=== PATIENT | male | born 1950 | race Two or more races ===

== ENCOUNTER → 2017-07-17 | Outpatient (CLI) | payer MEDICARE ==
[~2017-07-17] MED LIST: ASPI-482 PO; ATORVASTATIN CA80 MG PO; CLOP75TA PO; LISI2.5T PO; METF500T4 PO; METO50TA6 PO; TAMS0.4C2 PO
--- NOTE | 2017-07-17 15:58 | RAD ---
Bilateral renal ultrasound without comparison for chronic renal disease. Technique and findings: Real-time grayscale and color Doppler evaluation of the kidneys and urinary bladder is performed. The right kidney measures 11.7 x 5.5 x 5.8 cm and the left measures 12.3 x 5.5 x 6.0 cm. No hydronephrosis or focal parenchymal abnormality involving either kidney. The urinary bladder is partially distended but otherwise unremarkable. Postvoid residual is 71 cc. The prostate is markedly enlarged measuring 5.9 x 6.2 x 5.5 cm. Impression: 1. No sonographically discernible renal abnormality. 2. Marked prostatomegaly. 3. Abnormal post void residual.
== END | disposition home or self-care (01) ==
LOC: US 14:06
PROVIDERS: ATTEND Family Medicine
DX: N18.9 Chronic kidney disease, unspecified (principal); N40.0 Benign prostatic hyperplasia without lower urinary tract symptoms
CPT/HCPCS: 76770

== ENCOUNTER → 2018-10-27 | Outpatient (CLI) | payer MEDICARE ==
[2018-02-12 11:00] VITALS: BP 172/82
[~2018-10-27] MED LIST changes: +AMOX1TAB61 PO; +FINA5TAB4 PO; +FURO-68 PO; +GLIM4TAB2 PO; +INSU100I11 SQ; +INSU100I13 SQ; +ISOS30TA4 PO; +LISI10TA2 PO; +METF500T16 PO; -METF500T4 PO; +METO-239 PO; +TAMS0.4C97 PO; +TICA90TA PO
--- NOTE | 2018-10-27 12:20 | RAD ---
CT HEAD WITHOUT CONTRAST 10/27/2018 12:00 PM Indication: Transient ischemic attack Comparison: None available Procedure: Multidetector CT imaging of the head was performed without the administration of contrast. Findings: There is no evidence of acute intracranial hemorrhage. There is no evidence of acute territorial infarction. Please note that CT is limited for evaluation of acute ischemia. There is clinical concern for ischemia persists consider MRI evaluation. Patchy periventricular deep white matter hypoattenuation is seen most likely reflecting chronic small vessel disease. No mass effect or midline shift is identified . Mineralization involving the basal ganglia noted bilaterally. The ventricles and basilar cisterns have an appropriate appearance. No abnormal extra-axial fluid collections are seen. No acute osseous changes are identified. Impression: 1.No evidence of acute intracranial abnormality 2. Patchy periventricular and deep white matter hypoattenuation most likely reflecting chronic small vessel disease CT DOSING PQRS STATEMENT: One or more of the following individualized dose reduction techniques were utilized for this examination: 1. Automated exposure control 2. Adjustment of the mA and/or kV according to patient size 3. Use of iterative reconstruction technique Electronically signed by: Vel Simon MD (10/27/2018 12:17 PM) [id number]
== END | disposition home or self-care (01) ==
LOC: CT 11:38
PROVIDERS: ATTEND Family Medicine
DX: G23.8 Other specified degenerative diseases of basal ganglia (principal); G45.9 Transient cerebral ischemic attack, unspecified
CPT/HCPCS: 70450

== ENCOUNTER 2018-11-21 15:21 | Inpatient (IN) | payer MEDICARE ==
[~2018-11-21] VITALS: Ht 170.2 cm; Wt 80.9 kg
[~2018-11-21 15:21] MED LIST changes: -FINA5TAB4 PO; -FURO-68 PO; -GLIM4TAB2 PO; -ISOS30TA4 PO; -METO-239 PO; -TAMS0.4C97 PO; -TICA90TA PO
[2018-11-21] MEDS ORDERED: FUROSEMIDE 40 MG/4 ML VIAL. IVP ONE (15:45)
[2018-11-21 16:04] LABS: BASO % 1 % (0-3); EOS # 0.1 x10^3/uL (0.0-0.7); EOS % 1 % (0-3); HEMATOCRIT 29.2 % (39.0-53.0); LYMPH # 0.9 x10^3/uL (1.0-4.8); LYMPH % 13 % (24-48); MEAN CORPUSCULAR HEMOGLOBIN 32 pg (25-35); MEAN CORPUSCULAR HGB CONC 34 g/dL (31-37); MEAN CORPUSCULAR VOLUME 93 fL (79-100); MONO # 0.5 x10^3/uL (0.0-1.1); MONO % 8 % (0-9); NEUT # 5.2 x10^3uL (1.8-7.7); NEUT % 78 % (31-73); PLATELET COUNT 246 x10^3/uL (140-400); RED BLOOD COUNT 3.13 x10^6/uL (4.30-5.70); RED CELL DISTRIBUTION WIDTH 13.3 % (11.5-14.5); WHITE BLOOD COUNT 6.6 x10^3/uL (4.0-11.0)
[2018-11-21 16:19] LABS: CALCIUM 8.8 mg/dL (8.5-10.1); CREATININE 1.9 mg/dL (0.7-1.3); GFR 35.3; POTASSIUM 4.7 mmol/L (3.5-5.1)
--- NOTE | 2018-11-21 16:21 | EKG ---
[facility] [address] [place] [address] Test Date: 2018-11-21 Test Time: 15:54:10 Pat Name: CRAIG MENCHACA Department: Room: Gender: M Director Of Payroll: : 1950 Requested By: NIKOLAY BELLE Order Number: [id number] Reading MD: Lalo Carr MD Measurements Intervals [place] Rate: 103 P: 0 NE: 124 QRS: 30 QRSD: 98 T: 169 QT: 360 QTc: 474 Interpretive Statements SINUS TACHYCARDIA LOW LIMB LEAD VOLTAGE ST & T ABNORMALITY, CONSIDER ANTEROLATERAL ISCHEMIA OR LEFT VENTRICULAR STRAIN ABNORMAL ECG Electronically Signed On 11-25-2018 14:04:38 CDT by Lalo Carr MD
[2018-11-21 16:25] LABS: ALBUMIN 3.4 g/dL (3.4-5.0); MAGNESIUM 1.9 mg/dL (1.8-2.4); TOTAL BILIRUBIN 0.5 mg/dL (0.2-1.0); TOTAL PROTEIN 6.8 g/dL (6.4-8.2)
--- NOTE | 2018-11-21 17:01 | RAD ---
Portable chest, 11/21/2018: HISTORY: Dyspnea, chest pain There are moderate infiltrates in the lower chest bilaterally. These partially obscure the hemidiaphragms and the heart borders. The heart is at the upper limits of normal in size. The pulmonary vascularity appears congested. There may be pleural fluid contributing to the basilar opacities. IMPRESSION: Moderate bibasilar infiltrates suggesting pulmonary edema. Pneumonia is less likely. Electronically signed by: Torrey Benitez MD (11/21/2018 4:58 PM) [facility]
--- NOTE | 2018-11-21 17:18 | PHYS DOC ---
Past Medical History Past Medical History: CAD, Diabetes-Type II, Hypertension Past Surgical History: No Surgical History Alcohol Use: Rarely Drug Use: None Adult General Chief Complaint Chief Complaint: SHORTNESS OF BREATH HPI HPI Patient is a 68-year-old male who presents with complaint of cough and shortness of breath with some chest discomfort that has been present for the last few days. Patient states shortness of breath is worsened with minimal exertion and he also complains of orthopnea. Patient was being seen by Dr. Marti who had sent patient to the emergency room for further evaluation. Patient denies any chest pain at this time. He states that typically the chest discomfort occurs more at night when he is going to bed. He denies any nausea, vomiting or diaphoresis. He states that he has to sleep on several pillows at night. Patient also reports to a significant amount of swelling to his lower legs that has been going on for quite some time now. Review of Systems Review of Systems Constitutional: Denies fever or chills [] Respiratory: Positive cough and shortness of breath [] Cardiovascular: No additional information not addressed in HPI [] GI: Denies abdominal pain, nausea, vomiting or diarrhea [] Integument: Denies rash or skin lesions [] Neurologic: Denies headache, focal weakness or sensory changes [] All other systems were reviewed and found to be within normal limits, except as documented in this note. Current Medications Current Medications Current Medications Medications (Trade) Dose Ordered Sig/Sathish Start Time Stop Time Status Last Admin Dose Admin Furosemide (Lasix) 60 mg 1X ONCE 11/21/18 15:45 11/21/18 15:49 DC 11/21/18 16:34 60 MG Heparin Sodium (Porcine) (Heparin Sodium) 1,850 unit PRN Q6HRS PRN 11/21/18 17:30 UNV Heparin Sodium/ Dextrose 500 ml @ 0 mls/hr CONT PRN 11/21/18 17:30 UNV Insulin Human Regular (HumuLIN R VIAL) 5 unit 1X ONCE 11/21/18 17:30 11/21/18 17:31 Allergies Allergies Allergies Coded Allergies Type Severity Reaction Last Updated Verified No Known Drug Allergies 02/10/18 No Physical Exam Physical Exam Constitutional: Well developed, well nourished, no acute distress, non-toxic appearance. [] HENT: Normocephalic, atraumatic, bilateral external ears normal, oropharynx moist, no oral exudates, nose normal. [] Eyes: PERRLA, EOMI, conjunctiva normal, no discharge. [] Neck: Normal range of motion, no tenderness, supple, no stridor. [] Cardiovascular: Regular rate and rhythm[] Lungs & Thorax: Rales are noted in the lung bases to auscultation [] Abdomen: Bowel sounds normal, soft, no tenderness. [] Skin: Warm, dry, no erythema, no rash. [] Extremities: No tenderness, no cyanosis, no clubbing, ROM intact, with bilateral lower extremity 3+ pitting edema. [] Neurologic: Alert and oriented X 3, no focal deficits noted. [] Current Patient Data Vital Signs Vital Signs Date Time Temp Pulse Resp B/P (MAP) Pulse Ox O2 Delivery O2 Flow Rate FiO2 11/21/18 16:42 96 16 140/81 (100) 96 Nasal Cannula 2.0 11/21/18 15:45 98.3 98.3 Lab Values Laboratory Tests Test 11/21/18 16:00 White Blood Count 6.6 x10^3/uL (4.0-11.0) Red Blood Count 3.13 x10^6/uL (4.30-5.70) L Hemoglobin 10.0 g/dL (13.0-17.5) L Hematocrit 29.2 % (39.0-53.0) L Mean Corpuscular Volume 93 fL (79-100) Mean Corpuscular Hemoglobin 32 pg (25-35) Mean Corpuscular Hemoglobin Concent 34 g/dL (31-37) Red Cell Distribution Width 13.3 % (11.5-14.5) Platelet Count 246 x10^3/uL (140-400) Neutrophils (%) (Auto) 78 % (31-73) H Lymphocytes (%) (Auto) 13 % (24-48) L Monocytes (%) (Auto) 8 % (0-9) Eosinophils (%) (Auto) 1 % (0-3) Basophils (%) (Auto) 1 % (0-3) Neutrophils # (Auto) 5.2 x10^3uL (1.8-7.7) Lymphocytes # (Auto) 0.9 x10^3/uL (1.0-4.8) L Monocytes # (Auto) 0.5 x10^3/uL (0.0-1.1) Eosinophils # (Auto) 0.1 x10^3/uL (0.0-0.7) Basophils # (Auto) 0.0 x10^3/uL (0.0-0.2) Sodium Level 139 mmol/L (136-145) Potassium Level 4.7 mmol/L (3.5-5.1) Chloride Level 102 mmol/L (98-107) Carbon Dioxide Level 22 mmol/L (21-32) Anion Gap 15 (6-14) H Blood Urea Nitrogen 40 mg/dL (8-26) H Creatinine 1.9 mg/dL (0.7-1.3) H Estimated GFR (Cockcroft-Gault) 35.3 BUN/Creatinine Ratio 21 (6-20) H Glucose Level 302 mg/dL (70-99) H Calcium Level 8.8 mg/dL (8.5-10.1) Magnesium Level 1.9 mg/dL (1.8-2.4) Total Bilirubin 0.5 mg/dL (0.2-1.0) Aspartate Amino Transferase (AST) 17 U/L (15-37) Alanine Aminotransferase (ALT) 27 U/L (16-63) Alkaline Phosphatase 120 U/L (46-116) H Troponin I Quantitative 0.107 ng/mL (0.000-0.055) UU-Rho-I-Type Natriuretic Peptide 36940 pg/mL (0-124) H Total Protein 6.8 g/dL (6.4-8.2) Albumin 3.4 g/dL (3.4-5.0) Albumin/Globulin Ratio 1.0 (1.0-1.7) Laboratory Tests 11/21/18 16:00 Laboratory Tests 11/21/18 16:00 EKG EKG [] Interpretation Time: EKG demonstrates sinus tachycardia with rate of 103. Radiology/Procedures Radiology/Procedures [] Impressions: PROCEDURE: PORTABLE CHEST 1V Portable chest, 11/21/2018: HISTORY: Dyspnea, chest pain There are moderate infiltrates in the lower chest bilaterally. These partially obscure the hemidiaphragms and the heart borders. The heart is at the upper limits of normal in size. The pulmonary vascularity appears congested. There may be pleural fluid contributing to the basilar opacities. IMPRESSION: Moderate bibasilar infiltrates suggesting pulmonary edema. Pneumonia is less likely. Electronically signed by: Torrey Benitez MD (11/21/2018 4:58 PM) [facility] Course & Med Decision Making Course & Med Decision Making Pertinent Labs and Imaging studies reviewed. (See chart for details) [] Dragon Disclaimer Dragon Disclaimer This electronic medical record was generated, in whole or in part, using a voice recognition dictation system. Departure Departure Impression: Primary Impression: CHF (congestive heart failure) Additional Impressions: Sywxp-qs-mirfims kidney injury Chest pain Disposition: ADMITTED INPATIENT Admitting Physician: Edward Braun Condition: IMPROVED Referrals: EDWARD BRAUN MD (PCP) Problem Qualifiers Primary Impression: CHF (congestive heart failure) Heart failure type: unspecified Heart failure chronicity: unspecified Qualified Codes: I50.9 - Heart failure, unspecified Additional Impressions: [id number]-bt-myxsgon kidney injury Acute renal failure type: unspecified Chronic kidney disease stage: unspecified stage Qualified Codes: N17.9 - Acute kidney failure, unspecified; N18.9 - Chronic kidney disease, unspecified Chest pain Chest pain type: unspecified Qualified Codes: R07.9 - Chest pain, unspecified NIKOLAY BELLE Jr. DO November 21, 2018 17:18
[2018-11-21] MEDS ORDERED: INSULIN REGULAR 100 UNIT/ML 3ML VIAL. IV ONE (17:30)
[2018-11-21] MEDS ORDERED: HEPARIN for IV BOLUS 10,000 UNIT/10 ML VIAL. IV ONE (17:30)
[2018-11-21] MEDS ORDERED: ACETAMINOPHEN 325 MG TABLET. PO PRN (17:30)
[2018-11-21] MEDS ORDERED: MORPHINE SULFATE 2 MG/ML VIAL. IV PRN (17:30)
[2018-11-21] MEDS ORDERED: HEPARIN for IV BOLUS 10,000 UNIT/10 ML VIAL. IV PRN (17:30)
[2018-11-21] MEDS ORDERED: ONDANSETRON PF 4 MG/2 ML VIAL. IV PRN (17:30)
[2018-11-21] MEDS: HEPARIN 25,000UTS/500ML PREMIX 500 ML IV PRN (17:47)
[2018-11-21 22:00] VITALS: BP 153/83
[2018-11-21] MEDS ORDERED: METO-239 PO (23:23)
[2018-11-21] MEDS ORDERED: GLIM4TAB2 PO (23:23)
[2018-11-22 02:22] VITALS: BP 140/80
[2018-11-22] MEDS: ALPRAZolam 0.5 MG TABLET PO PRN ×2 (04:06→19:35)
--- NOTE | 2018-11-22 04:26 | NUR ---
Patient arrived to floor on 11/21/18 at 1915 accompanied ER nurse, son, and daughter in law. Vs stable, Assessment complete. Patient on 2L NC and resting comfortably. No reports of pain at this time. Patient speaks little south korean, family at bedside to translate. Valuables checked and documented. Oriented patient and family to unit. Call light with in reach, Bed in low locked position, Daughter Majo at bedside.
--- NOTE | 2018-11-22 05:43 | NUR ---
0340: bladder scanned patient 650cc, notified Dr. Braun - orders received to start and maintain Stoner cath. explained procedure to patient and daughter. 500 cc clear yellow urine out. pt tolerated procedure well. call light with in reach, bed in low, locked position. 0400: change in pt condition, pt complains of SOB, O2 sat 90%, turned O2 to 3 L. Bright red blood in stoner, irrigated with 20 cc sterile water, will continue to monitor patient output.
[2018-11-22 07:38] LABS: BASO % 1 % (0-3); EOS % 0 % (0-3); HEMATOCRIT 28.6 % (39.0-53.0); HEMOGLOBIN 9.5 g/dL (13.0-17.5); LYMPH # 0.6 x10^3/uL (1.0-4.8); LYMPH % 9 % (24-48); MEAN CORPUSCULAR HEMOGLOBIN 31 pg (25-35); MEAN CORPUSCULAR HGB CONC 33 g/dL (31-37); MEAN CORPUSCULAR VOLUME 93 fL (79-100); MONO # 0.4 x10^3/uL (0.0-1.1); MONO % 5 % (0-9); NEUT # 6.3 x10^3uL (1.8-7.7); NEUT % 85 % (31-73); PLATELET COUNT 228 x10^3/uL (140-400); RED BLOOD COUNT 3.06 x10^6/uL (4.30-5.70); RED CELL DISTRIBUTION WIDTH 13.7 % (11.5-14.5); WHITE BLOOD COUNT 7.4 x10^3/uL (4.0-11.0)
[2018-11-22 07:45] VITALS: BP 156/85
[2018-11-22 08:02] LABS: CALCIUM 8.3 mg/dL (8.5-10.1); CREATININE 1.8 mg/dL (0.7-1.3); GFR 37.6; POTASSIUM 4.6 mmol/L (3.5-5.1)
[2018-11-22] MEDS: ASPIRIN ENTERIC COATED 81 MG TABLET.DR. PO SCH (09:45)
[2018-11-22] MEDS: GLIMEPIRIDE 2 MG TABLET. PO SCH (09:45)
[2018-11-22] MEDS: CLOPIDOGREL BISULFATE 75 MG TABLET PO SCH (09:45)
[2018-11-22] MEDS: LISINOPRIL 10 MG TABLET PO SCH (09:47)
[2018-11-22] MEDS: METOPROLOL SUCC 24HR ER 25 MG TAB.ER.24H. PO SCH (09:50)
[2018-11-22] MEDS: ANTI-COAG MONITOR BY PHARMACY. MC PRN (10:37)
--- NOTE | 2018-11-22 10:44 | PDOC2 ---
UROLOGY CONSULT Date of Consult Date of Consult DATE: 11/22/18 TIME: 10:38 Reason for Consult Reason for Consult: urinary retention, gross hematuria Identification/Chief Complaint Chief Complaint shortness of breath Source Source: Caregiver, Chart review, Patient History of Present Illness Reason for Visit: 68 yo male admitted for shortness of breath. Cardiac workup underway. Not able to pass urine and stoner placed with return of 600 ml yellow urine. Then developed gross hematuria. He denies prior difficulty with urination. Also no prior gross hematuria. Discharge summary from 2018 showed that he was on flomax, but he is not sure if he is still taking that medication. Family also unsure. History obtained through family and with family assisting with translating per patient's preference. Past Medical History Cardiovascular: CAD, HTN Endocrine: Diabetes Current Medications Current Medications Current Medications Acetaminophen (Tylenol) 650 mg PRN Q4HRS PRN PO FEVER; Start 11/21/18 at 17:30; Stop 11/22/18 at 17:29 Alprazolam (Xanax) 0.5 mg PRN Q6HRS PRN PO ANXIETY / AGITATION Last administered on 11/22/18at 04:06; Start 11/22/18 at 03:30 Aspirin (Ecotrin) 81 mg DAILY PO Last administered on 11/22/18at 09:45; Start 11/22/18 at 09:00 Atorvastatin Calcium (Lipitor) 80 mg QHS PO ; Start 11/22/18 at 21:00 Clopidogrel Bisulfate (Plavix) 75 mg DAILY PO Last administered on 11/22/18at 09:45; Start 11/22/18 at 09:00 Furosemide (Lasix) 60 mg 1X ONCE IVP Last administered on 11/21/18at 16:34; Start 11/21/18 at 15:45; Stop 11/21/18 at 15:49; Status DC Glimepiride (Amaryl) 4 mg DAILY PO Last administered on 11/22/18at 09:45; Start 11/22/18 at 09:00 Heparin Sodium (Porcine) (Heparin Sodium) 1,850 unit PRN Q6HRS PRN IV FOR UFH LEVEL LESS THAN 0.2 Last administered on 11/22/18at 01:30; Start 11/21/18 at 17:30 Heparin Sodium (Porcine) (Heparin Sodium) 4,000 unit 1X ONCE IV Last administered on 11/21/18at 17:46; Start 11/21/18 at 17:30; Stop 11/21/18 at 17:31; Status DC Heparin Sodium/ Dextrose 500 ml @ 17.6 mls/hr CONT PRN IV SEE I/O RECORD Last administered on 11/21/18at 17:47; Start 11/21/18 at 17:30 Info (Anti-Coagulation Monitoring By Pharmacy) 1 each PRN DAILY PRN MC SEE COMMENTS; Start 11/22/18 at 10:45 Insulin Glargine (Lantus) 30 units QHS SQ ; Start 11/22/18 at 21:00 Insulin Human Lispro (HumaLOG) 8 units TIDAC SQ ; Start 11/22/18 at 11:30 Insulin Human Regular (HumuLIN R VIAL) 5 unit 1X ONCE IV Last administered on 11/21/18at 17:50; Start 11/21/18 at 17:30; Stop 11/21/18 at 17:31; Status DC Lisinopril (Prinivil) 10 mg DAILY PO Last administered on 11/22/18at 09:47; Start 11/22/18 at 09:00 Metoprolol Succinate (Toprol Xl) 25 mg DAILY PO Last administered on 11/22/18at 09:50; Start 11/22/18 at 09:00 Morphine Sulfate (Morphine Sulfate) 2 mg PRN Q2HR PRN IV PAIN; Start 11/21/18 at 17:30; Stop 11/22/18 at 17:29 Ondansetron HCl (Zofran) 4 mg PRN Q8HRS PRN IV NAUSEA/VOMITING; Start 11/21/18 at 17:30; Stop 11/22/18 at 17:29 Allergies Allergies: Coded Allergies: No Known Drug Allergies (Unverified , 02/10/18) ROS Review Of Systems: ROS as below unless otherwise specified in HPI: CONSTITUTIONAL: No fever or chills EYES: No recent changes SKIN: No rash or itching CARDIOVASCULAR: No chest pain, syncope, palpitations, or edema RESPIRATORY: + SOB GASTROINTESTINAL: No nausea, vomiting or abdominal pain NEUROLOGICAL: No headaches or weakness ENDOCRINE: No cold or heat intolerance GENITOURINARY: No urgency or frequency of urination MUSCULOSKELETAL: No back pain or joint pain LYMPHATICS: No enlarged lymph nodes PSYCHIATRIC: No anxiety or depression Physical Exam Physical Exam: General: Pleasant, no acute distress, well groomed Eyes: conjunctiva anicteric, eyes full range of motion ENT: moist oral mucosa, normal dentition Neck: Trachea midline, no masses Respiratory: unlabored breathing, not using accessory muscles, no crackles or wheezes Cardiovascular: Regular rate and rhythm, no peripheral edema Abdomen: nontender, nondistended, no hepatosplenomegaly, no masses Skin: no rashes or skin lesions on visualized skin Psych: normal mood, affect. Alert and oriented x 3. : red urine in stoner without clots. Stoner in appropriate positiov with balloon in bladder. Catheter irrigated with return of light pink clear urine, no clots. Vitals VITALS Vital Signs Date Time Temp Pulse Resp B/P (MAP) Pulse Ox O2 Delivery O2 Flow Rate FiO2 11/22/18 09:50 101 167/83 11/22/18 07:45 98.0 24 95 Nasal Cannula 3.0 98.0 Labs Labs Laboratory Tests Test 11/21/18 16:00 11/21/18 20:36 11/22/18 00:05 11/22/18 04:52 White Blood Count 6.6 x10^3/uL (4.0-11.0) Red Blood Count 3.13 x10^6/uL (4.30-5.70) Hemoglobin 10.0 g/dL (13.0-17.5) Hematocrit 29.2 % (39.0-53.0) Mean Corpuscular Volume 93 fL (79-100) Mean Corpuscular Hemoglobin 32 pg (25-35) Mean Corpuscular Hemoglobin Concent 34 g/dL (31-37) Red Cell Distribution Width 13.3 % (11.5-14.5) Platelet Count 246 x10^3/uL (140-400) Neutrophils (%) (Auto) 78 % (31-73) Lymphocytes (%) (Auto) 13 % (24-48) Monocytes (%) (Auto) 8 % (0-9) Eosinophils (%) (Auto) 1 % (0-3) Basophils (%) (Auto) 1 % (0-3) Neutrophils # (Auto) 5.2 x10^3uL (1.8-7.7) Lymphocytes # (Auto) 0.9 x10^3/uL (1.0-4.8) Monocytes # (Auto) 0.5 x10^3/uL (0.0-1.1) Eosinophils # (Auto) 0.1 x10^3/uL (0.0-0.7) Basophils # (Auto) 0.0 x10^3/uL (0.0-0.2) Sodium Level 139 mmol/L (136-145) Potassium Level 4.7 mmol/L (3.5-5.1) Chloride Level 102 mmol/L (98-107) Carbon Dioxide Level 22 mmol/L (21-32) Anion Gap 15 (6-14) Blood Urea Nitrogen 40 mg/dL (8-26) Creatinine 1.9 mg/dL (0.7-1.3) Estimated GFR (Cockcroft-Gault) 35.3 BUN/Creatinine Ratio 21 (6-20) Glucose Level 302 mg/dL (70-99) Calcium Level 8.8 mg/dL (8.5-10.1) Magnesium Level 1.9 mg/dL (1.8-2.4) Total Bilirubin 0.5 mg/dL (0.2-1.0) Aspartate Amino Transf (AST/SGOT) 17 U/L (15-37) Alanine Aminotransferase (ALT/SGPT) 27 U/L (16-63) Alkaline Phosphatase 120 U/L (46-116) Troponin I Quantitative 0.107 ng/mL (0.000-0.055) 0.142 ng/mL (0.000-0.055) 0.157 ng/mL (0.000-0.055) PW-Hkt-N-Type Natriuretic Peptide 85268 pg/mL (0-124) Total Protein 6.8 g/dL (6.4-8.2) Albumin 3.4 g/dL (3.4-5.0) Albumin/Globulin Ratio 1.0 (1.0-1.7) Heparin Anti-Xa Act, Unfractionated 0.19 IU/mL (0.30-0.70) Glucose (Fingerstick) 241 mg/dL (70-99) Test 11/22/18 07:30 11/22/18 07:51 White Blood Count 7.4 x10^3/uL (4.0-11.0) Red Blood Count 3.06 x10^6/uL (4.30-5.70) Hemoglobin 9.5 g/dL (13.0-17.5) Hematocrit 28.6 % (39.0-53.0) Mean Corpuscular Volume 93 fL (79-100) Mean Corpuscular Hemoglobin 31 pg (25-35) Mean Corpuscular Hemoglobin Concent 33 g/dL (31-37) Red Cell Distribution Width 13.7 % (11.5-14.5) Platelet Count 228 x10^3/uL (140-400) Neutrophils (%) (Auto) 85 % (31-73) Lymphocytes (%) (Auto) 9 % (24-48) Monocytes (%) (Auto) 5 % (0-9) Eosinophils (%) (Auto) 0 % (0-3) Basophils (%) (Auto) 1 % (0-3) Neutrophils # (Auto) 6.3 x10^3uL (1.8-7.7) Lymphocytes # (Auto) 0.6 x10^3/uL (1.0-4.8) Monocytes # (Auto) 0.4 x10^3/uL (0.0-1.1) Eosinophils # (Auto) 0.0 x10^3/uL (0.0-0.7) Basophils # (Auto) 0.0 x10^3/uL (0.0-0.2) Heparin Anti-Xa Act, Unfractionated 0.34 IU/mL (0.30-0.70) Sodium Level 139 mmol/L (136-145) Potassium Level 4.6 mmol/L (3.5-5.1) Chloride Level 102 mmol/L (98-107) Carbon Dioxide Level 24 mmol/L (21-32) Anion Gap 13 (6-14) Blood Urea Nitrogen 36 mg/dL (8-26) Creatinine 1.8 mg/dL (0.7-1.3) Estimated GFR (Cockcroft-Gault) 37.6 Glucose Level 278 mg/dL (70-99) Calcium Level 8.3 mg/dL (8.5-10.1) Glucose (Fingerstick) 224 mg/dL (70-99) Laboratory Tests Test 11/21/18 16:00 11/21/18 20:36 11/22/18 00:05 11/22/18 04:52 White Blood Count 6.6 x10^3/uL (4.0-11.0) Red Blood Count 3.13 x10^6/uL (4.30-5.70) Hemoglobin 10.0 g/dL (13.0-17.5) Hematocrit 29.2 % (39.0-53.0) Mean Corpuscular Volume 93 fL (79-100) Mean Corpuscular Hemoglobin 32 pg (25-35) Mean Corpuscular Hemoglobin Concent 34 g/dL (31-37) Red Cell Distribution Width 13.3 % (11.5-14.5) Platelet Count 246 x10^3/uL (140-400) Neutrophils (%) (Auto) 78 % (31-73) Lymphocytes (%) (Auto) 13 % (24-48) Monocytes (%) (Auto) 8 % (0-9) Eosinophils (%) (Auto) 1 % (0-3) Basophils (%) (Auto) 1 % (0-3) Neutrophils # (Auto) 5.2 x10^3uL (1.8-7.7) Lymphocytes # (Auto) 0.9 x10^3/uL (1.0-4.8) Monocytes # (Auto) 0.5 x10^3/uL (0.0-1.1) Eosinophils # (Auto) 0.1 x10^3/uL (0.0-0.7) Basophils # (Auto) 0.0 x10^3/uL (0.0-0.2) Sodium Level 139 mmol/L (136-145) Potassium Level 4.7 mmol/L (3.5-5.1) Chloride Level 102 mmol/L (98-107) Carbon Dioxide Level 22 mmol/L (21-32) Anion Gap 15 (6-14) Blood Urea Nitrogen 40 mg/dL (8-26) Creatinine 1.9 mg/dL (0.7-1.3) Estimated GFR (Cockcroft-Gault) 35.3 BUN/Creatinine Ratio 21 (6-20) Glucose Level 302 mg/dL (70-99) Calcium Level 8.8 mg/dL (8.5-10.1) Magnesium Level 1.9 mg/dL (1.8-2.4) Total Bilirubin 0.5 mg/dL (0.2-1.0) Aspartate Amino Transf (AST/SGOT) 17 U/L (15-37) Alanine Aminotransferase (ALT/SGPT) 27 U/L (16-63) Alkaline Phosphatase 120 U/L (46-116) Troponin I Quantitative 0.107 ng/mL (0.000-0.055) 0.142 ng/mL (0.000-0.055) 0.157 ng/mL (0.000-0.055) WR-Zne-K-Type Natriuretic Peptide 12065 pg/mL (0-124) Total Protein 6.8 g/dL (6.4-8.2) Albumin 3.4 g/dL (3.4-5.0) Albumin/Globulin Ratio 1.0 (1.0-1.7) Heparin Anti-Xa Act, Unfractionated 0.19 IU/mL (0.30-0.70) Glucose (Fingerstick) 241 mg/dL (70-99) Test 11/22/18 07:30 11/22/18 07:51 White Blood Count 7.4 x10^3/uL (4.0-11.0) Red Blood Count 3.06 x10^6/uL (4.30-5.70) Hemoglobin 9.5 g/dL (13.0-17.5) Hematocrit 28.6 % (39.0-53.0) Mean Corpuscular Volume 93 fL (79-100) Mean Corpuscular Hemoglobin 31 pg (25-35) Mean Corpuscular Hemoglobin Concent 33 g/dL (31-37) Red Cell Distribution Width 13.7 % (11.5-14.5) Platelet Count 228 x10^3/uL (140-400) Neutrophils (%) (Auto) 85 % (31-73) Lymphocytes (%) (Auto) 9 % (24-48) Monocytes (%) (Auto) 5 % (0-9) Eosinophils (%) (Auto) 0 % (0-3) Basophils (%) (Auto) 1 % (0-3) Neutrophils # (Auto) 6.3 x10^3uL (1.8-7.7) Lymphocytes # (Auto) 0.6 x10^3/uL (1.0-4.8) Monocytes # (Auto) 0.4 x10^3/uL (0.0-1.1) Eosinophils # (Auto) 0.0 x10^3/uL (0.0-0.7) Basophils # (Auto) 0.0 x10^3/uL (0.0-0.2) Heparin Anti-Xa Act, Unfractionated 0.34 IU/mL (0.30-0.70) Sodium Level 139 mmol/L (136-145) Potassium Level 4.6 mmol/L (3.5-5.1) Chloride Level 102 mmol/L (98-107) Carbon Dioxide Level 24 mmol/L (21-32) Anion Gap 13 (6-14) Blood Urea Nitrogen 36 mg/dL (8-26) Creatinine 1.8 mg/dL (0.7-1.3) Estimated GFR (Cockcroft-Gault) 37.6 Glucose Level 278 mg/dL (70-99) Calcium Level 8.3 mg/dL (8.5-10.1) Glucose (Fingerstick) 224 mg/dL (70-99) Assessment/Plan Assessment/Plan Hematuria minimal, should resolve on its own soon. Probably due to traumatic catheter placement. Ok to continue heparin. I do recommend eventual cystoscopy in urology clinic to rule out bladder pathology. Check UA to eval for infection. Start Flomax for retention / BPH. Voiding trial in a few days when acute issues have resolved. LAZ IGNACIO MD November 22, 2018 10:44
--- NOTE | 2018-11-22 11:27 | HP ---
ADMIT DATE: 11/21/2018 CHIEF COMPLAINT: Chest pain. HISTORY OF PRESENT ILLNESS AND HOSPITAL COURSE: This patient is a 68-year-old male with a long history of coronary artery disease, diabetes and hypertension, came to the office on acute care visit for cough, congestion, but was discovered to be having actual chest pain and shortness of breath. EKG showed ST segment changes in V3 and V4 compared to previous EKG approximately one month ago. Due to these findings, the patient was instructed to go directly to the Emergency Room for further evaluation. During evaluation, he was found to have evidence of congestive heart failure and elevated troponin and a BNP of 16/16,000. The patient was also found to have acute on chronic renal failure with baseline creatinine of 1.5 up to 1.9 and hyperglycemia. Chest x-ray did confirm bilateral infiltrates suggestive of pulmonary edema. Due to these findings, the patient was admitted to the hospital for cardiac consultation and diuresis. During early hospitalization, it was discovered the patient was not urinating well and 600 mL of residual urine was noted in bladder, and Hicks was placed. After this, the patient did have some hematuria. PAST MEDICAL HISTORY: Significant for: 1. Type 2 diabetes, moderately out of control with last hemoglobin A1c of over 9. 2. Hypertension. 3. Hyperlipidemia with last screening cholesterol under 100. 4. Apparently the patient was treated in [place] for TIA. Had carotid dopplers only showing 50% blockage. Cardiac echo with EF of 40%. 5. Peripheral vascular disease status post amputation of toes on left foot. FAMILY HISTORY: Noncontributory. PAST SURGICAL HISTORY: The patient has had previous stent placements. The patient has also had medical care in [place], was recently seen with prescription for Xarelto, but no indication was found and this was discontinued in September. SOCIAL HISTORY: The patient has never smoked. He does not use alcohol. He lives with his daughter. REVIEW OF SYSTEMS: The patient was doing well until approximately 1 week ago and began having increasing shortness of breath and difficulty lying flat with chest pain. He denied nausea, vomiting, cough, congestion, or fever. The patient has only gained approximately 7 pounds since 02/2018 and 3 pounds since 09/2018. PHYSICAL EXAMINATION: GENERAL: This is a well-nourished, thin male, in no distress, on my exam. He is alert and oriented x 3. HEENT: Benign. NECK: Supple. CARDIAC: Regular rate and rhythm without murmur. LUNGS: Had coarse crackles in the bases, otherwise it has been clear. ABDOMEN: Soft, nontender. EXTREMITIES: 2+ pulses with 1 to 2+ pitting edema. NEUROLOGIC: Showed no unilateral findings. GENITOURINARY: Right inguinal hernia. ASSESSMENT: 1. Acute coronary syndrome with EKG changes and elevated troponin. 2. Acute on chronic congestive heart failure with elevated BNP and pulmonary edema on chest x-ray. 3. Acute on chronic renal failure with baseline creatinine of 1.5 up to 1.9. 4. Type 2 diabetes, out of control. 5. Hypertension. 6. Urinary retention with suspected BPH. 7. Hematuria. PLAN: 1. To proceed with cardiology evaluation. Start heparin. 2. Consult Urology for continued evaluation. BALWINDER MA MD DR: KEVIN/dari JOB#: [id number] / [id number]
[2018-11-22 11:36] VITALS: BP 156/87
[2018-11-22 12:08] LABS: % BANDS 7 % (0-9); % LYMPHS 6 % (24-48); % MONOS 4 % (0-10); % SEGS 83 % (35-66); ACANTHOCYTES FEW; BURR CELLS FEW; PLT ESTIMATE ADEQUATE (ADEQUATE); POIKILOCYTOSIS SLIGHT
[2018-11-22 12:09] LABS: OVALOCYTES FEW; SCHISTOCYTES OCC
[2018-11-22] MEDS: INSULIN LISPRO 300 UNITS/3 ML INSULN.PEN. SQ SCH ×2 (13:00→17:39)
--- NOTE | 2018-11-22 14:48 | PDOC2 ---
CONSULT Date of Consult Date of Consult DATE: 11/22/18 TIME: 14:39 Reason for Consult Reason for Consult: Chest pain, heart failure Referring Physician Referring Physician: Dr. Braun Identification/Chief Complaint Chief Complaint Shortness of breath Source Source: Chart review, Patient History of Present Illness Reason for Visit: The patient is a 68-year-old male who reports 3-5 days of increasing shortness of breath and occasional episodes of chest discomfort. He speaks [place] and his family is present for interpretation. He was transferred from his primary care physician's office for evaluation. Patient has had a chest x-ray that showed bilateral pulmonary edema. Lab testing has been significant for an elevated creatinine of 1.8 and minimally elevated troponins at a peak of 0.157. EKG shows mild lateral ST segment changes compared to baseline. He is also had episodes of some difficulty in urinating and a Hicks was placed with mild hematuria that is being evaluated by the urology service. At this time the patient reports feeling better. His chest pain by report has resolved. His shortness of breath is still present but improved. Past Medical History Cardiovascular: CAD, HTN, Hyperlipidemia, Other (peripheral arterial disease.) Endocrine: Diabetes Family History Family History: Heart Disease Social History No ALCOHOL: none Current Problem List Problem List Problems Medical Problems: (1) [id number] kidney injury Status: Acute (2) Chest pain Status: Acute (3) CHF (congestive heart failure) Status: Acute Current Medications Current Medications Current Medications Furosemide (Lasix) 60 mg 1X ONCE IVP Last administered on 11/21/18at 16:34; Start 11/21/18 at 15:45; Stop 11/21/18 at 15:49; Status DC Insulin Human Regular (HumuLIN R VIAL) 5 unit 1X ONCE IV Last administered on 11/21/18at 17:50; Start 11/21/18 at 17:30; Stop 11/21/18 at 17:31; Status DC Heparin Sodium (Porcine) (Heparin Sodium) 4,000 unit 1X ONCE IV Last administered on 11/21/18at 17:46; Start 11/21/18 at 17:30; Stop 11/21/18 at 17:31; Status DC Heparin Sodium/ Dextrose 500 ml @ 17.6 mls/hr CONT PRN IV SEE I/O RECORD Last administered on 11/21/18at 17:47; Start 11/21/18 at 17:30 Heparin Sodium (Porcine) (Heparin Sodium) 1,850 unit PRN Q6HRS PRN IV FOR UFH LEVEL LESS THAN 0.2 Last administered on 11/22/18at 01:30; Start 11/21/18 at 17:30 Ondansetron HCl (Zofran) 4 mg PRN Q8HRS PRN IV NAUSEA/VOMITING; Start 11/21/18 at 17:30; Stop 11/22/18 at 17:29 Morphine Sulfate (Morphine Sulfate) 2 mg PRN Q2HR PRN IV PAIN; Start 11/21/18 at 17:30; Stop 11/22/18 at 17:29 Acetaminophen (Tylenol) 650 mg PRN Q4HRS PRN PO FEVER; Start 11/21/18 at 17:30; Stop 11/22/18 at 17:29 Alprazolam (Xanax) 0.5 mg PRN Q6HRS PRN PO ANXIETY / AGITATION Last adminis tered on 11/22/18at 04:06; Start 11/22/18 at 03:30 Aspirin (Ecotrin) 81 mg DAILY PO Last administered on 11/22/18at 09:45; Start 11/22/18 at 09:00 Clopidogrel Bisulfate (Plavix) 75 mg DAILY PO Last administered on 11/22/18at 09:45; Start 11/22/18 at 09:00 Insulin Glargine (Lantus) 30 units QHS SQ ; Start 11/22/18 at 21:00 Insulin Human Lispro (HumaLOG) 8 units TIDAC SQ Last administered on 11/22/18at 13:00; Start 11/22/18 at 11:30 Lisinopril (Prinivil) 10 mg DAILY PO Last administered on 11/22/18at 09:47; Start 11/22/18 at 09:00 Metoprolol Succinate (Toprol Xl) 25 mg DAILY PO Last administered on 11/22/18at 09:50; Start 11/22/18 at 09:00 Atorvastatin Calcium (Lipitor) 80 mg QHS PO ; Start 11/22/18 at 21:00 Glimepiride (Amaryl) 4 mg DAILY PO Last administered on 11/22/18at 09:45; Start 11/22/18 at 09:00 Info (Anti-Coagulation Monitoring By Pharmacy) 1 each PRN DAILY PRN MC SEE COMMENTS Last administered on 11/22/18at 10:37; Start 11/22/18 at 10:45 Tamsulosin HCl (Flomax) 0.4 mg QHS PO ; Start 11/22/18 at 21:00 Active Scripts Active Humalog (Insulin Lispro) 100 Unit/1 Ml Insuln.pen 8 Units SQ TIDAC 90 Days Lantus Solostar (Insulin Glargine,Hum.rec.anlog) 100 Unit/1 Ml Insuln.pen 30 Units SQ QHS 30 Days Lisinopril 10 Mg Tablet 10 Mg PO DAILY 90 Days Reported Metoprolol Succinate ( Xl ) (Metoprolol Succinate) 25 Mg Tab.er.24h 25 Mg PO DAILY Glimepiride 4 Mg Tablet 4 Mg PO DAILY Clopidogrel (Clopidogrel Bisulfate) 75 Mg Tablet 1 Tab PO DAILY Aspir 81 (Aspirin) 81 Mg Tablet.dr 1 Tab PO DAILY Atorvastatin Calcium 80 Mg Tablet 1 Tab PO DAILY Metformin Hcl 500 Mg Tablet 1,000 Mg PO BID Allergies Allergies: Coded Allergies: No Known Drug Allergies (Unverified , 02/10/18) ROS Respiratory: YES: Shortness of breath, SOB with excertion Cardiovascular: yes Chest Pain, yes Orthopnea Physical Exam General: mild distress HEENT: Atraumatic Lungs: Other (decreased breath sounds) Heart: Regular rate Abdomen: Normal bowel sounds Vitals VITALS Vital Signs Date Time Temp Pulse Resp B/P (MAP) Pulse Ox O2 Delivery O2 Flow Rate FiO2 11/22/18 11:36 97.1 97 20 156/87 (110) 98 Nasal Cannula 3.0 97.1 Labs Labs Laboratory Tests Test 11/21/18 16:00 11/21/18 20:36 11/22/18 00:05 11/22/18 04:52 White Blood Count 6.6 x10^3/uL (4.0-11.0) Red Blood Count 3.13 x10^6/uL (4.30-5.70) Hemoglobin 10.0 g/dL (13.0-17.5) Hematocrit 29.2 % (39.0-53.0) Mean Corpuscular Volume 93 fL (79-100) Mean Corpuscular Hemoglobin 32 pg (25-35) Mean Corpuscular Hemoglobin Concent 34 g/dL (31-37) Red Cell Distribution Width 13.3 % (11.5-14.5) Platelet Count 246 x10^3/uL (140-400) Neutrophils (%) (Auto) 78 % (31-73) Lymphocytes (%) (Auto) 13 % (24-48) Monocytes (%) (Auto) 8 % (0-9) Eosinophils (%) (Auto) 1 % (0-3) Basophils (%) (Auto) 1 % (0-3) Neutrophils # (Auto) 5.2 x10^3uL (1.8-7.7) Lymphocytes # (Auto) 0.9 x10^3/uL (1.0-4.8) Monocytes # (Auto) 0.5 x10^3/uL (0.0-1.1) Eosinophils # (Auto) 0.1 x10^3/uL (0.0-0.7) Basophils # (Auto) 0.0 x10^3/uL (0.0-0.2) Sodium Level 139 mmol/L (136-145) Potassium Level 4.7 mmol/L (3.5-5.1) Chloride Level 102 mmol/L (98-107) Carbon Dioxide Level 22 mmol/L (21-32) Anion Gap 15 (6-14) Blood Urea Nitrogen 40 mg/dL (8-26) Creatinine 1.9 mg/dL (0.7-1.3) Estimated GFR (Cockcroft-Gault) 35.3 BUN/Creatinine Ratio 21 (6-20) Glucose Level 302 mg/dL (70-99) Calcium Level 8.8 mg/dL (8.5-10.1) Magnesium Level 1.9 mg/dL (1.8-2.4) Total Bilirubin 0.5 mg/dL (0.2-1.0) Aspartate Amino Transf (AST/SGOT) 17 U/L (15-37) Alanine Aminotransferase (ALT/SGPT) 27 U/L (16-63) Alkaline Phosphatase 120 U/L (46-116) Troponin I Quantitative 0.107 ng/mL (0.000-0.055) 0.142 ng/mL (0.000-0.055) 0.157 ng/mL (0.000-0.055) AM-Ext-M-Type Natriuretic Peptide 12310 pg/mL (0-124) Total Protein 6.8 g/dL (6.4-8.2) Albumin 3.4 g/dL (3.4-5.0) Albumin/Globulin Ratio 1.0 (1.0-1.7) Heparin Anti-Xa Act, Unfractionated 0.19 IU/mL (0.30-0.70) Glucose (Fingerstick) 241 mg/dL (70-99) Test 11/22/18 07:30 11/22/18 07:51 11/22/18 11:30 11/22/18 12:53 White Blood Count 7.4 x10^3/uL (4.0-11.0) Red Blood Count 3.06 x10^6/uL (4.30-5.70) Hemoglobin 9.5 g/dL (13.0-17.5) Hematocrit 28.6 % (39.0-53.0) Mean Corpuscular Volume 93 fL (79-100) Mean Corpuscular Hemoglobin 31 pg (25-35) Mean Corpuscular Hemoglobin Concent 33 g/dL (31-37) Red Cell Distribution Width 13.7 % (11.5-14.5) Platelet Count 228 x10^3/uL (140-400) Neutrophils (%) (Auto) 85 % (31-73) Lymphocytes (%) (Auto) 9 % (24-48) Monocytes (%) (Auto) 5 % (0-9) Eosinophils (%) (Auto) 0 % (0-3) Basophils (%) (Auto) 1 % (0-3) Neutrophils # (Auto) 6.3 x10^3uL (1.8-7.7) Lymphocytes # (Auto) 0.6 x10^3/uL (1.0-4.8) Monocytes # (Auto) 0.4 x10^3/uL (0.0-1.1) Eosinophils # (Auto) 0.0 x10^3/uL (0.0-0.7) Basophils # (Auto) 0.0 x10^3/uL (0.0-0.2) Segmented Neutrophils % 83 % (35-66) Band Neutrophils % 7 % (0-9) Lymphocytes % 6 % (24-48) Monocytes % 4 % (0-10) Platelet Estimate Adequate (ADEQUATE) Poikilocytosis Slight Ovalocytes Few [place] Cells Few Acanthocytes Few Schistocytes Occ Heparin Anti-Xa Act, Unfractionated 0.34 IU/mL (0.30-0.70) Sodium Level 139 mmol/L (136-145) Potassium Level 4.6 mmol/L (3.5-5.1) Chloride Level 102 mmol/L (98-107) Carbon Dioxide Level 24 mmol/L (21-32) Anion Gap 13 (6-14) Blood Urea Nitrogen 36 mg/dL (8-26) Creatinine 1.8 mg/dL (0.7-1.3) Estimated GFR (Cockcroft-Gault) 37.6 Glucose Level 278 mg/dL (70-99) Calcium Level 8.3 mg/dL (8.5-10.1) Glucose (Fingerstick) 224 mg/dL (70-99) 313 mg/dL (70-99) 368 mg/dL (70-99) Test 11/22/18 14:00 Heparin Anti-Xa Act, Unfractionated 0.30 IU/mL (0.30-0.70) Laboratory Tests Test 11/21/18 16:00 11/21/18 20:36 11/22/18 00:05 11/22/18 04:52 White Blood Count 6.6 x10^3/uL (4.0-11.0) Red Blood Count 3.13 x10^6/uL (4.30-5.70) Hemoglobin 10.0 g/dL (13.0-17.5) Hematocrit 29.2 % (39.0-53.0) Mean Corpuscular Volume 93 fL (79-100) Mean Corpuscular Hemoglobin 32 pg (25-35) Mean Corpuscular Hemoglobin Concent 34 g/dL (31-37) Red Cell Distribution Width 13.3 % (11.5-14.5) Platelet Count 246 x10^3/uL (140-400) Neutrophils (%) (Auto) 78 % (31-73) Lymphocytes (%) (Auto) 13 % (24-48) Monocytes (%) (Auto) 8 % (0-9) Eosinophils (%) (Auto) 1 % (0-3) Basophils (%) (Auto) 1 % (0-3) Neutrophils # (Auto) 5.2 x10^3uL (1.8-7.7) Lymphocytes # (Auto) 0.9 x10^3/uL (1.0-4.8) Monocytes # (Auto) 0.5 x10^3/uL (0.0-1.1) Eosinophils # (Auto) 0.1 x10^3/uL (0.0-0.7) Basophils # (Auto) 0.0 x10^3/uL (0.0-0.2) Sodium Level 139 mmol/L (136-145) Potassium Level 4.7 mmol/L (3.5-5.1) Chloride Level 102 mmol/L (98-107) Carbon Dioxide Level 22 mmol/L (21-32) Anion Gap 15 (6-14) Blood Urea Nitrogen 40 mg/dL (8-26) Creatinine 1.9 mg/dL (0.7-1.3) Estimated GFR (Cockcroft-Gault) 35.3 BUN/Creatinine Ratio 21 (6-20) Glucose Level 302 mg/dL (70-99) Calcium Level 8.8 mg/dL (8.5-10.1) Magnesium Level 1.9 mg/dL (1.8-2.4) Total Bilirubin 0.5 mg/dL (0.2-1.0) Aspartate Amino Transf (AST/SGOT) 17 U/L (15-37) Alanine Aminotransferase (ALT/SGPT) 27 U/L (16-63) Alkaline Phosphatase 120 U/L (46-116) Troponin I Quantitative 0.107 ng/mL (0.000-0.055) 0.142 ng/mL (0.000-0.055) 0.157 ng/mL (0.000-0.055) XT-Ghf-M-Type Natriuretic Peptide 46274 pg/mL (0-124) Total Protein 6.8 g/dL (6.4-8.2) Albumin 3.4 g/dL (3.4-5.0) Albumin/Globulin Ratio 1.0 (1.0-1.7) Heparin Anti-Xa Act, Unfractionated 0.19 IU/mL (0.30-0.70) Glucose (Fingerstick) 241 mg/dL (70-99) Test 11/22/18 07:30 11/22/18 07:51 11/22/18 11:30 11/22/18 12:53 White Blood Count 7.4 x10^3/uL (4.0-11.0) Red Blood Count 3.06 x10^6/uL (4.30-5.70) Hemoglobin 9.5 g/dL (13.0-17.5) Hematocrit 28.6 % (39.0-53.0) Mean Corpuscular Volume 93 fL (79-100) Mean Corpuscular Hemoglobin 31 pg (25-35) Mean Corpuscular Hemoglobin Concent 33 g/dL (31-37) Red Cell Distribution Width 13.7 % (11.5-14.5) Platelet Count 228 x10^3/uL (140-400) Neutrophils (%) (Auto) 85 % (31-73) Lymphocytes (%) (Auto) 9 % (24-48) Monocytes (%) (Auto) 5 % (0-9) Eosinophils (%) (Auto) 0 % (0-3) Basophils (%) (Auto) 1 % (0-3) Neutrophils # (Auto) 6.3 x10^3uL (1.8-7.7) Lymphocytes # (Auto) 0.6 x10^3/uL (1.0-4.8) Monocytes # (Auto) 0.4 x10^3/uL (0.0-1.1) Eosinophils # (Auto) 0.0 x10^3/uL (0.0-0.7) Basophils # (Auto) 0.0 x10^3/uL (0.0-0.2) Segmented Neutrophils % 83 % (35-66) Band Neutrophils % 7 % (0-9) Lymphocytes % 6 % (24-48) Monocytes % 4 % (0-10) Platelet Estimate Adequate (ADEQUATE) Poikilocytosis Slight Ovalocytes Few [place] Cells Few Acanthocytes Few Schistocytes Occ Heparin Anti-Xa Act, Unfractionated 0.34 IU/mL (0.30-0.70) Sodium Level 139 mmol/L (136-145) Potassium Level 4.6 mmol/L (3.5-5.1) Chloride Level 102 mmol/L (98-107) Carbon Dioxide Level 24 mmol/L (21-32) Anion Gap 13 (6-14) Blood Urea Nitrogen 36 mg/dL (8-26) Creatinine 1.8 mg/dL (0.7-1.3) Estimated GFR (Cockcroft-Gault) 37.6 Glucose Level 278 mg/dL (70-99) Calcium Level 8.3 mg/dL (8.5-10.1) Glucose (Fingerstick) 224 mg/dL (70-99) 313 mg/dL (70-99) 368 mg/dL (70-99) Test 11/22/18 14:00 Heparin Anti-Xa Act, Unfractionated 0.30 IU/mL (0.30-0.70) Images Images Chest x-ray with bilateral pulmonary edema. Assessment/Plan Assessment/Plan 1. Acute on chronic probable systolic heart failure. Patient is improving with treatment. We'll continue mild diuresis with monitoring the patient's cr eatinine. We'll check an echocardiogram for LV function. 2. Probable acute coronary syndrome. Minimally elevated troponin at 0.157 most consistent with demand ischemia but multiple risk factors and a good story for coronary disease. I discussed various options with the patient's family and the patient. At this time believe cardiac catheterization would be most appropriate but would like to improve his heart failure and monitor his renal function prior to catheterization. At this time we'll continue medical treatment as above. We'll tentatively plan for cardiac catheterization on Saturday. 3. Acute and chronic renal injury. Creatinine of 1.8. Cautious diuresis. Monitoring lab. 4. Hyperlipidemia. Recheck lab and continue medical treatment. 5. Peripheral arterial disease. Continue present treatment. 6. Diabetes mellitus. As per the primary service. Thank you for allowing us to participate in the care of your patient. CARLY ATKINS MD November 22, 2018 14:47
[2018-11-22 15:43] VITALS: BP 128/69
[2018-11-22] MEDS: HEPARIN 25,000UTS/500ML PREMIX 500 ML IV PRN (17:35)
[2018-11-22 18:37] VITALS: BP 107/60
[2018-11-22 19:03] LABS: BILIRUBIN,URINE MODERATE (NEG); CLARITY,URINE CLEAR; COLOR,URINE RED; NITRITE,URINE NEGATIVE (NEG); PH,URINE 5.5; PROTEIN,URINE >=300 mg/dL (NEG-TRACE)
[2018-11-22 19:07] LABS: RBC,URINE TNTC /HPF (0-2)
[2018-11-22 19:13] LABS: BACTERIA,URINE 0 /HPF (0-FEW)
[2018-11-22] MEDS: ATORVASTATIN CALCIUM 40 MG TABLET. PO SCH (21:16)
[2018-11-22] MEDS: TAMSULOSIN 0.4 MG CAP.ER.24H. PO SCH (21:16)
[2018-11-22] MEDS: INSULIN GLARGINE 300 UNITS/3 ML INSULN.PEN. SQ SCH (21:25)
[2018-11-22 22:44] VITALS: BP 109/65
[2018-11-23 03:00] VITALS: BP 92/56
--- NOTE | 2018-11-23 03:06 | NUR ---
Pt requested that rectal tube be removed stated "it doesn't feel natural and im tired of it" removed rectal tube around 0230. 800cc brownish/green liquid stool in collection bag. bed in low locked position, call light with in reach. will continue to monitor patient. Addendum: 11/23/18 at 0644 by JIMMY RIVERA RN RN above note charted on wrong patient.
[2018-11-23 05:17] LABS: BASO % 0 % (0-3); EOS # 0.3 x10^3/uL (0.0-0.7); EOS % 4 % (0-3); HEMATOCRIT 24.3 % (39.0-53.0); HEMOGLOBIN 8.3 g/dL (13.0-17.5); LYMPH # 1.2 x10^3/uL (1.0-4.8); LYMPH % 16 % (24-48); MEAN CORPUSCULAR HEMOGLOBIN 32 pg (25-35); MEAN CORPUSCULAR HGB CONC 34 g/dL (31-37); MEAN CORPUSCULAR VOLUME 92 fL (79-100); MONO # 0.8 x10^3/uL (0.0-1.1); MONO % 10 % (0-9); NEUT # 5.4 x10^3uL (1.8-7.7); NEUT % 70 % (31-73); PLATELET COUNT 209 x10^3/uL (140-400); RED BLOOD COUNT 2.64 x10^6/uL (4.30-5.70); RED CELL DISTRIBUTION WIDTH 13.3 % (11.5-14.5); WHITE BLOOD COUNT 7.8 x10^3/uL (4.0-11.0)
[2018-11-23 05:44] LABS: CALCIUM 8.1 mg/dL (8.5-10.1); CREATININE 1.8 mg/dL (0.7-1.3); GFR 37.6; POTASSIUM 3.7 mmol/L (3.5-5.1)
[2018-11-23 07:50] VITALS: BP 111/70
[2018-11-23] MEDS: ANTI-COAG MONITOR BY PHARMACY. MC PRN (08:16)
[2018-11-23] MEDS: METOPROLOL SUCC 24HR ER 25 MG TAB.ER.24H. PO SCH (08:41)
[2018-11-23] MEDS: ASPIRIN ENTERIC COATED 81 MG TABLET.DR. PO SCH (08:41)
[2018-11-23] MEDS: LISINOPRIL 10 MG TABLET PO SCH (08:42)
[2018-11-23] MEDS: GLIMEPIRIDE 2 MG TABLET. PO SCH (08:42)
[2018-11-23] MEDS: CLOPIDOGREL BISULFATE 75 MG TABLET PO SCH (08:42)
[2018-11-23] MEDS: INSULIN LISPRO 300 UNITS/3 ML INSULN.PEN. SQ SCH ×3 (08:45→17:37)
[2018-11-23 11:00] VITALS: BP 131/80
--- NOTE | 2018-11-23 11:50 | PDOC ---
PROGRESS NOTES Subjective Subjective Patient feeling better. Good diuresis yesterday. Cardiology and Urology consults appreciated. Objective Objective Vital Signs Date Time Temp Pulse Resp B/P (MAP) Pulse Ox O2 Delivery O2 Flow Rate FiO2 11/23/18 08:42 93 111/70 11/23/18 08:01 Nasal Cannula 3.0 11/23/18 07:50 97.8 20 94 97.8 Intake and Output 11/23/18 07:00 Intake Total 847.5 ml Output Total 1325 ml Balance -477.5 ml Intake Oral 600 ml IV Total 247.5 ml Output Urine Total 1325 ml Physical Exam Abdomen: Normal bowel sounds Heart: Regular rate Extremities: No edema General: Alert Lungs: Clear to auscultation Assessment Assessment Problems Medical Problems: (1) Anidf-rk-ysthqlo kidney injury Status: Acute (2) Chest pain Status: Acute (3) CHF (congestive heart failure) Status: Acute 1. Acute coronary syndrome with EKG changes and elevated troponin. 2. Acute on chronic congestive heart failure with elevated BNP and pulmonary edema on chest x-ray. 3. Acute on chronic renal failure with baseline creatinine of 1.5 up to 1.9. 4. Type 2 diabetes, out of control. 5. Hypertension. 6. Urinary retention with suspected BPH. 7. Hematuria. Plan Plan of Care Card Cath when stable Continue Diuresis Monitor renal function Card echo pending Comment Review of Relevant I have reviewed the following items bahman (where applicable) has been applied. Labs Laboratory Tests Test 11/21/18 16:00 11/21/18 20:36 11/22/18 00:05 11/22/18 04:52 White Blood Count 6.6 x10^3/uL (4.0-11.0) Red Blood Count 3.13 x10^6/uL (4.30-5.70) Hemoglobin 10.0 g/dL (13.0-17.5) Hematocrit 29.2 % (39.0-53.0) Mean Corpuscular Volume 93 fL (79-100) Mean Corpuscular Hemoglobin 32 pg (25-35) Mean Corpuscular Hemoglobin Concent 34 g/dL (31-37) Red Cell Distribution Width 13.3 % (11.5-14.5) Platelet Count 246 x10^3/uL (140-400) Neutrophils (%) (Auto) 78 % (31-73) Lymphocytes (%) (Auto) 13 % (24-48) Monocytes (%) (Auto) 8 % (0-9) Eosinophils (%) (Auto) 1 % (0-3) Basophils (%) (Auto) 1 % (0-3) Neutrophils # (Auto) 5.2 x10^3uL (1.8-7.7) Lymphocytes # (Auto) 0.9 x10^3/uL (1.0-4.8) Monocytes # (Auto) 0.5 x10^3/uL (0.0-1.1) Eosinophils # (Auto) 0.1 x10^3/uL (0.0-0.7) Basophils # (Auto) 0.0 x10^3/uL (0.0-0.2) Sodium Level 139 mmol/L (136-145) Potassium Level 4.7 mmol/L (3.5-5.1) Chloride Level 102 mmol/L (98-107) Carbon Dioxide Level 22 mmol/L (21-32) Anion Gap 15 (6-14) Blood Urea Nitrogen 40 mg/dL (8-26) Creatinine 1.9 mg/dL (0.7-1.3) Estimated GFR (Cockcroft-Gault) 35.3 BUN/Creatinine Ratio 21 (6-20) Glucose Level 302 mg/dL (70-99) Calcium Level 8.8 mg/dL (8.5-10.1) Magnesium Level 1.9 mg/dL (1.8-2.4) Total Bilirubin 0.5 mg/dL (0.2-1.0) Aspartate Amino Transf (AST/SGOT) 17 U/L (15-37) Alanine Aminotransferase (ALT/SGPT) 27 U/L (16-63) Alkaline Phosphatase 120 U/L (46-116) Troponin I Quantitative 0.107 ng/mL (0.000-0.055) 0.142 ng/mL (0.000-0.055) 0.157 ng/mL (0.000-0.055) FZ-Mqj-M-Type Natriuretic Peptide 58496 pg/mL (0-124) Total Protein 6.8 g/dL (6.4-8.2) Albumin 3.4 g/dL (3.4-5.0) Albumin/Globulin Ratio 1.0 (1.0-1.7) Heparin Anti-Xa Act, Unfractionated 0.19 IU/mL (0.30-0.70) Glucose (Fingerstick) 241 mg/dL (70-99) Test 11/22/18 07:30 11/22/18 07:51 11/22/18 11:30 11/22/18 12:53 White Blood Count 7.4 x10^3/uL (4.0-11.0) Red Blood Count 3.06 x10^6/uL (4.30-5.70) Hemoglobin 9.5 g/dL (13.0-17.5) Hematocrit 28.6 % (39.0-53.0) Mean Corpuscular Volume 93 fL (79-100) Mean Corpuscular Hemoglobin 31 pg (25-35) Mean Corpuscular Hemoglobin Concent 33 g/dL (31-37) Red Cell Distribution Width 13.7 % (11.5-14.5) Platelet Count 228 x10^3/uL (140-400) Neutrophils (%) (Auto) 85 % (31-73) Lymphocytes (%) (Auto) 9 % (24-48) Monocytes (%) (Auto) 5 % (0-9) Eosinophils (%) (Auto) 0 % (0-3) Basophils (%) (Auto) 1 % (0-3) Neutrophils # (Auto) 6.3 x10^3uL (1.8-7.7) Lymphocytes # (Auto) 0.6 x10^3/uL (1.0-4.8) Monocytes # (Auto) 0.4 x10^3/uL (0.0-1.1) Eosinophils # (Auto) 0.0 x10^3/uL (0.0-0.7) Basophils # (Auto) 0.0 x10^3/uL (0.0-0.2) Segmented Neutrophils % 83 % (35-66) Band Neutrophils % 7 % (0-9) Lymphocytes % 6 % (24-48) Monocytes % 4 % (0-10) Platelet Estimate Adequate (ADEQUATE) Poikilocytosis Slight Ovalocytes Few Olivia Cells Few Acanthocytes Few Schistocytes Occ Heparin Anti-Xa Act, Unfractionated 0.34 IU/mL (0.30-0.70) Sodium Level 139 mmol/L (136-145) Potassium Level 4.6 mmol/L (3.5-5.1) Chloride Level 102 mmol/L (98-107) Carbon Dioxide Level 24 mmol/L (21-32) Anion Gap 13 (6-14) Blood Urea Nitrogen 36 mg/dL (8-26) Creatinine 1.8 mg/dL (0.7-1.3) Estimated GFR (Cockcroft-Gault) 37.6 Glucose Level 278 mg/dL (70-99) Calcium Level 8.3 mg/dL (8.5-10.1) Glucose (Fingerstick) 224 mg/dL (70-99) 313 mg/dL (70-99) 368 mg/dL (70-99) Test 11/22/18 14:00 11/22/18 17:00 11/22/18 21:15 11/23/18 05:00 Heparin Anti-Xa Act, Unfractionated 0.30 IU/mL (0.30-0.70) 0.20 IU/mL (0.30-0.70) Urine Collection Type U cath Urine Color Red Urine Clarity Clear Urine pH 5.5 Urine Specific [place] >=1.030 Urine Protein >=300 mg/dL (NEG-TRACE) Urine Glucose (UA) >=1000 mg/dL (NEG) Urine Ketones (Stick) Trace mg/dL (NEG) Urine Blood Large (NEG) Urine Nitrite Negative (NEG) Urine Bilirubin Moderate (NEG) Urine Urobilinogen Dipstick 1.0 mg/dL (0.2 mg/dL) Urine Leukocyte Esterase Small (NEG) Urine RBC Tntc /HPF (0-2) Urine WBC 11-20 /HPF (0-4) Urine Bacteria 0 /HPF (0-FEW) Glucose (Fingerstick) 310 mg/dL (70-99) 250 mg/dL (70-99) White Blood Count 7.8 x10^3/uL (4.0-11.0) Red Blood Count 2.64 x10^6/uL (4.30-5.70) Hemoglobin 8.3 g/dL (13.0-17.5) Hematocrit 24.3 % (39.0-53.0) Mean Corpuscular Volume 92 fL (79-100) Mean Corpuscular Hemoglobin 32 pg (25-35) Mean Corpuscular Hemoglobin Concent 34 g/dL (31-37) Red Cell Distribution Width 13.3 % (11.5-14.5) Platelet Count 209 x10^3/uL (140-400) Neutrophils (%) (Auto) 70 % (31-73) Lymphocytes (%) (Auto) 16 % (24-48) Monocytes (%) (Auto) 10 % (0-9) Eosinophils (%) (Auto) 4 % (0-3) Basophils (%) (Auto) 0 % (0-3) Neutrophils # (Auto) 5.4 x10^3uL (1.8-7.7) Lymphocytes # (Auto) 1.2 x10^3/uL (1.0-4.8) Monocytes # (Auto) 0.8 x10^3/uL (0.0-1.1) Eosinophils # (Auto) 0.3 x10^3/uL (0.0-0.7) Basophils # (Auto) 0.0 x10^3/uL (0.0-0.2) Sodium Level 143 mmol/L (136-145) Potassium Level 3.7 mmol/L (3.5-5.1) Chloride Level 108 mmol/L (98-107) Carbon Dioxide Level 27 mmol/L (21-32) Anion Gap 8 (6-14) Blood Urea Nitrogen 32 mg/dL (8-26) Creatinine 1.8 mg/dL (0.7-1.3) Estimated GFR (Cockcroft-Gault) 37.6 Glucose Level 179 mg/dL (70-99) Calcium Level 8.1 mg/dL (8.5-10.1) Test 11/23/18 08:25 Glucose (Fingerstick) 134 mg/dL (70-99) Laboratory Tests Test 11/22/18 12:53 11/22/18 14:00 11/22/18 17:00 11/22/18 21:15 Glucose (Fingerstick) 368 mg/dL (70-99) 310 mg/dL (70-99) 250 mg/dL (70-99) Heparin Anti-Xa Act, Unfractionated 0.30 IU/mL (0.30-0.70) Urine Collection Type U cath Urine Color Red Urine Clarity Clear Urine pH 5.5 Urine Specific [place] >=1.030 Urine Protein >=300 mg/dL (NEG-TRACE) Urine Glucose (UA) >=1000 mg/dL (NEG) Urine Ketones (Stick) Trace mg/dL (NEG) Urine Blood Large (NEG) Urine Nitrite Negative (NEG) Urine Bilirubin Moderate (NEG) Urine Urobilinogen Dipstick 1.0 mg/dL (0.2 mg/dL) Urine Leukocyte Esterase Small (NEG) Urine RBC Tntc /HPF (0-2) Urine WBC 11-20 /HPF (0-4) Urine Bacteria 0 /HPF (0-FEW) Test 11/23/18 05:00 11/23/18 08:25 White Blood Count 7.8 x10^3/uL (4.0-11.0) Red Blood Count 2.64 x10^6/uL (4.30-5.70) Hemoglobin 8.3 g/dL (13.0-17.5) Hematocrit 24.3 % (39.0-53.0) Mean Corpuscular Volume 92 fL (79-100) Mean Corpuscular Hemoglobin 32 pg (25-35) Mean Corpuscular Hemoglobin Concent 34 g/dL (31-37) Red Cell Distribution Width 13.3 % (11.5-14.5) Platelet Count 209 x10^3/uL (140-400) Neutrophils (%) (Auto) 70 % (31-73) Lymphocytes (%) (Auto) 16 % (24-48) Monocytes (%) (Auto) 10 % (0-9) Eosinophils (%) (Auto) 4 % (0-3) Basophils (%) (Auto) 0 % (0-3) Neutrophils # (Auto) 5.4 x10^3uL (1.8-7.7) Lymphocytes # (Auto) 1.2 x10^3/uL (1.0-4.8) Monocytes # (Auto) 0.8 x10^3/uL (0.0-1.1) Eosinophils # (Auto) 0.3 x10^3/uL (0.0-0.7) Basophils # (Auto) 0.0 x10^3/uL (0.0-0.2) Heparin Anti-Xa Act, Unfractionated 0.20 IU/mL (0.30-0.70) Sodium Level 143 mmol/L (136-145) Potassium Level 3.7 mmol/L (3.5-5.1) Chloride Level 108 mmol/L (98-107) Carbon Dioxide Level 27 mmol/L (21-32) Anion Gap 8 (6-14) Blood Urea Nitrogen 32 mg/dL (8-26) Creatinine 1.8 mg/dL (0.7-1.3) Estimated GFR (Cockcroft-Gault) 37.6 Glucose Level 179 mg/dL (70-99) Calcium Level 8.1 mg/dL (8.5-10.1) Glucose (Fingerstick) 134 mg/dL (70-99) Medications Current Medications Furosemide (Lasix) 60 mg 1X ONCE IVP Last administered on 11/21/18at 16:34; Start 11/21/18 at 15:45; Stop 11/21/18 at 15:49; Status DC Insulin Human Regular (HumuLIN R VIAL) 5 unit 1X ONCE IV Last administered on 11/21/18at 17:50; Start 11/21/18 at 17:30; Stop 11/21/18 at 17:31; Status DC Heparin Sodium (Porcine) (Heparin Sodium) 4,000 unit 1X ONCE IV Last administered on 11/21/18at 17:46; Start 11/21/18 at 17:30; Stop 11/21/18 at 17:31; Status DC Heparin Sodium/ Dextrose 500 ml @ 17.6 mls/hr CONT PRN IV SEE I/O RECORD Last administered on 11/22/18at 17:35; Start 11/21/18 at 17:30 Heparin Sodium (Porcine) (Heparin Sodium) 1,850 unit PRN Q6HRS PRN IV FOR UFH LEVEL LESS THAN 0.2 Last administered on 11/22/18at 01:30; Start 11/21/18 at 17:30 Ondansetron HCl (Zofran) 4 mg PRN Q8HRS PRN IV NAUSEA/VOMITING; Start 11/21/18 at 17:30; Stop 11/22/18 at 17:29; Status DC Morphine Sulfate (Morphine Sulfate) 2 mg PRN Q2HR PRN IV PAIN; Start 11/21/18 at 17:30; Stop 11/22/18 at 17:29; Status DC Acetaminophen (Tylenol) 650 mg PRN Q4HRS PRN PO FEVER; Start 11/21/18 at 17:30; Stop 11/22/18 at 17:29; Status DC Alprazolam (Xanax) 0.5 mg PRN Q6HRS PRN PO ANXIETY / AGITATION Last administered on 11/22/18 19:35; Start 11/22/18 at 03:30 Aspirin (Ecotrin) 81 mg DAILY PO Last administered on 11/23/18 08:41; Start 11/22/18 at 09:00 Clopidogrel Bisulfate (Plavix) 75 mg DAILY PO Last administered on 11/23/18 08:42; Start 11/22/18 at 09:00 Insulin Glargine (Lantus) 30 units QHS SQ Last administered on 11/22/18 21:25; Start 11/22/18 at 21:00 Insulin Human Lispro (HumaLOG) 8 units TIDAC SQ Last administered on 11/23/18 08:45; Start 11/22/18 at 11:30 Lisinopril (Prinivil) 10 mg DAILY PO Last administered on 11/23/18 08:42; Start 11/22/18 at 09:00 Metoprolol Succinate (Toprol Xl) 25 mg DAILY PO Last administered on 11/23/18 08:41; Start 11/22/18 at 09:00 Atorvastatin Calcium (Lipitor) 80 mg QHS PO Last administered on 11/22/18 21:16; Start 11/22/18 at 21:00 Glimepiride (Amaryl) 4 mg DAILY PO Last administered on 11/23/18 08:42; Start 11/22/18 at 09:00 Info (Anti-Coagulation Monitoring By Pharmacy) 1 each PRN DAILY PRN MC SEE COMMENTS Last administered on 11/23/18 08:16; Start 11/22/18 at 10:45 Tamsulosin HCl (Flomax) 0.4 mg QHS PO Last administered on 11/22/18 21:16; Start 11/22/18 at 21:00 Active Scripts Active Humalog (Insulin Lispro) 100 Unit/1 Ml Insuln.pen 8 Units SQ TIDAC 90 Days Lantus Solostar (Insulin Glargine,Hum.rec.anlog) 100 Unit/1 Ml Insuln.pen 30 Units SQ QHS 30 Days Lisinopril 10 Mg Tablet 10 Mg PO DAILY 90 Days Reported Metoprolol Succinate ( Xl ) (Metoprolol Succinate) 25 Mg Tab.er.24h 25 Mg PO DAILY Glimepiride 4 Mg Tablet 4 Mg PO DAILY Clopidogrel (Clopidogrel Bisulfate) 75 Mg Tablet 1 Tab PO DAILY Aspir 81 (Aspirin) 81 Mg Tablet.dr 1 Tab PO DAILY Atorvastatin Calcium 80 Mg Tablet 1 Tab PO DAILY Metformin Hcl 500 Mg Tablet 1,000 Mg PO BID Vitals/I & O Vital Sign - Last 24 Hours 11/22/18 11/22/18 11/22/18 11/22/18 15:43 18:37 20:00 22:44 Temp 97.8 98.5 97.7 97.8 98.5 97.7 Pulse 96 90 90 Resp 16 20 B/P (MAP) 128/69 (88) 107/60 (76) 109/65 (80) Pulse Ox 97 94 98 O2 Delivery Nasal Cannula Nasal Cannula Nasal Cannula Nasal Cannula O2 Flow Rate 3.0 3.0 3.0 3.0 11/23/18 11/23/18 11/23/18 11/23/18 03:00 07:50 08:01 08:41 Temp 97.8 97.8 Pulse 76 90 93 Resp 20 20 B/P (MAP) 92/56 (68) 111/70 (84) 111/70 Pulse Ox 98 94 O2 Delivery Nasal Cannula Nasal Cannula Nasal Cannula O2 Flow Rate 3.0 3.0 3.0 11/23/18 08:42 Pulse 93 B/P (MAP) 111/70 Intake and Output 11/22/18 11/22/18 11/23/18 15:00 23:00 07:00 Intake Total 500 ml 100 ml 247.5 ml Output Total 575 ml 300 ml 450 ml Balance -75 ml -200 ml -202.5 ml BALWINDER MA MD November 23, 2018 11:50
[2018-11-23] MEDS: HEPARIN 25,000UTS/500ML PREMIX 500 ML IV PRN (12:24)
[2018-11-23 14:58] VITALS: BP 142/81
--- NOTE | 2018-11-23 16:40 | PDOC ---
PROGRESS NOTES Subjective Subjective Patient seen and examined The patient looks and feels better today. Objective Objective Vital Signs Date Time Temp Pulse Resp B/P (MAP) Pulse Ox O2 Delivery O2 Flow Rate FiO2 11/23/18 14:58 97.9 103 18 142/81 (101) 97 Nasal Cannula 3.0 97.9 Intake and Output 11/23/18 07:00 Intake Total 847.5 ml Output Total 1325 ml Balance -477.5 ml Intake Oral 600 ml IV Total 247.5 ml Output Urine Total 1325 ml Physical Exam Abdomen: Normal bowel sounds Heart: Regular rate General: mild distress Lungs: Other (mildly decreased breath sounds) Assessment Assessment Problems Medical Problems: (1) Kooil-jk-sxlqlqr kidney injury Status: Acute (2) Chest pain Status: Acute (3) CHF (congestive heart failure) Status: Acute 1. Acute on chronic probable systolic heart failure. The patient is significantl y improved today. Will continue present treatments. Echocardiogram pending. 2. Probable acute coronary syndrome. Minimally elevated troponin at 0.157 most consistent with demand ischemia but multiple risk factors and a good story for coronary disease. I discussed various options with the patient's family and the patient. At this time believe cardiac catheterization would be most appropriate but would like to improve his heart failure and monitor his renal function prior to catheterization. At this time his heart failure has improved but his creatinine is at 1.8. Will keep nothing by mouth after midnight and check a creatinine level in the morning. However anticipate probably deferring cardiac catheterization until Saturday. 3. Acute and chronic renal injury. Creatinine of 1.8. Monitoring lab. 4. Hyperlipidemia. Recheck lab and continue medical treatment. 5. Peripheral arterial disease. Continue present treatment. 6. Diabetes mellitus. As per the primary service. Comment Review of Relevant I have reviewed the following items bahman (where applicable) has been applied. Labs Laboratory Tests Test 11/21/18 20:36 11/22/18 00:05 11/22/18 04:52 11/22/18 07:30 Troponin I Quantitative 0.142 ng/mL (0.000-0.055) 0.157 ng/mL (0.000-0.055) Heparin Anti-Xa Act, Unfractionated 0.19 IU/mL (0.30-0.70) 0.34 IU/mL (0.30-0.70) Glucose (Fingerstick) 241 mg/dL (70-99) White Blood Count 7.4 x10^3/uL (4.0-11.0) Red Blood Count 3.06 x10^6/uL (4.30-5.70) Hemoglobin 9.5 g/dL (13.0-17.5) Hematocrit 28.6 % (39.0-53.0) Mean Corpuscular Volume 93 fL (79-100) Mean Corpuscular Hemoglobin 31 pg (25-35) Mean Corpuscular Hemoglobin Concent 33 g/dL (31-37) Red Cell Distribution Width 13.7 % (11.5-14.5) Platelet Count 228 x10^3/uL (140-400) Neutrophils (%) (Auto) 85 % (31-73) Lymphocytes (%) (Auto) 9 % (24-48) Monocytes (%) (Auto) 5 % (0-9) Eosinophils (%) (Auto) 0 % (0-3) Basophils (%) (Auto) 1 % (0-3) Neutrophils # (Auto) 6.3 x10^3uL (1.8-7.7) Lymphocytes # (Auto) 0.6 x10^3/uL (1.0-4.8) Monocytes # (Auto) 0.4 x10^3/uL (0.0-1.1) Eosinophils # (Auto) 0.0 x10^3/uL (0.0-0.7) Basophils # (Auto) 0.0 x10^3/uL (0.0-0.2) Segmented Neutrophils % 83 % (35-66) Band Neutrophils % 7 % (0-9) Lymphocytes % 6 % (24-48) Monocytes % 4 % (0-10) Platelet Estimate Adequate (ADEQUATE) Poikilocytosis Slight Ovalocytes Few Alexis Cells Few Acanthocytes Few Schistocytes Occ Sodium Level 139 mmol/L (136-145) Potassium Level 4.6 mmol/L (3.5-5.1) Chloride Level 102 mmol/L (98-107) Carbon Dioxide Level 24 mmol/L (21-32) Anion Gap 13 (6-14) Blood Urea Nitrogen 36 mg/dL (8-26) Creatinine 1.8 mg/dL (0.7-1.3) Estimated GFR (Cockcroft-Gault) 37.6 Glucose Level 278 mg/dL (70-99) Calcium Level 8.3 mg/dL (8.5-10.1) Test 11/22/18 07:51 11/22/18 11:30 11/22/18 12:53 11/22/18 14:00 Glucose (Fingerstick) 224 mg/dL (70-99) 313 mg/dL (70-99) 368 mg/dL (70-99) Heparin Anti-Xa Act, Unfractionated 0.30 IU/mL (0.30-0.70) Test 11/22/18 17:00 11/22/18 21:15 11/23/18 05:00 11/23/18 08:25 Urine Collection Type U cath Urine Color Red Urine Clarity Clear Urine pH 5.5 Urine Specific [place] >=1.030 Urine Protein >=300 mg/dL (NEG-TRACE) Urine Glucose (UA) >=1000 mg/dL (NEG) Urine Ketones (Stick) Trace mg/dL (NEG) Urine Blood Large (NEG) Urine Nitrite Negative (NEG) Urine Bilirubin Moderate (NEG) Urine Urobilinogen Dipstick 1.0 mg/dL (0.2 mg/dL) Urine Leukocyte Esterase Small (NEG) Urine RBC Tntc /HPF (0-2) Urine WBC 11-20 /HPF (0-4) Urine Bacteria 0 /HPF (0-FEW) Glucose (Fingerstick) 310 mg/dL (70-99) 250 mg/dL (70-99) 134 mg/dL (70-99) White Blood Count 7.8 x10^3/uL (4.0-11.0) Red Blood Count 2.64 x10^6/uL (4.30-5.70) Hemoglobin 8.3 g/dL (13.0-17.5) Hematocrit 24.3 % (39.0-53.0) Mean Corpuscular Volume 92 fL (79-100) Mean Corpuscular Hemoglobin 32 pg (25-35) Mean Corpuscular Hemoglobin Concent 34 g/dL (31-37) Red Cell Distribution Width 13.3 % (11.5-14.5) Platelet Count 209 x10^3/uL (140-400) Neutrophils (%) (Auto) 70 % (31-73) Lymphocytes (%) (Auto) 16 % (24-48) Monocytes (%) (Auto) 10 % (0-9) Eosinophils (%) (Auto) 4 % (0-3) Basophils (%) (Auto) 0 % (0-3) Neutrophils # (Auto) 5.4 x10^3uL (1.8-7.7) Lymphocytes # (Auto) 1.2 x10^3/uL (1.0-4.8) Monocytes # (Auto) 0.8 x10^3/uL (0.0-1.1) Eosinophils # (Auto) 0.3 x10^3/uL (0.0-0.7) Basophils # (Auto) 0.0 x10^3/uL (0.0-0.2) Heparin Anti-Xa Act, Unfractionated 0.20 IU/mL (0.30-0.70) Sodium Level 143 mmol/L (136-145) Potassium Level 3.7 mmol/L (3.5-5.1) Chloride Level 108 mmol/L (98-107) Carbon Dioxide Level 27 mmol/L (21-32) Anion Gap 8 (6-14) Blood Urea Nitrogen 32 mg/dL (8-26) Creatinine 1.8 mg/dL (0.7-1.3) Estimated GFR (Cockcroft-Gault) 37.6 Glucose Level 179 mg/dL (70-99) Calcium Level 8.1 mg/dL (8.5-10.1) Test 11/23/18 12:20 Heparin Anti-Xa Act, Unfractionated 0.32 IU/mL (0.30-0.70) Glucose (Fingerstick) 169 mg/dL (70-99) Laboratory Tests Test 11/22/18 17:00 11/22/18 21:15 11/23/18 05:00 11/23/18 08:25 Urine Collection Type U cath Urine Color Red Urine Clarity Clear Urine pH 5.5 Urine Specific [place] >=1.030 Urine Protein >=300 mg/dL (NEG-TRACE) Urine Glucose (UA) >=1000 mg/dL (NEG) Urine Ketones (Stick) Trace mg/dL (NEG) Urine Blood Large (NEG) Urine Nitrite Negative (NEG) Urine Bilirubin Moderate (NEG) Urine Urobilinogen Dipstick 1.0 mg/dL (0.2 mg/dL) Urine Leukocyte Esterase Small (NEG) Urine RBC Tntc /HPF (0-2) Urine WBC 11-20 /HPF (0-4) Urine Bacteria 0 /HPF (0-FEW) Glucose (Fingerstick) 310 mg/dL (70-99) 250 mg/dL (70-99) 134 mg/dL (70-99) White Blood Count 7.8 x10^3/uL (4.0-11.0) Red Blood Count 2.64 x10^6/uL (4.30-5.70) Hemoglobin 8.3 g/dL (13.0-17.5) Hematocrit 24.3 % (39.0-53.0) Mean Corpuscular Volume 92 fL (79-100) Mean Corpuscular Hemoglobin 32 pg (25-35) Mean Corpuscular Hemoglobin Concent 34 g/dL (31-37) Red Cell Distribution Width 13.3 % (11.5-14.5) Platelet Count 209 x10^3/uL (140-400) Neutrophils (%) (Auto) 70 % (31-73) Lymphocytes (%) (Auto) 16 % (24-48) Monocytes (%) (Auto) 10 % (0-9) Eosinophils (%) (Auto) 4 % (0-3) Basophils (%) (Auto) 0 % (0-3) Neutrophils # (Auto) 5.4 x10^3uL (1.8-7.7) Lymphocytes # (Auto) 1.2 x10^3/uL (1.0-4.8) Monocytes # (Auto) 0.8 x10^3/uL (0.0-1.1) Eosinophils # (Auto) 0.3 x10^3/uL (0.0-0.7) Basophils # (Auto) 0.0 x10^3/uL (0.0-0.2) Heparin Anti-Xa Act, Unfractionated 0.20 IU/mL (0.30-0.70) Sodium Level 143 mmol/L (136-145) Potassium Level 3.7 mmol/L (3.5-5.1) Chloride Level 108 mmol/L (98-107) Carbon Dioxide Level 27 mmol/L (21-32) Anion Gap 8 (6-14) Blood Urea Nitrogen 32 mg/dL (8-26) Creatinine 1.8 mg/dL (0.7-1.3) Estimated GFR (Cockcroft-Gault) 37.6 Glucose Level 179 mg/dL (70-99) Calcium Level 8.1 mg/dL (8.5-10.1) Test 11/23/18 12:20 Heparin Anti-Xa Act, Unfractionated 0.32 IU/mL (0.30-0.70) Glucose (Fingerstick) 169 mg/dL (70-99) Medications Current Medications Furosemide (Lasix) 60 mg 1X ONCE IVP Last administered on 11/21/18 16:34; Start 11/21/18 at 15:45; Stop 11/21/18 at 15:49; Status DC Insulin Human Regular (HumuLIN R VIAL) 5 unit 1X ONCE IV Last administered on 11/21/18at 17:50; Start 11/21/18 at 17:30; Stop 11/21/18 at 17:31; Status DC Heparin Sodium (Porcine) (Heparin Sodium) 4,000 unit 1X ONCE IV Last administered on 11/21/18at 17:46; Start 11/21/18 at 17:30; Stop 11/21/18 at 17:31; Status DC Heparin Sodium/ Dextrose 500 ml @ 17.6 mls/hr CONT PRN IV SEE I/O RECORD Last administered on 11/23/18at 12:24; Start 11/21/18 at 17:30 Heparin Sodium (Porcine) (Heparin Sodium) 1,850 unit PRN Q6HRS PRN IV FOR UFH LEVEL LESS THAN 0.2 Last administered on 11/22/18at 01:30; Start 11/21/18 at 17:30 Ondansetron HCl (Zofran) 4 mg PRN Q8HRS PRN IV NAUSEA/VOMITING; Start 11/21/18 at 17:30; Stop 11/22/18 at 17:29; Status DC Morphine Sulfate (Morphine Sulfate) 2 mg PRN Q2HR PRN IV PAIN; Start 11/21/18 at 17:30; Stop 11/22/18 at 17:29; Status DC Acetaminophen (Tylenol) 650 mg PRN Q4HRS PRN PO FEVER; Start 11/21/18 at 17:30; Stop 11/22/18 at 17:29; Status DC Alprazolam (Xanax) 0.5 mg PRN Q6HRS PRN PO ANXIETY / AGITATION Last administered on 11/22/18 19:35; Start 11/22/18 at 03:30 Aspirin (Ecotrin) 81 mg DAILY PO Last administered on 11/23/18 08:41; Start 11/22/18 at 09:00 Clopidogrel Bisulfate (Plavix) 75 mg DAILY PO Last administered on 11/23/18 08:42; Start 11/22/18 at 09:00 Insulin Glargine (Lantus) 30 units QHS SQ Last administered on 11/22/18 21:25; Start 11/22/18 at 21:00 Insulin Human Lispro (HumaLOG) 8 units TIDAC SQ Last administered on 11/23/18 12:25; Start 11/22/18 at 11:30 Lisinopril (Prinivil) 10 mg DAILY PO Last administered on 11/23/18 08:42; Start 11/22/18 at 09:00 Metoprolol Succinate (Toprol Xl) 25 mg DAILY PO Last administered on 11/23/18 08:41; Start 11/22/18 at 09:00 Atorvastatin Calcium (Lipitor) 80 mg QHS PO Last administered on 11/22/18 21:16; Start 11/22/18 at 21:00 Glimepiride (Amaryl) 4 mg DAILY PO Last administered on 11/23/18 08:42; Start 11/22/18 at 09:00 Info (Anti-Coagulation Monitoring By Pharmacy) 1 each PRN DAILY PRN MC SEE COMMENTS Last administered on 11/23/18 08:16; Start 11/22/18 at 10:45 Tamsulosin HCl (Flomax) 0.4 mg QHS PO Last administered on 11/22/18 21:16; Start 11/22/18 at 21:00 Active Scripts Active Humalog (Insulin Lispro) 100 Unit/1 Ml Insuln.pen 8 Units SQ TIDAC 90 Days Lantus Solostar (Insulin Glargine,Hum.rec.anlog) 100 Unit/1 Ml Insuln.pen 30 Units SQ QHS 30 Days Lisinopril 10 Mg Tablet 10 Mg PO DAILY 90 Days Reported Metoprolol Succinate ( Xl ) (Metoprolol Succinate) 25 Mg Tab.er.24h 25 Mg PO DAILY Glimepiride 4 Mg Tablet 4 Mg PO DAILY Clopidogrel (Clopidogrel Bisulfate) 75 Mg Tablet 1 Tab PO DAILY Aspir 81 (Aspirin) 81 Mg Tablet.dr 1 Tab PO DAILY Atorvastatin Calcium 80 Mg Tablet 1 Tab PO DAILY Metformin Hcl 500 Mg Tablet 1,000 Mg PO BID Vitals/I & O Vital Sign - Last 24 Hours 11/22/18 11/22/18 11/22/18 11/23/18 18:37 20:00 22:44 03:00 Temp 98.5 97.7 98.5 97.7 Pulse 90 90 76 Resp 16 20 20 B/P (MAP) 107/60 (76) 109/65 (80) 92/56 (68) Pulse Ox 94 98 98 O2 Delivery Nasal Cannula Nasal Cannula Nasal Cannula Nasal Cannula O2 Flow Rate 3.0 3.0 3.0 3.0 11/23/18 11/23/18 11/23/18 11/23/18 07:50 08:01 08:41 08:42 Temp 97.8 97.8 Pulse 90 93 93 Resp 20 B/P (MAP) 111/70 (84) 111/70 111/70 Pulse Ox 94 O2 Delivery Nasal Cannula Nasal Cannula O2 Flow Rate 3.0 3.0 11/23/18 11/23/18 11:00 14:58 Temp 97.8 97.9 97.8 97.9 Pulse 90 103 Resp 20 18 B/P (MAP) 131/80 (97) 142/81 (101) Pulse Ox 98 97 O2 Delivery Nasal Cannula Nasal Cannula O2 Flow Rate 3.0 3.0 Intake and Output 11/22/18 11/22/18 11/23/18 15:00 23:00 07:00 Intake Total 500 ml 100 ml 247.5 ml Output Total 575 ml 300 ml 450 ml Balance -75 ml -200 ml -202.5 ml CARLY ATKINS MD November 23, 2018 16:40
--- NOTE | 2018-11-23 18:58 | CARD ---
MR#: [id number] Date of Study: 11/23/2018 Ordering Physician: CARLY CANTU, Referring Physician: BALWINDER MA Tech: Darcie Ca EDELMIRA APPROVED REPORT EXAM: Two-dimensional and M-mode echocardiogram with Doppler and color Doppler. Other Information Quality : FairHR: 52bpm INDICATION Dyspnea 2D DIMENSIONS Left Atrium(2D)4.2 (1.6-4.0cm)IVSd1.5 (0.7-1.1cm) Aortic Root(2D)2.1 (2.0-3.7cm)LVDd6.3 (3.9-5.9cm) LVOT Diameter2.2 (1.8-2.4cm)PWd0.9 (0.7-1.1cm) LVDs5.1 (2.5-4.0cm)FS (%) 19.2 % SV76.7 ml Aortic Valve AoV Peak Saul.88.7cm/sAoV VTI13.8cm AO Peak GR.3.1mmHgLVOT Peak Saul.71.5cm/s AO Mean GR.2mmHgAVA (VMAX)3.13cm2 MERNA (VTI)3.14dc8DU P 1/2 Nwbh161xf Mitral Valve MV E Ylgaissd96.2cm/sMV DECEL HOHM286sk MV A Upjotdgf85.5cm/sE/A Ratio1.2 MV A Clubhwkg242zg TDI Lateral E' P. V0.04cm/sMedial E' P. V0.04cm/s E/Lateral E'2230.0E/Medial E'2230.0 Tricuspid Valve TR P. Nkyglxge667sx/sTR Peak Gr.77mmHg Pulmonary Vein S1 Fhwxwhmp79.5cm/sD2 Ghacxcsf33.2cm/s LEFT VENTRICLE Technically difficult study. The Left Ventricle is mildly dilated. There is mild asymmetric left vent ricular hypertrophy. The systolic function is moderately impaired. LV ejection fraction is 35-40%. Th ere is global hypokinesis of the left ventricle. Transmitral Doppler flow pattern is Grade II-pseudon ormal filling dynamics. No left ventricle thrombus noted on this study. There is no ventricular septa l defect visualized. There is no left ventricular aneurysm. There is no mass noted in the left ventri lolly. RIGHT VENTRICLE The right ventricle is normal size. There is normal right ventricular wall thickness. The right ventr icular systolic function is normal. ATRIA The left atrium is mildly dilated. The right atrium is mildly dilated. The interatrial septum is inta ct with no evidence for an atrial septal defect or patent foramen ovale as noted on 2-D or Doppler im aging. AORTIC VALVE The aortic valve is normal in structure and function. Doppler and Color Flow revealed mild aortic reg urgitation. There is no significant aortic valvular stenosis. There is no aortic valvular vegetation. MITRAL VALVE The mitral valve is normal in structure and function. There is no evidence of mitral valve prolapse. There is no mitral valve stenosis. Doppler and Color Flow revealed mild to moderate mitral regurgitat ion. TRICUSPID VALVE The tricuspid valve is normal in structure and function. Doppler and Color Flow revealed mild tricusp id regurgitation. Doppler and Color Flow revealed significant pulmonary hypertension with a PAP of gr eater than 55 mmHg. There is no tricuspid valve prolapse or vegetation. There is no tricuspid valve s tenosis. PULMONIC VALVE The pulmonary valve is normal in structure and function. Doppler and Color Flow revealed trace pulmon ic valvular regurgitation. There is no pulmonic valvular stenosis. GREAT VESSELS The aortic root is normal in size. Not seen well. The IVC is dilated and collapses >50% with inspirat ion. PERICARDIAL EFFUSION There is a trace to small pericardial effusion with no hemodynamic significance. Critical Notification Date: 11/23/2018 Time: 13:00 Physician Name:Pepe Critical Value: Yes Response Time:13:00 Report Read Back <Conclusion> Technically difficult study. The Left Ventricle is mildly dilated. The systolic function is moderately impaired. LV ejection fraction is 35-40%. There is global hypokinesis of the left ventricle. There is no significant aortic valvular stenosis. Doppler and Color Flow revealed mild aortic regurgitation. Doppler and Color Flow revealed mild to moderate mitral regurgitation. Doppler and Color Flow revealed mild tricuspid regurgitation. Doppler and Color Flow revealed significant pulmonary hypertension with a PAP of greater than 55 mmHg . Signed by : Carly Cantu MD Electronically Approved : 11/23/2018 18:58:05
[2018-11-23 19:55] VITALS: BP 120/61
[2018-11-23] MEDS: INSULIN GLARGINE 300 UNITS/3 ML INSULN.PEN. SQ SCH (21:00)
[2018-11-23] MEDS: ATORVASTATIN CALCIUM 40 MG TABLET. PO SCH (21:23)
[2018-11-23] MEDS: TAMSULOSIN 0.4 MG CAP.ER.24H. PO SCH (21:23)
[2018-11-23] MEDS: ALPRAZolam 0.5 MG TABLET PO PRN (21:23)
[2018-11-23 22:55] VITALS: BP 106/57
[2018-11-24 03:30] VITALS: BP 118/68
[2018-11-24 04:17] LABS: HEMATOCRIT 24.4 % (39.0-53.0); HEMOGLOBIN 8.3 g/dL (13.0-17.5); RED BLOOD COUNT 2.61 x10^6/uL (4.30-5.70); RED CELL DISTRIBUTION WIDTH 13.5 % (11.5-14.5); WHITE BLOOD COUNT 7.5 x10^3/uL (4.0-11.0)
[2018-11-24 05:25] LABS: CALCIUM 8.2 mg/dL (8.5-10.1); CREATININE 1.8 mg/dL (0.7-1.3); GFR 37.6; POTASSIUM 3.9 mmol/L (3.5-5.1)
[2018-11-24 07:00] VITALS: BP 144/76
[2018-11-24] MEDS: INSULIN LISPRO 300 UNITS/3 ML INSULN.PEN. SQ SCH ×3 (07:30→17:38)
[2018-11-24] MEDS: CLOPIDOGREL BISULFATE 75 MG TABLET PO SCH (08:14)
[2018-11-24] MEDS: ASPIRIN ENTERIC COATED 81 MG TABLET.DR. PO SCH (08:15)
[2018-11-24] MEDS: HEPARIN 25,000UTS/500ML PREMIX 500 ML IV PRN (08:18)
[2018-11-24] MEDS: LISINOPRIL 10 MG TABLET PO SCH (09:00)
--- NOTE | 2018-11-24 09:32 | PDOC ---
KARO CHRISTIANSON [employer]RAFTS INSTRUCTOR 11/24/18 0932: SUBJECTIVE Subjective Pt donig ok this am, no complaints. Nursing staff concerned that Hicks return is still a dark carrasco red with occ clots, wondering if it needs to be flushed. OBJECTIVE Objective Physical Exam: General appearance: Alert and Oriented. Cuban speaking Head: Normocephalic, without obvious abnormality Eyes: conjunctivae/corneas clear. PERRL, EOM's intact. Fundi benign Lungs: Regular respirations, non labored breathing Abdomen: soft, non-tender. Bowel sounds normal. No masses, no organomegaly Pelvic: + uncirc phallus, WNL with Hicks draining red urine with occ small pea sized clots in catheter. IT TECHNICAL SUPPORT SPECIALIST Bob flushed with 200 cc NS and urine promptly lightened to a watermelon color. No clot return noted in syringe during procedure and he tolerated well. Vital Signs Vital Signs Date Time Temp Pulse Resp B/P (MAP) Pulse Ox O2 Delivery O2 Flow Rate FiO2 11/24/18 07:00 98.1 92 18 144/76 (98) 94 Nasal Cannula 3.0 98.1 11/24/18 03:30 98.0 87 20 118/68 (85) 93 Nasal Cannula 3.0 98.0 11/23/18 22:55 98.1 87 20 106/57 (73) 96 Nasal Cannula 3.0 98.1 11/23/18 20:00 Nasal Cannula 3.0 11/23/18 19:55 98.2 92 20 120/61 (80) 92 Nasal Cannula 3.0 98.2 11/23/18 14:58 97.9 103 18 142/81 (101) 97 Nasal Cannula 3.0 97.9 11/23/18 11:00 97.8 90 20 131/80 (97) 98 Nasal Cannula 3.0 97.8 I & O Intake and Output 11/24/18 06:59 Intake Total 1090 ml Output Total 1050 ml Balance 40 ml Intake Oral 800 ml IV Total 290 ml Output Urine Total 1050 ml PHYSICAL EXAM Physical Exam Physical Exam: General appearance: Alert and Oriented. Cuban speaking Head: Normocephalic, without obvious abnormality Eyes: conjunctivae/corneas clear. PERRL, EOM's intact. Fundi benign Lungs: Regular respirations, non labored breathing Abdomen: soft, non-tender. Bowel sounds normal. No masses, no organomegaly Pelvic: + uncirc phallus, WNL with Hicks draining red urine with occ small pea sized clots in catheter. IT TECHNICAL SUPPORT SPECIALIST Bob flushed with 200 cc NS and urine promptly lightened to a watermelon color. No clot return noted in syringe during procedure and he tolerated well. ASSESSMENT/PLAN Assessment/Plan Nursing to continue to maintain Hicks catheter for now. Hematuria minimal, should resolve on its own soon. Probably due to traumatic catheter placement. Ok to continue heparin. Will arrange for cystoscopy for gross hematuria as an outpatient. Urine culture is in progress currently. Continue Flomax for retention / BPH. Voiding trial in a few days when acute issues have resolved and he is more mobile. Problems: (1) Hicks catheter in place COMMENT Lab Laboratory Tests Test 11/23/18 12:20 11/23/18 16:35 11/23/18 18:25 11/23/18 20:55 Heparin Anti-Xa Act, Unfractionated 0.32 IU/mL (0.30-0.70) 0.29 IU/mL (0.30-0.70) Glucose (Fingerstick) 169 mg/dL (70-99) 160 mg/dL (70-99) 170 mg/dL (70-99) Test 11/24/18 01:00 11/24/18 08:15 11/24/18 08:17 White Blood Count 7.5 x10^3/uL (4.0-11.0) Red Blood Count 2.61 x10^6/uL (4.30-5.70) Hemoglobin 8.3 g/dL (13.0-17.5) Hematocrit 24.4 % (39.0-53.0) Mean Corpuscular Volume 94 fL (79-100) Mean Corpuscular Hemoglobin 32 pg (25-35) Mean Corpuscular Hemoglobin Concent 34 g/dL (31-37) Red Cell Distribution Width 13.5 % (11.5-14.5) Platelet Count 206 x10^3/uL (140-400) Heparin Anti-Xa Act, Unfractionated 0.28 IU/mL (0.30-0.70) 0.59 IU/mL (0.30-0.70) Sodium Level 143 mmol/L (136-145) Potassium Level 3.9 mmol/L (3.5-5.1) Chloride Level 108 mmol/L (98-107) Carbon Dioxide Level 26 mmol/L (21-32) Anion Gap 9 (6-14) Blood Urea Nitrogen 27 mg/dL (8-26) Creatinine 1.8 mg/dL (0.7-1.3) Estimated GFR (Cockcroft-Gault) 37.6 Glucose Level 153 mg/dL (70-99) Calcium Level 8.2 mg/dL (8.5-10.1) Glucose (Fingerstick) 191 mg/dL (70-99) LAZ IGNACIO MD 11/24/18 1208: ASSESSMENT/PLAN Assessment/Plan Agree with assessment and plan. KARO CHRISTIANSON APRN November 24, 2018 09:32 LAZ IGNACIO MD November 24, 2018 12:08
[2018-11-24 11:00] VITALS: BP 160/86
--- NOTE | 2018-11-24 11:24 | PDOC ---
CARDIO Progress Notes Date and Time Date of Service 11/24/18 Time of Evaluation 1110 Subjective Subjective: No Chest Pain, No shortness of breath, No Palpitations Vitals Vitals Vital Signs Date Time Temp Pulse Resp B/P (MAP) Pulse Ox O2 Delivery O2 Flow Rate FiO2 11/24/18 08:00 Nasal Cannula 3.0 11/24/18 07:00 98.1 92 18 144/76 (98) 94 98.1 Weight Weight [ ] Input and Output Intake and Output Intake and Output 11/24/18 07:00 Intake Total 1090 ml Output Total 1050 ml Balance 40 ml Intake Oral 800 ml IV Total 290 ml Output Urine Total 1050 ml Laboratory Labs Laboratory Tests Test 11/23/18 12:20 11/23/18 16:35 11/23/18 18:25 11/23/18 20:55 Heparin Anti-Xa Act, Unfractionated 0.32 IU/mL (0.30-0.70) 0.29 IU/mL (0.30-0.70) Glucose (Fingerstick) 169 mg/dL (70-99) 160 mg/dL (70-99) 170 mg/dL (70-99) Test 11/24/18 01:00 11/24/18 08:15 11/24/18 08:17 White Blood Count 7.5 x10^3/uL (4.0-11.0) Red Blood Count 2.61 x10^6/uL (4.30-5.70) Hemoglobin 8.3 g/dL (13.0-17.5) Hematocrit 24.4 % (39.0-53.0) Mean Corpuscular Volume 94 fL (79-100) Mean Corpuscular Hemoglobin 32 pg (25-35) Mean Corpuscular Hemoglobin Concent 34 g/dL (31-37) Red Cell Distribution Width 13.5 % (11.5-14.5) Platelet Count 206 x10^3/uL (140-400) Heparin Anti-Xa Act, Unfractionated 0.28 IU/mL (0.30-0.70) 0.59 IU/mL (0.30-0.70) Sodium Level 143 mmol/L (136-145) Potassium Level 3.9 mmol/L (3.5-5.1) Chloride Level 108 mmol/L (98-107) Carbon Dioxide Level 26 mmol/L (21-32) Anion Gap 9 (6-14) Blood Urea Nitrogen 27 mg/dL (8-26) Creatinine 1.8 mg/dL (0.7-1.3) Estimated GFR (Cockcroft-Gault) 37.6 Glucose Level 153 mg/dL (70-99) Calcium Level 8.2 mg/dL (8.5-10.1) Glucose (Fingerstick) 191 mg/dL (70-99) Physical Exam HEENT: Neck Supple W Full Motion Chest: Symmetric LUNGS: Other (diminished bases) Heart: S1S2, RRR Abdomen: Soft N/T Extremities: No Edema Neurology: alert, oriented, follow commands Assessment Assessment 1. Acute on chronic systolic heart failure with ICM; LVEF 35-40%. Better compensated 2. Elevated troponin; highest 0.157. on heparin gtt. 3. CAD; s/p PCI/stent 13 years ago at [facility] 4. Hypertension; controlled 5. Hyperlipidemia; statin 6. ASHLEY on CKD; Cr stable at 1.8 7. PAD; stable 8. DM, II; uncontrolled; as per PCP Recommendations Repeat troponin Heparin gtt to continue overnight. D/c in am Continue ASA/plavix, statin, BB Hold ACEi with elevated Cr Given history of CAD and presentation in setting of mild troponin elevation, will plan for cardiac cath in am. R/b/a discussed with patient and daughter and they are agreeable. OLMAN GARCIA APRN November 24, 2018 11:24
[2018-11-24] MEDS: GLIMEPIRIDE 2 MG TABLET. PO SCH (11:26)
[2018-11-24] MEDS: METOPROLOL SUCC 24HR ER 25 MG TAB.ER.24H. PO SCH (11:27)
[2018-11-24 12:05] LABS: CHOLESTEROL/HDL RATIO 2.3
--- NOTE | 2018-11-24 12:21 | NUR ---
SS following for discharge planning. SS reviewed pt chart. Pt is from home with spouse and is currently requiring oxygen. PT/OT recommended home independent. Pt currently awaiting cardiac cath. No discharge needs noted at this time. SS will continue to follow for discharge planning.
--- NOTE | 2018-11-24 14:42 | PDOC ---
PROGRESS NOTES Subjective Subjective Patient Feeling better card cath planned for am toponin slightly increased Heparin drip on going. Objective Objective Vital Signs Date Time Temp Pulse Resp B/P (MAP) Pulse Ox O2 Delivery O2 Flow Rate FiO2 11/24/18 11:27 92 165/89 11/24/18 11:00 98.2 18 94 Nasal Cannula 3.0 98.2 Intake and Output 11/24/18 07:00 Intake Total 1090 ml Output Total 1050 ml Balance 40 ml Intake Oral 800 ml IV Total 290 ml Output Urine Total 1050 ml Physical Exam Abdomen: Normal bowel sounds Heart: Regular rate Extremities: No edema General: Alert Lungs: Clear to auscultation Assessment Assessment Problems Medical Problems: (1) [place]ab-am-seeoauz kidney injury Status: Acute (2) Chest pain Status: Acute (3) CHF (congestive heart failure) Status: Acute Acute coronary syndrome with EKG changes and elevated troponin. Acute on chronic congestive heart failure with elevated BNP and pulmonary edema on chest x-ray. Acute on chronic renal failure with baseline creatinine of 1.5 up to 1.9. Pulm HTN Type 2 diabetes, out of control. Hypertension. Urinary retention with suspected BPH. Hematuria. Plan Plan of Care Add Mucomyst Hicks in place void trial tomorrow or sat. Card Cath in AM Comment Review of Relevant I have reviewed the following items bahman (where applicable) has been applied. Labs Laboratory Tests Test 11/22/18 17:00 11/22/18 21:15 11/23/18 05:00 11/23/18 08:25 Urine Collection Type U cath Urine Color Red Urine Clarity Clear Urine pH 5.5 Urine Specific [place] >=1.030 Urine Protein >=300 mg/dL (NEG-TRACE) Urine Glucose (UA) >=1000 mg/dL (NEG) Urine Ketones (Stick) Trace mg/dL (NEG) Urine Blood Large (NEG) Urine Nitrite Negative (NEG) Urine Bilirubin Moderate (NEG) Urine Urobilinogen Dipstick 1.0 mg/dL (0.2 mg/dL) Urine Leukocyte Esterase Small (NEG) Urine RBC Tntc /HPF (0-2) Urine WBC 11-20 /HPF (0-4) Urine Bacteria 0 /HPF (0-FEW) Glucose (Fingerstick) 310 mg/dL (70-99) 250 mg/dL (70-99) 134 mg/dL (70-99) White Blood Count 7.8 x10^3/uL (4.0-11.0) Red Blood Count 2.64 x10^6/uL (4.30-5.70) Hemoglobin 8.3 g/dL (13.0-17.5) Hematocrit 24.3 % (39.0-53.0) Mean Corpuscular Volume 92 fL (79-100) Mean Corpuscular Hemoglobin 32 pg (25-35) Mean Corpuscular Hemoglobin Concent 34 g/dL (31-37) Red Cell Distribution Width 13.3 % (11.5-14.5) Platelet Count 209 x10^3/uL (140-400) Neutrophils (%) (Auto) 70 % (31-73) Lymphocytes (%) (Auto) 16 % (24-48) Monocytes (%) (Auto) 10 % (0-9) Eosinophils (%) (Auto) 4 % (0-3) Basophils (%) (Auto) 0 % (0-3) Neutrophils # (Auto) 5.4 x10^3uL (1.8-7.7) Lymphocytes # (Auto) 1.2 x10^3/uL (1.0-4.8) Monocytes # (Auto) 0.8 x10^3/uL (0.0-1.1) Eosinophils # (Auto) 0.3 x10^3/uL (0.0-0.7) Basophils # (Auto) 0.0 x10^3/uL (0.0-0.2) Heparin Anti-Xa Act, Unfractionated 0.20 IU/mL (0.30-0.70) Sodium Level 143 mmol/L (136-145) Potassium Level 3.7 mmol/L (3.5-5.1) Chloride Level 108 mmol/L (98-107) Carbon Dioxide Level 27 mmol/L (21-32) Anion Gap 8 (6-14) Blood Urea Nitrogen 32 mg/dL (8-26) Creatinine 1.8 mg/dL (0.7-1.3) Estimated GFR (Cockcroft-Gault) 37.6 Glucose Level 179 mg/dL (70-99) Calcium Level 8.1 mg/dL (8.5-10.1) Test 11/23/18 12:20 11/23/18 16:35 11/23/18 18:25 11/23/18 20:55 Heparin Anti-Xa Act, Unfractionated 0.32 IU/mL (0.30-0.70) 0.29 IU/mL (0.30-0.70) Glucose (Fingerstick) 169 mg/dL (70-99) 160 mg/dL (70-99) 170 mg/dL (70-99) Test 11/24/18 01:00 11/24/18 08:15 11/24/18 08:17 11/24/18 11:19 White Blood Count 7.5 x10^3/uL (4.0-11.0) Red Blood Count 2.61 x10^6/uL (4.30-5.70) Hemoglobin 8.3 g/dL (13.0-17.5) Hematocrit 24.4 % (39.0-53.0) Mean Corpuscular Volume 94 fL (79-100) Mean Corpuscular Hemoglobin 32 pg (25-35) Mean Corpuscular Hemoglobin Concent 34 g/dL (31-37) Red Cell Distribution Width 13.5 % (11.5-14.5) Platelet Count 206 x10^3/uL (140-400) Heparin Anti-Xa Act, Unfractionated 0.28 IU/mL (0.30-0.70) 0.59 IU/mL (0.30-0.70) Sodium Level 143 mmol/L (136-145) Potassium Level 3.9 mmol/L (3.5-5.1) Chloride Level 108 mmol/L (98-107) Carbon Dioxide Level 26 mmol/L (21-32) Anion Gap 9 (6-14) Blood Urea Nitrogen 27 mg/dL (8-26) Creatinine 1.8 mg/dL (0.7-1.3) Estimated GFR (Cockcroft-Gault) 37.6 Glucose Level 153 mg/dL (70-99) Calcium Level 8.2 mg/dL (8.5-10.1) Troponin I Quantitative 0.295 ng/mL (0.000-0.055) Triglycerides Level 77 mg/dL (0-150) Cholesterol Level 93 mg/dL (0-200) LDL Cholesterol, Calculated 38 mg/dL (0-100) VLDL Cholesterol, Calculated 15 mg/dL (0-40) Non-HDL Cholesterol Calculated 53 mg/dL (0-129) HDL Cholesterol 40 mg/dL (40-60) Cholesterol/HDL Ratio 2.3 Glucose (Fingerstick) 191 mg/dL (70-99) 221 mg/dL (70-99) Laboratory Tests Test 11/23/18 16:35 11/23/18 18:25 11/23/18 20:55 11/24/18 01:00 Glucose (Fingerstick) 160 mg/dL (70-99) 170 mg/dL (70-99) Heparin Anti-Xa Act, Unfractionated 0.29 IU/mL (0.30-0.70) 0.28 IU/mL (0.30-0.70) White Blood Count 7.5 x10^3/uL (4.0-11.0) Red Blood Count 2.61 x10^6/uL (4.30-5.70) Hemoglobin 8.3 g/dL (13.0-17.5) Hematocrit 24.4 % (39.0-53.0) Mean Corpuscular Volume 94 fL (79-100) Mean Corpuscular Hemoglobin 32 pg (25-35) Mean Corpuscular Hemoglobin Concent 34 g/dL (31-37) Red Cell Distribution Width 13.5 % (11.5-14.5) Platelet Count 206 x10^3/uL (140-400) Sodium Level 143 mmol/L (136-145) Potassium Level 3.9 mmol/L (3.5-5.1) Chloride Level 108 mmol/L (98-107) Carbon Dioxide Level 26 mmol/L (21-32) Anion Gap 9 (6-14) Blood Urea Nitrogen 27 mg/dL (8-26) Creatinine 1.8 mg/dL (0.7-1.3) Estimated GFR (Cockcroft-Gault) 37.6 Glucose Level 153 mg/dL (70-99) Calcium Level 8.2 mg/dL (8.5-10.1) Test 11/24/18 08:15 11/24/18 08:17 11/24/18 11:19 Heparin Anti-Xa Act, Unfractionated 0.59 IU/mL (0.30-0.70) Troponin I Quantitative 0.295 ng/mL (0.000-0.055) Triglycerides Level 77 mg/dL (0-150) Cholesterol Level 93 mg/dL (0-200) LDL Cholesterol, Calculated 38 mg/dL (0-100) VLDL Cholesterol, Calculated 15 mg/dL (0-40) Non-HDL Cholesterol Calculated 53 mg/dL (0-129) HDL Cholesterol 40 mg/dL (40-60) Cholesterol/HDL Ratio 2.3 Glucose (Fingerstick) 191 mg/dL (70-99) 221 mg/dL (70-99) Medications Current Medications Furosemide (Lasix) 60 mg 1X ONCE IVP Last administered on 11/21/18at 16:34; Start 11/21/18 at 15:45; Stop 11/21/18 at 15:49; Status DC Insulin Human Regular (HumuLIN R VIAL) 5 unit 1X ONCE IV Last administered on 11/21/18at 17:50; Start 11/21/18 at 17:30; Stop 11/21/18 at 17:31; Status DC Heparin Sodium (Porcine) (Heparin Sodium) 4,000 unit 1X ONCE IV Last administered on 11/21/18at 17:46; Start 11/21/18 at 17:30; Stop 11/21/18 at 17:31; Status DC Heparin Sodium/ Dextrose 500 ml @ 17.6 mls/hr CONT PRN IV SEE I/O RECORD Last administered on 11/24/18at 08:18; Start 11/21/18 at 17:30 Heparin Sodium (Porcine) (Heparin Sodium) 1,850 unit PRN Q6HRS PRN IV FOR UFH LEVEL LESS THAN 0.2 Last administered on 11/22/18at 01:30; Start 11/21/18 at 17:30 Ondansetron HCl (Zofran) 4 mg PRN Q8HRS PRN IV NAUSEA/VOMITING; Start 11/21/18 at 17:30; Stop 11/22/18 at 17:29; Status DC Morphine Sulfate (Morphine Sulfate) 2 mg PRN Q2HR PRN IV PAIN; Start 11/21/18 at 17:30; Stop 11/22/18 at 17:29; Status DC Acetaminophen (Tylenol) 650 mg PRN Q4HRS PRN PO FEVER; Start 11/21/18 at 17:30; Stop 11/22/18 at 17:29; Status DC Alprazolam (Xanax) 0.5 mg PRN Q6HRS PRN PO ANXIETY / AGITATION Last administered on 11/23/18 21:23; Start 11/22/18 at 03:30 Aspirin (Ecotrin) 81 mg DAILY PO Last administered on 11/24/18 08:15; Start 11/22/18 at 09:00 Clopidogrel Bisulfate (Plavix) 75 mg DAILY PO Last administered on 11/24/18 08:14; Start 11/22/18 at 09:00 Insulin Glargine (Lantus) 30 units QHS SQ Last administered on 11/22/18 21:25; Start 11/22/18 at 21:00 Insulin Human Lispro (HumaLOG) 8 units TIDAC SQ Last administered on 11/24/18 11:33; Start 11/22/18 at 11:30 Lisinopril (Prinivil) 10 mg DAILY PO Last administered on 11/23/18 08:42; Start 11/22/18 at 09:00; Stop 11/24/18 at 10:47; Status DC Metoprolol Succinate (Toprol Xl) 25 mg DAILY PO Last administered on 11/24/18 11:27; Start 11/22/18 at 09:00 Atorvastatin Calcium (Lipitor) 80 mg QHS PO Last administered on 11/23/18 21:23; Start 11/22/18 at 21:00 Glimepiride (Amaryl) 4 mg DAILY PO Last administered on 11/24/18 11:26; Start 11/22/18 at 09:00 Info (Anti-Coagulation Monitoring By Pharmacy) 1 each PRN DAILY PRN MC SEE COMMENTS Last administered on 11/23/18 08:16; Start 11/22/18 at 10:45 Tamsulosin HCl (Flomax) 0.4 mg QHS PO Last administered on 11/23/18 21:23; Start 11/22/18 at 21:00 Magnesium Citrate (Citroma) 296 ml 1X ONCE PO ; Start 11/24/18 at 15:00; Stop 11/24/18 at 15:01 Polyethylene Glycol (miraLAX PACKET) 17 gm DAILY PO ; Start 11/24/18 at 15:00 Active Scripts Active Humalog (Insulin Lispro) 100 Unit/1 Ml Insuln.pen 8 Units SQ TIDAC 90 Days Lantus Solostar (Insulin Glargine,Hum.rec.anlog) 100 Unit/1 Ml Insuln.pen 30 Units SQ QHS 30 Days Lisinopril 10 Mg Tablet 10 Mg PO DAILY 90 Days Reported Metoprolol Succinate ( Xl ) (Metoprolol Succinate) 25 Mg Tab.er.24h 25 Mg PO DAILY Glimepiride 4 Mg Tablet 4 Mg PO DAILY Clopidogrel (Clopidogrel Bisulfate) 75 Mg Tablet 1 Tab PO DAILY Aspir 81 (Aspirin) 81 Mg Tablet.dr 1 Tab PO DAILY Atorvastatin Calcium 80 Mg Tablet 1 Tab PO DAILY Metformin Hcl 500 Mg Tablet 1,000 Mg PO BID Vitals/I & O Vital Sign - Last 24 Hours 11/23/18 11/23/18 11/23/18 11/23/18 14:58 19:55 20:00 22:55 Temp 97.9 98.2 98.1 97.9 98.2 98.1 Pulse 103 92 87 Resp 18 20 20 B/P (MAP) 142/81 (101) 120/61 (80) 106/57 (73) Pulse Ox 97 92 96 O2 Delivery Nasal Cannula Nasal Cannula Nasal Cannula Nasal Cannula O2 Flow Rate 3.0 3.0 3.0 3.0 11/24/18 11/24/18 11/24/18 11/24/18 03:30 07:00 08:00 11:00 Temp 98.0 98.1 98.2 98.0 98.1 98.2 Pulse 87 92 96 Resp 20 18 18 B/P (MAP) 118/68 (85) 144/76 (98) 160/86 (110) Pulse Ox 93 94 94 O2 Delivery Nasal Cannula Nasal Cannula Nasal Cannula Nasal Cannula O2 Flow Rate 3.0 3.0 3.0 3.0 11/24/18 11:27 Pulse 92 B/P (MAP) 165/89 Intake and Output 11/23/18 11/23/18 11/24/18 15:00 23:00 07:00 Intake Total 700 ml 390 ml Output Total 300 ml 750 ml Balance 400 ml -360 ml BALWINDER MA MD November 24, 2018 14:42
[2018-11-24 15:00] VITALS: BP 131/73
[2018-11-24] MEDS ORDERED: MAGNESIUM CITRATE 296 ML SOLUTION. PO ONE (15:00)
[2018-11-24] MEDS: POLYETHYLENE GLYCOL 3350 17 GM PACKET. PO SCH (15:40)
[2018-11-24 19:55] VITALS: BP 137/65
[2018-11-24] MEDS: ATORVASTATIN CALCIUM 40 MG TABLET. PO SCH (22:22)
[2018-11-24] MEDS: TAMSULOSIN 0.4 MG CAP.ER.24H. PO SCH (22:22)
[2018-11-24] MEDS: ACETYLCYSTEINE 20% ORAL SOLN 600 MG/3 ML SYRINGE. PO SCH (22:22)
[2018-11-24] MEDS: INSULIN GLARGINE 300 UNITS/3 ML INSULN.PEN. SQ SCH (22:33)
[2018-11-24 23:00] VITALS: BP 141/62
[2018-11-25] VITALS (14 sets, daily range): BP systolic 111–162; BP diastolic 64–86
[2018-11-25] MEDS: HEPARIN 25,000UTS/500ML PREMIX 500 ML IV PRN (02:02)
[2018-11-25 03:37] LABS: CALCIUM 8.2 mg/dL (8.5-10.1); CREATININE 1.8 mg/dL (0.7-1.3); GFR 37.6; POTASSIUM 4.1 mmol/L (3.5-5.1)
[2018-11-25] MEDS: INSULIN LISPRO 300 UNITS/3 ML INSULN.PEN. SQ SCH ×3 (07:30→17:23)
[2018-11-25] MEDS ORDERED: IV NORMAL SALINE 1000ML BAG 1,000 ML IV SCH (07:30)
[2018-11-25] MEDS: CLOPIDOGREL BISULFATE 75 MG TABLET PO SCH (08:45)
[2018-11-25] MEDS: ACETYLCYSTEINE 20% ORAL SOLN 600 MG/3 ML SYRINGE. PO SCH ×2 (08:45→20:37)
[2018-11-25] MEDS: ASPIRIN ENTERIC COATED 81 MG TABLET.DR. PO SCH (08:45)
--- NOTE | 2018-11-25 08:46 | PDOC ---
KARO CHRISTIANSON WIRE ANNEALER 11/25/18 0846: SUBJECTIVE Subjective Pt doing ok today, no pain. Going for cardiac catheter later OBJECTIVE Objective Physical Exam: General appearance: Alert and Oriented Head: Normocephalic, without obvious abnormality Eyes: conjunctivae/corneas clear. PERRL, EOM's intact. Fundi benign Back: no CVA pain bilaterally Lungs: Regular respirations, non labored breathing Abdomen: soft, non-tender. No masses, no organomegaly Pelvic: phallus with Hicks in place draining carrasco red urine with occ sediment. Vital Signs Vital Signs Date Time Temp Pulse Resp B/P (MAP) Pulse Ox O2 Delivery O2 Flow Rate FiO2 11/25/18 07:00 98.2 96 18 141/76 (97) 94 Nasal Cannula 3.0 98.2 11/25/18 02:48 97.9 85 16 162/86 (111) 97 Nasal Cannula 3.0 97.9 11/24/18 23:00 98.3 92 18 141/62 (88) 96 Nasal Cannula 3.0 98.3 11/24/18 20:00 Nasal Cannula 2.0 11/24/18 19:55 98.1 100 18 137/65 (89) 97 Nasal Cannula 3.0 98.1 11/24/18 15:00 97.9 91 18 131/73 (92) 96 Nasal Cannula 3.0 97.9 11/24/18 11:27 92 165/89 11/24/18 11:00 98.2 96 18 160/86 (110) 94 Nasal Cannula 3.0 98.2 I & O Intake and Output 11/25/18 06:59 Intake Total 920 ml Output Total 802 ml Balance 118 ml Intake Oral 920 ml Output Urine Total 800 ml Stool Total 2 ml PHYSICAL EXAM Physical Exam Physical Exam: General appearance: Alert and Oriented Head: Normocephalic, without obvious abnormality Eyes: conjunctivae/corneas clear. PERRL, EOM's intact. Fundi benign Back: no CVA pain bilaterally Lungs: Regular respirations, non labored breathing Abdomen: soft, non-tender. No masses, no organomegaly Pelvic: phallus with Hicks in place draining carrasco red urine with occ sediment. ASSESSMENT/PLAN Assessment/Plan Gross Hematuria: still on heparin drip, although anticoagulants are still ongoing. Scheduled to be D/C'ed today at 10 prior to cardiac catheterization. Nursing to continue to maintain Hicks catheter for now. It is draining well despite hematuria. Message sent to surgeons regarding continued condition of urine. We will get a Non contrast CT ABD/PELVIS to further evaluate. A cystoscopy has been arranged for him for 12/11/18 at [address] Ignacio of [facility] [place]. Appointment card and new patient paperwork given to . Urine culture is in progress currently. Continue Flomax for retention / BPH. Voiding trial in a few days when acute issues have resolved and he is more mobile. Problems: (1) Hicks catheter in place (2) Hematuria COMMENT Lab Laboratory Tests Test 11/24/18 11:19 11/24/18 13:50 11/24/18 16:58 11/24/18 20:00 Glucose (Fingerstick) 221 mg/dL (70-99) 330 mg/dL (70-99) Heparin Anti-Xa Act, Unfractionated 0.56 IU/mL (0.30-0.70) 0.47 IU/mL (0.30-0.70) Test 11/24/18 20:21 11/25/18 03:00 11/25/18 07:54 Glucose (Fingerstick) 365 mg/dL (70-99) 105 mg/dL (70-99) Heparin Anti-Xa Act, Unfractionated 0.30 IU/mL (0.30-0.70) Sodium Level 141 mmol/L (136-145) Potassium Level 4.1 mmol/L (3.5-5.1) Chloride Level 107 mmol/L (98-107) Carbon Dioxide Level 29 mmol/L (21-32) Anion Gap 5 (6-14) Blood Urea Nitrogen 28 mg/dL (8-26) Creatinine 1.8 mg/dL (0.7-1.3) Estimated GFR (Cockcroft-Gault) 37.6 Glucose Level 205 mg/dL (70-99) Calcium Level 8.2 mg/dL (8.5-10.1) LAZ IGNACIO MD 11/25/18 3779: ASSESSMENT/PLAN Assessment/Plan Agree with assessment and plan. CT scan to eval for urologic abnormalities causing hematuria. No contrast due to poor renal function. Cystoscopy in future - prefer in office in possible due to better image resolution. KARO CHRISTIANSON APRN November 25, 2018 08:46 LAZ IGNACIO MD November 25, 2018 17:08
[2018-11-25] MEDS ORDERED: LIDOCAINE 1% PF 2 ML VIAL. ONE (09:00)
[2018-11-25] MEDS ORDERED: VERAPAMIL 5 MG/2 ML VIAL. ONE ×2 (09:00→09:03)
[2018-11-25] MEDS ORDERED: HEPARIN for ARTERIAL LINE 1,500 ML ONE (09:00)
[2018-11-25] MEDS: POLYETHYLENE GLYCOL 3350 17 GM PACKET. PO SCH (09:00)
[2018-11-25] MEDS ORDERED: IODIXANOL 320 MG/ML 100 ML VIAL. ONE (09:00)
[2018-11-25] MEDS ORDERED: MIDAZOLAM HCL/PF 2 MG/2 ML VIAL. ONE (09:03)
[2018-11-25] MEDS ORDERED: fentaNYL PF VIAL 100 MCG/2 ML VIAL ONE (09:03)
[2018-11-25] MEDS ORDERED: HEPARIN for IV BOLUS 10,000 UNIT/10 ML VIAL. ONE (09:03)
[2018-11-25] MEDS ORDERED: NITROGLYCERIN 200 MCG/2 ML SYRINGE FOR CATH/VASC LAB. ONE (09:04)
--- NOTE | 2018-11-25 09:13 | PDOC ---
MODERATE SEDATION ASSESSMENT RISKS/ALTERNATIVES Risks/Alternatives Risks and alternatives of this type of sedation and procedure discussed with: RISK/ALTERNATIVES: Patient H & P ON CHART H & P H & P on chart and reviewed for co-morbid conditions and appropriate labs. H&P ON CHART: Yes STATUS PREG STATUS ASSESSED: N/A MEDS/ALLERGIES REVIEWED Meds/Allergies Reviewed Medications and Allergies including time and route of recently administered narcotics and sedatives. MEDS/ALLERGIES REVIEWED: Yes ASA RATING ASA RATING: II AIRWAY ASSESSMENT Airway Assessment Airway patency, oral function limitations, presence of caps, crowns, dentures, partials, and ability to extend neck assessed. AIRWAY ASSESSMENT: Yes MALLAMPATI SCORE MALLAMPATI SCORE: II PRE-SEDATION ASSESSMENT PRE-SEDATION ASSESSMENT: Yes CLEMENTE WISE MD November 25, 2018 09:13
[2018-11-25] MEDS ORDERED: LIDOCAINE 1% Multi-Dose 20 ML VIAL. ONE (09:25)
[2018-11-25 09:26] LABS: PROTHROMBIN TIME PATIENT 14.5 SEC (11.7-14.0)
[2018-11-25 09:27] LABS: UNFRACTIONATED HEPARIN TESTING 0.45 IU/mL (0.30-0.70)
[2018-11-25] MEDS: ANTI-COAG MONITOR BY PHARMACY. MC PRN (09:30)
[2018-11-25] MEDS ORDERED: CONTRAST GIVEN. MC PRN (09:45)
[2018-11-25] MEDS ORDERED: MIDAZOLAM HCL/PF 2 MG/2 ML VIAL. IV ONE (09:45)
[2018-11-25] MEDS ORDERED: fentaNYL PF VIAL 100 MCG/2 ML VIAL IV ONE (09:45)
[2018-11-25] MEDS ORDERED: LIDOCAINE 1% PF 2 ML VIAL. INJ ONE (09:45)
[2018-11-25] MEDS ORDERED: LIDOCAINE 1% Multi-Dose 20 ML VIAL. INJ ONE (09:45)
[2018-11-25] MEDS ORDERED: IODIXANOL 320 MG/ML 100 ML VIAL. IART ONE (09:45)
[2018-11-25] MEDS: METOPROLOL SUCC 24HR ER 25 MG TAB.ER.24H. PO SCH (10:59)
[2018-11-25] MEDS: GLIMEPIRIDE 2 MG TABLET. PO SCH (10:59)
--- NOTE | 2018-11-25 12:11 | CARD ---
MR#: [id number] Date of Study: 11/25/2018 Ordering Physician: CLEMENTE CARR, Referring Physician: BALWINDER MA, Tech: ARABELLA PATTON RTR APPROVED REPORT Technologist: ARABELLA PATTON RTR Nurse: Jaclyn Cordova R.N. Procedure(s) performed: MODERATE SEDATION TIME: 41 MINUTES FLUORO TIME: 4.8 MIN DOSE: 73 GYCM2 CONTRAST: 56 mL LHC, Coronary angiography HISTORY The patient is a 68 year-old male with a history of : diabetes mellitus with treatment, coronary tim ry disease, tobacco history() , hypertension, dyslipidemia. INDICATION The indication(s) include : non-STEMI . [facility] Clinical Frailty Scale [facility] Clinical Frailty Scale: Severely Frail Heart Failure Heart Failure: Yes If Yes, Newly Diagnosed: Yes If Yes, HF Type: Diastolic Systolic If Yes, NYHA Class: Class III PROCEDURE NARRATIVE INFORMED CONSENT: After explaining the risks and benefits of the procedure and alternatives, informed consent was obtained. The patient was brought electively to the cardiac catheterization lab. A timeout was performed confi rming the patient's name, date of , procedure, and site of procedure. All necessary personnel w ere wearing the appropriate protective equipment and radiation monitor devices. (See nursing notes for medications administered). ACCESS: The right wrist was sterilely prepped and draped in the usual fashion. The right wrist was infiltrat ed with 1 mL of 2% lidocaine for subcutaneous anesthesia. A 6 Indian Terumo glide sheath was unable to be advanced past the initial sheath entry site due to significant spasm and likely diffuse arteria l disease. Therefore, the right groin was infiltrated with 1% lidocaine. Subsequently, the 18-gauge n eedle was used to access the common femoral artery and a 6 Indian sheath was placed without any diffi culty. CORONARY ANGIOGRAPHY: Right and left coronary angiography was performed using a standard diagnostic JL4 and an AL-1 cathet er and due to the anterior takeoff of the right coronary artery. Left ventricular end diastolic pres sure was obtained with a pigtail catheter and pullback was performed. All catheter exchanges and adv ancements were performed over a guidewire. CLOSURE: At case completion the right radial sheath was removed and a Terumo radial band was applied with 13 m l of air. The right groin access site was then closed with a Angio-Seal device and hemostasis was ac hieved. COMPLICATIONS: The patient tolerated the procedure well and there were no immediate complications. FINDINGS: HEMODYNAMICS: LVEDP 25 mm Hg No gradient on LV to aortic pullback. AO: 128/78 LEFT VENTRICULOGRAM: Deferred due to LV dysfunction and known ejection fraction of 30%. CORONARY ANGIOGRAPHY: LM is a large caliber vessel with approximately a 20% stenosis in the mid body. LAD is a moderate caliber vessel with a heavily calcified long proximal to mid 80% stenosis. The dist al vessel is small in caliber. D1/D2 are small caliber vessels with an ostial 99% stenosis of the first diagonal and a 90% stenosis of the second diagonal LCx is a small to moderate caliber non-dominant vessel with a proximal 70-80% stenosis. OM1 is a small to moderate caliber vessel with normal angiographic appearance. RCA is a large caliber dominant vessel with proximal 80-90% stenosis. RPDA is a moderate caliber vessel with mild to moderate diffuse disease of up to 40%. The vessel exte nds to the apex. RPL is a small to moderate sized vessel with heavy proximal calcification and a 100% ostial occlusion . The distal vessel is seen to fill via collaterals. Conclusion 1. Acute on chronic systolic and diastolic heart failure. LVEDP 25 mm Hg 2. Severe three vessel coronary artery disease. Recommendations CT surgery consultation for consideration of high risk bypass after viability assesment and evaluatio n of hematuria. If felt to be high risk candidate for CABG, consider high risk PCI with rotational atherectomy of the LAD/LCX and RCA with possible Impella device. Signed by : Clemente Carr, Electronically Approved : 11/25/2018 12:10:49
--- NOTE | 2018-11-25 13:02 | PDOC ---
PROGRESS NOTES Subjective Subjective Patient seen while on catheter table. No exam done due to sterile precautions. Patient still having hematuria. Case discussed with cardiology after Revealed severe three-vessel disease. When issues were made to evaluate and treat hematuria prior to thoracic surgery consultation and treatment due to large amounts of anticoagulation needed during bypass surgery. Objective Objective Vital Signs Date Time Temp Pulse Resp B/P (MAP) Pulse Ox O2 Delivery O2 Flow Rate FiO2 11/25/18 12:03 84 20 94 Nasal Cannula 3.0 11/25/18 11:00 98.0 122/72 (89) 98.0 Intake and Output 11/25/18 06:59 Intake Total 920 ml Output Total 802 ml Balance 118 ml Intake Oral 920 ml Output Urine Total 800 ml Stool Total 2 ml Assessment Assessment Problems Medical Problems: (1) Gfnfu-ic-tvejjki kidney injury Status: Acute (2) Chest pain Status: Acute (3) CHF (congestive heart failure) Status: Acute Acute coronary syndrome with EKG changes and elevated troponin now with confirmed triple vessel disease by cardiac catheter. Acute on chronic congestive heart failure with elevated BNP and pulmonary edema on chest x-ray. Acute on chronic renal failure with baseline creatinine of 1.5 up to 1.9. Pulm HTN Type 2 diabetes, out of control. Hypertension. Urinary retention with suspected BPH. Hematuria. Plan Plan of Care Consult thoracic surgery. Proceed with more definitive urologic evaluation and treatment. Into new medical management coronary artery disease. Comment Review of Relevant I have reviewed the following items bahman (where applicable) has been applied. Labs Laboratory Tests Test 11/23/18 16:35 11/23/18 18:25 11/23/18 20:55 11/24/18 01:00 Glucose (Fingerstick) 160 mg/dL (70-99) 170 mg/dL (70-99) Heparin Anti-Xa Act, Unfractionated 0.29 IU/mL (0.30-0.70) 0.28 IU/mL (0.30-0.70) White Blood Count 7.5 x10^3/uL (4.0-11.0) Red Blood Count 2.61 x10^6/uL (4.30-5.70) Hemoglobin 8.3 g/dL (13.0-17.5) Hematocrit 24.4 % (39.0-53.0) Mean Corpuscular Volume 94 fL (79-100) Mean Corpuscular Hemoglobin 32 pg (25-35) Mean Corpuscular Hemoglobin Concent 34 g/dL (31-37) Red Cell Distribution Width 13.5 % (11.5-14.5) Platelet Count 206 x10^3/uL (140-400) Sodium Level 143 mmol/L (136-145) Potassium Level 3.9 mmol/L (3.5-5.1) Chloride Level 108 mmol/L (98-107) Carbon Dioxide Level 26 mmol/L (21-32) Anion Gap 9 (6-14) Blood Urea Nitrogen 27 mg/dL (8-26) Creatinine 1.8 mg/dL (0.7-1.3) Estimated GFR (Cockcroft-Gault) 37.6 Glucose Level 153 mg/dL (70-99) Calcium Level 8.2 mg/dL (8.5-10.1) Test 11/24/18 08:15 11/24/18 08:17 11/24/18 11:19 11/24/18 13:50 Heparin Anti-Xa Act, Unfractionated 0.59 IU/mL (0.30-0.70) 0.56 IU/mL (0.30-0.70) Troponin I Quantitative 0.295 ng/mL (0.000-0.055) Triglycerides Level 77 mg/dL (0-150) Cholesterol Level 93 mg/dL (0-200) LDL Cholesterol, Calculated 38 mg/dL (0-100) VLDL Cholesterol, Calculated 15 mg/dL (0-40) Non-HDL Cholesterol Calculated 53 mg/dL (0-129) HDL Cholesterol 40 mg/dL (40-60) Cholesterol/HDL Ratio 2.3 Glucose (Fingerstick) 191 mg/dL (70-99) 221 mg/dL (70-99) Test 11/24/18 16:58 11/24/18 20:00 11/24/18 20:21 11/25/18 03:00 Glucose (Fingerstick) 330 mg/dL (70-99) 365 mg/dL (70-99) Heparin Anti-Xa Act, Unfractionated 0.47 IU/mL (0.30-0.70) 0.30 IU/mL (0.30-0.70) Sodium Level 141 mmol/L (136-145) Potassium Level 4.1 mmol/L (3.5-5.1) Chloride Level 107 mmol/L (98-107) Carbon Dioxide Level 29 mmol/L (21-32) Anion Gap 5 (6-14) Blood Urea Nitrogen 28 mg/dL (8-26) Creatinine 1.8 mg/dL (0.7-1.3) Estimated GFR (Cockcroft-Gault) 37.6 Glucose Level 205 mg/dL (70-99) Calcium Level 8.2 mg/dL (8.5-10.1) Test 11/25/18 07:54 11/25/18 08:45 11/25/18 11:36 Glucose (Fingerstick) 105 mg/dL (70-99) 140 mg/dL (70-99) Prothrombin Time 14.5 SEC (11.7-14.0) Prothromb Time International Ratio 1.2 (0.8-1.1) Heparin Anti-Xa Act, Unfractionated 0.45 IU/mL (0.30-0.70) Laboratory Tests Test 11/24/18 13:50 11/24/18 16:58 11/24/18 20:00 11/24/18 20:21 Heparin Anti-Xa Act, Unfractionated 0.56 IU/mL (0.30-0.70) 0.47 IU/mL (0.30-0.70) Glucose (Fingerstick) 330 mg/dL (70-99) 365 mg/dL (70-99) Test 11/25/18 03:00 11/25/18 07:54 11/25/18 08:45 11/25/18 11:36 Heparin Anti-Xa Act, Unfractionated 0.30 IU/mL (0.30-0.70) 0.45 IU/mL (0.30-0.70) Sodium Level 141 mmol/L (136-145) Potassium Level 4.1 mmol/L (3.5-5.1) Chloride Level 107 mmol/L (98-107) Carbon Dioxide Level 29 mmol/L (21-32) Anion Gap 5 (6-14) Blood Urea Nitrogen 28 mg/dL (8-26) Creatinine 1.8 mg/dL (0.7-1.3) Estimated GFR (Cockcroft-Gault) 37.6 Glucose Level 205 mg/dL (70-99) Calcium Level 8.2 mg/dL (8.5-10.1) Glucose (Fingerstick) 105 mg/dL (70-99) 140 mg/dL (70-99) Prothrombin Time 14.5 SEC (11.7-14.0) Prothromb Time International Ratio 1.2 (0.8-1.1) Microbiology 11/22/18 Urine Culture - Final, Complete 11/22/18 Urine Culture Result 1 (TIFFANIE) - Final, Complete Medications Current Medications Furosemide (Lasix) 60 mg 1X ONCE IVP Last administered on 11/21/18at 16:34; Start 11/21/18 at 15:45; Stop 11/21/18 at 15:49; Status DC Insulin Human Regular (HumuLIN R VIAL) 5 unit 1X ONCE IV Last administered on 11/21/18at 17:50; Start 11/21/18 at 17:30; Stop 11/21/18 at 17:31; Status DC Heparin Sodium (Porcine) (Heparin Sodium) 4,000 unit 1X ONCE IV Last administered on 11/21/18at 17:46; Start 11/21/18 at 17:30; Stop 11/21/18 at 17:31; Status DC Heparin Sodium/ Dextrose 500 ml @ 17.6 mls/hr CONT PRN IV SEE I/O RECORD Last administered on 11/25/18at 02:02; Start 11/21/18 at 17:30 Heparin Sodium (Porcine) (Heparin Sodium) 1,850 unit PRN Q6HRS PRN IV FOR UFH LEVEL LESS THAN 0.2 Last administered on 11/22/18at 01:30; Start 11/21/18 at 17:30 Ondansetron HCl (Zofran) 4 mg PRN Q8HRS PRN IV NAUSEA/VOMITING; Start 11/21/18 at 17:30; Stop 11/22/18 at 17:29; Status DC Morphine Sulfate (Morphine Sulfate) 2 mg PRN Q2HR PRN IV PAIN; Start 11/21/18 at 17:30; Stop 11/22/18 at 17:29; Status DC Acetaminophen (Tylenol) 650 mg PRN Q4HRS PRN PO FEVER; Start 11/21/18 at 17:30; Stop 11/22/18 at 17:29; Status DC Alprazolam (Xanax) 0.5 mg PRN Q6HRS PRN PO ANXIETY / AGITATION Last administered on 11/23/18 21:23; Start 11/22/18 at 03:30 Aspirin (Ecotrin) 81 mg DAILY PO Last administered on 11/25/18 08:45; Start 11/22/18 at 09:00 Clopidogrel Bisulfate (Plavix) 75 mg DAILY PO Last administered on 11/25/18 08:45; Start 11/22/18 at 09:00 Insulin Glargine (Lantus) 30 units QHS SQ Last administered on 11/24/18 22:33; Start 11/22/18 at 21:00 Insulin Human Lispro (HumaLOG) 8 units TIDAC SQ Last administered on 11/25/18 12:11; Start 11/22/18 at 11:30 Lisinopril (Prinivil) 10 mg DAILY PO Last administered on 11/23/18 08:42; Start 11/22/18 at 09:00; Stop 11/24/18 at 10:47; Status DC Metoprolol Succinate (Toprol Xl) 25 mg DAILY PO Last administered on 11/25/18 10:59; Start 11/22/18 at 09:00 Atorvastatin Calcium (Lipitor) 80 mg QHS PO Last administered on 11/24/18 22:22; Start 11/22/18 at 21:00 Glimepiride (Amaryl) 4 mg DAILY PO Last administered on 11/25/18 10:59; Start 11/22/18 at 09:00 Info (Anti-Coagulation Monitoring By Pharmacy) 1 each PRN DAILY PRN MC SEE COMMENTS Last administered on 11/25/18 09:30; Start 11/22/18 at 10:45 Tamsulosin HCl (Flomax) 0.4 mg QHS PO Last administered on 11/24/18 22:22; Start 11/22/18 at 21:00 Magnesium Citrate (Citroma) 296 ml 1X ONCE PO Last administered on 11/24/18 15:39; Start 11/24/18 at 15:00; Stop 11/24/18 at 15:01; Status DC Polyethylene Glycol (miraLAX PACKET) 17 gm DAILY PO Last administered on 11/24/18 15:40; Start 11/24/18 at 15:00 Acetylcysteine (Mucomyst 20% Oral Solution) 600 mg BID PO Last administered on 11/25/18at 08:45; Start 11/24/18 at 21:00; Stop 11/27/18 at 12:00 Sodium Chloride 1,000 ml @ 60 mls/hr [id number] IV Last administered on 11/24/18at 22:22; Start 11/25/18 at 07:30 Iodixanol (Visipaque 320) 100 ml STK-MED ONCE .ROUTE ; Start 11/25/18 at 09:00; Stop 11/25/18 at 09:01; Status DC Lidocaine HCl (Xylocaine-Mpf 1% 2ml Vial) 2 ml STK-MED ONCE .ROUTE ; Start 11/25/18 at 09:00; Stop 11/25/18 at 09:01; Status DC Heparin Sodium/ Sodium Chloride 1,500 ml @ As Directed STK-MED ONCE .ROUTE ; Start 11/25/18 at 09:00; Stop 11/25/18 at 09:01; Status DC Fentanyl Citrate (Fentanyl 2ml Vial) 100 mcg STK-MED ONCE .ROUTE ; Start 11/25/18 at 09:03; Stop 11/25/18 at 09:04; Status DC Midazolam HCl (Versed) 2 mg STK-MED ONCE .ROUTE ; Start 11/25/18 at 09:03; Stop 11/25/18 at 09:04; Status DC Heparin Sodium (Porcine) (Heparin Sodium) 10,000 unit STK-MED ONCE .ROUTE ; Start 11/25/18 at 09:03; Stop 11/25/18 at 09:04; Status DC Verapamil HCl (Verapamil) 5 mg STK-MED ONCE .ROUTE ; Start 11/25/18 at 09:03; Stop 11/25/18 at 09:04; Status DC Nitroglycerin (Nitroglycerin) 200 mcg STK-MED ONCE .ROUTE ; Start 11/25/18 at 09:04; Stop 11/25/18 at 09:05; Status DC Lidocaine HCl (Lidocaine 1% 20ml Vial) 20 ml STK-MED ONCE .ROUTE ; Start 11/25/18 at 09:25; Stop 11/25/18 at 09:26; Status DC Heparin Sodium/ Sodium Chloride (HEPARIN for ARTERIAL LINE FLUSH) 1,000 unit 1X ONCE IART Last administered on 11/25/18 09:53; Start 11/25/18 at 09:45; Stop 11/25/18 at 09:46; Status DC Midazolam HCl (Versed) 2 mg 1X ONCE IV Last administered on 11/25/18 09:52; Start 11/25/18 at 09:45; Stop 11/25/18 at 09:46; Status DC Fentanyl Citrate (Fentanyl 2ml Vial) 50 mcg 1X ONCE IV Last administered on 11/25/18 09:53; Start 11/25/18 at 09:45; Stop 11/25/18 at 09:46; Status DC Iodixanol (Visipaque 320) 100 ml 1X ONCE IART Last administered on 11/25/18 09:52; Start 11/25/18 at 09:45; Stop 11/25/18 at 09:46; Status DC Lidocaine HCl (Lidocaine 1% 20ml Vial) 10 ml 1X ONCE INJ Last administered on 11/25/18at 09:45; Start 11/25/18 at 09:45; Stop 11/25/18 at 09:46; Status DC Lidocaine HCl (Xylocaine-Mpf 1% 2ml Vial) 1 ml 1X ONCE INJ Last administered on 11/25/18 09:52; Start 11/25/18 at 09:45; Stop 11/25/18 at 09:46; Status DC Info (CONTRAST GIVEN -- Rx MONITORING) 1 each PRN DAILY PRN MC SEE COMMENTS; Start 11/25/18 at 09:45; Stop 11/27/18 at 09:44 Active Scripts Active Humalog (Insulin Lispro) 100 Unit/1 Ml Insuln.pen 8 Units SQ TIDAC 90 Days Lantus Solostar (Insulin Glargine,Hum.rec.anlog) 100 Unit/1 Ml Insuln.pen 30 Units SQ QHS 30 Days Lisinopril 10 Mg Tablet 10 Mg PO DAILY 90 Days Reported Metoprolol Succinate ( Xl ) (Metoprolol Succinate) 25 Mg Tab.er.24h 25 Mg PO DAILY Glimepiride 4 Mg Tablet 4 Mg PO DAILY Clopidogrel (Clopidogrel Bisulfate) 75 Mg Tablet 1 Tab PO DAILY Aspir 81 (Aspirin) 81 Mg Tablet.dr 1 Tab PO DAILY Atorvastatin Calcium 80 Mg Tablet 1 Tab PO DAILY Metformin Hcl 500 Mg Tablet 1,000 Mg PO BID Vitals/I & O Vital Sign - Last 24 Hours 11/24/18 11/24/18 11/24/18 11/24/18 15:00 19:55 20:00 23:00 Temp 97.9 98.1 98.3 97.9 98.1 98.3 Pulse 91 100 92 Resp 18 18 18 B/P (MAP) 131/73 (92) 137/65 (89) 141/62 (88) Pulse Ox 96 97 96 O2 Delivery Nasal Cannula Nasal Cannula Nasal Cannula Nasal Cannula O2 Flow Rate 3.0 3.0 2.0 3.0 11/25/18 11/25/18 11/25/18 11/25/18 02:48 07:00 08:00 09:53 Temp 97.9 98.2 97.9 98.2 Pulse 85 96 Resp 16 18 12 B/P (MAP) 162/86 (111) 141/76 (97) Pulse Ox 97 94 90 O2 Delivery Nasal Cannula Nasal Cannula Nasal Cannula Nasal Cannula O2 Flow Rate 3.0 3.0 2.0 5.0 11/25/18 11/25/18 11/25/18 11/25/18 09:56 10:18 10:33 10:48 Pulse 94 94 94 88 Resp 14 20 20 20 Pulse Ox 90 90 92 O2 Delivery Nasal Cannula Nasal Cannula Nasal Cannula Nasal Cannula O2 Flow Rate 5.0 5.0 6.0 6.0 11/25/18 11/25/18 11/25/18 11/25/18 10:59 11:00 11:03 11:33 Temp 98.0 98.0 Pulse 87 90 84 88 Resp 16 20 20 B/P (MAP) 128/68 122/72 (89) Pulse Ox 93 94 94 O2 Delivery Nasal Cannula Nasal Cannula Nasal Cannula O2 Flow Rate 3.0 5.0 4.0 11/25/18 12:03 Pulse 84 Resp 20 Pulse Ox 94 O2 Delivery Nasal Cannula O2 Flow Rate 3.0 Intake and Output 11/24/18 11/24/18 11/25/18 14:59 22:59 06:59 Intake Total 200 ml 200 ml 520 ml Output Total 800 ml 2 ml Balance 200 ml -600 ml 518 ml BALWINDER MA MD November 25, 2018 13:02
--- NOTE | 2018-11-25 15:47 | PDOC2 ---
CONSULT Date of Consult Date of Consult DATE: 11/25/18 TIME: 15:44 Reason for Consult Reason for Consult: CAD, ischemic cardiomyopathy Referring Physician Referring Physician: Dr Molina Identification/Chief Complaint Chief Complaint Chest pain, SOB Source Source: Chart review, Patient History of Present Illness Reason for Visit: The patient is a 68-year-old male who was admitted to [facility] on November 21, 2018 with increasing shortness of breath for the last 3 weeks and associated chest pain. He is known to have coronary artery disease and underwent coronary angiography approximately 3 months ago in [place] and was told that he needed CABG. The family decided to bring into the [facility] for a second opinion. Upon admission he was found to be in pulmonary edema with mild troponin elevation and chronic lateral ST changes. His EF on echo is 30-35%. He was also complaining of obstructive urinary symptoms and the Hicks was inserted. Ever since his been having alfredo hematuria. He has been on a heparin drip and on Plavix ever since. Coronary angiography today demonstrated a 80% proximal LAD stenosis, 80% left circumflex lesion with a relatively small obtuse marginal, small to moderate-siz ed diagonal branches with tight ostial stenoses and 80-90% proximal RCA disease with a moderate size RPDA and an occluded RPL which fills with left to right collaterals. His LVEDP is elevated at 30 mmHg. I was consulted to consider the patient for coronary surgical revascularization. Past Medical History Cardiovascular: CAD, HTN, Hyperlipidemia, Other (peripheral arterial disease.) Endocrine: Diabetes Family History Family History: Heart Disease Social History No ALCOHOL: none Current Problem List Problem List Problems Medical Problems: (1) [id number] kidney injury Status: Acute (2) Chest pain Status: Acute (3) CHF (congestive heart failure) Status: Acute Current Medications Current Medications Current Medications Furosemide (Lasix) 60 mg 1X ONCE IVP Last administered on 11/21/18at 16:34; Start 11/21/18 at 15:45; Stop 11/21/18 at 15:49; Status DC Insulin Human Regular (HumuLIN R VIAL) 5 unit 1X ONCE IV Last administered on 11/21/18at 17:50; Start 11/21/18 at 17:30; Stop 11/21/18 at 17:31; Status DC Heparin Sodium (Porcine) (Heparin Sodium) 4,000 unit 1X ONCE IV Last administered on 11/21/18at 17:46; Start 11/21/18 at 17:30; Stop 11/21/18 at 17:31; Status DC Heparin Sodium/ Dextrose 500 ml @ 17.6 mls/hr CONT PRN IV SEE I/O RECORD Last administered on 11/25/18 02:02; Start 11/21/18 at 17:30 Heparin Sodium (Porcine) (Heparin Sodium) 1,850 unit PRN Q6HRS PRN IV FOR UFH LEVEL LESS THAN 0.2 Last administered on 11/22/18 01:30; Start 11/21/18 at 17:30 Ondansetron HCl (Zofran) 4 mg PRN Q8HRS PRN IV NAUSEA/VOMITING; Start 11/21/18 at 17:30; Stop 11/22/18 at 17:29; Status DC Morphine Sulfate (Morphine Sulfate) 2 mg PRN Q2HR PRN IV PAIN; Start 11/21/18 at 17:30; Stop 11/22/18 at 17:29; Status DC Acetaminophen (Tylenol) 650 mg PRN Q4HRS PRN PO FEVER; Start 11/21/18 at 17:30; Stop 11/22/18 at 17:29; Status DC Alprazolam (Xanax) 0.5 mg PRN Q6HRS PRN PO ANXIETY / AGITATION Last administered on 11/23/18 21:23; Start 11/22/18 at 03:30 Aspirin (Ecotrin) 81 mg DAILY PO Last administered on 11/25/18 08:45; Start 11/22/18 at 09:00 Clopidogrel Bisulfate (Plavix) 75 mg DAILY PO Last administered on 11/25/18 08:45; Start 11/22/18 at 09:00 Insulin Glargine (Lantus) 30 units QHS SQ Last administered on 11/24/18 22:33; Start 11/22/18 at 21:00 Insulin Human Lispro (HumaLOG) 8 units TIDAC SQ Last administered on 11/25/18 12:11; Start 11/22/18 at 11:30 Lisinopril (Prinivil) 10 mg DAILY PO Last administered on 11/23/18 08:42; Start 11/22/18 at 09:00; Stop 11/24/18 at 10:47; Status DC Metoprolol Succinate (Toprol Xl) 25 mg DAILY PO Last administered on 11/25/18 10:59; Start 11/22/18 at 09:00 Atorvastatin Calcium (Lipitor) 80 mg QHS PO Last administered on 11/24/18 22:22 ; Start 11/22/18 at 21:00 Glimepiride (Amaryl) 4 mg DAILY PO Last administered on 11/25/18 10:59; Start 11/22/18 at 09:00 Info (Anti-Coagulation Monitoring By Pharmacy) 1 each PRN DAILY PRN MC SEE COMMENTS Last administered on 11/25/18 09:30; Start 11/22/18 at 10:45 Tamsulosin HCl (Flomax) 0.4 mg QHS PO Last administered on 11/24/18 22:22; Start 11/22/18 at 21:00 Magnesium Citrate (Citroma) 296 ml 1X ONCE PO Last administered on 11/24/18 15:39; Start 11/24/18 at 15:00; Stop 11/24/18 at 15:01; Status DC Polyethylene Glycol (miraLAX PACKET) 17 gm DAILY PO Last administered on 11/24/18 15:40; Start 11/24/18 at 15:00 Acetylcysteine (Mucomyst 20% Oral Solution) 600 mg BID PO Last administered on 11/25/18 08:45; Start 11/24/18 at 21:00; Stop 11/27/18 at 12:00 Sodium Chloride 1,000 ml @ 60 mls/hr [id number] IV Last administered on 11/24/18 22:22; Start 11/25/18 at 07:30; Stop 11/25/18 at 14:10; Status DC Iodixanol (Visipaque 320) 100 ml STK-MED ONCE .ROUTE ; Start 11/25/18 at 09:00; Stop 11/25/18 at 09:01; Status DC Lidocaine HCl (Xylocaine-Mpf 1% 2ml Vial) 2 ml STK-MED ONCE .ROUTE ; Start 11/25/18 at 09:00; Stop 11/25/18 at 09:01; Status DC Heparin Sodium/ Sodium Chloride 1,500 ml @ As Directed STK-MED ONCE .ROUTE ; Start 11/25/18 at 09:00; Stop 11/25/18 at 09:01; Status DC Fentanyl Citrate (Fentanyl 2ml Vial) 100 mcg STK-MED ONCE .ROUTE ; Start 11/25/18 at 09:03; Stop 11/25/18 at 09:04; Status DC Midazolam HCl (Versed) 2 mg STK-MED ONCE .ROUTE ; Start 11/25/18 at 09:03; Stop 11/25/18 at 09:04; Status DC Heparin Sodium (Porcine) (Heparin Sodium) 10,000 unit STK-MED ONCE .ROUTE ; Start 11/25/18 at 09:03; Stop 11/25/18 at 09:04; Status DC Verapamil HCl (Verapamil) 5 mg STK-MED ONCE .ROUTE ; Start 11/25/18 at 09:03; Stop 11/25/18 at 09:04; Status DC Nitroglycerin (Nitroglycerin) 200 mcg STK-MED ONCE .ROUTE ; Start 11/25/18 at 09:04; Stop 11/25/18 at 09:05; Status DC Lidocaine HCl (Lidocaine 1% 20ml Vial) 20 ml STK-MED ONCE .ROUTE ; Start 11/25/18 at 09:25; Stop 11/25/18 at 09:26; Status DC Heparin Sodium/ Sodium Chloride (HEPARIN for ARTERIAL LINE FLUSH) 1,000 unit 1X ONCE IART Last administered on 11/25/18at 09:53; Start 11/25/18 at 09:45; Stop 11/25/18 at 09:46; Status DC Midazolam HCl (Versed) 2 mg 1X ONCE IV Last administered on 11/25/18at 09:52; Start 11/25/18 at 09:45; Stop 11/25/18 at 09:46; Status DC Fentanyl Citrate (Fentanyl 2ml Vial) 50 mcg 1X ONCE IV Last administered on 11/25/18at 09:53; Start 11/25/18 at 09:45; Stop 11/25/18 at 09:46; Status DC Iodixanol (Visipaque 320) 100 ml 1X ONCE IART Last administered on 11/25/18at 09 :52; Start 11/25/18 at 09:45; Stop 11/25/18 at 09:46; Status DC Lidocaine HCl (Lidocaine 1% 20ml Vial) 10 ml 1X ONCE INJ Last administered on 11/25/18at 09:45; Start 11/25/18 at 09:45; Stop 11/25/18 at 09:46; Status DC Lidocaine HCl (Xylocaine-Mpf 1% 2ml Vial) 1 ml 1X ONCE INJ Last administered on 11/25/18at 09:52; Start 11/25/18 at 09:45; Stop 11/25/18 at 09:46; Status DC Info (CONTRAST GIVEN -- Rx MONITORING) 1 each PRN DAILY PRN MC SEE COMMENTS; Start 11/25/18 at 09:45; Stop 11/27/18 at 09:44 Furosemide (Lasix) 40 mg 1X ONCE IVP ; Start 11/25/18 at 16:00; Stop 11/25/18 at 16:01 Active Scripts Active Humalog (Insulin Lispro) 100 Unit/1 Ml Insuln.pen 8 Units SQ TIDAC 90 Days Lantus Solostar (Insulin Glargine,Hum.rec.anlog) 100 Unit/1 Ml Insuln.pen 30 Units SQ QHS 30 Days Lisinopril 10 Mg Tablet 10 Mg PO DAILY 90 Days Reported Metoprolol Succinate ( Xl ) (Metoprolol Succinate) 25 Mg Tab.er.24h 25 Mg PO DAILY Glimepiride 4 Mg Tablet 4 Mg PO DAILY Clopidogrel (Clopidogrel Bisulfate) 75 Mg Tablet 1 Tab PO DAILY Aspir 81 (Aspirin) 81 Mg Tablet.dr 1 Tab PO DAILY Atorvastatin Calcium 80 Mg Tablet 1 Tab PO DAILY Metformin Hcl 500 Mg Tablet 1,000 Mg PO BID Allergies Allergies: Coded Allergies: No Known Drug Allergies (Unverified , 02/10/18) ROS General: No: Chills, Night Sweats, Fatigue, Malaise, Appetite PSYCHOLOGICAL ROS: No: Anxiety, Behavioral Disorder, Concentration difficultie, Decreased libido, Depression, Disorientation, Hallucinations, Hostility, Irritablity, Memory difficulties, Mood Swings, Obsessive thoughts, Physical abuse, Sexual abuse, Sleep disturbances, Suicidal ideation Eyes: No Blurry vision, No Decreased vision, No Double vision, No Dry eyes, No Excessive tearing, No Eye Pain, No Itchy Eyes, No Loss of vision, No Photophobia, No Scotomata, No Uses contacts, No Uses glasses HEENT: No: Heacaches, Visual Changes, Hearing change, Nasal congestion, Nasal discharge, Oral lesions, Sinus pain, Sore Throat, Epistaxis, Sneezing, Snoring, Tinnitus, Vertigo, Vocal changes ALLERGY AND IMMUNOLOGY: No: Hives, Insect Bite Sensitivity, Itchy/Watery Eyes, Nasal Congestion, Post Nasal Drip, Seasonal Allergies ENDOCRINE: No: Breast Changes, Galactorrhea, Hair Pattern Changes, Hot Flashes, Malaise/lethargy, Mood Swings, Palpitations, Polydipsia/polyuria, Skin Changes, Temperature Intolerance, Unexpected Weight Changes, Other Respiratory: YES: Shortness of breath; No: Cough, Hemoptysis, Orthopnea, Pleuritic Pain, SOB with excertion, Sputum Changes, Stridor, Tachypnea, Wheezing Cardiovascular: yes Chest Pain; No Palpitations, No Orthopnea, No Paroxysmal Noc. Dyspnea, No Edema, No Lt Headedness Gastrointestinal: No Nausea, No Vomiting, No Abdominal Pain, No Diarrhea, No Constipation, No Melena, No Hematochezia Genitourinary: No Dysuria, No Frequency, No Incontinence, No Hematuria, No Retention, No Discharge, No Urgency, No Pain, No Flank Pain Musculoskeletal: No Gait Disturbance, No Joint Pain, No Joint Stiffness, No Joint Swelling, No Muscle Pain, No Muscular Weakness, No Pain In:, No Swelling In: Neurological: No Behavorial Changes, No Bowel/Bladder ControlChng, No Confusion, No Dizziness, No Gait Disturbance, No Headaches, No Impaired Coord/balance, No Memory Loss, No Numbness/Tingling, No Seizures, No Speech Problems, No Tremors, No Visual Changes, No Weakness Skin: No Dry Skin, No Eczema, No Hair Changes, No Lumps, No Mole Changes, No Mottling, No Nail Changes, No Pruritus, No Rash, No Skin Lesion Changes, No Acne Physical Exam General: Alert, Oriented X3, mild distress HEENT: Atraumatic, PERRLA Lungs: Other (rales) Heart: Regular rate, Normal S1, Normal S2 Abdomen: Normal bowel sounds, Soft, No tenderness, No hepatosplenomegaly Extremities: No edema Skin: No significant lesion Neuro: Normal gait, Normal speech, Strength at 5/5 X4 ext, Normal tone, Sensation intact, Cranial nerves 3-12 NL, Reflexes 2+ Psych/Mental Status: Mental status NL MUSCULOSKELETAL: No deformity Vitals VITALS Vital Signs Date Time Temp Pulse Resp B/P (MAP) Pulse Ox O2 Delivery O2 Flow Rate FiO2 11/25/18 13:03 89 20 94 Nasal Cannula 2.0 11/25/18 11:00 98.0 122/72 (89) 98.0 Labs Labs Laboratory Tests Test 11/23/18 16:35 11/23/18 18:25 11/23/18 20:55 11/24/18 01:00 Glucose (Fingerstick) 160 mg/dL (70-99) 170 mg/dL (70-99) Heparin Anti-Xa Act, Unfractionated 0.29 IU/mL (0.30-0.70) 0.28 IU/mL (0.30-0.70) White Blood Count 7.5 x10^3/uL (4.0-11.0) Red Blood Count 2.61 x10^6/uL (4.30-5.70) Hemoglobin 8.3 g/dL (13.0-17.5) Hematocrit 24.4 % (39.0-53.0) Mean Corpuscular Volume 94 fL (79-100) Mean Corpuscular Hemoglobin 32 pg (25-35) Mean Corpuscular Hemoglobin Concent 34 g/dL (31-37) Red Cell Distribution Width 13.5 % (11.5-14.5) Platelet Count 206 x10^3/uL (140-400) Sodium Level 143 mmol/L (136-145) Potassium Level 3.9 mmol/L (3.5-5.1) Chloride Level 108 mmol/L (98-107) Carbon Dioxide Level 26 mmol/L (21-32) Anion Gap 9 (6-14) Blood Urea Nitrogen 27 mg/dL (8-26) Creatinine 1.8 mg/dL (0.7-1.3) Estimated GFR (Cockcroft-Gault) 37.6 Glucose Level 153 mg/dL (70-99) Calcium Level 8.2 mg/dL (8.5-10.1) Test 11/24/18 08:15 11/24/18 08:17 11/24/18 11:19 11/24/18 13:50 Heparin Anti-Xa Act, Unfractionated 0.59 IU/mL (0.30-0.70) 0.56 IU/mL (0.30-0.70) Troponin I Quantitative 0.295 ng/mL (0.000-0.055) Triglycerides Level 77 mg/dL (0-150) Cholesterol Level 93 mg/dL (0-200) LDL Cholesterol, Calculated 38 mg/dL (0-100) VLDL Cholesterol, Calculated 15 mg/dL (0-40) Non-HDL Cholesterol Calculated 53 mg/dL (0-129) HDL Cholesterol 40 mg/dL (40-60) Cholesterol/HDL Ratio 2.3 Glucose (Fingerstick) 191 mg/dL (70-99) 221 mg/dL (70-99) Test 11/24/18 16:58 11/24/18 20:00 11/24/18 20:21 11/25/18 03:00 Glucose (Fingerstick) 330 mg/dL (70-99) 365 mg/dL (70-99) Heparin Anti-Xa Act, Unfractionated 0.47 IU/mL (0.30-0.70) 0.30 IU/mL (0.30-0.70) Sodium Level 141 mmol/L (136-145) Potassium Level 4.1 mmol/L (3.5-5.1) Chloride Level 107 mmol/L (98-107) Carbon Dioxide Level 29 mmol/L (21-32) Anion Gap 5 (6-14) Blood Urea Nitrogen 28 mg/dL (8-26) Creatinine 1.8 mg/dL (0.7-1.3) Estimated GFR (Cockcroft-Gault) 37.6 Glucose Level 205 mg/dL (70-99) Calcium Level 8.2 mg/dL (8.5-10.1) Test 11/25/18 07:54 11/25/18 08:45 11/25/18 11:36 Glucose (Fingerstick) 105 mg/dL (70-99) 140 mg/dL (70-99) Prothrombin Time 14.5 SEC (11.7-14.0) Prothromb Time International Ratio 1.2 (0.8-1.1) Heparin Anti-Xa Act, Unfractionated 0.45 IU/mL (0.30-0.70) Laboratory Tests Test 11/24/18 16:58 11/24/18 20:00 11/24/18 20:21 11/25/18 03:00 Glucose (Fingerstick) 330 mg/dL (70-99) 365 mg/dL (70-99) Heparin Anti-Xa Act, Unfractionated 0.47 IU/mL (0.30-0.70) 0.30 IU/mL (0.30-0.70) Sodium Level 141 mmol/L (136-145) Potassium Level 4.1 mmol/L (3.5-5.1) Chloride Level 107 mmol/L (98-107) Carbon Dioxide Level 29 mmol/L (21-32) Anion Gap 5 (6-14) Blood Urea Nitrogen 28 mg/dL (8-26) Creatinine 1.8 mg/dL (0.7-1.3) Estimated GFR (Cockcroft-Gault) 37.6 Glucose Level 205 mg/dL (70-99) Calcium Level 8.2 mg/dL (8.5-10.1) Test 11/25/18 07:54 11/25/18 08:45 11/25/18 11:36 Glucose (Fingerstick) 105 mg/dL (70-99) 140 mg/dL (70-99) Prothrombin Time 14.5 SEC (11.7-14.0) Prothromb Time International Ratio 1.2 (0.8-1.1) Heparin Anti-Xa Act, Unfractionated 0.45 IU/mL (0.30-0.70) Images Images CORONARY ANGIOGRAPHY: LM is a large caliber vessel with approximately a 20% stenosis in the mid body. LAD is a moderate caliber vessel with a heavily calcified long proximal to mid 80% stenosis. The distal vessel is small in caliber. D1/D2 are small caliber vessels with an ostial 99% stenosis of the first diagonal and a 90% stenosis of the second diagonal LCx is a small to moderate caliber non-dominant vessel with a proximal 70-80% stenosis. OM1 is a small to moderate caliber vessel with normal angiographic appearance. RCA is a large caliber dominant vessel with proximal 80-90% stenosis. RPDA is a moderate caliber vessel with mild to moderate diffuse disease of up to 40%. The vessel extends to the apex. RPL is a small to moderate sized vessel with heavy proximal calcification and a 100% ostial occlusion. The distal vessel is seen to fill via collaterals. Assessment/Plan Assessment/Plan 68-year-old male who was admitted to [facility] on November 21, 2018 with increasing shortness of breath for the last 3 weeks and associated chest pain. He is known to have coronary artery disease and underwent coronary angiography approximately 3 months ago in [place] and was told that he needed CABG. The family decided to bring into the [place] for a second opinion. Upon admission he was found to be in pulmonary edema with mild troponin elevation and chronic lateral ST changes. His EF on echo is 30-35%. He was also complaining of obstructive urinary symptoms and the Hicks was inserted. Ever since his been having alfredo hematuria. He has been on a heparin drip and on Plavix ever since. Coronary angiography today demonstrated a 80% proximal LAD stenosis, 80% left circumflex lesion with a relatively small obtuse marginal, small to moderate-sized diagonal branches with tight ostial stenoses and 80-90% proximal RCA disease with a moderate size RPDA and an occluded RPL which fills with left to right collaterals. His LVEDP is elevated at 30 mmHg. I was consulted to consider the patient for coronary surgical revascularization. He would certainly be a moderate to high risk surgical candidate given his ischemic cardiomyopathy borderline targets and chronic renal failure. Nevertheless the risk would not be prohibitive. I did explain to the patient and his family that CABG would offer better revascularization with superior long- term results compared to PCI, but it is certainly much higher risk in the short- term given his comorbidities and the significance of the procedure. I quoted a mortality risk of 3-4%, a 10-20% risk of renal failure needing dialysis, 2-3% risk of stroke, 5% risk of ventilator dependence, 5% risk of infection, 5% risk of reexploration for hemorrhage, 20-30% of postoperative arrhythmias. The patient and family would like to consider their options. They also appear to be considering PCI. We cannot proceed with CABG unless hematuria completely resolves, taking into consideration that 50-60,000 units of heparin are required for open heart surgery. It is most likely that his hematuria is related to traumatic Hicks insertion in conjunction with continued heparin and Plavix treatment. In addition he needs to be off Plavix for 5-7 days. He also requires diuresis given his elevated LVEDP. Hopefully his hemoglobin can improve some as well. If the patient and family decide to proceed with CABG, will plan for early next week (Sunday, December 02, 2018 is a potential date). Needs to stop Heparin and Plavix owing to continued hematuria. Plavix also needs to stop in anticipation for open heart surgery. If hematuria continues, consider giving platelet transfusion, as it will take at least 4-5 days for Plavix effect to clear. He cannot afford any further drop in Hb. KATHY SALCIDO MD November 25, 2018 15:47
[2018-11-25] MEDS ORDERED: FUROSEMIDE 40 MG/4 ML VIAL. IVP ONE (16:00)
--- NOTE | 2018-11-25 17:03 | RAD ---
PORTABLE CHEST 1V Clinical indications: Shortness of breath. COMPARISON: November 21, 2018. Findings: Again seen is bilateral pulmonary edema and vascular congestion and bilateral pleural effusions. There is mild improvement in the perihilar interstitial pulmonary edema. No pneumothorax is evident. Heart size is enlarged but stable. Mediastinum is stable. IMPRESSION: Mild improvement in CHF. Electronically signed by: Krishna Ford MD (11/25/2018 5:00 PM) [facility]
[2018-11-25] MEDS: TAMSULOSIN 0.4 MG CAP.ER.24H. PO SCH (20:38)
[2018-11-25] MEDS: ATORVASTATIN CALCIUM 40 MG TABLET. PO SCH (20:38)
[2018-11-25] MEDS: ALPRAZolam 0.5 MG TABLET PO PRN (20:38)
[2018-11-25] MEDS: INSULIN GLARGINE 300 UNITS/3 ML INSULN.PEN. SQ SCH (20:43)
[2018-11-26 03:25] VITALS: BP 114/65
--- NOTE | 2018-11-26 05:20 | NUR ---
ON 1 LITER NASAL CANNULA , SATS WERE 85%, INCREASED OXYGEN TO 2 LITERS WHILE HE SLEPT,SATS INCREASED TO 96% FIRST CHESK WAS AT 2300. LCRN
[2018-11-26 06:24] LABS: BASO % 0 % (0-3); EOS # 0.3 x10^3/uL (0.0-0.7); EOS % 4 % (0-3); HEMATOCRIT 24.5 % (39.0-53.0); HEMOGLOBIN 8.5 g/dL (13.0-17.5); LYMPH % 14 % (24-48); MEAN CORPUSCULAR HEMOGLOBIN 32 pg (25-35); MEAN CORPUSCULAR HGB CONC 35 g/dL (31-37); MEAN CORPUSCULAR VOLUME 92 fL (79-100); MONO # 0.8 x10^3/uL (0.0-1.1); MONO % 10 % (0-9); NEUT # 5.2 x10^3uL (1.8-7.7); NEUT % 72 % (31-73); PLATELET COUNT 226 x10^3/uL (140-400); RED BLOOD COUNT 2.66 x10^6/uL (4.30-5.70); RED CELL DISTRIBUTION WIDTH 13.4 % (11.5-14.5); WHITE BLOOD COUNT 7.3 x10^3/uL (4.0-11.0)
[2018-11-26 07:00] VITALS: BP 146/69
[2018-11-26] MEDS: INSULIN LISPRO 300 UNITS/3 ML INSULN.PEN. SQ SCH ×3 (07:30→17:48)
[2018-11-26] MEDS: GLIMEPIRIDE 2 MG TABLET. PO SCH (08:15)
[2018-11-26] MEDS: METOPROLOL SUCC 24HR ER 25 MG TAB.ER.24H. PO SCH (08:15)
[2018-11-26] MEDS: ASPIRIN ENTERIC COATED 81 MG TABLET.DR. PO SCH (08:16)
[2018-11-26] MEDS: POLYETHYLENE GLYCOL 3350 17 GM PACKET. PO SCH (08:16)
--- NOTE | 2018-11-26 08:49 | PDOC ---
KARO CHRISTIANSON SCREENING TECH 11/26/18 0849: SUBJECTIVE Subjective Patient is resting well, no complaints, no pain. Patient is going to go for either a CABG or stent with Cardiology tomorrow. Family member states that urine is a light color and has been that way since they stopped the Heparin yesterday. OBJECTIVE Objective Physical Exam: General appearance: Alert and Oriented Head: Normocephalic, without obvious abnormality Eyes: conjunctivae/corneas clear. PERRL, EOM's intact. 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 No clots noted in tubing. Vital Signs Vital Signs Date Time Temp Pulse Resp B/P (MAP) Pulse Ox O2 Delivery O2 Flow Rate FiO2 11/26/18 08:15 95 11/26/18 07:00 97.5 104 20 146/69 (94) 97 Nasal Cannula 2.0 97.5 11/26/18 03:25 97.8 86 20 114/65 (81) 94 Nasal Cannula 2.0 97.8 11/25/18 22:45 92 Nasal Cannula 2.0 11/25/18 22:40 97.7 92 20 115/66 (82) 86 Nasal Cannula 1.0 97.7 11/25/18 20:23 97.8 98 20 138/80 (99) 94 Nasal Cannula 1.0 97.8 11/25/18 20:00 Room Air 11/25/18 19:00 89 11/25/18 15:00 97.6 97 18 111/64 (80) 91 Room Air 97.6 11/25/18 13:03 89 20 94 Nasal Cannula 2.0 11/25/18 12:03 84 20 94 Nasal Cannula 3.0 11/25/18 11:33 88 20 94 Nasal Cannula 4.0 11/25/18 11:03 84 20 94 Nasal Cannula 5.0 11/25/18 11:00 98.0 90 16 122/72 (89) 93 Nasal Cannula 3.0 98.0 11/25/18 10:59 87 128/68 11/25/18 10:48 88 20 92 Nasal Cannula 6.0 11/25/18 10:33 94 20 90 Nasal Cannula 6.0 11/25/18 10:18 94 20 90 Nasal Cannula 5.0 11/25/18 09:56 94 14 Nasal Cannula 5.0 11/25/18 09:53 12 90 Nasal Cannula 5.0 I & O Intake and Output 11/26/18 07:00 Intake Total 1250 ml Output Total 2800 ml Balance -1550 ml Intake Oral 1250 ml Output Urine Total 2800 ml # Bowel Movements 1 PHYSICAL EXAM Physical Exam Physical Exam: General appearance: Alert and Oriented Head: Normocephalic, without obvious abnormality Eyes: conjunctivae/corneas clear. PERRL, EOM's intact. 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 No clots noted in tubing. ASSESSMENT/PLAN Assessment/Plan A cystoscopy has been arranged for him for 12/11/18 at [address] Ignacio of [facility]. Appointment card and new patient paperwork given to yesterday. Nursing staff to continue to maintain Hicks catheter. Can attempt a voiding trial after patient's surgeries are complete/medical issues under control, and he is more mobile. Hematuria appears to be clearing up. FM, who is at bedside states that it turned to "that light color" after they stopped the heparin yesterday. CT ABD/Pelvis has been ordered; radiology team aware and will get patient later. Continue Flomax. Problems: (1) Hicks catheter in place (2) Hematuria COMMENT Lab Laboratory Tests Test 11/25/18 11:36 11/25/18 16:47 11/25/18 20:38 11/26/18 04:30 Glucose (Fingerstick) 140 mg/dL (70-99) 248 mg/dL (70-99) 142 mg/dL (70-99) White Blood Count 7.3 x10^3/uL (4.0-11.0) Red Blood Count 2.66 x10^6/uL (4.30-5.70) Hemoglobin 8.5 g/dL (13.0-17.5) Hematocrit 24.5 % (39.0-53.0) Mean Corpuscular Volume 92 fL (79-100) Mean Corpuscular Hemoglobin 32 pg (25-35) Mean Corpuscular Hemoglobin Concent 35 g/dL (31-37) Red Cell Distribution Width 13.4 % (11.5-14.5) Platelet Count 226 x10^3/uL (140-400) Neutrophils (%) (Auto) 72 % (31-73) Lymphocytes (%) (Auto) 14 % (24-48) Monocytes (%) (Auto) 10 % (0-9) Eosinophils (%) (Auto) 4 % (0-3) Basophils (%) (Auto) 0 % (0-3) Neutrophils # (Auto) 5.2 x10^3uL (1.8-7.7) Lymphocytes # (Auto) 1.0 x10^3/uL (1.0-4.8) Monocytes # (Auto) 0.8 x10^3/uL (0.0-1.1) Eosinophils # (Auto) 0.3 x10^3/uL (0.0-0.7) Basophils # (Auto) 0.0 x10^3/uL (0.0-0.2) Test 11/26/18 07:54 Glucose (Fingerstick) 67 mg/dL (70-99) LAZ IGNACIO MD 11/27/18 0841: ASSESSMENT/PLAN Assessment/Plan Agree with assessment and plan. KARO CHRISTIANSON APRN November 26, 2018 08:49 LAZ IGNACIO MD November 27, 2018 08:41
[2018-11-26] MEDS: ACETYLCYSTEINE 20% ORAL SOLN 600 MG/3 ML SYRINGE. PO SCH ×2 (09:53→21:00)
--- NOTE | 2018-11-26 10:04 | PDOC ---
OLMAN GARCIA [employer]ET[employer] REP 11/26/18 1004: CARDIO Progress Notes Date and Time Date of Service 11/26/18 Time of Evaluation 0972 Subjective Subjective: No Chest Pain, No shortness of breath, No Palpitations Vitals Vitals Vital Signs Date Time Temp Pulse Resp B/P (MAP) Pulse Ox O2 Delivery O2 Flow Rate FiO2 11/26/18 08:15 95 11/26/18 08:05 Nasal Cannula 2.0 11/26/18 07:00 97.5 20 146/69 (94) 97 97.5 Weight Weight [ ] Input and Output Intake and Output Intake and Output 11/26/18 07:00 Intake Total 1250 ml Output Total 2800 ml Balance -1550 ml Intake Oral 1250 ml Output Urine Total 2800 ml # Bowel Movements 1 Laboratory Labs Laboratory Tests Test 11/25/18 11:36 11/25/18 16:47 11/25/18 20:38 11/26/18 04:30 Glucose (Fingerstick) 140 mg/dL (70-99) 248 mg/dL (70-99) 142 mg/dL (70-99) White Blood Count 7.3 x10^3/uL (4.0-11.0) Red Blood Count 2.66 x10^6/uL (4.30-5.70) Hemoglobin 8.5 g/dL (13.0-17.5) Hematocrit 24.5 % (39.0-53.0) Mean Corpuscular Volume 92 fL (79-100) Mean Corpuscular Hemoglobin 32 pg (25-35) Mean Corpuscular Hemoglobin Concent 35 g/dL (31-37) Red Cell Distribution Width 13.4 % (11.5-14.5) Platelet Count 226 x10^3/uL (140-400) Neutrophils (%) (Auto) 72 % (31-73) Lymphocytes (%) (Auto) 14 % (24-48) Monocytes (%) (Auto) 10 % (0-9) Eosinophils (%) (Auto) 4 % (0-3) Basophils (%) (Auto) 0 % (0-3) Neutrophils # (Auto) 5.2 x10^3uL (1.8-7.7) Lymphocytes # (Auto) 1.0 x10^3/uL (1.0-4.8) Monocytes # (Auto) 0.8 x10^3/uL (0.0-1.1) Eosinophils # (Auto) 0.3 x10^3/uL (0.0-0.7) Basophils # (Auto) 0.0 x10^3/uL (0.0-0.2) Test 11/26/18 07:54 Glucose (Fingerstick) 67 mg/dL (70-99) Microbiology Micro Microbiology 11/22/18 Urine Culture - Final, Complete 11/22/18 Urine Culture Result 1 (TIFFANIE) - Final, Complete Physical Exam HEENT: Neck Supple W Full Motion Chest: Symmetric LUNGS: Other (diminished bases) Heart: S1S2, RRR Abdomen: Soft N/T Extremities: Other (trace bilateral LE edema ) Neurology: alert, oriented, follow commands Assessment Assessment 1. Acute on chronic systolic heart failure; cath with elevated LVEDP. -1.5 L following diuresis 2. ICM with ICM; LVEF 35-40%. 3. Severe 3V CAD; CTS consulted. Option of CABG versus high-risk PCI discussed with patient and family. Patient would like to proceed with high-risk PCI. . 4. Hypertension; controlled 5. Hyperlipidemia; statin 6. ASHLEY on CKD; Cr stable at 1.8 7. DM, II 8. Urinary retention s/p Hicks 9. Hematuria; following catheter placement. improved. Follow urology recs ' Recommendations Repeat BMP Mild diuresis with monitoring of renal function Continue ASA, Plavix, statin, BB. Hold ACEi with ASHLEY NPO p MN Will plan for probable Impella-assisted PCI of LAD/LCX and RCA tomorrow CLEMENTE WISE MD 11/26/18 1723: CARDIO Progress Notes Plan Plan Pt. seen and examined. Agree with MACHINE FILLER SHREDDER note. I spoke to the family again today and explained to them the risks of PCI and benefits. We discussed that PCI is not less risky compared to cABG in his situation owing to contrast load, severe calcified vessel and multivessel disease. Patient understands and wishes to proceed with PCI. We will likely only able to stent the LAD, RCA and LCx. Diagonal vessels are probably too small for stents and the nature of his [place] LAD disease would preclude bifurcation stenting. We will plan for this with rotational atherectomy and Impella support. Will have CT surgery stand by. Hgb is stable, his urine has cleared. Discussed with urology regarding possible postoperative issues once he is re-exposed to heparin. If hgb stable, will proceed with high risk multivessel PCI in a.m. OLMAN GARCIA APRN November 26, 2018 10:04 CLEMENTE WISE MD November 26, 2018 17:23
--- NOTE | 2018-11-26 10:18 | RAD ---
CT of the abdomen and pelvis without contrast, 11/26/2018: HISTORY: Hematuria, recent heart catheter Contrast scans were obtained as requested. There are moderate sized bilateral pleural effusions with extensive atelectasis in both lower lobes. Extensive coronary artery calcifications are present. The unopacified liver is unremarkable. There is radiopaque material in the gallbladder, likely representing vicarious excretion of IV contrast. No pancreatic abnormality is seen. The spleen is of normal size. There is contrast material in the urinary tract, apparently from a recent cardiac catheterization procedure. No renal mass is evident. There is no evidence of renal obstruction. A Hicks catheter is present in the urinary bladder. There is moderate diffuse bladder wall thickening, accentuated by its nondistended state. The prostate gland is moderately enlarged. There is moderate calcific plaquing of the abdominal aorta and its branches without evidence of aneurysm. No abdominal or pelvic adenopathy is seen. The bowel loops are not dilated. A portion of the appendix is visualized and it is unremarkable. There is a moderate sized left inguinal hernia containing nonobstructed bowel as well as a small amount of fluid. No free air or significant free fluid is seen in the abdomen. Mild scattered degenerative changes are present in the spine. IMPRESSION: 1. Moderate sized left inguinal hernia containing nonobstructed bowel. 2. Moderate nonspecific prostatic enlargement. 3. Moderate diffuse bladder wall thickening may may reflect chronic bladder outlet obstruction or cystitis. 4. Moderate sized bilateral pleural effusions with associated bilateral lower lobe atelectasis. PQRS Compliance Statement: One or more of the following individualized dose reduction techniques were utilized for this examination: 1. Automated exposure control 2. Adjustment of the mA and/or kV according to patient size 3. Use of iterative reconstruction technique Electronically signed by: Torrey Benitez MD (11/26/2018 10:15 AM) [facility]
[2018-11-26 10:24] LABS: CALCIUM 8.2 mg/dL (8.5-10.1); CREATININE 1.6 mg/dL (0.7-1.3); GFR 43.1; POTASSIUM 3.9 mmol/L (3.5-5.1)
[2018-11-26 11:00] VITALS: BP 124/69
[2018-11-26] MEDS ORDERED: FUROSEMIDE 20 MG/2 ML VIAL. IVP ONE (11:30)
[2018-11-26] MEDS: CLOPIDOGREL BISULFATE 75 MG TABLET PO SCH (12:39)
--- NOTE | 2018-11-26 13:00 | PDOC ---
PROGRESS NOTES Subjective Subjective Patient feeling better. Chart reviewed. patient has decided to proceed with multiple vessel stent and angioplasty. Objective Objective Vital Signs Date Time Temp Pulse Resp B/P (MAP) Pulse Ox O2 Delivery O2 Flow Rate FiO2 11/26/18 11:00 98.5 86 20 124/69 (87) 97 Nasal Cannula 2.0 98.5 Intake and Output 11/26/18 07:00 Intake Total 1250 ml Output Total 2800 ml Balance -1550 ml Intake Oral 1250 ml Output Urine Total 2800 ml # Bowel Movements 1 Physical Exam Abdomen: Normal bowel sounds Heart: Regular rate Extremities: No edema General: Alert Lungs: Clear to auscultation Assessment Assessment Problems Medical Problems: (1) Ojupf-wh-wfwguox kidney injury Status: Acute (2) Chest pain Status: Acute (3) CHF (congestive heart failure) Status: Acute Acute coronary syndrome with EKG changes and elevated troponin now with confirmed triple vessel disease by cardiac catheter. Acute on chronic congestive heart failure with elevated BNP and pulmonary edema on chest x-ray. Acute on chronic renal failure with baseline creatinine of 1.5 up to 1.9. Pulm HTN Type 2 diabetes, out of control. Hypertension. Urinary retention with suspected BPH. Hematuria. Plan Plan of Care Proceed with multiple vessel stent and angioplasty in AM Continue med management Comment Review of Relevant I have reviewed the following items bahman (where applicable) has been applied. Labs Laboratory Tests Test 11/24/18 13:50 11/24/18 16:58 11/24/18 20:00 11/24/18 20:21 Heparin Anti-Xa Act, Unfractionated 0.56 IU/mL (0.30-0.70) 0.47 IU/mL (0.30-0.70) Glucose (Fingerstick) 330 mg/dL (70-99) 365 mg/dL (70-99) Test 11/25/18 03:00 11/25/18 07:54 11/25/18 08:45 11/25/18 11:36 Heparin Anti-Xa Act, Unfractionated 0.30 IU/mL (0.30-0.70) 0.45 IU/mL (0.30-0.70) Sodium Level 141 mmol/L (136-145) Potassium Level 4.1 mmol/L (3.5-5.1) Chloride Level 107 mmol/L (98-107) Carbon Dioxide Level 29 mmol/L (21-32) Anion Gap 5 (6-14) Blood Urea Nitrogen 28 mg/dL (8-26) Creatinine 1.8 mg/dL (0.7-1.3) Estimated GFR (Cockcroft-Gault) 37.6 Glucose Level 205 mg/dL (70-99) Calcium Level 8.2 mg/dL (8.5-10.1) Glucose (Fingerstick) 105 mg/dL (70-99) 140 mg/dL (70-99) Prothrombin Time 14.5 SEC (11.7-14.0) Prothromb Time International Ratio 1.2 (0.8-1.1) Test 11/25/18 16:47 11/25/18 20:38 11/26/18 04:30 11/26/18 07:54 Glucose (Fingerstick) 248 mg/dL (70-99) 142 mg/dL (70-99) 67 mg/dL (70-99) White Blood Count 7.3 x10^3/uL (4.0-11.0) Red Blood Count 2.66 x10^6/uL (4.30-5.70) Hemoglobin 8.5 g/dL (13.0-17.5) Hematocrit 24.5 % (39.0-53.0) Mean Corpuscular Volume 92 fL (79-100) Mean Corpuscular Hemoglobin 32 pg (25-35) Mean Corpuscular Hemoglobin Concent 35 g/dL (31-37) Red Cell Distribution Width 13.4 % (11.5-14.5) Platelet Count 226 x10^3/uL (140-400) Neutrophils (%) (Auto) 72 % (31-73) Lymphocytes (%) (Auto) 14 % (24-48) Monocytes (%) (Auto) 10 % (0-9) Eosinophils (%) (Auto) 4 % (0-3) Basophils (%) (Auto) 0 % (0-3) Neutrophils # (Auto) 5.2 x10^3uL (1.8-7.7) Lymphocytes # (Auto) 1.0 x10^3/uL (1.0-4.8) Monocytes # (Auto) 0.8 x10^3/uL (0.0-1.1) Eosinophils # (Auto) 0.3 x10^3/uL (0.0-0.7) Basophils # (Auto) 0.0 x10^3/uL (0.0-0.2) Sodium Level 145 mmol/L (136-145) Potassium Level 3.9 mmol/L (3.5-5.1) Chloride Level 108 mmol/L (98-107) Carbon Dioxide Level 29 mmol/L (21-32) Anion Gap 8 (6-14) Blood Urea Nitrogen 23 mg/dL (8-26) Creatinine 1.6 mg/dL (0.7-1.3) Estimated GFR (Cockcroft-Gault) 43.1 Glucose Level 79 mg/dL (70-99) Calcium Level 8.2 mg/dL (8.5-10.1) Test 11/26/18 12:00 Glucose (Fingerstick) 312 mg/dL (70-99) Laboratory Tests Test 11/25/18 16:47 11/25/18 20:38 11/26/18 04:30 11/26/18 07:54 Glucose (Fingerstick) 248 mg/dL (70-99) 142 mg/dL (70-99) 67 mg/dL (70-99) White Blood Count 7.3 x10^3/uL (4.0-11.0) Red Blood Count 2.66 x10^6/uL (4.30-5.70) Hemoglobin 8.5 g/dL (13.0-17.5) Hematocrit 24.5 % (39.0-53.0) Mean Corpuscular Volume 92 fL (79-100) Mean Corpuscular Hemoglobin 32 pg (25-35) Mean Corpuscular Hemoglobin Concent 35 g/dL (31-37) Red Cell Distribution Width 13.4 % (11.5-14.5) Platelet Count 226 x10^3/uL (140-400) Neutrophils (%) (Auto) 72 % (31-73) Lymphocytes (%) (Auto) 14 % (24-48) Monocytes (%) (Auto) 10 % (0-9) Eosinophils (%) (Auto) 4 % (0-3) Basophils (%) (Auto) 0 % (0-3) Neutrophils # (Auto) 5.2 x10^3uL (1.8-7.7) Lymphocytes # (Auto) 1.0 x10^3/uL (1.0-4.8) Monocytes # (Auto) 0.8 x10^3/uL (0.0-1.1) Eosinophils # (Auto) 0.3 x10^3/uL (0.0-0.7) Basophils # (Auto) 0.0 x10^3/uL (0.0-0.2) Sodium Level 145 mmol/L (136-145) Potassium Level 3.9 mmol/L (3.5-5.1) Chloride Level 108 mmol/L (98-107) Carbon Dioxide Level 29 mmol/L (21-32) Anion Gap 8 (6-14) Blood Urea Nitrogen 23 mg/dL (8-26) Creatinine 1.6 mg/dL (0.7-1.3) Estimated GFR (Cockcroft-Gault) 43.1 Glucose Level 79 mg/dL (70-99) Calcium Level 8.2 mg/dL (8.5-10.1) Test 11/26/18 12:00 Glucose (Fingerstick) 312 mg/dL (70-99) Microbiology 11/22/18 Urine Culture - Final, Complete 11/22/18 Urine Culture Result 1 (TIFFANIE) - Final, Complete Medications Current Medications Furosemide (Lasix) 60 mg 1X ONCE IVP Last administered on 11/21/18at 16:34; Start 11/21/18 at 15:45; Stop 11/21/18 at 15:49; Status DC Insulin Human Regular (HumuLIN R VIAL) 5 unit 1X ONCE IV Last administered on 11/21/18at 17:50; Start 11/21/18 at 17:30; Stop 11/21/18 at 17:31; Status DC Heparin Sodium (Porcine) (Heparin Sodium) 4,000 unit 1X ONCE IV Last administered on 11/21/18at 17:46; Start 11/21/18 at 17:30; Stop 11/21/18 at 17:31; Status DC Heparin Sodium/ Dextrose 500 ml @ 17.6 mls/hr CONT PRN IV SEE I/O RECORD Last administered on 11/25/18at 02:02; Start 11/21/18 at 17:30; Stop 11/25/18 at 15:51; Status DC Heparin Sodium (Porcine) (Heparin Sodium) 1,850 unit PRN Q6HRS PRN IV FOR UFH LEVEL LESS THAN 0.2 Last administered on 11/22/18 01:30; Start 11/21/18 at 17:30; Stop 11/25/18 at 15:51; Status DC Ondansetron HCl (Zofran) 4 mg PRN Q8HRS PRN IV NAUSEA/VOMITING; Start 11/21/18 at 17:30; Stop 11/22/18 at 17:29; Status DC Morphine Sulfate (Morphine Sulfate) 2 mg PRN Q2HR PRN IV PAIN; Start 11/21/18 at 17:30; Stop 11/22/18 at 17:29; Status DC Acetaminophen (Tylenol) 650 mg PRN Q4HRS PRN PO FEVER; Start 11/21/18 at 17:30; Stop 11/22/18 at 17:29; Status DC Alprazolam (Xanax) 0.5 mg PRN Q6HRS PRN PO ANXIETY / AGITATION Last administered on 11/25/18at 20:38; Start 11/22/18 at 03:30 Aspirin (Ecotrin) 81 mg DAILY PO Last administered on 11/26/18 08:16; Start 11/22/18 at 09:00 Clopidogrel Bisulfate (Plavix) 75 mg DAILY PO Last administered on 11/25/18 08:45; Start 11/22/18 at 09:00; Stop 11/26/18 at 10:07; Status DC Insulin Glargine (Lantus) 30 units QHS SQ Last administered on 11/25/18 20:43; Start 11/22/18 at 21:00 Insulin Human Lispro (HumaLOG) 8 units TIDAC SQ Last administered on 11/26/18 12:46; Start 11/22/18 at 11:30 Lisinopril (Prinivil) 10 mg DAILY PO Last administered on 11/23/18 08:42; Start 11/22/18 at 09:00; Stop 11/24/18 at 10:47; Status DC Metoprolol Succinate (Toprol Xl) 25 mg DAILY PO Last administered on 11/26/18 08:15; Start 11/22/18 at 09:00; Stop 11/26/18 at 11:28; Status DC Atorvastatin Calcium (Lipitor) 80 mg QHS PO Last administered on 11/25/18 20:38; Start 11/22/18 at 21:00 Glimepiride (Amaryl) 4 mg DAILY PO Last administered on 11/26/18 08:15; Start 11/22/18 at 09:00 Info (Anti-Coagulation Monitoring By Pharmacy) 1 each PRN DAILY PRN MC SEE COMMENTS Last administered on 11/25/18 09:30; Start 11/22/18 at 10:45; Stop 11/26/18 at 07:22; Status DC Tamsulosin HCl (Flomax) 0.4 mg QHS PO Last administered on 11/25/18 20:38; Start 11/22/18 at 21:00 Magnesium Citrate (Citroma) 296 ml 1X ONCE PO Last administered on 11/24/18 15:39; Start 11/24/18 at 15:00; Stop 11/24/18 at 15:01; Status DC Polyethylene Glycol (miraLAX PACKET) 17 gm DAILY PO Last administered on 11/26/18 08:16; Start 11/24/18 at 15:00 Acetylcysteine (Mucomyst 20% Oral Solution) 600 mg BID PO Last administered on 11/26/18 09:53; Start 11/24/18 at 21:00; Stop 11/27/18 at 12:00 Sodium Chloride 1,000 ml @ 60 mls/hr [id number] IV Last administered on 11/24/18 22:22; Start 11/25/18 at 07:30; Stop 11/25/18 at 14:10; Status DC Iodixanol (Visipaque 320) 100 ml STK-MED ONCE .ROUTE ; Start 11/25/18 at 09:00; Stop 11/25/18 at 09:01; Status DC Lidocaine HCl (Xylocaine-Mpf 1% 2ml Vial) 2 ml STK-MED ONCE .ROUTE ; Start 11/25/18 at 09:00; Stop 11/25/18 at 09:01; Status DC Heparin Sodium/ Sodium Chloride 1,500 ml @ As Directed STK-MED ONCE .ROUTE ; Start 11/25/18 at 09:00; Stop 11/25/18 at 09:01; Status DC Fentanyl Citrate (Fentanyl 2ml Vial) 100 mcg STK-MED ONCE .ROUTE ; Start 11/25/18 at 09:03; Stop 11/25/18 at 09:04; Status DC Midazolam HCl (Versed) 2 mg STK-MED ONCE .ROUTE ; Start 11/25/18 at 09:03; Stop 11/25/18 at 09:04; Status DC Heparin Sodium (Porcine) (Heparin Sodium) 10,000 unit STK-MED ONCE .ROUTE ; Start 11/25/18 at 09:03; Stop 11/25/18 at 09:04; Status DC Verapamil HCl (Verapamil) 5 mg STK-MED ONCE .ROUTE ; Start 11/25/18 at 09:03; Stop 11/25/18 at 09:04; Status DC Nitroglycerin (Nitroglycerin) 200 mcg STK-MED ONCE .ROUTE ; Start 11/25/18 at 09:04; Stop 11/25/18 at 09:05; Status DC Lidocaine HCl (Lidocaine 1% 20ml Vial) 20 ml STK-MED ONCE .ROUTE ; Start 11/25/18 at 09:25; Stop 11/25/18 at 09:26; Status DC Heparin Sodium/ Sodium Chloride (HEPARIN for ARTERIAL LINE FLUSH) 1,000 unit 1X ONCE IART Last administered on 11/25/18at 09:53; Start 11/25/18 at 09:45; Stop 11/25/18 at 09:46; Status DC Midazolam HCl (Versed) 2 mg 1X ONCE IV Last administered on 11/25/18at 09:52; Start 11/25/18 at 09:45; Stop 11/25/18 at 09:46; Status DC Fentanyl Citrate (Fentanyl 2ml Vial) 50 mcg 1X ONCE IV Last administered on 11/25/18at 09:53; Start 11/25/18 at 09:45; Stop 11/25/18 at 09:46; Status DC Iodixanol (Visipaque 320) 100 ml 1X ONCE IART Last administered on 11/25/18at 09:52; Start 11/25/18 at 09:45; Stop 11/25/18 at 09:46; Status DC Lidocaine HCl (Lidocaine 1% 20ml Vial) 10 ml 1X ONCE INJ Last administered on 11/25/18at 09:45; Start 11/25/18 at 09:45; Stop 11/25/18 at 09:46; Status DC Lidocaine HCl (Xylocaine-Mpf 1% 2ml Vial) 1 ml 1X ONCE INJ Last administered on 11/25/18at 09:52; Start 11/25/18 at 09:45; Stop 11/25/18 at 09:46; Status DC Info (CONTRAST GIVEN -- Rx MONITORING) 1 each PRN DAILY PRN MC SEE COMMENTS; Start 11/25/18 at 09:45; Stop 11/27/18 at 09:44 Furosemide (Lasix) 40 mg 1X ONCE IVP Last administered on 11/25/18at 17:08; Start 11/25/18 at 16:00; Stop 11/25/18 at 16:01; Status DC Verapamil HCl (Verapamil) 5 mg STK-MED ONCE .ROUTE ; Start 11/25/18 at 09:00; Stop 11/26/18 at 08:28; Status DC Metoprolol Succinate (Toprol Xl) 50 mg DAILY PO ; Start 11/27/18 at 09:00 Clopidogrel Bisulfate (Plavix) 75 mg DAILYWBKFT PO Last administered on 11/26/18at 12:39; Start 11/26/18 at 11:30 Furosemide (Lasix) 20 mg 1X ONCE IVP Last administered on 11/26/18at 12:39; Start 11/26/18 at 11:30; Stop 11/26/18 at 11:31; Status DC Active Scripts Active Humalog (Insulin Lispro) 100 Unit/1 Ml Insuln.pen 8 Units SQ TIDAC 90 Days Lantus Solostar (Insulin Glargine,Hum.rec.anlog) 100 Unit/1 Ml Insuln.pen 30 Units SQ QHS 30 Days Lisinopril 10 Mg Tablet 10 Mg PO DAILY 90 Days Reported Metoprolol Succinate ( Xl ) (Metoprolol Succinate) 25 Mg Tab.er.24h 25 Mg PO DAILY Glimepiride 4 Mg Tablet 4 Mg PO DAILY Clopidogrel (Clopidogrel Bisulfate) 75 Mg Tablet 1 Tab PO DAILY Aspir 81 (Aspirin) 81 Mg Tablet.dr 1 Tab PO DAILY Atorvastatin Calcium 80 Mg Tablet 1 Tab PO DAILY Metformin Hcl 500 Mg Tablet 1,000 Mg PO BID Vitals/I & O Vital Sign - Last 24 Hours 11/25/18 11/25/18 11/25/18 11/25/18 13:03 15:00 19:00 20:00 Temp 97.6 97.6 Pulse 89 97 89 Resp 20 18 B/P (MAP) 111/64 (80) Pulse Ox 94 91 O2 Delivery Nasal Cannula Room Air Room Air O2 Flow Rate 2.0 11/25/18 11/25/18 11/25/18 11/26/18 20:23 22:40 22:45 03:25 Temp 97.8 97.7 97.8 97.8 97.7 97.8 Pulse 98 92 86 Resp 20 20 B/P (MAP) 138/80 (99) 115/66 (82) 114/65 (81) Pulse Ox 94 86 92 94 O2 Delivery Nasal Cannula Nasal Cannula Nasal Cannula Nasal Cannula O2 Flow Rate 1.0 1.0 2.0 2.0 11/26/18 11/26/18 11/26/18 11/26/18 07:00 08:05 08:15 11:00 Temp 97.5 98.5 97.5 98.5 Pulse 104 95 86 Resp B/P (MAP) 146/69 (94) 124/69 (87) Pulse Ox 97 97 O2 Delivery Nasal Cannula Nasal Cannula Nasal Cannula O2 Flow Rate 2.0 2.0 2.0 Intake and Output 11/25/18 11/25/18 11/26/18 15:00 23:00 07:00 Intake Total 250 ml 600 ml 400 ml Output Total 600 ml 1000 ml 1200 ml Balance -350 ml -400 ml -800 ml BALWINDER MA MD November 26, 2018 13:00
[2018-11-26 15:00] VITALS: BP 122/76
[2018-11-26 19:26] VITALS: BP 138/69
[2018-11-26] MEDS: TAMSULOSIN 0.4 MG CAP.ER.24H. PO SCH (20:52)
[2018-11-26] MEDS: ATORVASTATIN CALCIUM 40 MG TABLET. PO SCH (20:52)
[2018-11-26] MEDS: INSULIN GLARGINE 300 UNITS/3 ML INSULN.PEN. SQ SCH (20:56)
[2018-11-26 22:17] VITALS: BP 142/76
[2018-11-27 03:13] VITALS: BP 110/62
[2018-11-27 07:00] VITALS: BP 143/80
[2018-11-27] MEDS: INSULIN LISPRO 300 UNITS/3 ML INSULN.PEN. SQ SCH ×3 (07:30→17:24)
[2018-11-27] MEDS: CLOPIDOGREL BISULFATE 75 MG TABLET PO SCH (08:47)
[2018-11-27] MEDS: GLIMEPIRIDE 2 MG TABLET. PO SCH (08:48)
[2018-11-27] MEDS: METOPROLOL SUCC 24HR ER 50 MG TAB.ER.24H. PO SCH (08:48)
[2018-11-27] MEDS: ASPIRIN ENTERIC COATED 81 MG TABLET.DR. PO SCH (08:48)
[2018-11-27] MEDS: POLYETHYLENE GLYCOL 3350 17 GM PACKET. PO SCH (08:48)
--- NOTE | 2018-11-27 08:57 | PDOC ---
KARO CHRISTIANSON INSULATION MANAGER 11/27/18 0857: SUBJECTIVE Subjective Pt is going for stent insertion with cardiac team today at 3 pm. No pain. Catheter has had some blood in it on and off, but is looking better this am. Heparin drip is off. He has been walking around feeling better overall today. OBJECTIVE Objective Physical Exam: General appearance: Alert and Oriented Head: Normocephalic, without obvious abnormality Eyes: conjunctivae/corneas clear. PERRL, EOM's intact. Fundi benign Back: no CVA pain bilaterally. Lungs: Regular respirations, non labored breathing Abdomen: soft, non-tender. No masses, no organomegaly Pelvic: deferred Vital Signs Vital Signs Date Time Temp Pulse Resp B/P (MAP) Pulse Ox O2 Delivery O2 Flow Rate FiO2 11/27/18 07:00 97.9 96 16 143/80 (101) 94 Room Air 97.9 11/27/18 03:13 98.1 16 110/62 (78) 94 Room Air 98.1 11/26/18 22:17 97.5 100 18 142/76 (98) 92 Room Air 97.5 11/26/18 20:01 Room Air 11/26/18 19:26 98.0 95 19 138/69 (92) 96 Nasal Cannula 2.0 98.0 11/26/18 15:00 98.6 87 20 122/76 (91) 99 Nasal Cannula 2.0 98.6 11/26/18 11:00 98.5 86 20 124/69 (87) 97 Nasal Cannula 2.0 98.5 I & O Intake and Output 11/27/18 07:00 Intake Total 400 ml Output Total 1350 ml Balance -950 ml Intake Oral 400 ml Output Urine Total 1350 ml PHYSICAL EXAM Physical Exam Physical Exam: General appearance: Alert and Oriented Head: Normocephalic, without obvious abnormality Eyes: conjunctivae/corneas clear. PERRL, EOM's intact. Fundi benign Back: no CVA pain bilaterally. Lungs: Regular respirations, non labored breathing Abdomen: soft, non-tender. No masses, no organomegaly Pelvic: deferred ASSESSMENT/PLAN Assessment/Plan CT shows just bladder wall thickening and enlarged prostate, no acute urologic findings. Patient going for stent today. Keep Hicks catheter in until after procedure, possible voiding trial tomorrow, depending upon how he does today. A cystoscopy has been arranged for him for 12/11/[address] at [address] Ignacio of [facility]. He still has the paperwork and appointment card. COMMENT Lab Laboratory Tests Test 11/26/18 12:00 11/26/18 16:39 11/26/18 20:50 11/27/18 08:10 Glucose (Fingerstick) 312 mg/dL (70-99) 235 mg/dL (70-99) 227 mg/dL (70-99) 165 mg/dL (70-99) LAZ IGNACIO MD 11/28/18 1242: ASSESSMENT/PLAN Assessment/Plan Agree with assessment and plan. KARO CHRISTIANSON APRN November 27, 2018 08:57 LAZ IGNACIO MD November 28, 2018 12:42
[2018-11-27] MEDS: ACETYLCYSTEINE 20% ORAL SOLN 600 MG/3 ML SYRINGE. PO SCH (09:51)
[2018-11-27 11:00] VITALS: BP 140/75
[2018-11-27 12:24] LABS: BASO % 0 % (0-3); EOS # 0.2 x10^3/uL (0.0-0.7); EOS % 2 % (0-3); HEMATOCRIT 25.9 % (39.0-53.0); HEMOGLOBIN 8.8 g/dL (13.0-17.5); LYMPH # 1.1 x10^3/uL (1.0-4.8); LYMPH % 14 % (24-48); MEAN CORPUSCULAR HEMOGLOBIN 31 pg (25-35); MEAN CORPUSCULAR HGB CONC 34 g/dL (31-37); MEAN CORPUSCULAR VOLUME 93 fL (79-100); MONO # 0.8 x10^3/uL (0.0-1.1); MONO % 9 % (0-9); NEUT # 6.1 x10^3uL (1.8-7.7); NEUT % 74 % (31-73); PLATELET COUNT 242 x10^3/uL (140-400); RED BLOOD COUNT 2.79 x10^6/uL (4.30-5.70); RED CELL DISTRIBUTION WIDTH 13.5 % (11.5-14.5); WHITE BLOOD COUNT 8.2 x10^3/uL (4.0-11.0)
--- NOTE | 2018-11-27 13:49 | PDOC4 ---
PROCEDURE Procedure date of procedure: November 27, 2018 procedure: Flexible cystoscopy Preop diagnosis: Gross hematuria Postop diagnosis: Gross hematuria and BPH Anesthesia: Local Findings: Catheter irritation on posterior wall of bladder. Benign prostatic hypertrophy with minor bleeding. Description of procedure: This is a patient with gross hematuria after Stoner catheter placement. He agreed to undergo the above procedure after discussion. The patient was sterilely prepped. Lidocaine jelly was injected into the urethra. A flexible [place] was advanced through the urethra and into the bladder. The penile urethra appeared normal. The prostate urethra showed minor prostate bleeding due to slight prostate enlargement. The prostate slightly bulge into the bladder. There was no median lobe. Within the bladder, there was no tumors or stones. There was no active bleeding or clots within the bladder. There is diffuse edema and erythema secondary to indwelling Stoner catheter. The scope was then removed. A stoner catheter was then replaced. Recommend continue finasteride for enlarged prostate/prostate bleeding. Remove the Stoner catheter as soon as possible. LAZ IGNACIO MD November 27, 2018 13:49
--- NOTE | 2018-11-27 14:38 | NUR ---
SS following up with discharge planning. Pt is currently on room air. PT evaluated and recommended no needs. SS will continue to follow for discharge planning.
[2018-11-27 15:00] VITALS: BP 126/70
--- NOTE | 2018-11-27 15:59 | PDOC ---
OLMAN GARCIA [employer]HROOM CLEANER 11/27/18 1559: CARDIO Progress Notes Date and Time Date of Service 11/27/2018 Time of Evaluation 1315 Subjective Subjective: No Chest Pain, No shortness of breath, No Palpitations, Other (hematuria improved. slight pink-tinged urine ) Vitals Vitals Vital Signs Date Time Temp Pulse Resp B/P (MAP) Pulse Ox O2 Delivery O2 Flow Rate FiO2 11/27/18 11:00 98.0 85 16 140/75 (96) 94 Room Air 98.0 11/26/18 19:26 2.0 Weight Weight [ ] Input and Output Intake and Output Intake and Output 11/27/18 06:59 Intake Total 400 ml Output Total 1350 ml Balance -950 ml Intake Oral 400 ml Output Urine Total 1350 ml Laboratory Labs Laboratory Tests Test 11/26/18 16:39 11/26/18 20:50 11/27/18 08:10 11/27/18 12:05 Glucose (Fingerstick) 235 mg/dL (70-99) 227 mg/dL (70-99) 165 mg/dL (70-99) White Blood Count 8.2 x10^3/uL (4.0-11.0) Red Blood Count 2.79 x10^6/uL (4.30-5.70) Hemoglobin 8.8 g/dL (13.0-17.5) Hematocrit 25.9 % (39.0-53.0) Mean Corpuscular Volume 93 fL (79-100) Mean Corpuscular Hemoglobin 31 pg (25-35) Mean Corpuscular Hemoglobin Concent 34 g/dL (31-37) Red Cell Distribution Width 13.5 % (11.5-14.5) Platelet Count 242 x10^3/uL (140-400) Neutrophils (%) (Auto) 74 % (31-73) Lymphocytes (%) (Auto) 14 % (24-48) Monocytes (%) (Auto) 9 % (0-9) Eosinophils (%) (Auto) 2 % (0-3) Basophils (%) (Auto) 0 % (0-3) Neutrophils # (Auto) 6.1 x10^3uL (1.8-7.7) Lymphocytes # (Auto) 1.1 x10^3/uL (1.0-4.8) Monocytes # (Auto) 0.8 x10^3/uL (0.0-1.1) Eosinophils # (Auto) 0.2 x10^3/uL (0.0-0.7) Basophils # (Auto) 0.0 x10^3/uL (0.0-0.2) Test 11/27/18 12:21 Glucose (Fingerstick) 218 mg/dL (70-99) Microbiology Micro Microbiology 11/22/18 Urine Culture - Final, Complete 11/22/18 Urine Culture Result 1 (TIFFANIE) - Final, Complete Physical Exam HEENT: Neck Supple W Full Motion Chest: Symmetric LUNGS: Other (diminished bases) Heart: S1S2, RRR Abdomen: Soft N/T Extremities: Other (trace bilateral LE edema ) Neurology: alert, oriented, follow commands Assessment Assessment 1. Acute on chronic systolic heart failure; better compensated 2. ICM with ICM; LVEF 35-40%. 3. Severe 3V CAD; CTS consulted. Option of CABG versus high-risk PCI discussed with patient and family. Patient would like to proceed with high-risk PCI. 4. Hypertension; controlled 5. Hyperlipidemia; statin 6. ASHLEY on CKD; Cr improved 7. DM, II 8. BPH; finasteride 9. Hematuria; following catheter placement. D/w Hodan Rojas. Cystoscopy with irritation of posterior bladder wall due to catheter. ' Recommendations Am labs Continue ASA, Plavix, statin, BB. NPO p MN Will plan for PCI in am CLEMENTE WISE MD 11/27/18 1744: CARDIO Progress Notes Plan Plan Patient seen and examined. Agree with above nurse practitioner note. Patient is appropriate medical therapy including aspirin, Plavix, beta chivo and statin. Due to kidney injury afterload reduction with SAROJ inhibitor has not been started. Discussed with urology today and will plan for PCI tomorrow as his hemoglobin has been stable. OLMAN GARCIA APRN November 27, 2018 15:59 CLEMENTE WISE MD November 27, 2018 17:44
[2018-11-27 19:59] VITALS: BP 128/68
[2018-11-27] MEDS: TAMSULOSIN 0.4 MG CAP.ER.24H. PO SCH (20:49)
[2018-11-27] MEDS: ATORVASTATIN CALCIUM 40 MG TABLET. PO SCH (20:50)
[2018-11-27] MEDS: INSULIN GLARGINE 300 UNITS/3 ML INSULN.PEN. SQ SCH (20:54)
[2018-11-27] MEDS ORDERED: HYDROcodone/APAP 5/325MG 1 TAB TABLET PO ONE (21:00)
[2018-11-27 23:19] VITALS: BP 115/64
[2018-11-28] VITALS (14 sets, daily range): BP systolic 110–129; BP diastolic 56–74
[2018-11-28 05:21] LABS: BASO % 1 % (0-3); EOS # 0.3 x10^3/uL (0.0-0.7); EOS % 4 % (0-3); HEMATOCRIT 23.8 % (39.0-53.0); HEMOGLOBIN 8.1 g/dL (13.0-17.5); LYMPH % 15 % (24-48); MEAN CORPUSCULAR HEMOGLOBIN 32 pg (25-35); MEAN CORPUSCULAR HGB CONC 34 g/dL (31-37); MEAN CORPUSCULAR VOLUME 93 fL (79-100); MONO # 0.8 x10^3/uL (0.0-1.1); MONO % 11 % (0-9); NEUT # 4.9 x10^3uL (1.8-7.7); NEUT % 70 % (31-73); PLATELET COUNT 237 x10^3/uL (140-400); RED BLOOD COUNT 2.55 x10^6/uL (4.30-5.70); RED CELL DISTRIBUTION WIDTH 13.2 % (11.5-14.5)
[2018-11-28 05:36] LABS: CALCIUM 8.3 mg/dL (8.5-10.1); GFR 33.3; POTASSIUM 4.2 mmol/L (3.5-5.1)
[2018-11-28] MEDS: INSULIN LISPRO 300 UNITS/3 ML INSULN.PEN. SQ SCH ×3 (07:30→18:02)
[2018-11-28] MEDS: POLYETHYLENE GLYCOL 3350 17 GM PACKET. PO SCH (09:00)
[2018-11-28] MEDS: METOPROLOL SUCC 24HR ER 50 MG TAB.ER.24H. PO SCH (09:15)
[2018-11-28] MEDS: CLOPIDOGREL BISULFATE 75 MG TABLET PO SCH (09:15)
[2018-11-28] MEDS: ASPIRIN ENTERIC COATED 81 MG TABLET.DR. PO SCH (09:15)
--- NOTE | 2018-11-28 09:51 | PDOC ---
KARO CHRISTIANSON [employer] TESTER 11/28/18 0951: SUBJECTIVE Subjective Patient did not get his procedure done yesterday with cardiology. Nursing requesting to leave catheter in as he needs to lay flat for sometime after procedure (4-5 hours) On schedule to be done today. OBJECTIVE Objective Physical Exam: General appearance: Alert and Oriented Head: Normocephalic, without obvious abnormality Eyes: conjunctivae/corneas clear. PERRL, EOM's intact. Fundi benign Back: negative, no CVA pain Lungs: Regular respirations, non labored breathing Abdomen: soft, non-tender. No masses, no organomegaly Pelvic: + Stoner catheter in place draining clear yellow urine with slight pink tinge. No clots. Device working well. Vital Signs Vital Signs Date Time Temp Pulse Resp B/P (MAP) Pulse Ox O2 Delivery O2 Flow Rate FiO2 11/28/18 09:15 89 124/73 11/28/18 08:00 Room Air 11/28/18 07:00 97.5 89 16 124/73 (90) 91 Room Air 97.5 11/28/18 03:07 97.7 86 16 116/72 (87) 90 Room Air 97.7 11/27/18 23:19 98.6 91 16 115/64 (81) 91 Room Air 98.6 11/27/18 22:42 95 Room Air 11/27/18 21:42 Room Air 11/27/18 20:00 Room Air 11/27/18 19:59 98.0 92 16 128/68 (88) 95 Room Air 98.0 11/27/18 15:00 97.9 91 16 126/70 (88) 95 Room Air 97.9 11/27/18 11:00 98.0 85 16 140/75 (96) 94 Room Air 98.0 I & O Intake and Output 11/28/18 07:00 Intake Total 200 ml Output Total 625 ml Balance -425 ml Intake Oral 200 ml Output Urine Total 625 ml # Bowel Movements 1 PHYSICAL EXAM Physical Exam Physical Exam: General appearance: Alert and Oriented Head: Normocephalic, without obvious abnormality Eyes: conjunctivae/corneas clear. PERRL, EOM's intact. Fundi benign Back: negative, no CVA pain Lungs: Regular respirations, non labored breathing Abdomen: soft, non-tender. No masses, no organomegaly Pelvic: + Stoner catheter in place draining clear yellow urine with slight pink tinge. No clots. Device working well. ASSESSMENT/PLAN Assessment/Plan Nursing to maintain stoner catheter. Remove tomorrow at 6 am for voiding trial as long as he has had his procedure today as planned. Continue Flomax. Start Finasteride. Since cystoscopy was done yesterday, will change appointment on the with Dr. Ignacio into a talking appointment. Problems: (1) Hematuria (2) Stoner catheter in place COMMENT Lab Laboratory Tests Test 11/27/18 12:05 11/27/18 12:21 11/27/18 17:16 11/27/18 20:46 White Blood Count 8.2 x10^3/uL (4.0-11.0) Red Blood Count 2.79 x10^6/uL (4.30-5.70) Hemoglobin 8.8 g/dL (13.0-17.5) Hematocrit 25.9 % (39.0-53.0) Mean Corpuscular Volume 93 fL (79-100) Mean Corpuscular Hemoglobin 31 pg (25-35) Mean Corpuscular Hemoglobin Concent 34 g/dL (31-37) Red Cell Distribution Width 13.5 % (11.5-14.5) Platelet Count 242 x10^3/uL (140-400) Neutrophils (%) (Auto) 74 % (31-73) Lymphocytes (%) (Auto) 14 % (24-48) Monocytes (%) (Auto) 9 % (0-9) Eosinophils (%) (Auto) 2 % (0-3) Basophils (%) (Auto) 0 % (0-3) Neutrophils # (Auto) 6.1 x10^3uL (1.8-7.7) Lymphocytes # (Auto) 1.1 x10^3/uL (1.0-4.8) Monocytes # (Auto) 0.8 x10^3/uL (0.0-1.1) Eosinophils # (Auto) 0.2 x10^3/uL (0.0-0.7) Basophils # (Auto) 0.0 x10^3/uL (0.0-0.2) Glucose (Fingerstick) 218 mg/dL (70-99) 262 mg/dL (70-99) 295 mg/dL (70-99) Test 11/28/18 05:00 11/28/18 07:21 White Blood Count 7.0 x10^3/uL (4.0-11.0) Red Blood Count 2.55 x10^6/uL (4.30-5.70) Hemoglobin 8.1 g/dL (13.0-17.5) Hematocrit 23.8 % (39.0-53.0) Mean Corpuscular Volume 93 fL (79-100) Mean Corpuscular Hemoglobin 32 pg (25-35) Mean Corpuscular Hemoglobin Concent 34 g/dL (31-37) Red Cell Distribution Width 13.2 % (11.5-14.5) Platelet Count 237 x10^3/uL (140-400) Neutrophils (%) (Auto) 70 % (31-73) Lymphocytes (%) (Auto) 15 % (24-48) Monocytes (%) (Auto) 11 % (0-9) Eosinophils (%) (Auto) 4 % (0-3) Basophils (%) (Auto) 1 % (0-3) Neutrophils # (Auto) 4.9 x10^3uL (1.8-7.7) Lymphocytes # (Auto) 1.0 x10^3/uL (1.0-4.8) Monocytes # (Auto) 0.8 x10^3/uL (0.0-1.1) Eosinophils # (Auto) 0.3 x10^3/uL (0.0-0.7) Basophils # (Auto) 0.0 x10^3/uL (0.0-0.2) Sodium Level 141 mmol/L (136-145) Potassium Level 4.2 mmol/L (3.5-5.1) Chloride Level 106 mmol/L (98-107) Carbon Dioxide Level 28 mmol/L (21-32) Anion Gap 7 (6-14) Blood Urea Nitrogen 30 mg/dL (8-26) Creatinine 2.0 mg/dL (0.7-1.3) Estimated GFR (Cockcroft-Gault) 33.3 Glucose Level 168 mg/dL (70-99) Calcium Level 8.3 mg/dL (8.5-10.1) Glucose (Fingerstick) 121 mg/dL (70-99) LAZ IGNACIO MD 11/28/18 1247: ASSESSMENT/PLAN Assessment/Plan Agree with assessment and plan. Cystoscopy 11/27/18 unremarkable. Recommend removing stoner after cardiology procedure. KARO CHRI[employer]IANSON [employer] TESTER November 28, 2018 09:51 LAZ IGNACIO MD November 28, 2018 12:47
[2018-11-28] MEDS ORDERED: LIDOCAINE 1% Multi-Dose 20 ML VIAL. ONE (09:58)
[2018-11-28] MEDS ORDERED: IODIXANOL 320 MG/ML 100 ML VIAL. ONE (09:58)
[2018-11-28] MEDS ORDERED: HEPARIN for ARTERIAL LINE 1,500 ML ONE (09:58)
[2018-11-28] MEDS ORDERED: fentaNYL PF VIAL 250 MCG/5 ML VIAL ONE (12:20)
[2018-11-28] MEDS ORDERED: MIDAZOLAM HCL/PF 5 MG/5 ML VIAL. ONE (12:21)
[2018-11-28] MEDS ORDERED: VERAPAMIL 5 MG/2 ML VIAL. ONE ×2 (12:33→13:00)
[2018-11-28] MEDS ORDERED: HEPARIN for IV BOLUS 10,000 UNIT/10 ML VIAL. ONE ×2 (12:33→12:45)
[2018-11-28] MEDS ORDERED: NITROGLYCERIN 4 MG/20 ML SYRINGE for CATH LAB. ONE (12:33)
--- NOTE | 2018-11-28 13:04 | PDOC ---
PROGRESS NOTES Subjective Subjective Patient feeling better. Cardiac catheter with stents canceled yesterday due to urgent cases bumping this elective case. Patient did have urology evaluation including testosterone p.m. is stable at this time. Hicks in place with clearing urine noted Objective Objective Vital Signs Date Time Temp Pulse Resp B/P (MAP) Pulse Ox O2 Delivery O2 Flow Rate FiO2 11/28/18 10:47 98.2 86 16 127/68 (87) 97 Room Air 98.2 11/26/18 19:26 2.0 Intake and Output 11/28/18 07:00 Intake Total 200 ml Output Total 625 ml Balance -425 ml Intake Oral 200 ml Output Urine Total 625 ml # Bowel Movements 1 Physical Exam Abdomen: Normal bowel sounds Heart: Regular rate Assessment Assessment Problems Medical Problems: (1) Sztsf-am-hefeedl kidney injury Status: Acute (2) Chest pain Status: Acute (3) CHF (congestive heart failure) Status: Acute Acute coronary syndrome with EKG changes and elevated troponin now with confirmed triple vessel disease by cardiac catheter. Acute on chronic congestive heart failure with elevated BNP and pulmonary edema on chest x-ray. Acute on chronic renal failure with baseline creatinine of 1.5 up to 1.9. Pulm HTN Type 2 diabetes, out of control. Hypertension. Urinary retention with suspected BPH. Hematuria. Plan Plan of Care Continue cardiac care with catheterization and percutaneous angioplasty and stenting planned for today. Comment Review of Relevant I have reviewed the following items bahman (where applicable) has been applied. Labs Laboratory Tests Test 11/26/18 16:39 11/26/18 20:50 11/27/18 08:10 11/27/18 12:05 Glucose (Fingerstick) 235 mg/dL (70-99) 227 mg/dL (70-99) 165 mg/dL (70-99) White Blood Count 8.2 x10^3/uL (4.0-11.0) Red Blood Count 2.79 x10^6/uL (4.30-5.70) Hemoglobin 8.8 g/dL (13.0-17.5) Hematocrit 25.9 % (39.0-53.0) Mean Corpuscular Volume 93 fL (79-100) Mean Corpuscular Hemoglobin 31 pg (25-35) Mean Corpuscular Hemoglobin Concent 34 g/dL (31-37) Red Cell Distribution Width 13.5 % (11.5-14.5) Platelet Count 242 x10^3/uL (140-400) Neutrophils (%) (Auto) 74 % (31-73) Lymphocytes (%) (Auto) 14 % (24-48) Monocytes (%) (Auto) 9 % (0-9) Eosinophils (%) (Auto) 2 % (0-3) Basophils (%) (Auto) 0 % (0-3) Neutrophils # (Auto) 6.1 x10^3uL (1.8-7.7) Lymphocytes # (Auto) 1.1 x10^3/uL (1.0-4.8) Monocytes # (Auto) 0.8 x10^3/uL (0.0-1.1) Eosinophils # (Auto) 0.2 x10^3/uL (0.0-0.7) Basophils # (Auto) 0.0 x10^3/uL (0.0-0.2) Test 11/27/18 12:21 11/27/18 17:16 11/27/18 20:46 11/28/18 05:00 Glucose (Fingerstick) 218 mg/dL (70-99) 262 mg/dL (70-99) 295 mg/dL (70-99) White Blood Count 7.0 x10^3/uL (4.0-11.0) Red Blood Count 2.55 x10^6/uL (4.30-5.70) Hemoglobin 8.1 g/dL (13.0-17.5) Hematocrit 23.8 % (39.0-53.0) Mean Corpuscular Volume 93 fL (79-100) Mean Corpuscular Hemoglobin 32 pg (25-35) Mean Corpuscular Hemoglobin Concent 34 g/dL (31-37) Red Cell Distribution Width 13.2 % (11.5-14.5) Platelet Count 237 x10^3/uL (140-400) Neutrophils (%) (Auto) 70 % (31-73) Lymphocytes (%) (Auto) 15 % (24-48) Monocytes (%) (Auto) 11 % (0-9) Eosinophils (%) (Auto) 4 % (0-3) Basophils (%) (Auto) 1 % (0-3) Neutrophils # (Auto) 4.9 x10^3uL (1.8-7.7) Lymphocytes # (Auto) 1.0 x10^3/uL (1.0-4.8) Monocytes # (Auto) 0.8 x10^3/uL (0.0-1.1) Eosinophils # (Auto) 0.3 x10^3/uL (0.0-0.7) Basophils # (Auto) 0.0 x10^3/uL (0.0-0.2) Sodium Level 141 mmol/L (136-145) Potassium Level 4.2 mmol/L (3.5-5.1) Chloride Level 106 mmol/L (98-107) Carbon Dioxide Level 28 mmol/L (21-32) Anion Gap 7 (6-14) Blood Urea Nitrogen 30 mg/dL (8-26) Creatinine 2.0 mg/dL (0.7-1.3) Estimated GFR (Cockcroft-Gault) 33.3 Glucose Level 168 mg/dL (70-99) Calcium Level 8.3 mg/dL (8.5-10.1) Test 11/28/18 07:21 11/28/18 11:33 Glucose (Fingerstick) 121 mg/dL (70-99) 133 mg/dL (70-99) Laboratory Tests Test 11/27/18 17:16 11/27/18 20:46 11/28/18 05:00 11/28/18 07:21 Glucose (Fingerstick) 262 mg/dL (70-99) 295 mg/dL (70-99) 121 mg/dL (70-99) White Blood Count 7.0 x10^3/uL (4.0-11.0) Red Blood Count 2.55 x10^6/uL (4.30-5.70) Hemoglobin 8.1 g/dL (13.0-17.5) Hematocrit 23.8 % (39.0-53.0) Mean Corpuscular Volume 93 fL (79-100) Mean Corpuscular Hemoglobin 32 pg (25-35) Mean Corpuscular Hemoglobin Concent 34 g/dL (31-37) Red Cell Distribution Width 13.2 % (11.5-14.5) Platelet Count 237 x10^3/uL (140-400) Neutrophils (%) (Auto) 70 % (31-73) Lymphocytes (%) (Auto) 15 % (24-48) Monocytes (%) (Auto) 11 % (0-9) Eosinophils (%) (Auto) 4 % (0-3) Basophils (%) (Auto) 1 % (0-3) Neutrophils # (Auto) 4.9 x10^3uL (1.8-7.7) Lymphocytes # (Auto) 1.0 x10^3/uL (1.0-4.8) Monocytes # (Auto) 0.8 x10^3/uL (0.0-1.1) Eosinophils # (Auto) 0.3 x10^3/uL (0.0-0.7) Basophils # (Auto) 0.0 x10^3/uL (0.0-0.2) Sodium Level 141 mmol/L (136-145) Potassium Level 4.2 mmol/L (3.5-5.1) Chloride Level 106 mmol/L (98-107) Carbon Dioxide Level 28 mmol/L (21-32) Anion Gap 7 (6-14) Blood Urea Nitrogen 30 mg/dL (8-26) Creatinine 2.0 mg/dL (0.7-1.3) Estimated GFR (Cockcroft-Gault) 33.3 Glucose Level 168 mg/dL (70-99) Calcium Level 8.3 mg/dL (8.5-10.1) Test 11/28/18 11:33 Glucose (Fingerstick) 133 mg/dL (70-99) Microbiology 11/22/18 Urine Culture - Final, Complete 11/22/18 Urine Culture Result 1 (TIFFANIE) - Final, Complete Medications Current Medications Furosemide (Lasix) 60 mg 1X ONCE IVP Last administered on 11/21/18at 16:34; Start 11/21/18 at 15:45; Stop 11/21/18 at 15:49; Status DC Insulin Human Regular (HumuLIN R VIAL) 5 unit 1X ONCE IV Last administered on 11/21/18at 17:50; Start 11/21/18 at 17:30; Stop 11/21/18 at 17:31; Status DC Heparin Sodium (Porcine) (Heparin Sodium) 4,000 unit 1X ONCE IV Last administered on 11/21/18at 17:46; Start 11/21/18 at 17:30; Stop 11/21/18 at 17:31; Status DC Heparin Sodium/ Dextrose 500 ml @ 17.6 mls/hr CONT PRN IV SEE I/O RECORD Last administered on 11/25/18 02:02; Start 11/21/18 at 17:30; Stop 11/25/18 at 15:51; Status DC Heparin Sodium (Porcine) (Heparin Sodium) 1,850 unit PRN Q6HRS PRN IV FOR UFH LEVEL LESS THAN 0.2 Last administered on 11/22/18at 01:30; Start 11/21/18 at 17:30; Stop 11/25/18 at 15:51; Status DC Ondansetron HCl (Zofran) 4 mg PRN Q8HRS PRN IV NAUSEA/VOMITING; Start 11/21/18 at 17:30; Stop 11/22/18 at 17:29; Status DC Morphine Sulfate (Morphine Sulfate) 2 mg PRN Q2HR PRN IV PAIN; Start 11/21/18 at 17:30; Stop 11/22/18 at 17:29; Status DC Acetaminophen (Tylenol) 650 mg PRN Q4HRS PRN PO FEVER; Start 11/21/18 at 17:30; Stop 11/22/18 at 17:29; Status DC Alprazolam (Xanax) 0.5 mg PRN Q6HRS PRN PO ANXIETY / AGITATION Last administered on 11/25/18at 20:38; Start 11/22/18 at 03:30 Aspirin (Ecotrin) 81 mg DAILY PO Last administered on 11/28/18 09:15; Start 11/22/18 at 09:00 Clopidogrel Bisulfate (Plavix) 75 mg DAILY PO Last administered on 11/25/18at 08:45; Start 11/22/18 at 09:00; Stop 11/26/18 at 10:07; Status DC Insulin Glargine (Lantus) 30 units QHS SQ Last administered on 11/27/18 20:54; Start 11/22/18 at 21:00 Insulin Human Lispro (HumaLOG) 8 units TIDAC SQ Last administered on 11/27/18 17:24; Start 11/22/18 at 11:30 Lisinopril (Prinivil) 10 mg DAILY PO Last administered on 11/23/18 08:42; Start 11/22/18 at 09:00; Stop 11/24/18 at 10:47; Status DC Metoprolol Succinate (Toprol Xl) 25 mg DAILY PO Last administered on 11/26/18 08:15; Start 11/22/18 at 09:00; Stop 11/26/18 at 11:28; Status DC Atorvastatin Calcium (Lipitor) 80 mg QHS PO Last administered on 11/27/18 20:50; Start 11/22/18 at 21:00 Glimepiride (Amaryl) 4 mg DAILY PO Last administered on 11/27/18 08:48; Start 11/22/18 at 09:00 Info (Anti-Coagulation Monitoring By Pharmacy) 1 each PRN DAILY PRN MC SEE COMMENTS Last administered on 11/25/18 09:30; Start 11/22/18 at 10:45; Stop 11/26/18 at 07:22; Status DC Tamsulosin HCl (Flomax) 0.4 mg QHS PO Last administered on 11/27/18 20:49; Start 11/22/18 at 21:00 Magnesium Citrate (Citroma) 296 ml 1X ONCE PO Last administered on 11/24/18 15:39; Start 11/24/18 at 15:00; Stop 11/24/18 at 15:01; Status DC Polyethylene Glycol (miraLAX PACKET) 17 gm DAILY PO Last administered on 11/26/18 08:16; Start 11/24/18 at 15:00 Acetylcysteine (Mucomyst 20% Oral Solution) 600 mg BID PO Last administered on 11/27/18 09:51; Start 11/24/18 at 21:00; Stop 11/27/18 at 12:00; Status DC Sodium Chloride 1,000 ml @ 60 mls/hr [id number] IV Last administered on 11/24/18 22:22; Start 11/25/18 at 07:30; Stop 11/25/18 at 14:10; Status DC Iodixanol (Visipaque 320) 100 ml STK-MED ONCE .ROUTE ; Start 11/25/18 at 09:00; Stop 11/25/18 at 09:01; Status DC Lidocaine HCl (Xylocaine-Mpf 1% 2ml Vial) 2 ml STK-MED ONCE .ROUTE ; Start 11/25/18 at 09:00; Stop 11/25/18 at 09:01; Status DC Heparin Sodium/ Sodium Chloride 1,500 ml @ As Directed STK-MED ONCE .ROUTE ; Start 11/25/18 at 09:00; Stop 11/25/18 at 09:01; Status DC Fentanyl Citrate (Fentanyl 2ml Vial) 100 mcg STK-MED ONCE .ROUTE ; Start 11/25/18 at 09:03; Stop 11/25/18 at 09:04; Status DC Midazolam HCl (Versed) 2 mg STK-MED ONCE .ROUTE ; Start 11/25/18 at 09:03; Stop 11/25/18 at 09:04; Status DC Heparin Sodium (Porcine) (Heparin Sodium) 10,000 unit STK-MED ONCE .ROUTE ; Start 11/25/18 at 09:03; Stop 11/25/18 at 09:04; Status DC Verapamil HCl (Verapamil) 5 mg STK-MED ONCE .ROUTE ; Start 11/25/18 at 09:03; Stop 11/25/18 at 09:04; Status DC Nitroglycerin (Nitroglycerin) 200 mcg STK-MED ONCE .ROUTE ; Start 11/25/18 at 09:04; Stop 11/25/18 at 09:05; Status DC Lidocaine HCl (Lidocaine 1% 20ml Vial) 20 ml STK-MED ONCE .ROUTE ; Start 11/25/18 at 09:25; Stop 11/25/18 at 09:26; Status DC Heparin Sodium/ Sodium Chloride (HEPARIN for ARTERIAL LINE FLUSH) 1,000 unit 1X ONCE IART Last administered on 11/25/18at 09:53; Start 11/25/18 at 09:45; Stop 11/25/18 at 09:46; Status DC Midazolam HCl (Versed) 2 mg 1X ONCE IV Last administered on 11/25/18at 09:52; Start 11/25/18 at 09:45; Stop 11/25/18 at 09:46; Status DC Fentanyl Citrate (Fentanyl 2ml Vial) 50 mcg 1X ONCE IV Last administered on 11/25/18at 09:53; Start 11/25/18 at 09:45; Stop 11/25/18 at 09:46; Status DC Iodixanol (Visipaque 320) 100 ml 1X ONCE IART Last administered on 11/25/18at 09:52; Start 11/25/18 at 09:45; Stop 11/25/18 at 09:46; Status DC Lidocaine HCl (Lidocaine 1% 20ml Vial) 10 ml 1X ONCE INJ Last administered on 11/25/18at 09:45; Start 11/25/18 at 09:45; Stop 11/25/18 at 09:46; Status DC Lidocaine HCl (Xylocaine-Mpf 1% 2ml Vial) 1 ml 1X ONCE INJ Last administered on 11/25/18at 09:52; Start 11/25/18 at 09:45; Stop 11/25/18 at 09:46; Status DC Info (CONTRAST GIVEN -- Rx MONITORING) 1 each PRN DAILY PRN MC SEE COMMENTS; Start 11/25/18 at 09:45; Stop 11/27/18 at 09:44; Status DC Furosemide (Lasix) 40 mg 1X ONCE IVP Last administered on 11/25/18at 17:08; Start 11/25/18 at 16:00; Stop 11/25/18 at 16:01; Status DC Verapamil HCl (Verapamil) 5 mg STK-MED ONCE .ROUTE ; Start 11/25/18 at 09:00; Stop 11/26/18 at 08:28; Status DC Metoprolol Succinate (Toprol Xl) 50 mg DAILY PO Last administered on 11/28/18at 09:15; Start 11/27/18 at 09:00 Clopidogrel Bisulfate (Plavix) 75 mg DAILYWBKFT PO Last administered on 11/28/18at 09:15; Start 11/26/18 at 11:30 Furosemide (Lasix) 20 mg 1X ONCE IVP Last administered on 11/26/18at 12:39; Start 11/26/18 at 11:30; Stop 11/26/18 at 11:31; Status DC Acetaminophen/ Hydrocodone Bitart (Lortab 5/325) 1 tab 1X ONCE PO Last administered on 11/27/18at 21:42; Start 11/27/18 at 21:00; Stop 11/27/18 at 21:01; Status DC Finasteride (Proscar) 5 mg DAILY PO ; Start 11/28/18 at 10:00 Iodixanol (Visipaque 320) 100 ml STK-MED ONCE .ROUTE ; Start 11/28/18 at 09:58; Stop 11/28/18 at 09:59; Status DC Lidocaine HCl (Lidocaine 1% 20ml Vial) 20 ml STK-MED ONCE .ROUTE ; Start 11/28/18 at 09:58; Stop 11/28/18 at 09:59; Status DC Heparin Sodium/ Sodium Chloride 1,500 ml @ As Directed STK-MED ONCE .ROUTE ; Start 11/28/18 at 09:58; Stop 11/28/18 at 09:59; Status DC Fentanyl Citrate (Fentanyl 5ml Vial) 250 mcg STK-MED ONCE .ROUTE ; Start 11/28/18 at 12:20; Stop 11/28/18 at 12:21; Status DC Midazolam HCl (Versed) 5 mg STK-MED ONCE .ROUTE ; Start 11/28/18 at 12:21; Stop 11/28/18 at 12:22; Status DC Heparin Sodium (Porcine) (Heparin Sodium) 10,000 unit STK-MED ONCE .ROUTE ; Start 11/28/18 at 12:33; Stop 11/28/18 at 12:34; Status DC Verapamil HCl (Verapamil) 5 mg STK-MED ONCE .ROUTE ; Start 11/28/18 at 12:33; Stop 11/28/18 at 12:34; Status DC Nitroglycerin/ Dextrose (Nitroglycerin) 4 mg STK-MED ONCE .ROUTE ; Start 11/28/18 at 12:33; Stop 11/28/18 at 12:34; Status DC Heparin Sodium (Porcine) (Heparin Sodium) 10,000 unit STK-MED ONCE .ROUTE ; Start 11/28/18 at 12:45; Stop 11/28/18 at 12:46; Status DC Active Scripts Active Humalog (Insulin Lispro) 100 Unit/1 Ml Insuln.pen 8 Units SQ TIDAC 90 Days Lantus Solostar (Insulin Glargine,Hum.rec.anlog) 100 Unit/1 Ml Insuln.pen 30 Units SQ QHS 30 Days Lisinopril 10 Mg Tablet 10 Mg PO DAILY 90 Days Reported Metoprolol Succinate ( Xl ) (Metoprolol Succinate) 25 Mg Tab.er.24h 25 Mg PO DAILY Glimepiride 4 Mg Tablet 4 Mg PO DAILY Clopidogrel (Clopidogrel Bisulfate) 75 Mg Tablet 1 Tab PO DAILY Aspir 81 (Aspirin) 81 Mg Tablet.dr 1 Tab PO DAILY Atorvastatin Calcium 80 Mg Tablet 1 Tab PO DAILY Metformin Hcl 500 Mg Tablet 1,000 Mg PO BID Vitals/I & O Vital Sign - Last 24 Hours 11/27/18 11/27/18 11/27/18 11/27/18 15:00 19:59 20:00 21:42 Temp 97.9 98.0 97.9 98.0 Pulse 91 92 Resp 16 16 B/P (MAP) 126/70 (88) 128/68 (88) Pulse Ox 95 95 O2 Delivery Room Air Room Air Room Air Room Air 11/27/18 11/27/18 11/28/18 11/28/18 22:42 23:19 03:07 07:00 Temp 98.6 97.7 97.5 98.6 97.7 97.5 Pulse 91 86 89 Resp 16 16 16 B/P (MAP) 115/64 (81) 116/72 (87) 124/73 (90) Pulse Ox 95 91 90 91 O2 Delivery Room Air Room Air Room Air Room Air 11/28/18 11/28/18 11/28/18 08:00 09:15 10:47 Temp 98.2 98.2 Pulse 89 86 Resp 16 B/P (MAP) 124/73 127/68 (87) Pulse Ox 97 O2 Delivery Room Air Room Air Intake and Output 11/27/18 11/27/18 11/28/18 15:00 23:00 07:00 Intake Total 200 ml Output Total 150 ml 475 ml Balance -150 ml 200 ml -475 ml BALWINDER MA MD November 28, 2018 13:04
[2018-11-28] MEDS ORDERED: PHENYLEPHRINE in 0.9% NACL PF 1 MG/10 ML SYRINGE. IV ONE (13:23)
[2018-11-28] MEDS ORDERED: NOREPINEPHRIN 8MG/250ML PREMIX 250 ML IV ONE (13:30)
[2018-11-28] MEDS ORDERED: NITROGLYCERIN 200 MCG/2 ML SYRINGE FOR CATH/VASC LAB. ONE ×4 (14:03→15:19)
[2018-11-28] MEDS ORDERED: LIDOCAINE 1% Multi-Dose 20 ML VIAL. INJ ONE (14:30)
[2018-11-28] MEDS ORDERED: MIDAZOLAM HCL/PF 5 MG/5 ML VIAL. IV ONE (14:30)
[2018-11-28] MEDS ORDERED: fentaNYL PF VIAL 250 MCG/5 ML VIAL IV ONE (14:30)
[2018-11-28] MEDS ORDERED: IODIXANOL 320 MG/ML 100 ML VIAL. IART ONE (14:30)
[2018-11-28] MEDS ORDERED: NITROGLYCERIN 200 MCG/2 ML SYRINGE FOR CATH/VASC LAB. IART ONE (14:30)
[2018-11-28] MEDS ORDERED: CONTRAST GIVEN. MC PRN (14:30)
[2018-11-28] MEDS ORDERED: HEPARIN for IV BOLUS 10,000 UNIT/10 ML VIAL. IV ONE (14:30)
[2018-11-28] MEDS ORDERED: NITROGLYCERIN 4MG SYRINGE 4 MG, VERAPAMIL 10 MG, HEPARIN SODIUM 4,000 UNIT, VIPERSLIDE ... IART ONE ×5 (14:45)
[2018-11-28] MEDS ORDERED: TICAGRELOR 90 MG TABLET. ONE (15:58)
[2018-11-28] MEDS ORDERED: TICAGRELOR 90 MG TABLET. PO ONE (16:03)
[2018-11-28] MEDS ORDERED: IV NORMAL SALINE 500ML BAG 500 ML IV ONE (16:30)
--- NOTE | 2018-11-28 17:18 | CARD ---
MR#: [id number] Date of Study: 11/28/2018 Ordering Physician: CLEMENTE CARR, Referring Physician: BALWINDER MA, Tech: RT Gloria (R) APPROVED REPORT Technologist: Daron Harrison RT (R) Nurse: Jennifer Saxena RN Procedure(s) performed: Sedation: 210 min Dose: 392 Gycm2 Contrast: 303 ml LHC, Coronary angiography, PCI of the LAD, RCA and Lcx. Rotational atherectomy of the LAD. Insertion of a short term external heart assist system into the heart, intraoperative, percutaneous a pproach ([id number]) Assistance with a cardiac output using Impeller pump, continous ([id number]) HISTORY The patient is a 68 year-old male with a history of : coronary artery disease, hypertension, dyslipid emia. INDICATION The indication(s) include : non-STEMI , dyspnea, ischemic cardiomyopathy. PROCEDURE NARRATIVE After appropriate informed consent the patient was brought to the catheterization laboratory and the bilateral groins were prepped and draped in usual sterile fashion. Under 1% lidocaine local anesthesia a 6 Somali introducer sheath was placed in the right common femor al artery via the modified Seldinger technique. Limited common femoral angiography demonstrated adequ ate sheath placement and appropriate vessel anatomy for closure device. Subsequently, a 5 Somali cros sover catheter was used to engage the left common iliac artery and limited angiography was used to vi sualize the left common femoral artery and a micropuncture access kit was used to place a 6 Somali sh eath in the left common femoral artery under 1% lidocaine local anesthesia via the modified Seldinger technique. Subsequently, 2 pre-close suture devices were placed in the artery in a crisscross fashio n and subsequently the vessel was dilated and ultimately a 13 Somali sheath was placed. Next, a J-tip ped guidewire was advanced into the left ventricle and LVEDP was measured. The LVEDP was elevated at 20 mmHg consistent with acute on chronic systolic and diastolic heart failure. Next, a 0.018 inch wir e was used to exchange the pigtail catheter out and over this a left ventricular assist device Impell a 2.5 was placed in the left ventricle and excellent flows were obtained.A percutaneous support devic e was used due to patient's multi-organ failure, severe three vessel disease and severe LV systolic d ysfunction. DIAGNOSTIC ANGIOGRAPHY: Please see prior report for full details. Briefly: The right coronary artery demonstrates a proximal 80% stenosis. The rest of the vessel is heavily boom cified and moderately diffusely diseased without any focal high-grade stenosis. The left main coronary artery is grossly unremarkable. The left anterior descending artery demonstrates significant tortuosity and calcification with a crit ical 80-90% stenosis involving the mid segment and more proximal 70% stenosis diffusely. The first and second diagonals are small caliber vessels with a subtotal occlusion of the first diago nal and no evidence of stenosis involving the second diagonal vessels. The left circumflex is a moderate caliber vessel with diffuse proximal 70% stenosis. LVEDP 20 mmHg PCI of the right coronary artery: Heparin was used for an to regulation for an ACT greater than 200. Through a AL-1 guide catheter a pr o-water wire was advanced to the distal RCA. Balloon angioplasty was performed of the RCA with a 2.5 x 12 mm balloon. Subsequently, the lesion was stented with a Alpine 3.0 x 15 mm drug-eluting stent. T he stent was postdilated with a 3 mm noncompliant balloon. Final post-PCI angiography demonstrated ex cellent stent expansion with HIGINIO-3 flow in the vessel and 0% residual stenosis. PCI of the left circumflex artery: Next, a 6 Somali EBU 3.5 guide catheter was placed to engage the left main. A pro-water wire was adva nced to the distal first obtuse marginal. Due to significant calcification and tortuosity a guidewire was required. This case was extremely complex due to significant calcification, small caliber vessel s and significant LV dysfunction. Ultimately, a 2.5 x 28 mm Alpine drug-eluting stent was placed in t he proximal to mid circumflex extending into the proximal aspect of the first obtuse marginal. The ve ssel was postdilated with a 2.75 mm noncompliant balloon. Final angiography demonstrated excellent st ent expansion with HIGINIO-3 flow in the vessel and 0% residual stenosis. PCI of the left anterior descending artery: A pro-water wire was then used to cross the LAD stenosis. A Corsair catheter was used to exchange for a Rota floppy wire. Next, a 1.25mm rotational atherectomy bur was used to make several atherectomy r uns. Next, the proximal to mid LAD was angioplastied with a 2.5 x 30 mm balloon. Advancement of an [employer] drug-eluting stent was extremely difficult due to tortuosity. Ultimately, a 2.5 x 38 mm drug-elu ting stent was able to be advanced with the aid of a guidewire. The stent was deployed at 14 yolande. Sub sequently advancement of a noncompliant balloon was difficult again due to vessel tortuosity and calc ification. Therefore due to excellent stent expansion angiographically and no evidence of guide or wi re-related complications further intervention was deferred. Final angiography demonstrated excellent stent expansion. There is no evidence of guide or wire-related complications involving the left main of the distal vessels. The patient tolerated the procedure well. There was 0% residual stenosis in th e LAD At case completion the left-sided sheath was removed and the previously deployed preclosed suture dev ices were placed and hemostasis was obtained without difficulty. Limited angiography demonstrated no evidence of extravasation. The right common femoral arterial sheath was removed and hemostasis was ob tained with an Angio-Seal device. The patient received ticagrelor 180 mg at case completion. Conclusion 1. Acute on chronic systolic and diastolic heart failure 2. Severe three vessel coronary artery disease. 3. Successful insertion/removal of a short-term external heart assist system in the heart, intraopera tive, percutaneous approach. (Assistance with cardiac output using Impeller pump, continuous) 4. Successful PCI of the RCA with a 3.0/15 mm GIN (Alpine) 5. Successful PCI of the LCx with a 2.5/28 mm GIN 6. Successful PCI with rotational atherectomy of the LAD with a 2.5/38 mm GIN 7. Successful closure of the left common femoral arteriotomy with a Preclose suture devices, right fe moral artery closure with angioseal device. Recommendations 1. ASA 81mg daily indefinitely 2. Ticagrelor 90mg bid for 1 full year. 3. Close monitoring of Hgb and renal function. 4. Outpatient evaluation at [facility] for usp heart failure therapy (LVAD/Transplant) 5. Outpatient evaluation for possible ICD. 6. Cardiac rehab referral if tolerated. Signed by : Clemente Carr, Electronically Approved : 11/28/2018 17:18:41
[2018-11-28] MEDS: FINASTERIDE 5 MG TABLET. PO SCH (17:51)
[2018-11-28] MEDS: GLIMEPIRIDE 2 MG TABLET. PO SCH (17:51)
[2018-11-28] MEDS: IV NORMAL SALINE 1000ML BAG 1,000 ML IV SCH (18:01)
[2018-11-28] MEDS: TAMSULOSIN 0.4 MG CAP.ER.24H. PO SCH (21:00)
[2018-11-28] MEDS: ATORVASTATIN CALCIUM 40 MG TABLET. PO SCH (21:00)
[2018-11-28] MEDS: TICAGRELOR 90 MG TABLET. PO SCH (21:00)
[2018-11-28] MEDS: INSULIN GLARGINE 300 UNITS/3 ML INSULN.PEN. SQ SCH (21:05)
[2018-11-29 03:13] VITALS: BP 114/66
[2018-11-29 07:00] VITALS: BP 120/70
[2018-11-29] MEDS: INSULIN LISPRO 300 UNITS/3 ML INSULN.PEN. SQ SCH ×3 (07:30→17:38)
[2018-11-29] MEDS: ASPIRIN ENTERIC COATED 81 MG TABLET.DR. PO SCH (09:16)
[2018-11-29] MEDS: GLIMEPIRIDE 2 MG TABLET. PO SCH (09:16)
[2018-11-29] MEDS: TICAGRELOR 90 MG TABLET. PO SCH ×2 (09:16→21:13)
[2018-11-29] MEDS: POLYETHYLENE GLYCOL 3350 17 GM PACKET. PO SCH (09:16)
[2018-11-29] MEDS: FINASTERIDE 5 MG TABLET. PO SCH (09:16)
[2018-11-29] MEDS: METOPROLOL SUCC 24HR ER 50 MG TAB.ER.24H. PO SCH (09:16)
[2018-11-29] MEDS: ACETAMINOPHEN 325 MG TABLET. PO PRN (09:48)
[2018-11-29 11:00] VITALS: BP 126/68
--- NOTE | 2018-11-29 11:56 | PDOC ---
PROGRESS NOTES Subjective He did not sleep well last night but no chest pain or other concerns, up in chair, family present, discussed with them and Dr. Carr Objective Afebrile General: NAD Heart: RRR Lungs: CTA Abd: soft, non tender Ext: no C/C/E Vital Signs Vital Signs Date Time Temp Pulse Resp B/P (MAP) Pulse Ox O2 Delivery O2 Flow Rate FiO2 11/29/18 09:16 89 120/70 11/29/18 08:22 Room Air 2.0 11/29/18 07:00 97.8 18 97 97.8 I & O Intake and Output 11/29/18 07:00 Intake Total 550 ml Output Total 900 ml Balance -350 ml Intake Oral 550 ml Output Urine Total 900 ml Assessment and Plan CAD - s/p 3 vessel stenting - continue post procedure monitoring CAD - continue meds constipation - miralax hemturia - cysto negative Mandy COLEMAN MD November 29, 2018 11:56
[2018-11-29] MEDS ORDERED: POLYETHYLENE GLYCOL 3350 17 GM PACKET. PO SCH (12:00)
[2018-11-29] MEDS ORDERED: ZOLPIDEM 5 MG TABLET. PO PRN (12:00)
--- NOTE | 2018-11-29 12:16 | PDOC ---
CARDIOLOGY PROGRESS NOTE SUBJECTIVE: No acute events. No chest pain. Dyspnea stable. OBJECTIVE: Vital SIgns: Vital Signs Date Time Temp Pulse Resp B/P (MAP) Pulse Ox O2 Delivery O2 Flow Rate FiO2 11/29/18 09:16 89 120/70 11/29/18 08:22 Room Air 2.0 11/29/18 07:00 97.8 18 97 97.8 I & O Intake and Output 11/29/18 07:00 Intake Total 550 ml Output Total 900 ml Balance -350 ml Intake Oral 550 ml Output Urine Total 900 ml Objective: Normal heart tones Bilateral groin sites are c/d/i No lower ext edema. Bilateral basilar rales still present. Normal neuro exam. CURRENT MEDICATIONS: Current Medications Medications (Trade) Dose Ordered Sig/Sathish Start Time Stop Time Status Last Admin Dose Admin Acetaminophen (Tylenol) 650 mg PRN Q6HRS PRN 11/29/18 09:45 11/29/18 09:48 650 MG Acetaminophen/ Hydrocodone Bitart (Lortab 5/325) 1 tab 1X ONCE 11/27/18 21:00 11/27/18 21:01 DC 11/27/18 21:42 1 TAB Acetylcysteine (Mucomyst 20% Oral Solution) 600 mg BID 11/24/18 21:00 11/27/18 12:00 DC 11/27/18 09:51 600 MG Alprazolam (Xanax) 0.5 mg PRN Q6HRS PRN 11/22/18 03:30 11/25/18 20:38 0.5 MG Aspirin (Ecotrin) 81 mg DAILY 11/22/18 09:00 11/29/18 09:16 81 MG Atorvastatin Calcium (Lipitor) 80 mg QHS 11/22/18 21:00 11/28/18 21:00 80 MG Clopidogrel Bisulfate (Plavix) 75 mg [id number] 11/26/18 11:30 11/28/18 17:30 DC 11/28/18 09:15 75 MG Dopamine HCl/ Dextrose 0 ml @ As Directed STK-MED ONCE 11/28/18 13:23 11/28/18 13:24 DC Fentanyl Citrate (Fentanyl 2ml Vial) 50 mcg 1X ONCE 11/25/18 09:45 11/25/18 09:46 DC 11/25/18 09:53 50 MCG Fentanyl Citrate (Fentanyl 5ml Vial) 250 mcg 1X ONCE 11/28/18 14:30 11/28/18 14:31 DC 11/28/18 14:30 150 MCG Finasteride (Proscar) 5 mg DAILY 11/28/18 10:00 11/29/18 09:16 5 MG Furosemide (Lasix) 20 mg 1X ONCE 11/26/18 11:30 11/26/18 11:31 DC 11/26/18 12:39 20 MG Glimepiride (Amaryl) 4 mg DAILY 11/22/18 09:00 11/29/18 09:16 4 MG Heparin Sodium (Porcine) (Heparin Sodium) 4,000 unit 1X ONCE 11/28/18 14:30 11/28/18 14:31 DC 11/28/18 14:30 7,500 UNIT Heparin Sodium/ Dextrose 500 ml @ 17.6 mls/hr CONT PRN 11/21/18 17:30 11/25/18 15:51 DC 11/25/18 02:02 17.6 MLS/HR Heparin Sodium/ Sodium Chloride (HEPARIN for ARTERIAL LINE FLUSH) 1,000 unit 1X ONCE 11/28/18 15:45 11/28/18 15:46 DC 11/28/18 15:45 1,000 UNIT Info (Anti-Coagulation Monitoring By Pharmacy) 1 each PRN DAILY PRN 11/22/18 10:45 11/26/18 07:22 DC 11/25/18 09:30 1 EACH Info (CONTRAST GIVEN -- Rx MONITORING) 1 each PRN DAILY PRN 11/28/18 14:30 11/30/18 14:29 Insulin Glargine (Lantus) 30 units QHS 11/22/18 21:00 11/28/18 21:05 16 UNITS Insulin Human Lispro (HumaLOG) 8 units TIDAC 11/22/18 11:30 11/29/18 12:07 8 UNITS Insulin Human Regular (HumuLIN R VIAL) 5 unit 1X ONCE 11/21/18 17:30 11/21/18 17:31 DC 11/21/18 17:50 5 UNIT Iodixanol (Visipaque 320) 100 ml 1X ONCE 11/28/18 14:30 11/28/18 14:31 DC 11/28/18 14:30 314 ML Lidocaine HCl (Lidocaine 1% 20ml Vial) 20 ml 1X ONCE 11/28/18 14:30 11/28/18 14:31 DC 11/28/18 14:30 20 ML Lidocaine HCl (Xylocaine-Mpf 1% 2ml Vial) 1 ml 1X ONCE 11/25/18 09:45 11/25/18 09:46 DC 11/25/18 09:52 1 ML Lisinopril (Prinivil) 10 mg DAILY 11/22/18 09:00 11/24/18 10:47 DC 11/23/18 08:42 10 MG Magnesium Citrate (Citroma) 296 ml 1X ONCE 11/24/18 15:00 11/24/18 15:01 DC 11/24/18 15:39 296 ML Metoprolol Succinate (Toprol Xl) 50 mg DAILY 11/27/18 09:00 11/29/18 09:16 50 MG Midazolam HCl (Versed) 5 mg 1X ONCE 11/28/18 14:30 11/28/18 14:31 DC 11/28/18 14:30 2.5 MG Morphine Sulfate (Morphine Sulfate) 2 mg PRN Q2HR PRN 11/21/18 17:30 11/22/18 17:29 DC Nitroglycerin (Nitroglycerin) 200 mcg STK-MED ONCE 11/28/18 15:19 11/28/18 15:20 DC Nitroglycerin/ Dextrose (Nitroglycerin) 4 mg STK-MED ONCE 11/28/18 12:33 11/28/18 12:34 DC Nitroglycerin/ Dextrose 4 mg/ Verapamil HCl 10 mg/Heparin Sodium (Porcine) 4000 unit/ Miscellaneous 20 ml/Sodium Chloride 1,048 ml @ 1,000 mls/hr 1X ONCE 11/28/18 14:45 11/28/18 15:47 DC 11/28/18 14:45 1,000 MLS/HR Norepinephrine Bitartrate 250 ml @ 1.875 mls/ hr ONCE ONCE 11/28/18 13:30 12/04/18 02:49 Ondansetron HCl (Zofran) 4 mg PRN Q8HRS PRN 11/21/18 17:30 11/22/18 17:29 DC Phenylephrine HCl (PHENYLEPHRINE in 0.9% NACL PF) 1 mg STK-MED ONCE 11/28/18 13:23 11/28/18 13:24 DC Polyethylene Glycol (miraLAX PACKET) 17 gm DAILY 11/29/18 12:00 UNV Sodium Chloride 1,000 ml @ 50 mls/hr Q20H 11/28/18 16:30 11/28/18 18:01 50 MLS/HR Tamsulosin HCl (Flomax) 0.4 mg QHS 11/22/18 21:00 11/28/18 21:00 0.4 MG Ticagrelor (Brilinta) 90 mg BID 11/28/18 21:00 11/29/18 09:16 90 MG Verapamil HCl (Verapamil) 5 mg STK-MED ONCE 11/28/18 12:33 11/28/18 12:34 DC Zolpidem Tartrate (Ambien) 5 mg PRN QHS PRN 11/29/18 12:00 DIAGNOSTIC TESTING: No new labs ASSESSMENT: 1. Severe ischemic CMP s/p high risk impella guided PCI of the LAD, LCx and RCA 2. Acute on chronic systolic/diastolic HF 3. CKD 4. Dyslipidemia PLAN: 1. Continue asa, ticagrelor, statin and toprol 2. Add low dose hydralazine and imdur 3. Diuresis as renal function allows. Repeat labs and CXR today. Supportive care. If stable, aim for DC in next 24-48 hours. Will plan for outpt referral for advanced heart failure therapies at [facility]. Consider ICD in 3 months based on EF. Thanks. CLEMENTE WISE MD November 29, 2018 12:16
[2018-11-29] MEDS: IV NORMAL SALINE 1000ML BAG 1,000 ML IV SCH (12:30)
[2018-11-29] MEDS: hydrALAZINE 10 MG TABLET PO SCH ×2 (13:37→21:12)
[2018-11-29] MEDS: ISOSORBIDE MONONITRATE ER 30 MG TAB.ER.24H PO SCH (13:37)
--- NOTE | 2018-11-29 14:29 | RAD ---
PA and lateral chest radiographs 11/29/2018 CLINICAL HISTORY: Shortness of breath. PA and lateral digital radiographs of chest were obtained. Comparison study is dated 11/25/2018. The cardiac silhouette is mildly enlarged. The thoracic aorta is mildly tortuous. There are small bilateral pleural effusions. Slightly improved congestive changes are seen involving both lungs. No pneumothorax is noted. The osseous structures are unchanged. IMPRESSION: Slightly improved CHF. Electronically signed by: Jc William MD (11/29/2018 2:26 PM) [facility] [place]
[2018-11-29 15:00] VITALS: BP 100/50
[2018-11-29 15:03] LABS: HEMOGLOBIN 8.4 g/dL (13.0-17.5); RED BLOOD COUNT 2.66 x10^6/uL (4.30-5.70); RED CELL DISTRIBUTION WIDTH 13.5 % (11.5-14.5); WHITE BLOOD COUNT 8.8 x10^3/uL (4.0-11.0)
[2018-11-29 15:11] LABS: CALCIUM 8.3 mg/dL (8.5-10.1); CREATININE 2.2 mg/dL (0.7-1.3); GFR 29.8; POTASSIUM 4.7 mmol/L (3.5-5.1)
[2018-11-29 21:00] VITALS: BP 119/61
[2018-11-29] MEDS: INSULIN GLARGINE 300 UNITS/3 ML INSULN.PEN. SQ SCH (21:00)
[2018-11-29] MEDS: TAMSULOSIN 0.4 MG CAP.ER.24H. PO SCH (21:13)
[2018-11-29] MEDS: ATORVASTATIN CALCIUM 40 MG TABLET. PO SCH (21:13)
[2018-11-29 22:50] VITALS: BP 97/56
[2018-11-30 03:31] VITALS: BP 123/65
[2018-11-30 07:00] VITALS: BP 118/63
[2018-11-30] MEDS: METOPROLOL SUCC 24HR ER 50 MG TAB.ER.24H. PO SCH (08:20)
[2018-11-30] MEDS: FINASTERIDE 5 MG TABLET. PO SCH (08:20)
[2018-11-30] MEDS: ISOSORBIDE MONONITRATE ER 30 MG TAB.ER.24H PO SCH (08:20)
[2018-11-30] MEDS: GLIMEPIRIDE 2 MG TABLET. PO SCH (08:20)
[2018-11-30] MEDS: POLYETHYLENE GLYCOL 3350 17 GM PACKET. PO SCH (08:21)
[2018-11-30] MEDS: hydrALAZINE 10 MG TABLET PO SCH ×3 (08:21→21:16)
[2018-11-30] MEDS: TICAGRELOR 90 MG TABLET. PO SCH ×2 (08:21→21:16)
[2018-11-30] MEDS: ASPIRIN ENTERIC COATED 81 MG TABLET.DR. PO SCH (08:22)
[2018-11-30] MEDS: INSULIN LISPRO 300 UNITS/3 ML INSULN.PEN. SQ SCH ×3 (08:32→16:30)
[2018-11-30 11:00] VITALS: BP 115/63
--- NOTE | 2018-11-30 11:00 | PDOC ---
PROGRESS NOTES Subjective Still no BM, creatinine up to 2.2 so not ready for discharge, on IVF at 50 cc/hr per cardiology, he denies chest pain, soa Objective Afebrile General: NAD Heart: RRR Lungs: CTA Abd: soft, minimally distended Ext: no C/C/E WBC: [] Hgb: [] K+: [] Creat: 2.2 Vital Signs Vital Signs Date Time Temp Pulse Resp B/P (MAP) Pulse Ox O2 Delivery O2 Flow Rate FiO2 11/30/18 08:21 88 118/63 11/30/18 07:00 97.4 20 96 Room Air 2.0 97.4 I & O Intake and Output 11/30/18 07:00 Intake Total 360 ml Output Total 350 ml Balance 10 ml Intake Oral 360 ml Output Urine Total 350 ml # Voids 7 Assessment and Plan CAD - s/p 3 vessel stenting - continue post procedure monitoring CKD with ASHLEY from contrast - continue IV fluids at 50 cc/hr, recheck in am constipation - miralax hematuria - cysto negative Mandy COLEMAN MD November 30, 2018 11:00
[2018-11-30] MEDS: IV NORMAL SALINE 1000ML BAG 1,000 ML IV SCH (11:12)
[2018-11-30] MEDS ORDERED: MAGNESIUM CITRATE 296 ML SOLUTION. PO PRN (11:15)
[2018-11-30 15:00] VITALS: BP 90/47
--- NOTE | 2018-11-30 16:57 | PDOC ---
CARDIOLOGY PROGRESS NOTE SUBJECTIVE: No acute events overnight. He continues to remain fatigue but denies any chest pain or dyspnea. OBJECTIVE: Vital SIgns: Vital Signs Date Time Temp Pulse Resp B/P (MAP) Pulse Ox O2 Delivery O2 Flow Rate FiO2 11/30/18 15:00 97.6 63 20 90/47 (61) 85 Room Air 97.6 11/30/18 11:00 2.0 I & O Intake and Output 11/30/18 06:59 Intake Total 360 ml Output Total 350 ml Balance 10 ml Intake Oral 360 ml Output Urine Total 350 ml # Voids 7 Objective: The patient appeared fatigued and frail but otherwise was stable Head exam is unremarkable. No scleral icterus or corneal arcus noted. Neck is without jugular venous distension, thyromegaly, or carotid bruits. Carotid upstrokes are brisk bilaterally. Lungs notable for bibasilar rales Cardiac exam reveals the PMI to be normally sized and situated. Rhythm is regular. First and second heart sounds normal. Soft systolic murmur consistent with MR. Abdominal exam reveals normal bowel sounds and mild distention Extremities are notable for 1+ edema to the midshin. Distal pulses are diminished. Bilateral groin sites are clean, dry and intact Msk: No traumua Neuro: No focal deficits CURRENT MEDICATIONS: Current cardiac medications include aspirin, ticagrelor, atorvastatin, Imdur, hydralazine and Toprol-XL DIAGNOSTIC TESTING: Creatinine is elevated at 2.2 Hemoglobin is stable at 8.3 Chest x-ray with small bilateral pleural effusions ASSESSMENT: 1. Ischemic cardio myopathy status post multivessel PCI with an ejection fraction of 25% 2. Hypertension currently well controlled 3. Chronic kidney disease with acute kidney injury likely multifactorial and not contrast related as his creatinine was elevated prior to intervention 4. Dyslipidemia PLAN: 1. Continue current medical therapy 2. Check repeat basic metabolic panel and a venous blood gas. 3. I had a long discussion again with the patient's son and him today regarding need for continued cardiovascular evaluation. He will ultimately likely need advanced heart failure therapies. He may also qualify for an ICD depending on ejection fraction is approximately 3 months. 4. He still appears volume overloaded but given his renal failure, we will continue slow IVF and monitor UOP. Depending on his venous blood gas studies he may need a right heart catheterization and could qualify for inotropic infusion. We will follow along closely. CLEMENTE WISE MD November 30, 2018 16:57
[2018-11-30] MEDS ORDERED: ONDANSETRON PF 4 MG/2 ML VIAL. IV PRN (18:00)
[2018-11-30 19:00] VITALS: BP 115/70
[2018-11-30 19:41] LABS: CALCIUM 7.7 mg/dL (8.5-10.1); CREATININE 2.9 mg/dL (0.7-1.3); GFR 21.7
[2018-11-30] MEDS: ATORVASTATIN CALCIUM 40 MG TABLET. PO SCH (21:16)
[2018-11-30] MEDS: TAMSULOSIN 0.4 MG CAP.ER.24H. PO SCH (21:16)
[2018-11-30] MEDS: INSULIN GLARGINE 300 UNITS/3 ML INSULN.PEN. SQ SCH (21:20)
[2018-11-30 23:00] VITALS: BP 114/66
[2018-12-01] VITALS (7 sets, daily range): BP systolic 111–144; BP diastolic 61–69
[2018-12-01] MEDS: IV NORMAL SALINE 1000ML BAG 1,000 ML IV SCH ×2 (03:07→21:29)
[2018-12-01] MEDS: ASPIRIN ENTERIC COATED 81 MG TABLET.DR. PO SCH (08:15)
[2018-12-01] MEDS: GLIMEPIRIDE 2 MG TABLET. PO SCH (08:15)
[2018-12-01] MEDS: ISOSORBIDE MONONITRATE ER 30 MG TAB.ER.24H PO SCH (08:16)
[2018-12-01] MEDS: METOPROLOL SUCC 24HR ER 50 MG TAB.ER.24H. PO SCH (08:16)
[2018-12-01] MEDS: TICAGRELOR 90 MG TABLET. PO SCH ×2 (08:16→21:28)
[2018-12-01] MEDS: hydrALAZINE 10 MG TABLET PO SCH ×3 (08:16→21:28)
[2018-12-01] MEDS: POLYETHYLENE GLYCOL 3350 17 GM PACKET. PO SCH (08:16)
[2018-12-01] MEDS: FINASTERIDE 5 MG TABLET. PO SCH (08:16)
[2018-12-01] MEDS: INSULIN LISPRO 300 UNITS/3 ML INSULN.PEN. SQ SCH ×3 (08:23→17:52)
--- NOTE | 2018-12-01 08:41 | PDOC ---
MEGHANKARO Adriel VARNISH BLENDER 12/01/18 0841: SUBJECTIVE Subjective Pt complaining of some dribbling, and RN reports bladder scan was about 250, but patient is actively voiding in addition to dribbling. Patient is not having any pain, just some LUTS. OBJECTIVE Objective Physical Exam: General appearance: Alert and Oriented Head: Normocephalic, without obvious abnormality Eyes: conjunctivae/corneas clear. PERRL, EOM's intact. Fundi benign Lungs: Regular respirations, non labored breathing. Abdomen: soft, non-tender. No masses, no organomegaly Pelvic: deferred Vital Signs Vital Signs Date Time Temp Pulse Resp B/P (MAP) Pulse Ox O2 Delivery O2 Flow Rate FiO2 12/01/18 08:16 88 112/65 12/01/18 08:16 88 112/65 12/01/18 08:16 88 112/65 12/01/18 07:00 97.6 88 12 112/65 (81) 91 Room Air 97.6 12/01/18 03:00 97.7 90 18 121/64 (83) 94 Room Air 97.7 11/30/18 23:00 97.5 86 18 114/66 (82) 93 Room Air 97.5 11/30/18 21:16 85 115/70 11/30/18 20:10 Room Air 2.0 11/30/18 19:00 97.9 85 18 115/70 (85) 98 Room Air 97.9 11/30/18 15:00 97.6 63 20 90/47 (61) 85 Room Air 97.6 11/30/18 14:19 84 115/63 11/30/18 11:00 97.4 84 20 115/63 (80) 96 Room Air 2.0 97.4 I & O Intake and Output 12/01/18 06:59 Intake Total 850 ml Balance 850 ml Intake Oral 250 ml IV Total 600 ml # Voids 5 PHYSICAL EXAM Physical Exam Physical Exam: General appearance: Alert and Oriented Head: Normocephalic, without obvious abnormality Eyes: conjunctivae/corneas clear. PERRL, EOM's intact. Fundi benign Lungs: Regular respirations, non labored breathing. Abdomen: soft, non-tender. No masses, no organomegaly Pelvic: deferred ASSESSMENT/PLAN Assessment/Plan Patient has a follow up appointment on 12/11/[address] [place] [facility] [place] at [facility] location. Since he had unremarkable cystoscopy in house, this appointment will be for follow up on hospital visit/medication and BPH. Increase Flomax to BID while in house. Continue Finasteride. Scripts written for Flomax 1 tab BID for total of 60 with one refill, and Finasteride 5 m tab daily, total of 30 with one refill in case he does go home today.. Discussed prostate and urinary issues with son at length. All questions answered. COMMENT Lab Laboratory Tests Test 11/30/18 11:56 11/30/18 17:05 11/30/18 19:15 11/30/18 20:54 Glucose (Fingerstick) 177 mg/dL (70-99) 91 mg/dL (70-99) 148 mg/dL (70-99) Sodium Level 138 mmol/L (136-145) Potassium Level 5.0 mmol/L (3.5-5.1) Chloride Level 102 mmol/L (98-107) Carbon Dioxide Level 23 mmol/L (21-32) Anion Gap 13 (6-14) Blood Urea Nitrogen 44 mg/dL (8-26) Creatinine 2.9 mg/dL (0.7-1.3) Estimated GFR (Cockcroft-Gault) 21.7 Glucose Level 135 mg/dL (70-99) Calcium Level 7.7 mg/dL (8.5-10.1) Test 12/01/18 07:42 Glucose (Fingerstick) 131 mg/dL (70-99) LAZ IGNACIO MD 12/04/18 1122: ASSESSMENT/PLAN Assessment/Plan Agree with assessment and plan. KARO CHRISTIANSON APRN December 01, 2018 08:41 LAZ IGNACIO MD December 04, 2018 11:22
[2018-12-01] MEDS: TAMSULOSIN 0.4 MG CAP.ER.24H. PO SCH ×2 (09:32→21:28)
[2018-12-01 09:57] LABS: CALCIUM 8.5 mg/dL (8.5-10.1); CREATININE 2.9 mg/dL (0.7-1.3); GFR 21.7; POTASSIUM 4.8 mmol/L (3.5-5.1)
--- NOTE | 2018-12-01 12:50 | NUR ---
SS following up with discharge planning. Pt continues on room air. PT recommended home independent. Cardiology continuing to monitor. SS will continue to follow for discharge planning.
--- NOTE | 2018-12-01 14:12 | PDOC ---
OLMAN GARCIA AUDITING SPECIALIST 12/01/18 1412: CARDIO Progress Notes Date and Time Date of Service 12/01/18 Time of Evaluation 1315 Subjective Subjective: No Chest Pain, No shortness of breath, No Palpitations Vitals Vitals Vital Signs Date Time Temp Pulse Resp B/P (MAP) Pulse Ox O2 Delivery O2 Flow Rate FiO2 12/01/18 11:00 97.6 91 12 120/64 (82) 98 Room Air 97.6 12/01/18 08:00 2.0 Weight Weight [ ] Input and Output Intake and Output Intake and Output 12/01/18 07:00 Intake Total 850 ml Balance 850 ml Intake Oral 250 ml IV Total 600 ml # Voids 5 Laboratory Labs Laboratory Tests Test 11/30/18 17:05 11/30/18 19:15 11/30/18 20:54 12/01/18 07:42 Glucose (Fingerstick) 91 mg/dL (70-99) 148 mg/dL (70-99) 131 mg/dL (70-99) Sodium Level 138 mmol/L (136-145) Potassium Level 5.0 mmol/L (3.5-5.1) Chloride Level 102 mmol/L (98-107) Carbon Dioxide Level 23 mmol/L (21-32) Anion Gap 13 (6-14) Blood Urea Nitrogen 44 mg/dL (8-26) Creatinine 2.9 mg/dL (0.7-1.3) Estimated GFR (Cockcroft-Gault) 21.7 Glucose Level 135 mg/dL (70-99) Calcium Level 7.7 mg/dL (8.5-10.1) Test 12/01/18 09:10 12/01/18 12:13 Sodium Level 137 mmol/L (136-145) Potassium Level 4.8 mmol/L (3.5-5.1) Chloride Level 101 mmol/L (98-107) Carbon Dioxide Level 25 mmol/L (21-32) Anion Gap 11 (6-14) Blood Urea Nitrogen 44 mg/dL (8-26) Creatinine 2.9 mg/dL (0.7-1.3) Estimated GFR (Cockcroft-Gault) 21.7 Glucose Level 159 mg/dL (70-99) Calcium Level 8.5 mg/dL (8.5-10.1) Glucose (Fingerstick) 112 mg/dL (70-99) Microbiology Micro Microbiology 11/22/18 Urine Culture - Final, Complete 11/22/18 Urine Culture Result 1 (TIFFANIE) - Final, Complete Physical Exam HEENT: Neck Supple W Full Motion Chest: Symmetric LUNGS: Other (diminished bases) Heart: S1S2, RRR Abdomen: Soft N/T Extremities: Other (trace bilateral LE edema ) Neurology: alert, oriented, follow commands Assessment Assessment 1. Acute on chronic systolic heart failure; better compensated 2. ICM with ICM; LVEF 35-40%. 3. Severe 3V CAD; s/p PCI/GIN to the RCA, LCx, and LAD 4. Hypertension; controlled 5. Hyperlipidemia; statin 6. ASHLEY on CKD; Cr 2.9 7. DM, II ' Recommendations DAPT with ASA and Brilinta low flow IVFs overnight, AM labs no ACEi with ASHLEY Supportive care Cardiac rehab referral. Probable home tomorrow. CLEMENTE WISE MD 12/01/18 2269: CARDIO Progress Notes Plan Plan Pt. seen and examined. Agree with above NUT CHOPPER note with following comments: He has had progressive dyspnea likely related to IVF for his renal insufficiency. He had CKD with ASHLEY even prior to cath, his cath likely also contributed to his worsening renal function. I am concerned that aggressive diuresis for his dyspnea may lead to further renal issues. would favor thoracentesis for improvement in dyspnea. May consider RHC tomorrow as well to determine if patient is a candidate for ionotropic support and further diuresis. Thanks. Will follow along. Still critically ill and not ready for home. OLMAN GARCIA APRN December 01, 2018 14:12 CLEMENTE WISE MD December 01, 2018 22:58
--- NOTE | 2018-12-01 14:33 | PDOC ---
PROGRESS NOTES Subjective Subjective Patient feeling better renal function still has not improved despite IV fluids. Patient wants to go home. Objective Objective Vital Signs Date Time Temp Pulse Resp B/P (MAP) Pulse Ox O2 Delivery O2 Flow Rate FiO2 12/01/18 11:00 97.6 91 12 120/64 (82) 98 Room Air 97.6 12/01/18 08:00 2.0 Intake and Output 12/01/18 07:00 Intake Total 850 ml Balance 850 ml Intake Oral 250 ml IV Total 600 ml # Voids 5 Physical Exam Abdomen: Normal bowel sounds Heart: Regular rate Extremities: No edema General: Alert Lungs: Clear to auscultation Assessment Assessment Problems Medical Problems: (1) [id number] kidney injury Status: Acute (2) Chest pain Status: Acute (3) CHF (congestive heart failure) Status: Acute CAD s/p Multiple vessel stent. Acute on chronic renal failure with creatinine of 1.9 up to 2.9 post contrast Pulm HTN Type 2 diabetes, out of control. Hypertension. Urinary retention with suspected BPH stoner d/c'd voiding well Hematuria resolving. Plan Plan of Care Check orthostatic bp Continue ivf Recheck bmp in am Proceed with 6 min walk o2 sat Comment Review of Relevant I have reviewed the following items bahman (where applicable) has been applied. Labs Laboratory Tests Test 11/29/18 14:30 11/29/18 17:06 11/29/18 20:58 11/30/18 07:50 White Blood Count 8.8 x10^3/uL (4.0-11.0) Red Blood Count 2.66 x10^6/uL (4.30-5.70) Hemoglobin 8.4 g/dL (13.0-17.5) Hematocrit 25.0 % (39.0-53.0) Mean Corpuscular Volume 94 fL (79-100) Mean Corpuscular Hemoglobin 32 pg (25-35) Mean Corpuscular Hemoglobin Concent 34 g/dL (31-37) Red Cell Distribution Width 13.5 % (11.5-14.5) Platelet Count 290 x10^3/uL (140-400) Sodium Level 138 mmol/L (136-145) Potassium Level 4.7 mmol/L (3.5-5.1) Chloride Level 102 mmol/L (98-107) Carbon Dioxide Level 27 mmol/L (21-32) Anion Gap 9 (6-14) Blood Urea Nitrogen 35 mg/dL (8-26) Creatinine 2.2 mg/dL (0.7-1.3) Estimated GFR (Cockcroft-Gault) 29.8 Glucose Level 226 mg/dL (70-99) Calcium Level 8.3 mg/dL (8.5-10.1) IC-Hei-E-Type Natriuretic Peptide 38520 pg/mL (0-124) Glucose (Fingerstick) 144 mg/dL (70-99) 71 mg/dL (70-99) 180 mg/dL (70-99) Test 11/30/18 11:56 11/30/18 17:05 11/30/18 19:15 11/30/18 20:54 Glucose (Fingerstick) 177 mg/dL (70-99) 91 mg/dL (70-99) 148 mg/dL (70-99) Sodium Level 138 mmol/L (136-145) Potassium Level 5.0 mmol/L (3.5-5.1) Chloride Level 102 mmol/L (98-107) Carbon Dioxide Level 23 mmol/L (21-32) Anion Gap 13 (6-14) Blood Urea Nitrogen 44 mg/dL (8-26) Creatinine 2.9 mg/dL (0.7-1.3) Estimated GFR (Cockcroft-Gault) 21.7 Glucose Level 135 mg/dL (70-99) Calcium Level 7.7 mg/dL (8.5-10.1) Test 12/01/18 07:42 12/01/18 09:10 12/01/18 12:13 Glucose (Fingerstick) 131 mg/dL (70-99) 112 mg/dL (70-99) Sodium Level 137 mmol/L (136-145) Potassium Level 4.8 mmol/L (3.5-5.1) Chloride Level 101 mmol/L (98-107) Carbon Dioxide Level 25 mmol/L (21-32) Anion Gap 11 (6-14) Blood Urea Nitrogen 44 mg/dL (8-26) Creatinine 2.9 mg/dL (0.7-1.3) Estimated GFR (Cockcroft-Gault) 21.7 Glucose Level 159 mg/dL (70-99) Calcium Level 8.5 mg/dL (8.5-10.1) Laboratory Tests Test 11/30/18 17:05 11/30/18 19:15 11/30/18 20:54 12/01/18 07:42 Glucose (Fingerstick) 91 mg/dL (70-99) 148 mg/dL (70-99) 131 mg/dL (70-99) Sodium Level 138 mmol/L (136-145) Potassium Level 5.0 mmol/L (3.5-5.1) Chloride Level 102 mmol/L (98-107) Carbon Dioxide Level 23 mmol/L (21-32) Anion Gap 13 (6-14) Blood Urea Nitrogen 44 mg/dL (8-26) Creatinine 2.9 mg/dL (0.7-1.3) Estimated GFR (Cockcroft-Gault) 21.7 Glucose Level 135 mg/dL (70-99) Calcium Level 7.7 mg/dL (8.5-10.1) Test 12/01/18 09:10 12/01/18 12:13 Sodium Level 137 mmol/L (136-145) Potassium Level 4.8 mmol/L (3.5-5.1) Chloride Level 101 mmol/L (98-107) Carbon Dioxide Level 25 mmol/L (21-32) Anion Gap 11 (6-14) Blood Urea Nitrogen 44 mg/dL (8-26) Creatinine 2.9 mg/dL (0.7-1.3) Estimated GFR (Cockcroft-Gault) 21.7 Glucose Level 159 mg/dL (70-99) Calcium Level 8.5 mg/dL (8.5-10.1) Glucose (Fingerstick) 112 mg/dL (70-99) Microbiology 11/22/18 Urine Culture - Final, Complete 11/22/18 Urine Culture Result 1 (TIFFANIE) - Final, Complete Medications Current Medications Furosemide (Lasix) 60 mg 1X ONCE IVP Last administered on 11/21/18at 16:34; Start 11/21/18 at 15:45; Stop 11/21/18 at 15:49; Status DC Insulin Human Regular (HumuLIN R VIAL) 5 unit 1X ONCE IV Last administered on 11/21/18at 17:50; Start 11/21/18 at 17:30; Stop 11/21/18 at 17:31; Status DC Heparin Sodium (Porcine) (Heparin Sodium) 4,000 unit 1X ONCE IV Last administe red on 11/21/18at 17:46; Start 11/21/18 at 17:30; Stop 11/21/18 at 17:31; Status DC Heparin Sodium/ Dextrose 500 ml @ 17.6 mls/hr CONT PRN IV SEE I/O RECORD Last administered on 11/25/18 02:02; Start 11/21/18 at 17:30; Stop 11/25/18 at 15:51; Status DC Heparin Sodium (Porcine) (Heparin Sodium) 1,850 unit PRN Q6HRS PRN IV FOR UFH LEVEL LESS THAN 0.2 Last administered on 11/22/18at 01:30; Start 11/21/18 at 17:30; Stop 11/25/18 at 15:51; Status DC Ondansetron HCl (Zofran) 4 mg PRN Q8HRS PRN IV NAUSEA/VOMITING; Start 11/21/18 at 17:30; Stop 11/22/18 at 17:29; Status DC Morphine Sulfate (Morphine Sulfate) 2 mg PRN Q2HR PRN IV PAIN; Start 11/21/18 at 17:30; Stop 11/22/18 at 17:29; Status DC Acetaminophen (Tylenol) 650 mg PRN Q4HRS PRN PO FEVER; Start 11/21/18 at 17:30; Stop 11/22/18 at 17:29; Status DC Alprazolam (Xanax) 0.5 mg PRN Q6HRS PRN PO ANXIETY / AGITATION Last administered on 11/25/18at 20:38; Start 11/22/18 at 03:30 Aspirin (Ecotrin) 81 mg DAILY PO Last administered on 12/01/18at 08:15; Start 11/22/18 at 09:00 Clopidogrel Bisulfate (Plavix) 75 mg DAILY PO Last administered on 11/25/18at 08:45; Start 11/22/18 at 09:00; Stop 11/26/18 at 10:07; Status DC Insulin Glargine (Lantus) 30 units QHS SQ Last administered on 11/30/18at 21:20; Start 11/22/18 at 21:00 Insulin Human Lispro (HumaLOG) 8 units TIDAC SQ Last administered on 12/01/18 08:23; Start 11/22/18 at 11:30 Lisinopril (Prinivil) 10 mg DAILY PO Last administered on 11/23/18 08:42; Start 11/22/18 at 09:00; Stop 11/24/18 at 10:47; Status DC Metoprolol Succinate (Toprol Xl) 25 mg DAILY PO Last administered on 11/26/18 08:15; Start 11/22/18 at 09:00; Stop 11/26/18 at 11:28; Status DC Atorvastatin Calcium (Lipitor) 80 mg QHS PO Last administered on 11/30/18 21:16; Start 11/22/18 at 21:00 Glimepiride (Amaryl) 4 mg DAILY PO Last administered on 12/01/18 08:15; Start 11/22/18 at 09:00 Info (Anti-Coagulation Monitoring By Pharmacy) 1 each PRN DAILY PRN MC SEE COMMENTS Last administered on 11/25/18 09:30; Start 11/22/18 at 10:45; Stop 11/26/18 at 07:22; Status DC Tamsulosin HCl (Flomax) 0.4 mg QHS PO Last administered on 11/30/18 21:16; Start 11/22/18 at 21:00; Stop 12/01/18 at 08:39; Status DC Magnesium Citrate (Citroma) 296 ml 1X ONCE PO Last administered on 11/24/18 15:39; Start 11/24/18 at 15:00; Stop 11/24/18 at 15:01; Status DC Polyethylene Glycol (miraLAX PACKET) 17 gm DAILY PO Last administered on 12/01/18 08:16; Start 11/24/18 at 15:00 Acetylcysteine (Mucomyst 20% Oral Solution) 600 mg BID PO Last administered on 11/27/18 09:51; Start 11/24/18 at 21:00; Stop 11/27/18 at 12:00; Status DC Sodium Chloride 1,000 ml @ 60 mls/hr [id number] IV Last administered on 11/24/18 22:22; Start 11/25/18 at 07:30; Stop 11/25/18 at 14:10; Status DC Iodixanol (Visipaque 320) 100 ml STK-MED ONCE .ROUTE ; Start 11/25/18 at 09:00; Stop 11/25/18 at 09:01; Status DC Lidocaine HCl (Xylocaine-Mpf 1% 2ml Vial) 2 ml STK-MED ONCE .ROUTE ; Start 11/25/18 at 09:00; Stop 11/25/18 at 09:01; Status DC Heparin Sodium/ Sodium Chloride 1,500 ml @ As Directed STK-MED ONCE .ROUTE ; Start 11/25/18 at 09:00; Stop 11/25/18 at 09:01; Status DC Fentanyl Citrate (Fentanyl 2ml Vial) 100 mcg STK-MED ONCE .ROUTE ; Start 11/25/18 at 09:03; Stop 11/25/18 at 09:04; Status DC Midazolam HCl (Versed) 2 mg STK-MED ONCE .ROUTE ; Start 11/25/18 at 09:03; Stop 11/25/18 at 09:04; Status DC Heparin Sodium (Porcine) (Heparin Sodium) 10,000 unit STK-MED ONCE .ROUTE ; Start 11/25/18 at 09:03; Stop 11/25/18 at 09:04; Status DC Verapamil HCl (Verapamil) 5 mg STK-MED ONCE .ROUTE ; Start 11/25/18 at 09:03; Stop 11/25/18 at 09:04; Status DC Nitroglycerin (Nitroglycerin) 200 mcg STK-MED ONCE .ROUTE ; Start 11/25/18 at 09:04; Stop 11/25/18 at 09:05; Status DC Lidocaine HCl (Lidocaine 1% 20ml Vial) 20 ml STK-MED ONCE .ROUTE ; Start 11/25/18 at 09:25; Stop 11/25/18 at 09:26; Status DC Heparin Sodium/ Sodium Chloride (HEPARIN for ARTERIAL LINE FLUSH) 1,000 unit 1X ONCE IART Last administered on 11/25/18at 09:53; Start 11/25/18 at 09:45; Stop 11/25/18 at 09:46; Status DC Midazolam HCl (Versed) 2 mg 1X ONCE IV Last administered on 11/25/18at 09:52; Start 11/25/18 at 09:45; Stop 11/25/18 at 09:46; Status DC Fentanyl Citrate (Fentanyl 2ml Vial) 50 mcg 1X ONCE IV Last administered on 11/25/18at 09:53; Start 11/25/18 at 09:45; Stop 11/25/18 at 09:46; Status DC Iodixanol (Visipaque 320) 100 ml 1X ONCE IART Last administered on 11/25/18 09:52; Start 11/25/18 at 09:45; Stop 11/25/18 at 09:46; Status DC Lidocaine HCl (Lidocaine 1% 20ml Vial) 10 ml 1X ONCE INJ Last administered on 11/25/18 09:45; Start 11/25/18 at 09:45; Stop 11/25/18 at 09:46; Status DC Lidocaine HCl (Xylocaine-Mpf 1% 2ml Vial) 1 ml 1X ONCE INJ Last administered on 11/25/18 09:52; Start 11/25/18 at 09:45; Stop 11/25/18 at 09:46; Status DC Info (CONTRAST GIVEN -- Rx MONITORING) 1 each PRN DAILY PRN MC SEE COMMENTS; Start 11/25/18 at 09:45; Stop 11/27/18 at 09:44; Status DC Furosemide (Lasix) 40 mg 1X ONCE IVP Last administered on 11/25/18 17:08; Start 11/25/18 at 16:00; Stop 11/25/18 at 16:01; Status DC Verapamil HCl (Verapamil) 5 mg STK-MED ONCE .ROUTE ; Start 11/25/18 at 09:00; Stop 11/26/18 at 08:28; Status DC Metoprolol Succinate (Toprol Xl) 50 mg DAILY PO Last administered on 12/01/18at 08:16; Start 11/27/18 at 09:00 Clopidogrel Bisulfate (Plavix) 75 mg DAILYWBKFT PO Last administered on 11/28/18at 09:15; Start 11/26/18 at 11:30; Stop 11/28/18 at 17:30; Status DC Furosemide (Lasix) 20 mg 1X ONCE IVP Last administered on 11/26/18at 12:39; Start 11/26/18 at 11:30; Stop 11/26/18 at 11:31; Status DC Acetaminophen/ Hydrocodone Bitart (Lortab 5/325) 1 tab 1X ONCE PO Last administered on 11/27/18at 21:42; Start 11/27/18 at 21:00; Stop 11/27/18 at 21:01; Status DC Finasteride (Proscar) 5 mg DAILY PO Last administered on 12/01/18at 08:16; Start 11/28/18 at 10:00 Iodixanol (Visipaque 320) 100 ml STK-MED ONCE .ROUTE ; Start 11/28/18 at 09:58; Stop 11/28/18 at 09:59; Status DC Lidocaine HCl (Lidocaine 1% 20ml Vial) 20 ml STK-MED ONCE .ROUTE ; Start 11/28/18 at 09:58; Stop 11/28/18 at 09:59; Status DC Heparin Sodium/ Sodium Chloride 1,500 ml @ As Directed STK-MED ONCE .ROUTE ; Start 11/28/18 at 09:58; Stop 11/28/18 at 09:59; Status DC Fentanyl Citrate (Fentanyl 5ml Vial) 250 mcg STK-MED ONCE .ROUTE ; Start 11/28/18 at 12:20; Stop 11/28/18 at 12:21; Status DC Midazolam HCl (Versed) 5 mg STK-MED ONCE .ROUTE ; Start 11/28/18 at 12:21; Stop 11/28/18 at 12:22; Status DC Heparin Sodium (Porcine) (Heparin Sodium) 10,000 unit STK-MED ONCE .ROUTE ; Start 11/28/18 at 12:33; Stop 11/28/18 at 12:34; Status DC Verapamil HCl (Verapamil) 5 mg STK-MED ONCE .ROUTE ; Start 11/28/18 at 12:33; Stop 11/28/18 at 12:34; Status DC Nitroglycerin/ Dextrose (Nitroglycerin) 4 mg STK-MED ONCE .ROUTE ; Start 11/28/18 at 12:33; Stop 11/28/18 at 12:34; Status DC Heparin Sodium (Porcine) (Heparin Sodium) 10,000 unit STK-MED ONCE .ROUTE ; Start 11/28/18 at 12:45; Stop 11/28/18 at 12:46; Status DC Heparin Sodium/ Sodium Chloride 500 ml @ As Directed STK-MED ONCE .ROUTE ; Start 11/28/18 at 13:09; Stop 11/28/18 at 13:10; Status DC Dopamine HCl/ Dextrose 0 ml @ As Directed STK-MED ONCE IV ; Start 11/28/18 at 13:23; Stop 11/28/18 at 13:24; Status DC Phenylephrine HCl (PHENYLEPHRINE in 0.9% NACL PF) 1 mg STK-MED ONCE IV ; Start 11/28/18 at 13:23; Stop 11/28/18 at 13:24; Status DC Norepinephrine Bitartrate 250 ml @ 1.875 mls/ hr ONCE ONCE IV ; Start 11/28/18 at 13:30; Stop 12/04/18 at 02:49 Heparin Sodium/ Sodium Chloride 500 ml @ As Directed STK-MED ONCE .ROUTE ; Start 11/28/18 at 13:39; Stop 11/28/18 at 13:40; Status DC Nitroglycerin (Nitroglycerin) 200 mcg STK-MED ONCE .ROUTE ; Start 11/28/18 at 14:03; Stop 11/28/18 at 14:04; Status DC Nitroglycerin (Nitroglycerin) 200 mcg STK-MED ONCE .ROUTE ; Start 11/28/18 at 14:10; Stop 11/28/18 at 14:11; Status DC Nitroglycerin (Nitroglycerin) 400 mcg 1X ONCE IART Last administered on 11/28/18at 14:30; Start 11/28/18 at 14:30; Stop 11/28/18 at 14:31; Status DC Heparin Sodium/ Sodium Chloride (HEPARIN for ARTERIAL LINE FLUSH) 1,000 unit 1X ONCE IART Last administered on 11/28/18at 14:30; Start 11/28/18 at 14:30; Stop 11/28/18 at 14:31; Status DC Heparin Sodium/ Sodium Chloride (HEPARIN for ARTERIAL LINE FLUSH) 1,000 unit 1X ONCE IART Last administered on 11/28/18at 14:30; Start 11/28/18 at 14:30; Stop 11/28/18 at 14:31; Status DC Midazolam HCl (Versed) 5 mg 1X ONCE IV Last administered on 11/28/18at 14:30; Start 11/28/18 at 14:30; Stop 11/28/18 at 14:31; Status DC Fentanyl Citrate (Fentanyl 5ml Vial) 250 mcg 1X ONCE IV Last administered on 11/28/18at 14:30; Start 11/28/18 at 14:30; Stop 11/28/18 at 14:31; Status DC Iodixanol (Visipaque 320) 100 ml 1X ONCE IART Last administered on 11/28/18at 14:30; Start 11/28/18 at 14:30; Stop 11/28/18 at 14:31; Status DC Heparin Sodium (Porcine) (Heparin Sodium) 4,000 unit 1X ONCE IV Last administered on 11/28/18at 14:30; Start 11/28/18 at 14:30; Stop 11/28/18 at 14:31; Status DC Lidocaine HCl (Lidocaine 1% 20ml Vial) 20 ml 1X ONCE INJ Last administered on 11/28/18at 14:30; Start 11/28/18 at 14:30; Stop 11/28/18 at 14:31; Status DC Info (CONTRAST GIVEN -- Rx MONITORING) 1 each PRN DAILY PRN MC SEE COMMENTS; Start 11/28/18 at 14:30; Stop 11/30/18 at 14:29; Status DC Nitroglycerin/ Dextrose 4 mg/ Verapamil HCl 10 mg/Heparin Sodium (Porcine) 4000 unit/ Miscellaneous 20 ml/Sodium Chloride 1,048 ml @ 1,000 mls/hr 1X ONCE IART Last administered on 11/28/18at 14:45; Start 11/28/18 at 14:45; Stop 11/28/18 at 15:47; Status DC Heparin Sodium/ Sodium Chloride (HEPARIN for ARTERIAL LINE FLUSH) 1,000 unit 1X ONCE IART Last administered on 11/28/18at 14:45; Start 11/28/18 at 14:45; Stop 11/28/18 at 14:46; Status DC Heparin Sodium/ Sodium Chloride (HEPARIN for ARTERIAL LINE FLUSH) 1,000 unit 1X ONCE IART Last administered on 11/28/18at 14:45; Start 11/28/18 at 14:45; Stop 11/28/18 at 14:46; Status DC Nitroglycerin (Nitroglycerin) 200 mcg STK-MED ONCE .ROUTE ; Start 11/28/18 at 14:42; Stop 11/28/18 at 14:43; Status DC Nitroglycerin (Nitroglycerin) 200 mcg STK-MED ONCE .ROUTE ; Start 11/28/18 at 15:19; Stop 11/28/18 at 15:20; Status DC Heparin Sodium/ Sodium Chloride 500 ml @ As Directed STK-MED ONCE .ROUTE ; Start 11/28/18 at 15:35; Stop 11/28/18 at 15:36; Status DC Heparin Sodium/ Sodium Chloride (HEPARIN for ARTERIAL LINE FLUSH) 1,000 unit 1X ONCE IART Last administered on 11/28/18at 15:45; Start 11/28/18 at 15:45; Stop 11/28/18 at 15:46; Status DC Ticagrelor (Brilinta) 90 mg STK-MED ONCE .ROUTE ; Start 11/28/18 at 15:58; Stop 11/28/18 at 15:59; Status DC Ticagrelor (Brilinta) 180 mg ONCE ONCE PO Last administered on 11/28/18at 16 :03; Start 11/28/18 at 16:03; Stop 11/28/18 at 16:04; Status DC Sodium Chloride 500 ml @ 500 mls/hr 1X ONCE IV ; Start 11/28/18 at 16:30; Stop 11/28/18 at 17:29; Status DC Sodium Chloride 1,000 ml @ 50 mls/hr Q20H IV Last administered on 12/01/18at 03 :07; Start 11/28/18 at 16:30 Ticagrelor (Brilinta) 90 mg BID PO Last administered on 12/01/18at 08:16; Start 11/28/18 at 21:00 Acetaminophen (Tylenol) 650 mg PRN Q6HRS PRN PO PAIN Last administered on 11/29/18at 09:48; Start 11/29/18 at 09:45 Polyethylene Glycol (miraLAX PACKET) 17 gm DAILY PO ; Start 11/29/18 at 12:00; Status UNV Zolpidem Tartrate (Ambien) 5 mg PRN QHS PRN PO INSOMNIA; Start 11/29/18 at 12:00 Hydralazine HCl (Apresoline) 10 mg TID PO Last administered on 12/01/18at 08:16; Start 11/29/18 at 14:00 Isosorbide Mononitrate (Imdur) 30 mg DAILY PO Last administered on 12/01/18at 08:16; Start 11/29/18 at 12:15 Magnesium Citrate (Citroma) 296 ml PRN 1X PRN PO CONSTIPATION; Start 11/30/18 at 11:15 Ondansetron HCl (Zofran) 4 mg PRN Q6HRS PRN IV NAUSEA/VOMITING; Start 11/30/18 at 18:00 Verapamil HCl (Verapamil) 5 mg STK-MED ONCE .ROUTE ; Start 11/28/18 at 13:00; Stop 12/01/18 at 07:40; Status DC Tamsulosin HCl (Flomax) 0.4 mg BID PO Last administered on 12/01/18at 09:32; Start 12/01/18 at 09:00 Active Scripts Active Humalog (Insulin Lispro) 100 Unit/1 Ml Insuln.pen 8 Units SQ TIDAC 90 Days Lantus Solostar (Insulin Glargine,Hum.rec.anlog) 100 Unit/1 Ml Insuln.pen 30 Units SQ QHS 30 Days Lisinopril 10 Mg Tablet 10 Mg PO DAILY 90 Days Reported Metoprolol Succinate ( Xl ) (Metoprolol Succinate) 25 Mg Tab.er.24h 25 Mg PO SAMMI LY Glimepiride 4 Mg Tablet 4 Mg PO DAILY Clopidogrel (Clopidogrel Bisulfate) 75 Mg Tablet 1 Tab PO DAILY Aspir 81 (Aspirin) 81 Mg Tablet.dr 1 Tab PO DAILY Atorvastatin Calcium 80 Mg Tablet 1 Tab PO DAILY Metformin Hcl 500 Mg Tablet 1,000 Mg PO BID Vitals/I & O Vital Sign - Last 24 Hours 11/30/18 11/30/18 11/30/18 11/30/18 15:00 19:00 20:10 21:16 Temp 97.6 97.9 97.6 97.9 Pulse 63 85 85 Resp 20 18 B/P (MAP) 90/47 (61) 115/70 (85) 115/70 Pulse Ox 85 98 O2 Delivery Room Air Room Air Room Air O2 Flow Rate 2.0 11/30/18 12/01/18 12/01/18 12/01/18 23:00 03:00 07:00 08:00 Temp 97.5 97.7 97.6 97.5 97.7 97.6 Pulse 86 90 88 Resp 18 18 12 B/P (MAP) 114/66 (82) 121/64 (83) 112/65 (81) Pulse Ox 93 94 91 O2 Delivery Room Air Room Air Room Air Room Air O2 Flow Rate 2.0 12/01/18 12/01/18 12/01/18 12/01/18 08:16 08:16 08:16 11:00 Temp 97.6 97.6 Pulse 88 88 88 91 Resp 12 B/P (MAP) 112/65 112/65 112/65 120/64 (82) Pulse Ox 98 O2 Delivery Room Air Intake and Output 11/30/18 11/30/18 12/01/18 15:00 23:00 07:00 Intake Total 250 ml 0 ml 600 ml Balance 250 ml 0 ml 600 ml BALWINDER MA MD December 01, 2018 14:33
--- NOTE | 2018-12-01 15:56 | RAD ---
CHEST AP ONLY History: CHF Comparison: November 29, 2018 Findings: Single view of the chest is submitted. Pericardial cardiac silhouette is again enlarged. There are auuuz-[id number] left and at least small right pleural effusions with adjacent bibasilar airspace opacity overall increased. There is no pneumothorax. Impression: 1. There are left greater than right pleural effusions with adjacent airspace opacity which may be due to edema/infiltrate/atelectasis overall increased. Electronically signed by: Cecil Bethea MD (12/01/2018 3:53 PM) [email or web address]
[2018-12-01] MEDS: INSULIN GLARGINE 300 UNITS/3 ML INSULN.PEN. SQ SCH (21:00)
[2018-12-01] MEDS: ATORVASTATIN CALCIUM 40 MG TABLET. PO SCH (21:28)
[2018-12-02] VITALS (14 sets, daily range): BP systolic 103–157; BP diastolic 51–87
[2018-12-02 06:29] LABS: CALCIUM 8.2 mg/dL (8.5-10.1); GFR 20.9; POTASSIUM 4.9 mmol/L (3.5-5.1)
[2018-12-02] MEDS: INSULIN LISPRO 300 UNITS/3 ML INSULN.PEN. SQ SCH ×3 (07:30→17:32)
[2018-12-02] MEDS ORDERED: FUROSEMIDE 40 MG/4 ML VIAL. IVP ONE (09:00)
--- NOTE | 2018-12-02 09:07 | PDOC ---
KARO [employer]STIAN[employer] INSPECT[employer] 12/02/18 0906: SUBJECTIVE Subjective Pt reports that he is feeling better as far as emptying his bladder, but he hasn't been bladder scanned recently. Medical team has planned several interventions to include CT of chest, Lasix and possible thoracentesis. No dysuria, pain or burning. Does admit some constipation, not having had a BM for two days. OBJECTIVE Objective Physical Exam: General appearance: Alert and Oriented Head: Normocephalic, without obvious abnormality Eyes: conjunctivae/corneas clear. PERRL, EOM's intact. Fundi benign Lungs: Regular respirations, non labored breathing Abdomen: soft, non-tender. . No masses, no organomegaly Pelvic: Phallus WNL. Bladder scan between 462 and 570 when scanned times three (PVR) Vital Signs Vital Signs Date Time Temp Pulse Resp B/P (MAP) Pulse Ox O2 Delivery O2 Flow Rate FiO2 12/02/18 07:00 97.4 91 18 142/83 (102) 93 Room Air 97.4 12/02/18 03:50 98.3 95 22 146/81 (102) 95 Room Air 98.3 12/01/18 23:30 97.9 84 20 134/65 (88) 93 Room Air 97.9 12/01/18 21:28 86 112/68 12/01/18 19:19 Room Air 2.0 12/01/18 19:10 98.0 86 20 112/68 (83) 93 Room Air 98.0 12/01/18 16:30 83 111/67 (82) 12/01/18 16:30 88 124/64 (84) 12/01/18 16:30 88 118/61 (80) 12/01/18 15:00 97.7 89 14 144/69 (94) 97 Room Air 97.7 12/01/18 14:47 88 144/69 12/01/18 11:00 97.6 91 12 120/64 (82) 98 Room Air 97.6 I & O Intake and Output 12/02/18 07:00 Intake Total 950 ml Output Total 100 ml Balance 850 ml Intake Oral 350 ml IV Total 600 ml Output Urine Total 100 ml # Voids 4 # Bowel Movements 1 PHYSICAL EXAM Physical Exam Physical Exam: General appearance: Alert and Oriented Head: Normocephalic, without obvious abnormality Eyes: conjunctivae/corneas clear. PERRL, EOM's intact. Fundi benign Lungs: Regular respirations, non labored breathing Abdomen: soft, non-tender. . No masses, no organomegaly Pelvic: Phallus WNL. Bladder scan between 462 and 570 when scanned times three (PVR) ASSESSMENT/PLAN Assessment/Plan Bladder scan PVR is between 462 and 570 when scanned times three (PVR)=Reinsert Hicks catheter and record initial amount out. Will plan to leave Hicks catheter in until he is ready for discharge home. Recommend aggressive bowel program, since no BM for two days. Continue BID Flomax and daily finasteride. Medical team has planned several interventions to include CT of chest, lasix and possible thoracentesis. COMMENT Lab Laboratory Tests Test 12/01/18 09:10 12/01/18 12:13 12/01/18 17:46 12/01/18 21:26 Sodium Level 137 mmol/L (136-145) Potassium Level 4.8 mmol/L (3.5-5.1) Chloride Level 101 mmol/L (98-107) Carbon Dioxide Level 25 mmol/L (21-32) Anion Gap 11 (6-14) Blood Urea Nitrogen 44 mg/dL (8-26) Creatinine 2.9 mg/dL (0.7-1.3) Estimated GFR (Cockcroft-Gault) 21.7 Glucose Level 159 mg/dL (70-99) Calcium Level 8.5 mg/dL (8.5-10.1) Glucose (Fingerstick) 112 mg/dL (70-99) 157 mg/dL (70-99) 64 mg/dL (70-99) Test 12/01/18 23:36 12/02/18 05:45 12/02/18 07:50 Glucose (Fingerstick) 105 mg/dL (70-99) 164 mg/dL (70-99) Sodium Level 135 mmol/L (136-145) Potassium Level 4.9 mmol/L (3.5-5.1) Chloride Level 100 mmol/L (98-107) Carbon Dioxide Level 21 mmol/L (21-32) Anion Gap 14 (6-14) Blood Urea Nitrogen 48 mg/dL (8-26) Creatinine 3.0 mg/dL (0.7-1.3) Estimated GFR (Cockcroft-Gault) 20.9 Glucose Level 160 mg/dL (70-99) Calcium Level 8.2 mg/dL (8.5-10.1) LAZ IGNACIO MD 12/04/18 1122: ASSESSMENT/PLAN Assessment/Plan Agree with assessment and plan. KARO CHRISTIANSON APRN December 02, 2018 09:06 LAZ IGNACIO MD December 04, 2018 11:22
--- NOTE | 2018-12-02 11:26 | PDOC ---
LEYDA VALLES BRAID FOLDER 12/02/18 1126: CARDIO Progress Notes Date and Time Date of Service 12/02/2018 Time of Evaluation 1100 Subjective Subjective: No Chest Pain, No Palpitations, Other (mild SOA) Vitals Vitals Vital Signs Date Time Temp Pulse Resp B/P (MAP) Pulse Ox O2 Delivery O2 Flow Rate FiO2 12/02/18 08:00 Room Air 2.0 12/02/18 07:00 97.4 91 18 142/83 (102) 93 97.4 Weight Weight [ ] Input and Output Intake and Output Intake and Output 12/02/18 06:59 Intake Total 950 ml Output Total 100 ml Balance 850 ml Intake Oral 350 ml IV Total 600 ml Output Urine Total 100 ml # Voids 4 # Bowel Movements 1 Laboratory Labs Laboratory Tests Test 12/01/18 12:13 12/01/18 17:46 12/01/18 21:26 12/01/18 23:36 Glucose (Fingerstick) 112 mg/dL (70-99) 157 mg/dL (70-99) 64 mg/dL (70-99) 105 mg/dL (70-99) Test 12/02/18 05:45 12/02/18 07:50 Sodium Level 135 mmol/L (136-145) Potassium Level 4.9 mmol/L (3.5-5.1) Chloride Level 100 mmol/L (98-107) Carbon Dioxide Level 21 mmol/L (21-32) Anion Gap 14 (6-14) Blood Urea Nitrogen 48 mg/dL (8-26) Creatinine 3.0 mg/dL (0.7-1.3) Estimated GFR (Cockcroft-Gault) 20.9 Glucose Level 160 mg/dL (70-99) Calcium Level 8.2 mg/dL (8.5-10.1) Glucose (Fingerstick) 164 mg/dL (70-99) Microbiology Micro Microbiology 11/22/18 Urine Culture - Final, Complete 11/22/18 Urine Culture Result 1 (TIFFANIE) - Final, Complete Physical Exam HEENT: Neck Supple W Full Motion Chest: Symmetric LUNGS: Other (basilar crackles) Heart: S1S2, RRR (SR without significant ectopies) Abdomen: Soft N/T Extremities: Other (2-3+ bilateral LE pitting edema) Neurology: alert, oriented, follow commands Assessment Assessment 1. Acute on chronic systolic heart failure; worsening pleural effusion. Pulmonary following, CT chest pending 2. ICM with ICM; LVEF 35-40%. 3. Severe 3V CAD; s/p PCI/GIN to the RCA, LCx, and LAD 4. Hypertension; controlled 5. Hyperlipidemia; statin 6. ASHLEY on CKD; Cr 3, baseline Cr at 1.6-1.8. nephrology following 7. DM2 ' Recommendations 1. DAPT with ASA and Brilinta. Continue to diurese with lasix, UOP picking up 2. May need RHC and HD. Awaiting pulmonary input if thoracentesis is warranted. 3. no ACEi/ARB at this time. Continue with secondary prevention. Statin and toprol. 4. Cardiac rehab referral. CLEMENTE WISE MD 12/02/18 6727: CARDIO Progress Notes Plan Plan Pt. seen and examined. 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 S/p thora today. Plan for more tomorrow. Monitor renal function closely. Needs f/u with our office in 1 week with repeat BMP. Hold further diuresis given he has 1.5 L off today. thanks. LEYDA VALLES APRN December 02, 2018 11:26 CLEMENTE WISE MD December 02, 2018 18:07
--- NOTE | 2018-12-02 11:44 | PDOC2 ---
CONSULT Date of Consult Date of Consult DATE: 12/02/18 TIME: 11:15 Reason for Consult Reason for Consult: ARF Identification/Chief Complaint Chief Complaint None currently Source Source: Caregiver, Chart review History of Present Illness Reason for Visit: Pt is a a 68-year-old male with a long history of coronary artery d isease, diabetes and hypertension, was hospitalized on 11/21/2018 from PCP's office - acute care visit for cough, congestion, but was discovered to be having actual chest pain and shortness of breath. EKG showed ST segment changes . He was sent to ER He was found to have evidence of congestive heart failure and elevated troponin and acute on chronic renal failure as well with baseline creatinine of 1.5 up to 1.9 and hyperglycemia. Chest x-ray showed bilateral infiltrates suggestive of pulmonary edema. During early hospitalization, it was discovered the patient was not urinating well and 600 mL of residual urine was noted in bladder, and Stoner was placed Since Hospitalization he had CT scan Abdomen done without Contrast, Cardiac cath on 11/25 and PCI on 11/28 Creatinine has been going up and today is at 3. He also has Bilat Pl effusion on CxR, Pulm consulted for Thoracentesis . Dx with severe 3v CAD and recommend CABG Cardiology planning Rt heart cath after Thoracentesis Ct scan reported possible KENNEDY - urology on Board- Stoner was removed Initial UA Microscopic hematuria- ? Traumatic Stoner, No UA repeated after Stoner removed Stoner replaced today sec to retention He ha develop some SOB, IVF stopped and recd IV Lasix x 1 Currently Pt doesnt have any complaints - Hx Obtained from Pt's son and chart review Renal cinsulted today fro worsening renal function Past Medical History Cardiovascular: CAD, HTN, Hyperlipidemia, Other (peripheral arterial disease.) Endocrine: Diabetes Family History Family History: Heart Disease Social History No ALCOHOL: none Current Problem List Problem List Problems Medical Problems: (1) [id number] kidney injury Status: Acute (2) Chest pain Status: Acute (3) CHF (congestive heart failure) Status: Acute Current Medications Current Medications Current Medications Furosemide (Lasix) 60 mg 1X ONCE IVP Last administered on 11/21/18at 16:34; Start 11/21/18 at 15:45; Stop 11/21/18 at 15:49; Status DC Insulin Human Regular (HumuLIN R VIAL) 5 unit 1X ONCE IV Last administered on 11/21/18 17:50; Start 11/21/18 at 17:30; Stop 11/21/18 at 17:31; Status DC Heparin Sodium (Porcine) (Heparin Sodium) 4,000 unit 1X ONCE IV Last administered on 11/21/18 17:46; Start 11/21/18 at 17:30; Stop 11/21/18 at 17:31; Status DC Heparin Sodium/ Dextrose 500 ml @ 17.6 mls/hr CONT PRN IV SEE I/O RECORD Last administered on 11/25/18 02:02; Start 11/21/18 at 17:30; Stop 11/25/18 at 15:51; Status DC Heparin Sodium (Porcine) (Heparin Sodium) 1,850 unit PRN Q6HRS PRN IV FOR UFH LEVEL LESS THAN 0.2 Last administered on 11/22/18 01:30; Start 11/21/18 at 17:30; Stop 11/25/18 at 15:51; Status DC Ondansetron HCl (Zofran) 4 mg PRN Q8HRS PRN IV NAUSEA/VOMITING; Start 11/21/18 at 17:30; Stop 11/22/18 at 17:29; Status DC Morphine Sulfate (Morphine Sulfate) 2 mg PRN Q2HR PRN IV PAIN; Start 11/21/18 at 17:30; Stop 11/22/18 at 17:29; Status DC Acetaminophen (Tylenol) 650 mg PRN Q4HRS PRN PO FEVER; Start 11/21/18 at 17:30; Stop 11/22/18 at 17:29; Status DC Alprazolam (Xanax) 0.5 mg PRN Q6HRS PRN PO ANXIETY / AGITATION Last administered on 11/25/18 20:38; Start 11/22/18 at 03:30 Aspirin (Ecotrin) 81 mg DAILY PO Last administered on 12/01/18 08:15; Start 11/22/18 at 09:00 Clopidogrel Bisulfate (Plavix) 75 mg DAILY PO Last administered on 11/25/18 08:45; Start 11/22/18 at 09:00; Stop 11/26/18 at 10:07; Status DC Insulin Glargine (Lantus) 30 units QHS SQ Last administered on 11/30/18 21:20; Start 11/22/18 at 21:00 Insulin Human Lispro (HumaLOG) 8 units TIDAC SQ Last administered on 12/01/18 17:52; Start 11/22/18 at 11:30 Lisinopril (Prinivil) 10 mg DAILY PO Last administered on 11/23/18 08:42; Start 11/22/18 at 09:00; Stop 11/24/18 at 10:47; Status DC Metoprolol Succinate (Toprol Xl) 25 mg DAILY PO Last administered on 11/26/18 08:15; Start 11/22/18 at 09:00; Stop 11/26/18 at 11:28; Status DC Atorvastatin Calcium (Lipitor) 80 mg QHS PO Last administered on 12/01/18 21:28; Start 11/22/18 at 21:00 Glimepiride (Amaryl) 4 mg DAILY PO Last administered on 12/01/18 08:15; Start 11/22/18 at 09:00 Info (Anti-Coagulation Monitoring By Pharmacy) 1 each PRN DAILY PRN MC SEE COMMENTS Last administered on 11/25/18 09:30; Start 11/22/18 at 10:45; Stop 11/26/18 at 07:22; Status DC Tamsulosin HCl (Flomax) 0.4 mg QHS PO Last administered on 11/30/18 21:16; Start 11/22/18 at 21:00; Stop 12/01/18 at 08:39; Status DC Magnesium Citrate (Citroma) 296 ml 1X ONCE PO Last administered on 11/24/18 15:39; Start 11/24/18 at 15:00; Stop 11/24/18 at 15:01; Status DC Polyethylene Glycol (miraLAX PACKET) 17 gm DAILY PO Last administered on 12/01/18 08:16; Start 11/24/18 at 15:00 Acetylcysteine (Mucomyst 20% Oral Solution) 600 mg BID PO Last administered on 11/27/18 09:51; Start 11/24/18 at 21:00; Stop 11/27/18 at 12:00; Status DC Sodium Chloride 1,000 ml @ 60 mls/hr [id number] IV Last administered on 11/24/18 22:22; Start 11/25/18 at 07:30; Stop 11/25/18 at 14:10; Status DC Iodixanol (Visipaque 320) 100 ml STK-MED ONCE .ROUTE ; Start 11/25/18 at 09:00; Stop 11/25/18 at 09:01; Status DC Lidocaine HCl (Xylocaine-Mpf 1% 2ml Vial) 2 ml STK-MED ONCE .ROUTE ; Start 11/25/18 at 09:00; Stop 11/25/18 at 09:01; Status DC Heparin Sodium/ Sodium Chloride 1,500 ml @ As Directed STK-MED ONCE .ROUTE ; Start 11/25/18 at 09:00; Stop 11/25/18 at 09:01; Status DC Fentanyl Citrate (Fentanyl 2ml Vial) 100 mcg STK-MED ONCE .ROUTE ; Start 11/25/18 at 09:03; Stop 11/25/18 at 09:04; Status DC Midazolam HCl (Versed) 2 mg STK-MED ONCE .ROUTE ; Start 11/25/18 at 09:03; Stop 11/25/18 at 09:04; Status DC Heparin Sodium (Porcine) (Heparin Sodium) 10,000 unit STK-MED ONCE .ROUTE ; Start 11/25/18 at 09:03; Stop 11/25/18 at 09:04; Status DC Verapamil HCl (Verapamil) 5 mg STK-MED ONCE .ROUTE ; Start 11/25/18 at 09:03; Stop 11/25/18 at 09:04; Status DC Nitroglycerin (Nitroglycerin) 200 mcg STK-MED ONCE .ROUTE ; Start 11/25/18 at 09:04; Stop 11/25/18 at 09:05; Status DC Lidocaine HCl (Lidocaine 1% 20ml Vial) 20 ml STK-MED ONCE .ROUTE ; Start 11/25/18 at 09:25; Stop 11/25/18 at 09:26; Status DC Heparin Sodium/ Sodium Chloride (HEPARIN for ARTERIAL LINE FLUSH) 1,000 unit 1X ONCE IART Last administered on 11/25/18at 09:53; Start 11/25/18 at 09:45; Stop 11/25/18 at 09:46; Status DC Midazolam HCl (Versed) 2 mg 1X ONCE IV Last administered on 11/25/18at 09:52; Start 11/25/18 at 09:45; Stop 11/25/18 at 09:46; Status DC Fentanyl Citrate (Fentanyl 2ml Vial) 50 mcg 1X ONCE IV Last administered on 11/25/18at 09:53; Start 11/25/18 at 09:45; Stop 11/25/18 at 09:46; Status DC Iodixanol (Visipaque 320) 100 ml 1X ONCE IART Last administered on 11/25/18at 09:52; Start 11/25/18 at 09:45; Stop 11/25/18 at 09:46; Status DC Lidocaine HCl (Lidocaine 1% 20ml Vial) 10 ml 1X ONCE INJ Last administered on 11/25/18at 09:45; Start 11/25/18 at 09:45; Stop 11/25/18 at 09:46; Status DC Lidocaine HCl (Xylocaine-Mpf 1% 2ml Vial) 1 ml 1X ONCE INJ Last administered on 11/25/18 09:52; Start 11/25/18 at 09:45; Stop 11/25/18 at 09:46; Status DC Info (CONTRAST GIVEN -- Rx MONITORING) 1 each PRN DAILY PRN MC SEE COMMENTS; Start 11/25/18 at 09:45; Stop 11/27/18 at 09:44; Status DC Furosemide (Lasix) 40 mg 1X ONCE IVP Last administered on 11/25/18at 17:08; Start 11/25/18 at 16:00; Stop 11/25/18 at 16:01; Status DC Verapamil HCl (Verapamil) 5 mg STK-MED ONCE .ROUTE ; Start 11/25/18 at 09:00; Stop 11/26/18 at 08:28; Status DC Metoprolol Succinate (Toprol Xl) 50 mg DAILY PO Last administered on 12/01/18at 08:16; Start 11/27/18 at 09:00 Clopidogrel Bisulfate (Plavix) 75 mg DAILYWBKFT PO Last administered on 11/28/18at 09:15; Start 11/26/18 at 11:30; Stop 11/28/18 at 17:30; Status DC Furosemide (Lasix) 20 mg 1X ONCE IVP Last administered on 11/26/18at 12:39; Start 11/26/18 at 11:30; Stop 11/26/18 at 11:31; Status DC Acetaminophen/ Hydrocodone Bitart (Lortab 5/325) 1 tab 1X ONCE PO Last administered on 11/27/18at 21:42; Start 11/27/18 at 21:00; Stop 11/27/18 at 21:01; Status DC Finasteride (Proscar) 5 mg DAILY PO Last administered on 12/01/18at 08:16; Start 11/28/18 at 10:00 Iodixanol (Visipaque 320) 100 ml STK-MED ONCE .ROUTE ; Start 11/28/18 at 09:58; Stop 11/28/18 at 09:59; Status DC Lidocaine HCl (Lidocaine 1% 20ml Vial) 20 ml STK-MED ONCE .ROUTE ; Start 11/28/18 at 09:58; Stop 11/28/18 at 09:59; Status DC Heparin Sodium/ Sodium Chloride 1,500 ml @ As Directed STK-MED ONCE .ROUTE ; Start 11/28/18 at 09:58; Stop 11/28/18 at 09:59; Status DC Fentanyl Citrate (Fentanyl 5ml Vial) 250 mcg STK-MED ONCE .ROUTE ; Start 11/28/18 at 12:20; Stop 11/28/18 at 12:21; Status DC Midazolam HCl (Versed) 5 mg STK-MED ONCE .ROUTE ; Start 11/28/18 at 12:21; Stop 11/28/18 at 12:22; Status DC Heparin Sodium (Porcine) (Heparin Sodium) 10,000 unit STK-MED ONCE .ROUTE ; Start 11/28/18 at 12:33; Stop 11/28/18 at 12:34; Status DC Verapamil HCl (Verapamil) 5 mg STK-MED ONCE .ROUTE ; Start 11/28/18 at 12:33; Stop 11/28/18 at 12:34; Status DC Nitroglycerin/ Dextrose (Nitroglycerin) 4 mg STK-MED ONCE .ROUTE ; Start 11/28/18 at 12:33; Stop 11/28/18 at 12:34; Status DC Heparin Sodium (Porcine) (Heparin Sodium) 10,000 unit STK-MED ONCE .ROUTE ; Start 11/28/18 at 12:45; Stop 11/28/18 at 12:46; Status DC Heparin Sodium/ Sodium Chloride 500 ml @ As Directed STK-MED ONCE .ROUTE ; Start 11/28/18 at 13:09; Stop 11/28/18 at 13:10; Status DC Dopamine HCl/ Dextrose 0 ml @ As Directed STK-MED ONCE IV ; Start 11/28/18 at 13:23; Stop 11/28/18 at 13:24; Status DC Phenylephrine HCl (PHENYLEPHRINE in 0.9% NACL PF) 1 mg STK-MED ONCE IV ; Start 11/28/18 at 13:23; Stop 11/28/18 at 13:24; Status DC Norepinephrine Bitartrate 250 ml @ 1.875 mls/ hr ONCE ONCE IV ; Start 11/28/18 at 13:30; Stop 12/01/18 at 20:08; Status DC Heparin Sodium/ Sodium Chloride 500 ml @ As Directed STK-MED ONCE .ROUTE ; Start 11/28/18 at 13:39; Stop 11/28/18 at 13:40; Status DC Nitroglycerin (Nitroglycerin) 200 mcg STK-MED ONCE .ROUTE ; Start 11/28/18 at 14:03; Stop 11/28/18 at 14:04; Status DC Nitroglycerin (Nitroglycerin) 200 mcg STK-MED ONCE .ROUTE ; Start 11/28/18 at 14:10; Stop 11/28/18 at 14:11; Status DC Nitroglycerin (Nitroglycerin) 400 mcg 1X ONCE IART Last administered on 9at 14:30; Start 11/28/18 at 14:30; Stop 11/28/18 at 14:31; Status DC Heparin Sodium/ Sodium Chloride (HEPARIN for ARTERIAL LINE FLUSH) 1,000 unit 1X ONCE IART Last administered on 11/28/18at 14:30; Start 11/28/18 at 14:30; Stop 11/28/18 at 14:31; Status DC Heparin Sodium/ Sodium Chloride (HEPARIN for ARTERIAL LINE FLUSH) 1,000 unit 1X ONCE IART Last administered on 11/28/18at 14:30; Start 11/28/18 at 14:30; Stop 11/28/18 at 14:31; Status DC Midazolam HCl (Versed) 5 mg 1X ONCE IV Last administered on 11/28/18at 14:30; Start 11/28/18 at 14:30; Stop 11/28/18 at 14:31; Status DC Fentanyl Citrate (Fentanyl 5ml Vial) 250 mcg 1X ONCE IV Last administered on 11/28/18at 14:30; Start 11/28/18 at 14:30; Stop 11/28/18 at 14:31; Status DC Iodixanol (Visipaque 320) 100 ml 1X ONCE IART Last administered on 11/28/18at 14:30; Start 11/28/18 at 14:30; Stop 11/28/18 at 14:31; Status DC Heparin Sodium (Porcine) (Heparin Sodium) 4,000 unit 1X ONCE IV Last administered on 11/28/18at 14:30; Start 11/28/18 at 14:30; Stop 11/28/18 at 14:31; Status DC Lidocaine HCl (Lidocaine 1% 20ml Vial) 20 ml 1X ONCE INJ Last administered on 11/28/18at 14:30; Start 11/28/18 at 14:30; Stop 11/28/18 at 14:31; Status DC Info (CONTRAST GIVEN -- Rx MONITORING) 1 each PRN DAILY PRN MC SEE COMMENTS; Start 11/28/18 at 14:30; Stop 11/30/18 at 14:29; Status DC Nitroglycerin/ Dextrose 4 mg/ Verapamil HCl 10 mg/Heparin Sodium (Porcine) 4000 unit/ Miscellaneous 20 ml/Sodium Chloride 1,048 ml @ 1,000 mls/hr 1X ONCE IART Last administered on 11/28/18at 14:45; Start 11/28/18 at 14:45; Stop 11/28/18 at 15:47; Status DC Heparin Sodium/ Sodium Chloride (HEPARIN for ARTERIAL LINE FLUSH) 1,000 unit 1X ONCE IART Last administered on 11/28/18at 14:45; Start 11/28/18 at 14:45; Stop 11/28/18 at 14:46; Status DC Heparin Sodium/ Sodium Chloride (HEPARIN for ARTERIAL LINE FLUSH) 1,000 unit 1X ONCE IART Last administered on 11/28/18at 14:45; Start 11/28/18 at 14:45; Stop 11/28/18 at 14:46; Status DC Nitroglycerin (Nitroglycerin) 200 mcg STK-MED ONCE .ROUTE ; Start 11/28/18 at 14:42; Stop 11/28/18 at 14:43; Status DC Nitroglycerin (Nitroglycerin) 200 mcg STK-MED ONCE .ROUTE ; Start 11/28/18 at 15:19; Stop 11/28/18 at 15:20; Status DC Heparin Sodium/ Sodium Chloride 500 ml @ As Directed STK-MED ONCE .ROUTE ; Start 11/28/18 at 15:35; Stop 11/28/18 at 15:36; Status DC Heparin Sodium/ Sodium Chloride (HEPARIN for ARTERIAL LINE FLUSH) 1,000 unit 1X ONCE IART Last administered on 11/28/18at 15:45; Start 11/28/18 at 15:45; Stop 11/28/18 at 15:46; Status DC Ticagrelor (Brilinta) 90 mg STK-MED ONCE .ROUTE ; Start 11/28/18 at 15:58; Stop 11/28/18 at 15:59; Status DC Ticagrelor (Brilinta) 180 mg ONCE ONCE PO Last administered on 11/28/18at 16:03; Start 11/28/18 at 16:03; Stop 11/28/18 at 16:04; Status DC Sodium Chloride 500 ml @ 500 mls/hr 1X ONCE IV ; Start 11/28/18 at 16:30; Stop 11/28/18 at 17:29; Status DC Sodium Chloride 1,000 ml @ 50 mls/hr Q20H IV Last administered on 12/01/18at 21:29; Start 11/28/18 at 16:30; Stop 12/02/18 at 06:50; Status DC Ticagrelor (Brilinta) 90 mg BID PO Last administered on 12/01/18at 21:28; Start 11/28/18 at 21:00 Acetaminophen (Tylenol) 650 mg PRN Q6HRS PRN PO PAIN Last administered on 11/29/18at 09:48; Start 11/29/18 at 09:45 Polyethylene Glycol (miraLAX PACKET) 17 gm DAILY PO ; Start 11/29/18 at 12:00; Status UNV Zolpidem Tartrate (Ambien) 5 mg PRN QHS PRN PO INSOMNIA Last administered on 12/01/18at 21:35; Start 11/29/18 at 12:00 Hydralazine HCl (Apresoline) 10 mg TID PO Last administered on 12/01/18at 21:28; Start 11/29/18 at 14:00 Isosorbide Mononitrate (Imdur) 30 mg DAILY PO Last administered on 12/01/18at 08:16; Start 11/29/18 at 12:15 Magnesium Citrate (Citroma) 296 ml PRN 1X PRN PO CONSTIPATION; Start 11/30/18 at 11:15 Ondansetron HCl (Zofran) 4 mg PRN Q6HRS PRN IV NAUSEA/VOMITING; Start 11/30/18 at 18:00 Verapamil HCl (Verapamil) 5 mg STK-MED ONCE .ROUTE ; Start 11/28/18 at 13:00; Stop 12/01/18 at 07:40; Status DC Tamsulosin HCl (Flomax) 0.4 mg BID PO Last administered on 12/01/18at 21:28; Start 12/01/18 at 09:00 Furosemide (Lasix) 40 mg 1X ONCE IVP Last administered on 12/02/18at 09:24; Start 12/02/18 at 09:00; Stop 12/02/18 at 09:01; Status DC Active Scripts Active Humalog (Insulin Lispro) 100 Unit/1 Ml Insuln.pen 8 Units SQ TIDAC 90 Days Lantus Solostar (Insulin Glargine,Hum.rec.anlog) 100 Unit/1 Ml Insuln.pen 30 Units SQ QHS 30 Days Lisinopril 10 Mg Tablet 10 Mg PO DAILY 90 Days Reported Metoprolol Succinate ( Xl ) (Metoprolol Succinate) 25 Mg Tab.er.24h 25 Mg PO DAILY Glimepiride 4 Mg Tablet 4 Mg PO DAILY Clopidogrel (Clopidogrel Bisulfate) 75 Mg Tablet 1 Tab PO DAILY Aspir 81 (Aspirin) 81 Mg Tablet.dr 1 Tab PO DAILY Atorvastatin Calcium 80 Mg Tablet 1 Tab PO DAILY Metformin Hcl 500 Mg Tablet 1,000 Mg PO BID Allergies Allergies: Coded Allergies: No Known Drug Allergies (Unverified , 02/10/18) ROS Review of System As per HPI Physical Exam Physical Exam GENERAL: NAD, propped up in bed HEENT: OM moist NECK: Supple. CARDIAC: Regular rate and rhythm LUNGS: CTA , No acc Muscle use ABDOMEN: Soft, nontender. EXTREMITIES: Edema + NEUROLOGIC: Grossly normal : Right inguinal hernia, Stoner +, no CVA or SP tenderness Skin No rash Vital Signs Vital Signs Date Time Temp Pulse Resp B/P (MAP) Pulse Ox O2 Delivery O2 Flow Rate FiO2 12/02/18 08:00 Room Air 2.0 12/02/18 07:00 97.4 91 18 142/83 (102) 93 97.4 Assessment & Plan ASHLEY - Suspect Cardiorenal and DARIELA , KENNEDY could be contributing Elevated Cr from baseline at presentation on 11/21, Increased to 2.9-3 Post Cardiac cath Recd Mucomyst and IVF per Cardiology for the procedure Initial UA- stoner sample ? Traumatic Ct scan No Hydronephrosis reported Strict I/O,cautious with IVF for Hydration due to CHF- if RHC planned Discussed at great length with pt an son regarding renal dysfunction CKD stage 3 at baseline CAD - Severe 3V CAD; s/p PCI/GIN to the RCA, LCx, and LAD ICM with ICM; LVEF 35-40%. CHF- cardiology managing diuresis Pulm HTN Type 2 diabetes, out of control. Hypertension Controlled with Occ Low BP's Urinary retention with suspected BPH Stoner placed again this am Urology Following Hematuria - suspect Traumatic Pl effusion - Pulm following CT scan w/o Contrast Labs Labs Laboratory Tests Test 11/30/18 11:56 11/30/18 17:05 11/30/18 19:15 11/30/18 20:54 Glucose (Fingerstick) 177 mg/dL (70-99) 91 mg/dL (70-99) 148 mg/dL (70-99) Sodium Level 138 mmol/L (136-145) Potassium Level 5.0 mmol/L (3.5-5.1) Chloride Level 102 mmol/L (98-107) Carbon Dioxide Level 23 mmol/L (21-32) Anion Gap 13 (6-14) Blood Urea Nitrogen 44 mg/dL (8-26) Creatinine 2.9 mg/dL (0.7-1.3) Estimated GFR (Cockcroft-Gault) 21.7 Glucose Level 135 mg/dL (70-99) Calcium Level 7.7 mg/dL (8.5-10.1) Test 12/01/18 07:42 12/01/18 09:10 12/01/18 12:13 12/01/18 17:46 Glucose (Fingerstick) 131 mg/dL (70-99) 112 mg/dL (70-99) 157 mg/dL (70-99) Sodium Level 137 mmol/L (136-145) Potassium Level 4.8 mmol/L (3.5-5.1) Chloride Level 101 mmol/L (98-107) Carbon Dioxide Level 25 mmol/L (21-32) Anion Gap 11 (6-14) Blood Urea Nitrogen 44 mg/dL (8-26) Creatinine 2.9 mg/dL (0.7-1.3) Estimated GFR (Cockcroft-Gault) 21.7 Glucose Level 159 mg/dL (70-99) Calcium Level 8.5 mg/dL (8.5-10.1) Test 12/01/18 21:26 12/01/18 23:36 12/02/18 05:45 12/02/18 07:50 Glucose (Fingerstick) 64 mg/dL (70-99) 105 mg/dL (70-99) 164 mg/dL (70-99) Sodium Level 135 mmol/L (136-145) Potassium Level 4.9 mmol/L (3.5-5.1) Chloride Level 100 mmol/L (98-107) Carbon Dioxide Level 21 mmol/L (21-32) Anion Gap 14 (6-14) Blood Urea Nitrogen 48 mg/dL (8-26) Creatinine 3.0 mg/dL (0.7-1.3) Estimated GFR (Cockcroft-Gault) 20.9 Glucose Level 160 mg/dL (70-99) Calcium Level 8.2 mg/dL (8.5-10.1) Laboratory Tests Test 12/01/18 12:13 12/01/18 17:46 12/01/18 21:26 12/01/18 23:36 Glucose (Fingerstick) 112 mg/dL (70-99) 157 mg/dL (70-99) 64 mg/dL (70-99) 105 mg/dL (70-99) Test 12/02/18 05:45 12/02/18 07:50 Sodium Level 135 mmol/L (136-145) Potassium Level 4.9 mmol/L (3.5-5.1) Chloride Level 100 mmol/L (98-107) Carbon Dioxide Level 21 mmol/L (21-32) Anion Gap 14 (6-14) Blood Urea Nitrogen 48 mg/dL (8-26) Creatinine 3.0 mg/dL (0.7-1.3) Estimated GFR (Cockcroft-Gault) 20.9 Glucose Level 160 mg/dL (70-99) Calcium Level 8.2 mg/dL (8.5-10.1) Glucose (Fingerstick) 164 mg/dL (70-99) Review All relevant outside records, renal labs, imaging studies, telemetry/EKG's were reviewed. XIMENA CONNELLY MD December 02, 2018 11:44
--- NOTE | 2018-12-02 12:38 | CONS ---
DATE OF CONSULTATION: PULMONARY CONSULTATION ATTENDING PHYSICIAN: Dr. Braun. REASON FOR CONSULTATION: Pleural effusions. HISTORY OF PRESENT ILLNESS: The patient is a 68-year-old male who has a long history of coronary artery disease, diabetes and hypertension. The patient was admitted with chest pain and was found to have EKG abnormalities. He was seen by Cardiology and he underwent cardiac catheterization and was found to have severe 3-vessel coronary artery disease. He was not an optimal candidate for bypass. As a result, he underwent a 3-vessel stenting to RCA, left circumflex and LAD. He had a cardiac catheterization twice. He developed axaqb-gh-foverio kidney disease. The patient has been treated for paxuu-dt-hamivdr systolic heart failure and now he has increasing pleural effusions. His EF is 35% to 40%. I did a CT chest on him today after looking at the chest x-ray and he has iihctksi-ep-ljoje bilateral pleural effusions with associated atelectasis. Talking to the patient with the help of his son, he states he has shortness of breath, especially lying flat and also orthopnea. He has no history of tobacco use. No chest pain. No cough, no fever, no chills. No focal weakness. PAST MEDICAL HISTORY: Significant for history of CKD, history of coronary artery disease, history of type 2 diabetes, hypertension, hyperlipidemia, history of cardiomyopathy and history of peripheral vascular disease. PAST SURGICAL HISTORY: Surgeries as discussed above. SOCIAL HISTORY: Nonsmoker, nonalcoholic. REVIEW OF SYSTEMS: Twelve-point systems obtained. Pertinent positives discussed in my history of present illness, otherwise noncontributory. All systems that were negative reviewed as well. PHYSICAL EXAMINATION: VITAL SIGNS: On examination, his vital signs were reviewed. His pulse ox is 93% on 2 liters. NECK: Supple. LUNGS: With diminished breath sounds posteriorly at the bases. CARDIOVASCULAR EXAMINATION: Regular rate and rhythm. ABDOMEN: Soft, nontender. EXTREMITIES: With no pitting edema. LABORATORY DATA: Labs were reviewed. BUN 48, creatinine 3.0. White cell count 8.8, hemoglobin 8.4 and platelets 290,000. IMPRESSION: 1. Progressively increased bilateral pleural effusions. Best visualized on CT chest from today, with oefatadf-ym-ghuvc bilateral effusions. He would benefit from thoracentesis bilaterally. I have discussed with the patient's sons and they agreed to proceed with it. His Brilinta has been withheld since yesterday. 2. Tdfxr-ue-wspcvdd systolic heart failure with worsening pleural effusions secondary to his cardiomyopathy and in the setting of lqzsq-cx-osiczla renal failure. 3. Severe 3-vessel coronary artery disease, status post percutaneous coronary intervention to right coronary artery, left circumflex and left anterior descending. 4. Acute kidney injury on chronic kidney disease. RECOMMENDATIONS: 1. Discussed with the patient's son and discussed with RN and discussed with Cardiology SENIOR MATERIALS ANALYST. They are okay to hold off on Brilinta. 2. We will ask IR to do bilateral thoracentesis. 3. He would benefit from diuresis to prevent further reaccumulation once thoracentesis is performed. 4. Follow Cardiology recommendations. 5. Follow Renal recommendations. ANSHUL LARA MD DR: VICENTE/nts JOB#: [id number] / [id number]
--- NOTE | 2018-12-02 12:46 | NUR ---
SS following up with discharge planning. SS discussed with pt's RN. Per pt's RN pt has had a decline in medical condition. LTAC may be needed at discharge. SS phoned and faxed referral to [facility], ; fax [phone]. [facility] contacted SS and reported that pt does not currently qualify for LTAC. SS will continue to follow for discharge planning.
[2018-12-02] MEDS: hydrALAZINE 10 MG TABLET PO SCH ×3 (14:00→21:43)
--- NOTE | 2018-12-02 14:21 | PDOC ---
PROGRESS NOTES Subjective Subjective Patient seen with renal function declining per labs despite hydration. Patient now fluid overloaded with good response to Lasix. patient also having signs of urinary retention with > 500cc PVR. Hicks replaced, urine now clear Objective Objective Vital Signs Date Time Temp Pulse Resp B/P (MAP) Pulse Ox O2 Delivery O2 Flow Rate FiO2 12/02/18 13:58 95 12 157/74 (101) 2 Nasal Cannula 12/02/18 11:00 97.9 2.0 97.9 Intake and Output 12/02/18 07:00 Intake Total 950 ml Output Total 100 ml Balance 850 ml Intake Oral 350 ml IV Total 600 ml Output Urine Total 100 ml # Voids 4 # Bowel Movements 1 Physical Exam Abdomen: Normal bowel sounds Heart: Other (irregular) Extremities: Other (2+ edema) General: Alert Lungs: Clear to auscultation Assessment Assessment Problems Medical Problems: (1) Ueuve-zm-hjecpod kidney injury Status: Acute (2) Chest pain Status: Acute (3) CHF (congestive heart failure) Status: Acute CAD s/p Multiple vessel stent. Recurrent CHF Pleural effusion Acute on chronic renal failure with creatinine of 1.9 up to 3.0 post contrast Pulm HTN Type 2 diabetes, out of control. Hypertension. Urinary retention with suspected BPH Hicks replaced Plan Plan of Care D/C ivf Consider thoracentesis Consider Right heart cath Diuresis Consult renal med monitor renal function Pulm Consult Hicks replaced Comment Review of Relevant I have reviewed the following items bahman (where applicable) has been applied. Labs Laboratory Tests Test 11/30/18 17:05 11/30/18 19:15 11/30/18 20:54 12/01/18 07:42 Glucose (Fingerstick) 91 mg/dL (70-99) 148 mg/dL (70-99) 131 mg/dL (70-99) Sodium Level 138 mmol/L (136-145) Potassium Level 5.0 mmol/L (3.5-5.1) Chloride Level 102 mmol/L (98-107) Carbon Dioxide Level 23 mmol/L (21-32) Anion Gap 13 (6-14) Blood Urea Nitrogen 44 mg/dL (8-26) Creatinine 2.9 mg/dL (0.7-1.3) Estimated GFR (Cockcroft-Gault) 21.7 Glucose Level 135 mg/dL (70-99) Calcium Level 7.7 mg/dL (8.5-10.1) Test 12/01/18 09:10 12/01/18 12:13 12/01/18 17:46 12/01/18 21:26 Sodium Level 137 mmol/L (136-145) Potassium Level 4.8 mmol/L (3.5-5.1) Chloride Level 101 mmol/L (98-107) Carbon Dioxide Level 25 mmol/L (21-32) Anion Gap 11 (6-14) Blood Urea Nitrogen 44 mg/dL (8-26) Creatinine 2.9 mg/dL (0.7-1.3) Estimated GFR (Cockcroft-Gault) 21.7 Glucose Level 159 mg/dL (70-99) Calcium Level 8.5 mg/dL (8.5-10.1) Glucose (Fingerstick) 112 mg/dL (70-99) 157 mg/dL (70-99) 64 mg/dL (70-99) Test 12/01/18 23:36 12/02/18 05:45 12/02/18 07:50 12/02/18 11:49 Glucose (Fingerstick) 105 mg/dL (70-99) 164 mg/dL (70-99) 166 mg/dL (70-99) Sodium Level 135 mmol/L (136-145) Potassium Level 4.9 mmol/L (3.5-5.1) Chloride Level 100 mmol/L (98-107) Carbon Dioxide Level 21 mmol/L (21-32) Anion Gap 14 (6-14) Blood Urea Nitrogen 48 mg/dL (8-26) Creatinine 3.0 mg/dL (0.7-1.3) Estimated GFR (Cockcroft-Gault) 20.9 Glucose Level 160 mg/dL (70-99) Calcium Level 8.2 mg/dL (8.5-10.1) Laboratory Tests Test 12/01/18 17:46 12/01/18 21:26 12/01/18 23:36 12/02/18 05:45 Glucose (Fingerstick) 157 mg/dL (70-99) 64 mg/dL (70-99) 105 mg/dL (70-99) Sodium Level 135 mmol/L (136-145) Potassium Level 4.9 mmol/L (3.5-5.1) Chloride Level 100 mmol/L (98-107) Carbon Dioxide Level 21 mmol/L (21-32) Anion Gap 14 (6-14) Blood Urea Nitrogen 48 mg/dL (8-26) Creatinine 3.0 mg/dL (0.7-1.3) Estimated GFR (Cockcroft-Gault) 20.9 Glucose Level 160 mg/dL (70-99) Calcium Level 8.2 mg/dL (8.5-10.1) Test 12/02/18 07:50 12/02/18 11:49 Glucose (Fingerstick) 164 mg/dL (70-99) 166 mg/dL (70-99) Microbiology 11/22/18 Urine Culture - Final, Complete 11/22/18 Urine Culture Result 1 (TIFFANIE) - Final, Complete Medications Current Medications Furosemide (Lasix) 60 mg 1X ONCE IVP Last administered on 11/21/18 16:34; Start 11/21/18 at 15:45; Stop 11/21/18 at 15:49; Status DC Insulin Human Regular (HumuLIN R VIAL) 5 unit 1X ONCE IV Last administered on 11/21/18at 17:50; Start 11/21/18 at 17:30; Stop 11/21/18 at 17:31; Status DC Heparin Sodium (Porcine) (Heparin Sodium) 4,000 unit 1X ONCE IV Last administered on 11/21/18at 17:46; Start 11/21/18 at 17:30; Stop 11/21/18 at 17:31; Status DC Heparin Sodium/ Dextrose 500 ml @ 17.6 mls/hr CONT PRN IV SEE I/O RECORD Last administered on 11/25/18at 02:02; Start 11/21/18 at 17:30; Stop 11/25/18 at 15:51; Status DC Heparin Sodium (Porcine) (Heparin Sodium) 1,850 unit PRN Q6HRS PRN IV FOR UFH LEVEL LESS THAN 0.2 Last administered on 11/22/18at 01:30; Start 11/21/18 at 17:30; Stop 11/25/18 at 15:51; Status DC Ondansetron HCl (Zofran) 4 mg PRN Q8HRS PRN IV NAUSEA/VOMITING; Start 11/21/18 at 17:30; Stop 11/22/18 at 17:29; Status DC Morphine Sulfate (Morphine Sulfate) 2 mg PRN Q2HR PRN IV PAIN; Start 11/21/18 at 17:30; Stop 11/22/18 at 17:29; Status DC Acetaminophen (Tylenol) 650 mg PRN Q4HRS PRN PO FEVER; Start 11/21/18 at 17:30; Stop 11/22/18 at 17:29; Status DC Alprazolam (Xanax) 0.5 mg PRN Q6HRS PRN PO ANXIETY / AGITATION Last ad ministered on 11/25/18 20:38; Start 11/22/18 at 03:30 Aspirin (Ecotrin) 81 mg DAILY PO Last administered on 12/01/18 08:15; Start 11/22/18 at 09:00 Clopidogrel Bisulfate (Plavix) 75 mg DAILY PO Last administered on 11/25/18 08:45; Start 11/22/18 at 09:00; Stop 11/26/18 at 10:07; Status DC Insulin Glargine (Lantus) 30 units QHS SQ Last administered on 11/30/18 21:20; Start 11/22/18 at 21:00 Insulin Human Lispro (HumaLOG) 8 units TIDAC SQ Last administered on 12/01/18 17:52; Start 11/22/18 at 11:30 Lisinopril (Prinivil) 10 mg DAILY PO Last administered on 11/23/18 08:42; Start 11/22/18 at 09:00; Stop 11/24/18 at 10:47; Status DC Metoprolol Succinate (Toprol Xl) 25 mg DAILY PO Last administered on 11/26/18 08:15; Start 11/22/18 at 09:00; Stop 11/26/18 at 11:28; Status DC Atorvastatin Calcium (Lipitor) 80 mg QHS PO Last administered on 12/01/18 21:28; Start 11/22/18 at 21:00 Glimepiride (Amaryl) 4 mg DAILY PO Last administered on 12/01/18 08:15; Start 11/22/18 at 09:00 Info (Anti-Coagulation Monitoring By Pharmacy) 1 each PRN DAILY PRN MC SEE COMMENTS Last administered on 11/25/18 09:30; Start 11/22/18 at 10:45; Stop 11/26/18 at 07:22; Status DC Tamsulosin HCl (Flomax) 0.4 mg QHS PO Last administered on 11/30/18at 21:16; Start 11/22/18 at 21:00; Stop 12/01/18 at 08:39; Status DC Magnesium Citrate (Citroma) 296 ml 1X ONCE PO Last administered on 11/24/18at 15:39; Start 11/24/18 at 15:00; Stop 11/24/18 at 15:01; Status DC Polyethylene Glycol (miraLAX PACKET) 17 gm DAILY PO Last administered on 12/01/18at 08:16; Start 11/24/18 at 15:00 Acetylcysteine (Mucomyst 20% Oral Solution) 600 mg BID PO Last administered on 11/27/18at 09:51; Start 11/24/18 at 21:00; Stop 11/27/18 at 12:00; Status DC Sodium Chloride 1,000 ml @ 60 mls/hr [id number] IV Last administered on 11/24/18at 22:22; Start 11/25/18 at 07:30; Stop 11/25/18 at 14:10; Status DC Iodixanol (Visipaque 320) 100 ml STK-MED ONCE .ROUTE ; Start 11/25/18 at 09:00; Stop 11/25/18 at 09:01; Status DC Lidocaine HCl (Xylocaine-Mpf 1% 2ml Vial) 2 ml STK-MED ONCE .ROUTE ; Start 11/25 at 09:00; Stop 11/25/18 at 09:01; Status DC Heparin Sodium/ Sodium Chloride 1,500 ml @ As Directed STK-MED ONCE .ROUTE ; S tart 11/25/18 at 09:00; Stop 11/25/18 at 09:01; Status DC Fentanyl Citrate (Fentanyl 2ml Vial) 100 mcg STK-MED ONCE .ROUTE ; Start 11/25/18 at 09:03; Stop 11/25/18 at 09:04; Status DC Midazolam HCl (Versed) 2 mg STK-MED ONCE .ROUTE ; Start 11/25/18 at 09:03; Stop 11/25/18 at 09:04; Status DC Heparin Sodium (Porcine) (Heparin Sodium) 10,000 unit STK-MED ONCE .ROUTE ; Start 11/25/18 at 09:03; Stop 11/25/18 at 09:04; Status DC Verapamil HCl (Verapamil) 5 mg STK-MED ONCE .ROUTE ; Start 11/25/18 at 09:03; Stop 11/25/18 at 09:04; Status DC Nitroglycerin (Nitroglycerin) 200 mcg STK-MED ONCE .ROUTE ; Start 11/25/18 at 09:04; Stop 11/25/18 at 09:05; Status DC Lidocaine HCl (Lidocaine 1% 20ml Vial) 20 ml STK-MED ONCE .ROUTE ; Start 11/25/18 at 09:25; Stop 11/25/18 at 09:26; Status DC Heparin Sodium/ Sodium Chloride (HEPARIN for ARTERIAL LINE FLUSH) 1,000 unit 1X ONCE IART Last administered on 11/25/18at 09:53; Start 11/25/18 at 09:45; Stop 11/25/18 at 09:46; Status DC Midazolam HCl (Versed) 2 mg 1X ONCE IV Last administered on 11/25/18at 09:52; Start 11/25/18 at 09:45; Stop 11/25/18 at 09:46; Status DC Fentanyl Citrate (Fentanyl 2ml Vial) 50 mcg 1X ONCE IV Last administered on 11/25/18at 09:53; Start 11/25/18 at 09:45; Stop 11/25/18 at 09:46; Status DC Iodixanol (Visipaque 320) 100 ml 1X ONCE IART Last administered on 11/25/18at 09:52; Start 11/25/18 at 09:45; Stop 11/25/18 at 09:46; Status DC Lidocaine HCl (Lidocaine 1% 20ml Vial) 10 ml 1X ONCE INJ Last administered on 11/25/18at 09:45; Start 11/25/18 at 09:45; Stop 11/25/18 at 09:46; Status DC Lidocaine HCl (Xylocaine-Mpf 1% 2ml Vial) 1 ml 1X ONCE INJ Last administered on 11/25/18at 09:52; Start 11/25/18 at 09:45; Stop 11/25/18 at 09:46; Status DC Info (CONTRAST GIVEN -- Rx MONITORING) 1 each PRN DAILY PRN MC SEE COMMENTS; Start 11/25/18 at 09:45; Stop 11/27/18 at 09:44; Status DC Furosemide (Lasix) 40 mg 1X ONCE IVP Last administered on 11/25/18at 17:08; St art 11/25/18 at 16:00; Stop 11/25/18 at 16:01; Status DC Verapamil HCl (Verapamil) 5 mg STK-MED ONCE .ROUTE ; Start 11/25/18 at 09:00; Stop 11/26/18 at 08:28; Status DC Metoprolol Succinate (Toprol Xl) 50 mg DAILY PO Last administered on 12/01/18at 08:16; Start 11/27/18 at 09:00 Clopidogrel Bisulfate (Plavix) 75 mg DAILYWBKFT PO Last administered on 11/28/18at 09:15; Start 11/26/18 at 11:30; Stop 11/28/18 at 17:30; Status DC Furosemide (Lasix) 20 mg 1X ONCE IVP Last administered on 11/26/18at 12:39; Start 11/26/18 at 11:30; Stop 11/26/18 at 11:31; Status DC Acetaminophen/ Hydrocodone Bitart (Lortab 5/325) 1 tab 1X ONCE PO Last administered on 11/27/18at 21:42; Start 11/27/18 at 21:00; Stop 11/27/18 at 21:01; Status DC Finasteride (Proscar) 5 mg DAILY PO Last administered on 12/01/18at 08:16; Start 11/28/18 at 10:00 Iodixanol (Visipaque 320) 100 ml STK-MED ONCE .ROUTE ; Start 11/28/18 at 09:58; Stop 11/28/18 at 09:59; Status DC Lidocaine HCl (Lidocaine 1% 20ml Vial) 20 ml STK-MED ONCE .ROUTE ; Start 11/28/18 at 09:58; Stop 11/28/18 at 09:59; Status DC Heparin Sodium/ Sodium Chloride 1,500 ml @ As Directed STK-MED ONCE .ROUTE ; Start 11/28/18 at 09:58; Stop 11/28/18 at 09:59; Status DC Fentanyl Citrate (Fentanyl 5ml Vial) 250 mcg STK-MED ONCE .ROUTE ; Start at 12:20; Stop 11/28/18 at 12:21; Status DC Midazolam HCl (Versed) 5 mg STK-MED ONCE .ROUTE ; Start 11/28/18 at 12:21; Stop 11/28/18 at 12:22; Status DC Heparin Sodium (Porcine) (Heparin Sodium) 10,000 unit STK-MED ONCE .ROUTE ; Start 11/28/18 at 12:33; Stop 11/28/18 at 12:34; Status DC Verapamil HCl (Verapamil) 5 mg STK-MED ONCE .ROUTE ; Start 11/28/18 at 12:33; Stop 11/28/18 at 12:34; Status DC Nitroglycerin/ Dextrose (Nitroglycerin) 4 mg STK-MED ONCE .ROUTE ; Start 11/28/18 at 12:33; Stop 11/28/18 at 12:34; Status DC Heparin Sodium (Porcine) (Heparin Sodium) 10,000 unit STK-MED ONCE .ROUTE ; Start 11/28/18 at 12:45; Stop 11/28/18 at 12:46; Status DC Heparin Sodium/ Sodium Chloride 500 ml @ As Directed STK-MED ONCE .ROUTE ; Start 11/28/18 at 13:09; Stop 11/28/18 at 13:10; Status DC Dopamine HCl/ Dextrose 0 ml @ As Directed STK-MED ONCE IV ; Start 11/28/18 at 13:23; Stop 11/28/18 at 13:24; Status DC Phenylephrine HCl (PHENYLEPHRINE in 0.9% NACL PF) 1 mg STK-MED ONCE IV ; Start 11/28/18 at 13:23; Stop 11/28/18 at 13:24; Status DC Norepinephrine Bitartrate 250 ml @ 1.875 mls/ hr ONCE ONCE IV ; Start 11/28/18 at 13:30; Stop 12/01/18 at 20:08; Status DC Heparin Sodium/ Sodium Chloride 500 ml @ As Directed STK-MED ONCE .ROUTE ; Start 11/28/18 at 13:39; Stop 11/28/18 at 13:40; Status DC Nitroglycerin (Nitroglycerin) 200 mcg STK-MED ONCE .ROUTE ; Start 11/28/18 at 14:03; Stop 11/28/18 at 14:04; Status DC Nitroglycerin (Nitroglycerin) 200 mcg STK-MED ONCE .ROUTE ; Start 11/28/18 at 14:10; Stop 11/28/18 at 14:11; Status DC Nitroglycerin (Nitroglycerin) 400 mcg 1X ONCE IART Last administered on 11/28/18at 14:30; Start 11/28/18 at 14:30; Stop 11/28/18 at 14:31; Status DC Heparin Sodium/ Sodium Chloride (HEPARIN for ARTERIAL LINE FLUSH) 1,000 unit 1X ONCE IART Last administered on 11/28/18at 14:30; Start 11/28/18 at 14:30; Stop 11/28/18 at 14:31; Status DC Heparin Sodium/ Sodium Chloride (HEPARIN for ARTERIAL LINE FLUSH) 1,000 unit 1X ONCE IART Last administered on 11/28/18at 14:30; Start 11/28/18 at 14:30; Stop 11/28/18 at 14:31; Status DC Midazolam HCl (Versed) 5 mg 1X ONCE IV Last administered on 11/28/18 14:30; Start 11/28/18 at 14:30; Stop 11/28/18 at 14:31; Status DC Fentanyl Citrate (Fentanyl 5ml Vial) 250 mcg 1X ONCE IV Last administered on 11/28/18 14:30; Start 11/28/18 at 14:30; Stop 11/28/18 at 14:31; Status DC Iodixanol (Visipaque 320) 100 ml 1X ONCE IART Last administered on 11/28/18 14:30; Start 11/28/18 at 14:30; Stop 11/28/18 at 14:31; Status DC Heparin Sodium (Porcine) (Heparin Sodium) 4,000 unit 1X ONCE IV Last administered on 11/28/18at 14:30; Start 11/28/18 at 14:30; Stop 11/28/18 at 14:31; Status DC Lidocaine HCl (Lidocaine 1% 20ml Vial) 20 ml 1X ONCE INJ Last administered on 11/28/18at 14:30; Start 11/28/18 at 14:30; Stop 11/28/18 at 14:31; Status DC Info (CONTRAST GIVEN -- Rx MONITORING) 1 each PRN DAILY PRN MC SEE COMMENTS; Start 11/28/18 at 14:30; Stop 11/30/18 at 14:29; Status DC Nitroglycerin/ Dextrose 4 mg/ Verapamil HCl 10 mg/Heparin Sodium (Porcine) 4000 unit/ Miscellaneous 20 ml/Sodium Chloride 1,048 ml @ 1,000 mls/hr 1X ONCE IART Last administered on 11/28/18at 14:45; Start 11/28/18 at 14:45; Stop 11/28/18 at 15:47; Status DC Heparin Sodium/ Sodium Chloride (HEPARIN for ARTERIAL LINE FLUSH) 1,000 unit 1X ONCE IART Last administered on 11/28/18at 14:45; Start 11/28/18 at 14:45; Stop 11/28/18 at 14:46; Status DC Heparin Sodium/ Sodium Chloride (HEPARIN for ARTERIAL LINE FLUSH) 1,000 unit 1X ONCE IART Last administered on 11/28/18at 14:45; Start 11/28/18 at 14:45; Stop 11/28/18 at 14:46; Status DC Nitroglycerin (Nitroglycerin) 200 mcg STK-MED ONCE .ROUTE ; Start 11/28/18 at 14 :42; Stop 11/28/18 at 14:43; Status DC Nitroglycerin (Nitroglycerin) 200 mcg STK-MED ONCE .ROUTE ; Start 11/28/18 at 15:19; Stop 11/28/18 at 15:20; Status DC Heparin Sodium/ Sodium Chloride 500 ml @ As Directed STK-MED ONCE .ROUTE ; Start 11/28/18 at 15:35; Stop 11/28/18 at 15:36; Status DC Heparin Sodium/ Sodium Chloride (HEPARIN for ARTERIAL LINE FLUSH) 1,000 unit 1X ONCE IART Last administered on 11/28/18at 15:45; Start 11/28/18 at 15:45; Stop 11/28/18 at 15:46; Status DC Ticagrelor (Brilinta) 90 mg STK-MED ONCE .ROUTE ; Start 11/28/18 at 15:58; Stop 11/28/18 at 15:59; Status DC Ticagrelor (Brilinta) 180 mg ONCE ONCE PO Last administered on 11/28/18at 16:03; Start 11/28/18 at 16:03; Stop 11/28/18 at 16:04; Status DC Sodium Chloride 500 ml @ 500 mls/hr 1X ONCE IV ; Start 11/28/18 at 16:30; Stop 11/28/18 at 17:29; Status DC Sodium Chloride 1,000 ml @ 50 mls/hr Q20H IV Last administered on 12/01/18 21:29; Start 11/28/18 at 16:30; Stop 12/02/18 at 06:50; Status DC Ticagrelor (Brilinta) 90 mg BID PO Last administered on 12/01/18 21:28; Start 11/28/18 at 21:00 Acetaminophen (Tylenol) 650 mg PRN Q6HRS PRN PO PAIN Last administered on 11/29/18 09:48; Start 11/29/18 at 09:45 Polyethylene Glycol (miraLAX PACKET) 17 gm DAILY PO ; Start 11/29/18 at 12:00; Status UNV Zolpidem Tartrate (Ambien) 5 mg PRN QHS PRN PO INSOMNIA Last administered on 12/01/18 21:35; Start 11/29/18 at 12:00 Hydralazine HCl (Apresoline) 10 mg TID PO Last administered on 12/01/18 21:28; Start 11/29/18 at 14:00 Isosorbide Mononitrate (Imdur) 30 mg DAILY PO Last administered on 12/01/18 08:16; Start 11/29/18 at 12:15 Magnesium Citrate (Citroma) 296 ml PRN 1X PRN PO CONSTIPATION; Start 11/30/18 at 11:15 Ondansetron HCl (Zofran) 4 mg PRN Q6HRS PRN IV NAUSEA/VOMITING; Start 11/30/18 at 18:00 Verapamil HCl (Verapamil) 5 mg STK-MED ONCE .ROUTE ; Start 11/28/18 at 13:00; Stop 12/01/18 at 07:40; Status DC Tamsulosin HCl (Flomax) 0.4 mg BID PO Last administered on 12/01/18 21:28; Start 12/01/18 at 09:00 Furosemide (Lasix) 40 mg 1X ONCE IVP Last administered on 12/02/18 09:24; Start 12/02/18 at 09:00; Stop 12/02/18 at 09:01; Status DC Active Scripts Active Humalog (Insulin Lispro) 100 Unit/1 Ml Insuln.pen 8 Units SQ TIDAC 90 Days Lantus Solostar (Insulin Glargine,Hum.rec.anlog) 100 Unit/1 Ml Insuln.pen 30 Units SQ QHS 30 Days Lisinopril 10 Mg Tablet 10 Mg PO DAILY 90 Days Reported Metoprolol Succinate ( Xl ) (Metoprolol Succinate) 25 Mg Tab.er.24h 25 Mg PO DAILY Glimepiride 4 Mg Tablet 4 Mg PO DAILY Clopidogrel (Clopidogrel Bisulfate) 75 Mg Tablet 1 Tab PO DAILY Aspir 81 (Aspirin) 81 Mg Tablet.dr 1 Tab PO DAILY Atorvastatin Calcium 80 Mg Tablet 1 Tab PO DAILY Metformin Hcl 500 Mg Tablet 1,000 Mg PO BID Vitals/I & O Vital Sign - Last 24 Hours 12/01/18 12/01/18 12/01/18 12/01/18 14:47 15:00 16:30 16:30 Temp 97.7 97.7 Pulse 88 89 88 88 Resp 14 B/P (MAP) 144/69 144/69 (94) 118/61 (80) 124/64 (84) Pulse Ox 97 O2 Delivery Room Air 12/01/18 12/01/18 12/01/18 12/01/18 16:30 19:10 19:19 21:28 Temp 98.0 98.0 Pulse 83 86 86 Resp 20 B/P (MAP) 111/67 (82) 112/68 (83) 112/68 Pulse Ox 93 O2 Delivery Room Air Room Air O2 Flow Rate 2.0 12/01/18 12/02/18 12/02/18 12/02/18 23:30 03:50 07:00 08:00 Temp 97.9 98.3 97.4 97.9 98.3 97.4 Pulse 84 95 91 Resp 20 22 18 B/P (MAP) 134/65 (88) 146/81 (102) 142/83 (102) Pulse Ox 93 95 93 O2 Delivery Room Air Room Air Room Air Room Air O2 Flow Rate 2.0 12/02/18 12/02/18 11:00 13:58 Temp 97.9 97.9 Pulse 89 95 Resp 14 12 B/P (MAP) 145/87 (106) 157/74 (101) Pulse Ox 97 2 O2 Delivery Nasal Cannula Nasal Cannula O2 Flow Rate 2.0 Intake and Output 12/01/18 12/01/18 12/02/18 15:00 23:00 07:00 Intake Total 150 ml 800 ml Output Total 100 ml Balance 150 ml 700 ml BALWINDER MA MD December 02, 2018 14:21
[2018-12-02] MEDS: ASPIRIN ENTERIC COATED 81 MG TABLET.DR. PO SCH (14:47)
[2018-12-02] MEDS: POLYETHYLENE GLYCOL 3350 17 GM PACKET. PO SCH (14:47)
[2018-12-02] MEDS: TICAGRELOR 90 MG TABLET. PO SCH ×2 (14:47→21:43)
[2018-12-02] MEDS: METOPROLOL SUCC 24HR ER 50 MG TAB.ER.24H. PO SCH (14:48)
[2018-12-02] MEDS: ISOSORBIDE MONONITRATE ER 30 MG TAB.ER.24H PO SCH (14:48)
[2018-12-02] MEDS: TAMSULOSIN 0.4 MG CAP.ER.24H. PO SCH ×2 (14:48→21:43)
[2018-12-02] MEDS: FINASTERIDE 5 MG TABLET. PO SCH (14:48)
[2018-12-02] MEDS: GLIMEPIRIDE 2 MG TABLET. PO SCH (14:49)
--- NOTE | 2018-12-02 15:41 | RAD ---
Examination: CT CHEST WO CONTRAST History: Shortness of breath and pleural effusions Comparison/Correlation: 11/29/2018 two-view chest x-ray exam, 12/01/2018 AP view of the chest Findings: Axial images of chest were obtained without contrast. Sagittal and coronal reformatted images provided. Moderate to large bilateral pleural effusions are present. Bibasilar lower lobe atelectasis noted. Significant diffuse coronary arterial calcification is evident. Pulmonary interstitial edema noted. Linear atelectasis involves the right middle lobe medially. Oral contrast is noted within the colon. High density within the gallbladder which presumably represents contrast is evident. Enhancement of the kidneys noted. Correlate with recent IV contrast menstruation. No acute bony process. Impression: Moderate to large bilateral pleural effusions with adjacent atelectasis. Pulmonary interstitial edema. Marked diffuse coronary arterial calcification. PQRS Compliance Statement: One or more of the following individualized dose reduction techniques were utilized for this examination: 1. Automated exposure control 2. Adjustment of the mA and/or kV according to patient size 3. Use of iterative reconstruction technique Electronically signed by: Devyn Estrada MD (12/02/2018 3:39 PM) [facility]
[2018-12-02] MEDS: ATORVASTATIN CALCIUM 40 MG TABLET. PO SCH (21:43)
[2018-12-02] MEDS: INSULIN GLARGINE 300 UNITS/3 ML INSULN.PEN. SQ SCH (21:49)
[2018-12-03] VITALS (8 sets, daily range): BP systolic 99–157; BP diastolic 54–87
--- NOTE | 2018-12-03 05:52 | CONS ---
DATE OF CONSULTATION: 12/02/2018 ATTENDING PHYSICIAN: Dr. Braun. REASON FOR CONSULTATION: The patient was seen at the request of Dr. Braun for rehab evaluation. 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 He had been independent with his mobility and self-care skills, not using any assistive devices. The patient was admitted with chest pain on 11/21/2018. He had some problems with weakness and shortness of breath about a week prior. The patient also with known coronary artery disease, diabetes mellitus, hypertension, also had some problems with cough, congestion and he was found with chest pain and shortness of breath. EKG revealed ST segment changes in V3 and V4 compared to the previous EKG of approximately about a month ago. The patient was also found with congestive heart failure, elevated troponin, and BNP of 16,000. He was also found with acute on chronic renal failure with baseline creatinine of 1.5 gone up to 1.9 and hyperglycemia. X-rays confirmed bilateral pulmonary infiltrates suggesting pulmonary edema. The patient was also found with urinary retention requiring Hicks catheter placement. He did have some hematuria. PAST MEDICAL HISTORY: Includes type 2 diabetes mellitus, moderately out of control with last hemoglobin A1c of over 9; hypertension; hyperlipidemia, last screening cholesterol under 100 also treated in [place] for transient ischemic attack, had carotid Doppler studies, which revealed about 50% blockage, cardiac echo revealed ejection fraction of 40%; also peripheral vascular disease status post amputation of his toes on his left foot. He had a previous coronary stenting and has been on Xarelto, so it was discontinued in September of this year. He never smoked, did not use any alcohol. The patient since admission was noted with declining renal function despite hydration. The patient had pleural effusion drained about 1.5 liters from his right chest today and plan to do tomorrow thoracentesis on the left side. He is also being treated for pulmonary hypertension. The patient apparently on bed rest recently, but he was evaluated by physical therapy on 11/22/2018. At this time, he is independent with bed mobility and transfers and walks for about 225 feet without any assistive devices. PHYSICAL EXAMINATION: Today revealed a middle-aged male. He is alert, oriented to time, place, person and circumstance and follows commands appropriately. He does not communicate well with Kosovan. His grandson helped with communication. He moves all 4 extremities voluntarily where he had 5/5 grade muscle strength. Deep tendon reflexes are decreased overall with absent knee and ankle jerks. He had crepitus on range of motion of both knee joint without any obvious knee joint effusion. Some limitation of external rotation at left hip joint. He had edema of his feet and legs. He had an indwelling Hicks catheter in place, receiving oxygen by nasal cannula. He is independent with rolling from side to side. At this time, he is too tired to get out of bed. He wants to wait latter to get up. ASSESSMENT: A middle-aged male with diabetes mellitus with peripheral neuropathy, coronary artery disease with pulmonary edema, recurrent congestive heart failure, acute on chronic renal failure with a creatinine going from 1.9-3 post-contrast, pulmonary hypertension, hypertension, urinary retention, probably benign prostatic hypertrophy. RECOMMENDATIONS: To get him up as tolerated, to consider resuming physical therapy and occupational therapy depending upon how he performs with his mobility tomorrow. Dr. Braun, I appreciate asking me to participate in the care of this interesting patient. I will be glad to follow him with you as needed for the rehabilitation. ANTONINO MARQUEZ MD DR: NOAH/dari JOB#: [id number] / [id number]
[2018-12-03 06:54] LABS: CALCIUM 7.9 mg/dL (8.5-10.1); CREATININE 2.8 mg/dL (0.7-1.3); GFR 22.6; POTASSIUM 4.3 mmol/L (3.5-5.1)
[2018-12-03] MEDS: INSULIN LISPRO 300 UNITS/3 ML INSULN.PEN. SQ SCH ×3 (07:30→16:30)
--- NOTE | 2018-12-03 07:54 | RAD ---
Ultrasound-guided right-sided thoracentesis 12/03/2018 7:50 AM Indication: PLEURAL EFFUSIONS Procedure: Informed consent was obtained. A timeout procedure was performed. Sonographic evaluation of the right chest was performed demonstrating moderate pleural effusion. The right posterior chest was prepped and draped in sterile fashion. 1% lidocaine without epinephrine was administered for local anesthesia. Real-time ultrasonographic guidance was used in passing a 5 [place] [employer] catheter into the right pleural space. 1.5 L of serosanguineous pleural fluid was removed. Samples of fluid were sent to the lab for further evaluation per ordering physician request. The catheter was removed and pressure held to achieve hemostasis. A sterile dressing was applied. No immediate complications were identified. The patient tolerated the procedure well. Impression: Right sided ultrasound-guided thoracentesis
--- NOTE | 2018-12-03 08:57 | PDOC ---
KARO CHRISTIANSON FERN GATHERER 12/03/18 0857: SUBJECTIVE Subjective Patient had thoracentesis yesterday and is going to have another one today. He is not having any pain or discomfort from his catheter and family member has not seen any blood in his urine since it was re-inserted. OBJECTIVE Objective Physical Exam: General appearance: Alert and Oriented Head: Normocephalic, without obvious abnormality Eyes: conjunctivae/corneas clear. PERRL, EOM's intact. Fundi benign Back: no CVA pain Lungs: Regular respirations, non labored breathing Abdomen: soft, non-tender. Pelvic: Hicks catheter in place draining clear yellow urine. Device in good working order. Vital Signs Vital Signs Date Time Temp Pulse Resp B/P (MAP) Pulse Ox O2 Delivery O2 Flow Rate FiO2 12/03/18 02:45 98.4 82 20 111/58 (75) 96 Nasal Cannula 2.0 98.4 12/02/18 22:50 98.7 85 22 119/60 (79) 93 Room Air 98.7 12/02/18 21:43 88 115/55 12/02/18 20:00 Room Air 12/02/18 19:50 97.9 88 20 115/55 (75) 95 Room Air 97.9 12/02/18 18:00 91 133/79 (97) 12/02/18 17:00 78 122/66 (84) 12/02/18 16:00 80 104/51 (68) 12/02/18 15:30 76 103/55 (71) 12/02/18 15:00 97.6 90 16 134/80 (98) 98 Nasal Cannula 2.0 97.6 12/02/18 14:48 95 157/74 12/02/18 14:48 95 157/74 12/02/18 14:48 95 157/74 12/02/18 14:45 88 132/73 (92) 12/02/18 14:30 88 116/68 (84) 12/02/18 14:15 92 134/80 (98) 12/02/18 13:58 95 12 157/74 (101) 2 Nasal Cannula 12/02/18 11:00 97.9 89 14 145/87 (106) 97 Nasal Cannula 2.0 97.9 I & O Intake and Output 12/03/18 06:59 Intake Total 550 ml Output Total 2650 ml Balance -2100 ml Intake Oral 450 ml IV Total 100 ml Output Urine Total 1150 ml Other 1500 ml PHYSICAL EXAM Physical Exam Physical Exam: General appearance: Alert and Oriented Head: Normocephalic, without obvious abnormality Eyes: conjunctivae/corneas clear. PERRL, EOM's intact. Fundi benign Back: no CVA pain Lungs: Regular respirations, non labored breathing Abdomen: soft, non-tender. Pelvic: Hicks catheter in place draining clear yellow urine. Device in good working order. ASSESSMENT/PLAN Assessment/Plan Maintain Hicks catheter until medical team is done with their interventions. Continue BID Flomax and [place]. Keep appointment on with Dr. Ignacio at [facility] [place] [facility] [place] May need to move appointment if he is still in house next week. Will follow peripherally until discharge. Problems: (1) Hicks catheter in place (2) Hematuria COMMENT Lab Laboratory Tests Test 12/02/18 11:49 12/02/18 16:58 12/02/18 21:11 12/03/18 05:30 Glucose (Fingerstick) 166 mg/dL (70-99) 186 mg/dL (70-99) 161 mg/dL (70-99) Sodium Level 139 mmol/L (136-145) Potassium Level 4.3 mmol/L (3.5-5.1) Chloride Level 105 mmol/L (98-107) Carbon Dioxide Level 25 mmol/L (21-32) Anion Gap 9 (6-14) Blood Urea Nitrogen 51 mg/dL (8-26) Creatinine 2.8 mg/dL (0.7-1.3) Estimated GFR (Cockcroft-Gault) 22.6 Glucose Level 94 mg/dL (70-99) Calcium Level 7.9 mg/dL (8.5-10.1) Test 12/03/18 08:07 Glucose (Fingerstick) 60 mg/dL (70-99) LAZ IGNACIO MD 12/04/18 1122: ASSESSMENT/PLAN Assessment/Plan Agree with assessment and plan. KARO CHRISTIANSON APRN December 03, 2018 08:57 LAZ IGNACIO MD December 04, 2018 11:22
[2018-12-03] MEDS: hydrALAZINE 10 MG TABLET PO SCH ×3 (09:00→21:38)
[2018-12-03] MEDS: POLYETHYLENE GLYCOL 3350 17 GM PACKET. PO SCH (09:00)
[2018-12-03] MEDS: GLIMEPIRIDE 2 MG TABLET. PO SCH (09:00)
[2018-12-03] MEDS: ASPIRIN ENTERIC COATED 81 MG TABLET.DR. PO SCH (09:18)
[2018-12-03] MEDS: ISOSORBIDE MONONITRATE ER 30 MG TAB.ER.24H PO SCH (09:18)
[2018-12-03] MEDS: METOPROLOL SUCC 24HR ER 50 MG TAB.ER.24H. PO SCH (09:18)
[2018-12-03] MEDS: TAMSULOSIN 0.4 MG CAP.ER.24H. PO SCH ×2 (09:18→21:38)
[2018-12-03] MEDS: FINASTERIDE 5 MG TABLET. PO SCH (09:19)
--- NOTE | 2018-12-03 09:59 | PDOC ---
SUBJECTIVE ROS S/P Thoracentesis rt 12/02 and Lt this am , Breathing better . No concerns voiced by RN and family OBJECTIVE Vital Signs Vital Signs Date Time Temp Pulse Resp B/P (MAP) Pulse Ox O2 Delivery O2 Flow Rate FiO2 12/03/18 09:54 83 20 101/58 (72) 95 Room Air 12/03/18 07:00 97.5 2.0 97.5 I & 0 Intake and Output 12/03/18 07:00 Intake Total 550 ml Output Total 2650 ml Balance -2100 ml Intake Oral 450 ml IV Total 100 ml Output Urine Total 1150 ml Other 1500 ml PHYSICAL EXAM Physical Exam GENERAL: NAD, propped up in bed HEENT: OM moist NECK: Supple. CARDIAC: Regular rate and rhythm LUNGS: CTA , No acc Muscle use ABDOMEN: Soft, nontender. EXTREMITIES: Edema + NEUROLOGIC: Grossly normal : Right inguinal hernia, Hicks +, no CVA or SP tenderness Skin No rash DIAGNOSIS/ASSESSMENT Assessment & Plan ASHLEY - multifactorial - Cardiorenal ,DARIELA , KENNEDY Elevated Cr from baseline at presentation on 11/21, Increased to 2.9-3 Post Cardiac cath Stable renal function Ct scan Kidneys unremarkable Strict I/O,cautious with IVF for Hydration due to CHF- if RHC planned CKD stage 3 - baseline Creat 1.3 CAD - Severe 3V CAD; s/p PCI/GIN to the RCA, LCx, and LAD ICM with ICM; LVEF 35-40%. CHF- cardiology managing diuresis Pulm HTN Type 2 diabetes, out of control. Hypertension Controlled with Occ Low BP's Urinary retention with suspected BPH Hicks re-inserted 12/02- improved UOP Urology Following Hematuria - suspect Traumatic Pl effusion - Pulm following S/P Thoracentesis Rt 1500 ml on 12/02, Lt 1600 ml this am RIGOBERTO RN COMMENT/RELEVANT DATA Meds Current Medications Medications (Trade) Dose Ordered Sig/Sathish Start Time Stop Time Status Last Admin Dose Admin Acetaminophen (Tylenol) 650 mg PRN Q6HRS PRN 11/29/18 09:45 11/29/18 09:48 650 MG Acetaminophen/ Hydrocodone Bitart (Lortab 5/325) 1 tab 1X ONCE 11/27/18 21:00 11/27/18 21:01 DC 11/27/18 21:42 1 TAB Acetylcysteine (Mucomyst 20% Oral Solution) 600 mg BID 11/24/18 21:00 11/27/18 12:00 DC 11/27/18 09:51 600 MG Alprazolam (Xanax) 0.5 mg PRN Q6HRS PRN 11/22/18 03:30 11/25/18 20:38 0.5 MG Aspirin (Ecotrin) 81 mg DAILY 11/22/18 09:00 12/03/18 09:18 81 MG Atorvastatin Calcium (Lipitor) 80 mg QHS 11/22/18 21:00 12/02/18 21:43 80 MG Clopidogrel Bisulfate (Plavix) 75 mg [id number] 11/26/18 11:30 11/28/18 17:30 DC 11/28/18 09:15 75 MG Dopamine HCl/ Dextrose 0 ml @ As Directed STK-MED ONCE 11/28/18 13:23 11/28/18 13:24 DC Fentanyl Citrate (Fentanyl 2ml Vial) 50 mcg 1X ONCE 11/25/18 09:45 11/25/18 09:46 DC 11/25/18 09:53 50 MCG Fentanyl Citrate (Fentanyl 5ml Vial) 250 mcg 1X ONCE 11/28/18 14:30 11/28/18 14:31 DC 11/28/18 14:30 150 MCG Finasteride (Proscar) 5 mg DAILY 11/28/18 10:00 12/03/18 09:19 5 MG Furosemide (Lasix) 40 mg 1X ONCE 12/02/18 09:00 12/02/18 09:01 DC 12/02/18 09:24 40 MG Glimepiride (Amaryl) 4 mg DAILY 11/22/18 09:00 12/02/18 14:49 4 MG Heparin Sodium (Porcine) (Heparin Sodium) 4,000 unit 1X ONCE 11/28/18 14:30 11/28/18 14:31 DC 11/28/18 14:30 7,500 UNIT Heparin Sodium/ Dextrose 500 ml @ 17.6 mls/hr CONT PRN 11/21/18 17:30 11/25/18 15:51 DC 11/25/18 02:02 17.6 MLS/HR Heparin Sodium/ Sodium Chloride (HEPARIN for ARTERIAL LINE FLUSH) 1,000 unit 1X ONCE 11/28/18 15:45 11/28/18 15:46 DC 11/28/18 15:45 1,000 UNIT Hydralazine HCl (Apresoline) 10 mg TID 11/29/18 14:00 12/02/18 21:43 10 MG Info (Anti-Coagulation Monitoring By Pharmacy) 1 each PRN DAILY PRN 11/22/18 10:45 11/26/18 07:22 DC 11/25/18 09:30 1 EACH Info (CONTRAST GIVEN -- Rx MONITORING) 1 each PRN DAILY PRN 11/28/18 14:30 11/30/18 14:29 DC Insulin Glargine (Lantus) 30 units QHS 11/22/18 21:00 12/02/18 21:49 30 UNITS Insulin Human Lispro (HumaLOG) 8 units TIDAC 11/22/18 11:30 12/02/18 17:32 4 UNITS Insulin Human Regular (HumuLIN R VIAL) 5 unit 1X ONCE 11/21/18 17:30 11/21/18 17:31 DC 11/21/18 17:50 5 UNIT Iodixanol (Visipaque 320) 100 ml 1X ONCE 11/28/18 14:30 11/28/18 14:31 DC 11/28/18 14:30 314 ML Isosorbide Mononitrate (Imdur) 30 mg DAILY 11/29/18 12:15 12/03/18 09:18 30 MG Lidocaine HCl (Lidocaine 1% 20ml Vial) 20 ml 1X ONCE 11/28/18 14:30 11/28/18 14:31 DC 11/28/18 14:30 20 ML Lidocaine HCl (Xylocaine-Mpf 1% 2ml Vial) 1 ml 1X ONCE 11/25/18 09:45 11/25/18 09:46 DC 11/25/18 09:52 1 ML Lisinopril (Prinivil) 10 mg DAILY 11/22/18 09:00 11/24/18 10:47 DC 11/23/18 08:42 10 MG Magnesium Citrate (Citroma) 296 ml PRN 1X PRN 11/30/18 11:15 Metoprolol Succinate (Toprol Xl) 50 mg DAILY 11/27/18 09:00 12/03/18 09:18 50 MG Midazolam HCl (Versed) 5 mg 1X ONCE 11/28/18 14:30 11/28/18 14:31 DC 11/28/18 14:30 2.5 MG Morphine Sulfate (Morphine Sulfate) 2 mg PRN Q2HR PRN 11/21/18 17:30 11/22/18 17:29 DC Nitroglycerin (Nitroglycerin) 200 mcg STK-MED ONCE 11/28/18 15:19 11/28/18 15:20 DC Nitroglycerin/ Dextrose (Nitroglycerin) 4 mg STK-MED ONCE 11/28/18 12:33 11/28/18 12:34 DC Nitroglycerin/ Dextrose 4 mg/ Verapamil HCl 10 mg/Heparin Sodium (Porcine) 4000 unit/ Miscellaneous 20 ml/Sodium Chloride 1,048 ml @ 1,000 mls/hr 1X ONCE 11/28/18 14:45 11/28/18 15:47 DC 11/28/18 14:45 1,000 MLS/HR Norepinephrine Bitartrate 250 ml @ 1.875 mls/ hr ONCE ONCE 11/28/18 13:30 12/01/18 20:08 DC Ondansetron HCl (Zofran) 4 mg PRN Q6HRS PRN 11/30/18 18:00 Phenylephrine HCl (PHENYLEPHRINE in 0.9% NACL PF) 1 mg STK-MED ONCE 11/28/18 13:23 11/28/18 13:24 DC Polyethylene Glycol (miraLAX PACKET) 17 gm DAILY 11/29/18 12:00 UNV Sodium Chloride 1,000 ml @ 50 mls/hr Q20H 11/28/18 16:30 12/02/18 06:50 DC 12/01/18 21:29 50 MLS/HR Tamsulosin HCl (Flomax) 0.4 mg BID 12/01/18 09:00 12/03/18 09:18 0.4 MG Ticagrelor (Brilinta) 90 mg BID 11/28/18 21:00 12/02/18 21:43 90 MG Verapamil HCl (Verapamil) 5 mg STK-MED ONCE 11/28/18 13:00 12/01/18 07:40 DC Zolpidem Tartrate (Ambien) 5 mg PRN QHS PRN 11/29/18 12:00 12/01/18 21:35 5 MG Lab Laboratory Tests Test 12/02/18 11:49 12/02/18 16:58 12/02/18 21:11 12/03/18 05:30 Glucose (Fingerstick) 166 mg/dL (70-99) 186 mg/dL (70-99) 161 mg/dL (70-99) Sodium Level 139 mmol/L (136-145) Potassium Level 4.3 mmol/L (3.5-5.1) Chloride Level 105 mmol/L (98-107) Carbon Dioxide Level 25 mmol/L (21-32) Anion Gap 9 (6-14) Blood Urea Nitrogen 51 mg/dL (8-26) Creatinine 2.8 mg/dL (0.7-1.3) Estimated GFR (Cockcroft-Gault) 22.6 Glucose Level 94 mg/dL (70-99) Calcium Level 7.9 mg/dL (8.5-10.1) Test 12/03/18 08:07 Glucose (Fingerstick) 60 mg/dL (70-99) Results All relevant outside records, renal labs, imaging studies, telemetry/EKG's were reviewed. XIMENA CONNELLY MD December 03, 2018 09:59
--- NOTE | 2018-12-03 10:23 | NUR ---
Pt returned to unit from IR with bandaid to the left side s/p left thoracentesis. Pt has no complaints of pain or SIB at this time. Mary,konstantin at bedside to translate. Educated patient to advise if any sudden pain or SOB does occur. Verbalized understanding.
[2018-12-03] MEDS: TICAGRELOR 90 MG TABLET. PO SCH ×2 (10:56→21:00)
[2018-12-03] MEDS: ACETAMINOPHEN 325 MG TABLET. PO PRN (10:56)
--- NOTE | 2018-12-03 11:18 | PDOC ---
PULMONARY PROGRESS NOTES Subjective NO SOA S/P BILATERAL THORACENTESIS Vitals Vital Signs Date Time Temp Pulse Resp B/P (MAP) Pulse Ox O2 Delivery O2 Flow Rate FiO2 12/03/18 09:54 83 20 101/58 (72) 95 Room Air 12/03/18 07:00 97.5 2.0 97.5 General: Alert, No acute distress Lungs: Clear Cardiovascular: S1 Abdomen: Soft Neuro Exam: Alert Extremities: No Edema Skin: Warm Labs Laboratory Tests Test 12/01/18 12:13 12/01/18 17:46 12/01/18 21:26 12/01/18 23:36 Glucose (Fingerstick) 112 mg/dL (70-99) 157 mg/dL (70-99) 64 mg/dL (70-99) 105 mg/dL (70-99) Test 12/02/18 05:45 12/02/18 07:50 12/02/18 11:49 12/02/18 14:02 Sodium Level 135 mmol/L (136-145) Potassium Level 4.9 mmol/L (3.5-5.1) Chloride Level 100 mmol/L (98-107) Carbon Dioxide Level 21 mmol/L (21-32) Anion Gap 14 (6-14) Blood Urea Nitrogen 48 mg/dL (8-26) Creatinine 3.0 mg/dL (0.7-1.3) Estimated GFR (Cockcroft-Gault) 20.9 Glucose Level 160 mg/dL (70-99) Calcium Level 8.2 mg/dL (8.5-10.1) Glucose (Fingerstick) 164 mg/dL (70-99) 166 mg/dL (70-99) Body Fluid Total Protein 1.7 g/dL (.) Body Fluid Lactate Dehydrogenase 74 IU/L (.) Test 12/02/18 16:58 12/02/18 21:11 12/03/18 05:30 12/03/18 08:07 Glucose (Fingerstick) 186 mg/dL (70-99) 161 mg/dL (70-99) 60 mg/dL (70-99) Sodium Level 139 mmol/L (136-145) Potassium Level 4.3 mmol/L (3.5-5.1) Chloride Level 105 mmol/L (98-107) Carbon Dioxide Level 25 mmol/L (21-32) Anion Gap 9 (6-14) Blood Urea Nitrogen 51 mg/dL (8-26) Creatinine 2.8 mg/dL (0.7-1.3) Estimated GFR (Cockcroft-Gault) 22.6 Glucose Level 94 mg/dL (70-99) Calcium Level 7.9 mg/dL (8.5-10.1) Laboratory Tests Test 12/02/18 11:49 12/02/18 14:02 12/02/18 16:58 12/02/18 21:11 Glucose (Fingerstick) 166 mg/dL (70-99) 186 mg/dL (70-99) 161 mg/dL (70-99) Body Fluid Total Protein 1.7 g/dL (.) Body Fluid Lactate Dehydrogenase 74 IU/L (.) Test 12/03/18 05:30 12/03/18 08:07 Sodium Level 139 mmol/L (136-145) Potassium Level 4.3 mmol/L (3.5-5.1) Chloride Level 105 mmol/L (98-107) Carbon Dioxide Level 25 mmol/L (21-32) Anion Gap 9 (6-14) Blood Urea Nitrogen 51 mg/dL (8-26) Creatinine 2.8 mg/dL (0.7-1.3) Estimated GFR (Cockcroft-Gault) 22.6 Glucose Level 94 mg/dL (70-99) Calcium Level 7.9 mg/dL (8.5-10.1) Glucose (Fingerstick) 60 mg/dL (70-99) Medications Active Scripts Medications Dose Route/Sig Max Daily Dose Days Date Category Metoprolol Succinate ( Xl ) (Metoprolol Succinate) 25 Mg Tab.er.24h 25 Mg PO DAILY 11/21/18 Reported Glimepiride 4 Mg Tablet 4 Mg PO DAILY 11/21/18 Reported Humalog (Insulin Lispro) 100 Unit/1 Ml Insuln.pen 8 Units SQ TIDAC 02/12/18 Rx Lantus Solostar (Insulin Glargine,Hum.rec.anlog) 100 Unit/1 Ml Insuln.pen 30 Units SQ QHS 30 02/12/18 Rx Lisinopril 10 Mg Tablet 10 Mg PO DAILY 90 02/12/18 Rx Clopidogrel (Clopidogrel Bisulfate) 75 Mg Tablet 1 Tab PO DAILY 04/09/14 Reported Aspir 81 (Aspirin) 81 Mg Tablet.dr 1 Tab PO DAILY 04/09/14 Reported Atorvastatin Calcium 80 Mg Tablet 1 Tab PO DAILY 04/09/14 Reported Metformin Hcl 500 Mg Tablet 1,000 Mg PO BID 04/09/14 Reported Impression . 1. Progressively increased bilateral pleural effusions. Best visualized on CT chest from today, with [id number] bilateral effusions. RELATED TO CHF/ RENAL FAILURE 2. Sotsz-gs-yahafdy systolic heart failure with worsening pleural effusions secondary to his cardiomyopathy and in the setting of [id number] renal failure. 3. Severe 3-vessel coronary artery disease, status post percutaneous coronary intervention to right coronary artery, left circumflex and left anterior descending. 4. Acute kidney injury on chronic kidney disease. Plan . 1. S/P bilateral thoracentesis 2. will review analysis 3. He would benefit from diuresis to prevent further reaccumulation 4. Follow Cardiology recommendations. 5. Follow Renal recommendations. cxr today ANSHUL LARA MD December 03, 2018 11:18
--- NOTE | 2018-12-03 12:35 | PDOC ---
PROGRESS NOTES Subjective Subjective Patient sleeping. Family very concerned about lac of sleep carlos poor po intake over the last several weeks especially over the last 4 days. Patient has second thoracentesis this am. Objective Objective Vital Signs Date Time Temp Pulse Resp B/P (MAP) Pulse Ox O2 Delivery O2 Flow Rate FiO2 12/03/18 11:00 97.6 64 14 157/87 (110) 98 Room Air 97.6 12/03/18 07:00 2.0 Intake and Output 12/03/18 06:59 Intake Total 550 ml Output Total 2650 ml Balance -2100 ml Intake Oral 450 ml IV Total 100 ml Output Urine Total 1150 ml Other 1500 ml Physical Exam Heart: Regular rate Extremities: Other (1+) Assessment Assessment Problems Medical Problems: (1) [id number] kidney injury Status: Acute (2) Chest pain Status: Acute (3) CHF (congestive heart failure) Status: Acute CAD s/p Multiple vessel stent. Recurrent CHF Pleural effusion s/p bilateral thoracentesis Acute on chronic renal failure with creatinine down from high of 3 to 2.8 today Pulm HTN Type 2 diabetes, out of control. Hypertension. Urinary retention with suspected BPH Hicks replaced possible home with leg bag to f/u with urology 12/11 Comment Review of Relevant I have reviewed the following items bahman (where applicable) has been applied. Labs Laboratory Tests Test 12/01/18 17:46 12/01/18 21:26 12/01/18 23:36 12/02/18 05:45 Glucose (Fingerstick) 157 mg/dL (70-99) 64 mg/dL (70-99) 105 mg/dL (70-99) Sodium Level 135 mmol/L (136-145) Potassium Level 4.9 mmol/L (3.5-5.1) Chloride Level 100 mmol/L (98-107) Carbon Dioxide Level 21 mmol/L (21-32) Anion Gap 14 (6-14) Blood Urea Nitrogen 48 mg/dL (8-26) Creatinine 3.0 mg/dL (0.7-1.3) Estimated GFR (Cockcroft-Gault) 20.9 Glucose Level 160 mg/dL (70-99) Calcium Level 8.2 mg/dL (8.5-10.1) Test 12/02/18 07:50 12/02/18 11:49 12/02/18 14:02 12/02/18 16:58 Glucose (Fingerstick) 164 mg/dL (70-99) 166 mg/dL (70-99) 186 mg/dL (70-99) Body Fluid Total Protein 1.7 g/dL (.) Body Fluid Lactate Dehydrogenase 74 IU/L (.) Test 12/02/18 21:11 12/03/18 05:30 12/03/18 08:07 Glucose (Fingerstick) 161 mg/dL (70-99) 60 mg/dL (70-99) Sodium Level 139 mmol/L (136-145) Potassium Level 4.3 mmol/L (3.5-5.1) Chloride Level 105 mmol/L (98-107) Carbon Dioxide Level 25 mmol/L (21-32) Anion Gap 9 (6-14) Blood Urea Nitrogen 51 mg/dL (8-26) Creatinine 2.8 mg/dL (0.7-1.3) Estimated GFR (Cockcroft-Gault) 22.6 Glucose Level 94 mg/dL (70-99) Calcium Level 7.9 mg/dL (8.5-10.1) Laboratory Tests Test 12/02/18 14:02 12/02/18 16:58 12/02/18 21:11 12/03/18 05:30 Body Fluid Total Protein 1.7 g/dL (.) Body Fluid Lactate Dehydrogenase 74 IU/L (.) Glucose (Fingerstick) 186 mg/dL (70-99) 161 mg/dL (70-99) Sodium Level 139 mmol/L (136-145) Potassium Level 4.3 mmol/L (3.5-5.1) Chloride Level 105 mmol/L (98-107) Carbon Dioxide Level 25 mmol/L (21-32) Anion Gap 9 (6-14) Blood Urea Nitrogen 51 mg/dL (8-26) Creatinine 2.8 mg/dL (0.7-1.3) Estimated GFR (Cockcroft-Gault) 22.6 Glucose Level 94 mg/dL (70-99) Calcium Level 7.9 mg/dL (8.5-10.1) Test 12/03/18 08:07 Glucose (Fingerstick) 60 mg/dL (70-99) Microbiology 11/22/18 Urine Culture - Final, Complete 11/22/18 Urine Culture Result 1 (TIFFANIE) - Final, Complete Medications Current Medications Furosemide (Lasix) 60 mg 1X ONCE IVP Last administered on 11/21/18 16:34; Start 11/21/18 at 15:45; Stop 11/21/18 at 15:49; Status DC Insulin Human Regular (HumuLIN R VIAL) 5 unit 1X ONCE IV Last administered on 11/21/18at 17:50; Start 11/21/18 at 17:30; Stop 11/21/18 at 17:31; Status DC Heparin Sodium (Porcine) (Heparin Sodium) 4,000 unit 1X ONCE IV Last administered on 11/21/18 17:46; Start 11/21/18 at 17:30; Stop 11/21/18 at 17:31; Status DC Heparin Sodium/ Dextrose 500 ml @ 17.6 mls/hr CONT PRN IV SEE I/O RECORD Last administered on 11/25/18 02:02; Start 11/21/18 at 17:30; Stop 11/25/18 at 15:51; Status DC Heparin Sodium (Porcine) (Heparin Sodium) 1,850 unit PRN Q6HRS PRN IV FOR UFH LEVEL LESS THAN 0.2 Last administered on 11/22/18at 01:30; Start 11/21/18 at 17:30; Stop 11/25/18 at 15:51; Status DC Ondansetron HCl (Zofran) 4 mg PRN Q8HRS PRN IV NAUSEA/VOMITING; Start 11/21/18 at 17:30; Stop 11/22/18 at 17:29; Status DC Morphine Sulfate (Morphine Sulfate) 2 mg PRN Q2HR PRN IV PAIN; Start 11/21/18 at 17:30; Stop 11/22/18 at 17:29; Status DC Acetaminophen (Tylenol) 650 mg PRN Q4HRS PRN PO FEVER; Start 11/21/18 at 17:30; Stop 11/22/18 at 17:29; Status DC Alprazolam (Xanax) 0.5 mg PRN Q6HRS PRN PO ANXIETY / AGITATION Last administered on 11/25/18 20:38; Start 11/22/18 at 03:30 Aspirin (Ecotrin) 81 mg DAILY PO Last administered on 12/03/18at 09:18; Start 11/22/18 at 09:00 Clopidogrel Bisulfate (Plavix) 75 mg DAILY PO Last administered on 11/25/18 08:45; Start 11/22/18 at 09:00; Stop 11/26/18 at 10:07; Status DC Insulin Glargine (Lantus) 30 units QHS SQ Last administered on 12/02/18 21:49; Start 11/22/18 at 21:00 Insulin Human Lispro (HumaLOG) 8 units TIDAC SQ Last administered on 12/02/18 17:32; Start 11/22/18 at 11:30 Lisinopril (Prinivil) 10 mg DAILY PO Last administered on 11/23/18 08:42; Start 11/22/18 at 09:00; Stop 11/24/18 at 10:47; Status DC Metoprolol Succinate (Toprol Xl) 25 mg DAILY PO Last administered on 11/26/18 08:15; Start 11/22/18 at 09:00; Stop 11/26/18 at 11:28; Status DC Atorvastatin Calcium (Lipitor) 80 mg QHS PO Last administered on 12/02/18 21:43; Start 11/22/18 at 21:00 Glimepiride (Amaryl) 4 mg DAILY PO Last administered on 12/02/18 14:49; Start 11/22/18 at 09:00 Info (Anti-Coagulation Monitoring By Pharmacy) 1 each PRN DAILY PRN MC SEE COMMENTS Last administered on 11/25/18 09:30; Start 11/22/18 at 10:45; Stop 11/26/18 at 07:22; Status DC Tamsulosin HCl (Flomax) 0.4 mg QHS PO Last administered on 11/30/18 21:16; Start 11/22/18 at 21:00; Stop 12/01/18 at 08:39; Status DC Magnesium Citrate (Citroma) 296 ml 1X ONCE PO Last administered on 11/24/18 15:39; Start 11/24/18 at 15:00; Stop 11/24/18 at 15:01; Status DC Polyethylene Glycol (miraLAX PACKET) 17 gm DAILY PO Last administered on 12/02/18 14:47; Start 11/24/18 at 15:00 Acetylcysteine (Mucomyst 20% Oral Solution) 600 mg BID PO Last administered on 11/27/18at 09:51; Start 11/24/18 at 21:00; Stop 11/27/18 at 12:00; Status DC Sodium Chloride 1,000 ml @ 60 mls/hr [id number] IV Last administered on 11/24/18at 22:22; Start 11/25/18 at 07:30; Stop 11/25/18 at 14:10; Status DC Iodixanol (Visipaque 320) 100 ml STK-MED ONCE .ROUTE ; Start 11/25/18 at 09:00; Stop 11/25/18 at 09:01; Status DC Lidocaine HCl (Xylocaine-Mpf 1% 2ml Vial) 2 ml STK-MED ONCE .ROUTE ; Start 11/25/18 at 09:00; Stop 11/25/18 at 09:01; Status DC Heparin Sodium/ Sodium Chloride 1,500 ml @ As Directed STK-MED ONCE .ROUTE ; Start 11/25/18 at 09:00; Stop 11/25/18 at 09:01; Status DC Fentanyl Citrate (Fentanyl 2ml Vial) 100 mcg STK-MED ONCE .ROUTE ; Start 11/25/18 at 09:03; Stop 11/25/18 at 09:04; Status DC Midazolam HCl (Versed) 2 mg STK-MED ONCE .ROUTE ; Start 11/25/18 at 09:03; Stop 11/25/18 at 09:04; Status DC Heparin Sodium (Porcine) (Heparin Sodium) 10,000 unit STK-MED ONCE .ROUTE ; Start 11/25/18 at 09:03; Stop 11/25/18 at 09:04; Status DC Verapamil HCl (Verapamil) 5 mg STK-MED ONCE .ROUTE ; Start 11/25/18 at 09:03; Stop 11/25/18 at 09:04; Status DC Nitroglycerin (Nitroglycerin) 200 mcg STK-MED ONCE .ROUTE ; Start 11/25/18 at 09:04; Stop 11/25/18 at 09:05; Status DC Lidocaine HCl (Lidocaine 1% 20ml Vial) 20 ml STK-MED ONCE .ROUTE ; Start 11/25/18 at 09:25; Stop 11/25/18 at 09:26; Status DC Heparin Sodium/ Sodium Chloride (HEPARIN for ARTERIAL LINE FLUSH) 1,000 unit 1X ONCE IART Last administered on 11/25/18 09:53; Start 11/25/18 at 09:45; Stop 11/25/18 at 09:46; Status DC Midazolam HCl (Versed) 2 mg 1X ONCE IV Last administered on 11/25/18 09:52; Start 11/25/18 at 09:45; Stop 11/25/18 at 09:46; Status DC Fentanyl Citrate (Fentanyl 2ml Vial) 50 mcg 1X ONCE IV Last administered on 11/25/18 09:53; Start 11/25/18 at 09:45; Stop 11/25/18 at 09:46; Status DC Iodixanol (Visipaque 320) 100 ml 1X ONCE IART Last administered on 11/25/18 09:52; Start 11/25/18 at 09:45; Stop 11/25/18 at 09:46; Status DC Lidocaine HCl (Lidocaine 1% 20ml Vial) 10 ml 1X ONCE INJ Last administered on 11/25/18 09:45; Start 11/25/18 at 09:45; Stop 11/25/18 at 09:46; Status DC Lidocaine HCl (Xylocaine-Mpf 1% 2ml Vial) 1 ml 1X ONCE INJ Last administered on 11/25/18 09:52; Start 11/25/18 at 09:45; Stop 11/25/18 at 09:46; Status DC Info (CONTRAST GIVEN -- Rx MONITORING) 1 each PRN DAILY PRN MC SEE COMMENTS; Start 11/25/18 at 09:45; Stop 11/27/18 at 09:44; Status DC Furosemide (Lasix) 40 mg 1X ONCE IVP Last administered on 11/25/18at 17:08; Start 11/25/18 at 16:00; Stop 11/25/18 at 16:01; Status DC Verapamil HCl (Verapamil) 5 mg STK-MED ONCE .ROUTE ; Start 11/25/18 at 09:00; Stop 11/26/18 at 08:28; Status DC Metoprolol Succinate (Toprol Xl) 50 mg DAILY PO Last administered on 12/03/18at 09:18; Start 11/27/18 at 09:00 Clopidogrel Bisulfate (Plavix) 75 mg DAILYWBKFT PO Last administered on 11/28/18at 09:15; Start 11/26/18 at 11:30; Stop 11/28/18 at 17:30; Status DC Furosemide (Lasix) 20 mg 1X ONCE IVP Last administered on 11/26/18at 12:39; Start 11/26/18 at 11:30; Stop 11/26/18 at 11:31; Status DC Acetaminophen/ Hydrocodone Bitart (Lortab 5/325) 1 tab 1X ONCE PO Last administered on 11/27/18at 21:42; Start 11/27/18 at 21:00; Stop 11/27/18 at 21:01; Status DC Finasteride (Proscar) 5 mg DAILY PO Last administered on 12/03/18at 09:19; Start 11/28/18 at 10:00 Iodixanol (Visipaque 320) 100 ml STK-MED ONCE .ROUTE ; Start 11/28/18 at 09:58; Stop 11/28/18 at 09:59; Status DC Lidocaine HCl (Lidocaine 1% 20ml Vial) 20 ml STK-MED ONCE .ROUTE ; Start 11/28/18 at 09:58; Stop 11/28/18 at 09:59; Status DC Heparin Sodium/ Sodium Chloride 1,500 ml @ As Directed STK-MED ONCE .ROUTE ; Start 11/28/18 at 09:58; Stop 11/28/18 at 09:59; Status DC Fentanyl Citrate (Fentanyl 5ml Vial) 250 mcg STK-MED ONCE .ROUTE ; Start 11/28/18 at 12:20; Stop 11/28/18 at 12:21; Status DC Midazolam HCl (Versed) 5 mg STK-MED ONCE .ROUTE ; Start 11/28/18 at 12:21; Stop 11/28/18 at 12:22; Status DC Heparin Sodium (Porcine) (Heparin Sodium) 10,000 unit STK-MED ONCE .ROUTE ; Start 11/28/18 at 12:33; Stop 11/28/18 at 12:34; Status DC Verapamil HCl (Verapamil) 5 mg STK-MED ONCE .ROUTE ; Start 11/28/18 at 12:33; Stop 11/28/18 at 12:34; Status DC Nitroglycerin/ Dextrose (Nitroglycerin) 4 mg STK-MED ONCE .ROUTE ; Start 11/28/18 at 12:33; Stop 11/28/18 at 12:34; Status DC Heparin Sodium (Porcine) (Heparin Sodium) 10,000 unit STK-MED ONCE .ROUTE ; Start 11/28/18 at 12:45; Stop 11/28/18 at 12:46; Status DC Heparin Sodium/ Sodium Chloride 500 ml @ As Directed STK-MED ONCE .ROUTE ; Start 11/28/18 at 13:09; Stop 11/28/18 at 13:10; Status DC Dopamine HCl/ Dextrose 0 ml @ As Directed STK-MED ONCE IV ; Start 11/28/18 at 13:23; Stop 11/28/18 at 13:24; Status DC Phenylephrine HCl (PHENYLEPHRINE in 0.9% NACL PF) 1 mg STK-MED ONCE IV ; Start 11/28/18 at 13:23; Stop 11/28/18 at 13:24; Status DC Norepinephrine Bitartrate 250 ml @ 1.875 mls/ hr ONCE ONCE IV ; Start 11/28/18 at 13:30; Stop 12/01/18 at 20:08; Status DC Heparin Sodium/ Sodium Chloride 500 ml @ As Directed STK-MED ONCE .ROUTE ; Start 11/28/18 at 13:39; Stop 11/28/18 at 13:40; Status DC Nitroglycerin (Nitroglycerin) 200 mcg STK-MED ONCE .ROUTE ; Start 11/28/18 at 14:03; Stop 11/28/18 at 14:04; Status DC Nitroglycerin (Nitroglycerin) 200 mcg STK-MED ONCE .ROUTE ; Start 11/28/18 at 14:10; Stop 11/28/18 at 14:11; Status DC Nitroglycerin (Nitroglycerin) 400 mcg 1X ONCE IART Last administered on 9at 14:30; Start 11/28/18 at 14:30; Stop 11/28/18 at 14:31; Status DC Heparin Sodium/ Sodium Chloride (HEPARIN for ARTERIAL LINE FLUSH) 1,000 unit 1X ONCE IART Last administered on 11/28/18at 14:30; Start 11/28/18 at 14:30; Stop 11/28/18 at 14:31; Status DC Heparin Sodium/ Sodium Chloride (HEPARIN for ARTERIAL LINE FLUSH) 1,000 unit 1X ONCE IART Last administered on 11/28/18at 14:30; Start 11/28/18 at 14:30; Stop 11/28/18 at 14:31; Status DC Midazolam HCl (Versed) 5 mg 1X ONCE IV Last administered on 11/28/18 14:30; Start 11/28/18 at 14:30; Stop 11/28/18 at 14:31; Status DC Fentanyl Citrate (Fentanyl 5ml Vial) 250 mcg 1X ONCE IV Last administered on 11/28/18 14:30; Start 11/28/18 at 14:30; Stop 11/28/18 at 14:31; Status DC Iodixanol (Visipaque 320) 100 ml 1X ONCE IART Last administered on 11/28/18 14:30; Start 11/28/18 at 14:30; Stop 11/28/18 at 14:31; Status DC Heparin Sodium (Porcine) (Heparin Sodium) 4,000 unit 1X ONCE IV Last administered on 11/28/18 14:30; Start 11/28/18 at 14:30; Stop 11/28/18 at 14:31; Status DC Lidocaine HCl (Lidocaine 1% 20ml Vial) 20 ml 1X ONCE INJ Last administered on 11/28/18 14:30; Start 11/28/18 at 14:30; Stop 11/28/18 at 14:31; Status DC Info (CONTRAST GIVEN -- Rx MONITORING) 1 each PRN DAILY PRN MC SEE COMMENTS; Start 11/28/18 at 14:30; Stop 11/30/18 at 14:29; Status DC Nitroglycerin/ Dextrose 4 mg/ Verapamil HCl 10 mg/Heparin Sodium (Porcine) 4000 unit/ Miscellaneous 20 ml/Sodium Chloride 1,048 ml @ 1,000 mls/hr 1X ONCE IART Last administered on 11/28/18at 14:45; Start 11/28/18 at 14:45; Stop 11/28/18 at 15:47; Status DC Heparin Sodium/ Sodium Chloride (HEPARIN for ARTERIAL LINE FLUSH) 1,000 unit 1X ONCE IART Last administered on 11/28/18at 14:45; Start 11/28/18 at 14:45; Stop 11/28/18 at 14:46; Status DC Heparin Sodium/ Sodium Chloride (HEPARIN for ARTERIAL LINE FLUSH) 1,000 unit 1X ONCE IART Last administered on 11/28/18at 14:45; Start 11/28/18 at 14:45; Stop 11/28/18 at 14:46; Status DC Nitroglycerin (Nitroglycerin) 200 mcg STK-MED ONCE .ROUTE ; Start 11/28/18 at 14:42; Stop 11/28/18 at 14:43; Status DC Nitroglycerin (Nitroglycerin) 200 mcg STK-MED ONCE .ROUTE ; Start 11/28/18 at 15:19; Stop 11/28/18 at 15:20; Status DC Heparin Sodium/ Sodium Chloride 500 ml @ As Directed STK-MED ONCE .ROUTE ; Start 11/28/18 at 15:35; Stop 11/28/18 at 15:36; Status DC Heparin Sodium/ Sodium Chloride (HEPARIN for ARTERIAL LINE FLUSH) 1,000 unit 1X ONCE IART Last administered on 11/28/18at 15:45; Start 11/28/18 at 15:45; Stop 11/28/18 at 15:46; Status DC Ticagrelor (Brilinta) 90 mg STK-MED ONCE .ROUTE ; Start 11/28/18 at 15:58; Stop 11/28/18 at 15:59; Status DC Ticagrelor (Brilinta) 180 mg ONCE ONCE PO Last administered on 11/28/18at 16:03; Start 11/28/18 at 16:03; Stop 11/28/18 at 16:04; Status DC Sodium Chloride 500 ml @ 500 mls/hr 1X ONCE IV ; Start 11/28/18 at 16:30; Stop 11/28/18 at 17:29; Status DC Sodium Chloride 1,000 ml @ 50 mls/hr Q20H IV Last administered on 12/01/18at 21:29; Start 11/28/18 at 16:30; Stop 12/02/18 at 06:50; Status DC Ticagrelor (Brilinta) 90 mg BID PO Last administered on 12/03/18at 10:56; Start 11/28/18 at 21:00 Acetaminophen (Tylenol) 650 mg PRN Q6HRS PRN PO PAIN Last administered on 12/03/18at 10:56; Start 11/29/18 at 09:45 Polyethylene Glycol (miraLAX PACKET) 17 gm DAILY PO ; Start 11/29/18 at 12:00; Status UNV Zolpidem Tartrate (Ambien) 5 mg PRN QHS PRN PO INSOMNIA Last administered on 12/01/18 21:35; Start 11/29/18 at 12:00 Hydralazine HCl (Apresoline) 10 mg TID PO Last administered on 12/02/18 21:43; Start 11/29/18 at 14:00 Isosorbide Mononitrate (Imdur) 30 mg DAILY PO Last administered on 12/03/18 09:18; Start 11/29/18 at 12:15 Magnesium Citrate (Citroma) 296 ml PRN 1X PRN PO CONSTIPATION; Start 11/30/18 at 11:15 Ondansetron HCl (Zofran) 4 mg PRN Q6HRS PRN IV NAUSEA/VOMITING; Start 11/30/18 at 18:00 Verapamil HCl (Verapamil) 5 mg STK-MED ONCE .ROUTE ; Start 11/28/18 at 13:00; Stop 12/01/18 at 07:40; Status DC Tamsulosin HCl (Flomax) 0.4 mg BID PO Last administered on 12/03/18 09:18; Start 12/01/18 at 09:00 Furosemide (Lasix) 40 mg 1X ONCE IVP Last administered on 12/02/18 09:24; Start 12/02/18 at 09:00; Stop 12/02/18 at 09:01; Status DC Active Scripts Active Humalog (Insulin Lispro) 100 Unit/1 Ml Insuln.pen 8 Units SQ TIDAC 90 Days Lantus Solostar (Insulin Glargine,Hum.rec.anlog) 100 Unit/1 Ml Insuln.pen 30 Units SQ QHS 30 Days Lisinopril 10 Mg Tablet 10 Mg PO DAILY 90 Days Reported Metoprolol Succinate ( Xl ) (Metoprolol Succinate) 25 Mg Tab.er.24h 25 Mg PO DAILY Glimepiride 4 Mg Tablet 4 Mg PO DAILY Clopidogrel (Clopidogrel Bisulfate) 75 Mg Tablet 1 Tab PO DAILY Aspir 81 (Aspirin) 81 Mg Tablet.dr 1 Tab PO DAILY Atorvastatin Calcium 80 Mg Tablet 1 Tab PO DAILY Metformin Hcl 500 Mg Tablet 1,000 Mg PO BID Vitals/I & O Vital Sign - Last 24 Hours 12/02/18 12/02/18 12/02/18 12/02/18 13:58 14:15 14:30 14:45 Pulse 95 92 88 88 Resp 12 B/P (MAP) 157/74 (101) 134/80 (98) 116/68 (84) 132/73 (92) Pulse Ox 2 O2 Delivery Nasal Cannula 12/02/18 12/02/18 12/02/18 12/02/18 14:48 14:48 14:48 15:00 Temp 97.6 97.6 Pulse 95 95 95 90 Resp 16 B/P (MAP) 157/74 157/74 157/74 134/80 (98) Pulse Ox 98 O2 Delivery Nasal Cannula O2 Flow Rate 2.0 12/02/18 12/02/18 12/02/18 12/02/18 15:30 16:00 17:00 18:00 Pulse 76 80 78 91 B/P (MAP) 103/55 (71) 104/51 (68) 122/66 (84) 133/79 (97) 12/02/18 12/02/18 12/02/18 12/02/18 19:50 20:00 21:43 22:50 Temp 97.9 98.7 97.9 98.7 Pulse 88 88 85 Resp 20 22 B/P (MAP) 115/55 (75) 115/55 119/60 (79) Pulse Ox 95 93 O2 Delivery Room Air Room Air Room Air 12/03/18 12/03/18 12/03/18 12/03/18 02:45 07:00 08:00 09:18 Temp 98.4 97.5 98.4 97.5 Pulse 82 83 83 Resp 20 12 B/P (MAP) 111/58 (75) 112/62 (79) 112/62 Pulse Ox 96 92 O2 Delivery Nasal Cannula Nasal Cannula Room Air O2 Flow Rate 2.0 2.0 12/03/18 12/03/18 12/03/18 12/03/18 09:18 09:38 09:54 11:00 Temp 97.6 97.6 Pulse 83 83 83 64 Resp 18 20 14 B/P (MAP) 112/62 104/59 (74) 101/58 (72) 157/87 (110) Pulse Ox 97 95 98 O2 Delivery Room Air Room Air Room Air Intake and Output 12/02/18 12/02/18 12/03/18 14:59 22:59 06:59 Intake Total 100 ml 250 ml 200 ml Output Total 1500 ml 1150 ml Balance -1400 ml 250 ml -950 ml BALWINDER MA MD December 03, 2018 12:35
--- NOTE | 2018-12-03 12:58 | PDOC ---
CARDIO Progress Notes Date and Time Date of Service 12/03/2018 Time of Evaluation 1230 Subjective Subjective: No Chest Pain, No shortness of breath, No Palpitations Vitals Vitals Vital Signs Date Time Temp Pulse Resp B/P (MAP) Pulse Ox O2 Delivery O2 Flow Rate FiO2 12/03/18 11:00 97.6 64 14 157/87 (110) 98 Room Air 97.6 12/03/18 07:00 2.0 Weight Weight [ ] Input and Output Intake and Output Intake and Output 12/03/18 07:00 Intake Total 550 ml Output Total 2650 ml Balance -2100 ml Intake Oral 450 ml IV Total 100 ml Output Urine Total 1150 ml Other 1500 ml Laboratory Labs Laboratory Tests Test 12/02/18 14:02 12/02/18 16:58 12/02/18 21:11 12/03/18 05:30 Body Fluid Total Protein 1.7 g/dL (.) Body Fluid Lactate Dehydrogenase 74 IU/L (.) Glucose (Fingerstick) 186 mg/dL (70-99) 161 mg/dL (70-99) Sodium Level 139 mmol/L (136-145) Potassium Level 4.3 mmol/L (3.5-5.1) Chloride Level 105 mmol/L (98-107) Carbon Dioxide Level 25 mmol/L (21-32) Anion Gap 9 (6-14) Blood Urea Nitrogen 51 mg/dL (8-26) Creatinine 2.8 mg/dL (0.7-1.3) Estimated GFR (Cockcroft-Gault) 22.6 Glucose Level 94 mg/dL (70-99) Calcium Level 7.9 mg/dL (8.5-10.1) Test 12/03/18 08:07 Glucose (Fingerstick) 60 mg/dL (70-99) Microbiology Micro Microbiology 11/22/18 Urine Culture - Final, Complete 11/22/18 Urine Culture Result 1 (TIFFANIE) - Final, Complete Physical Exam HEENT: Neck Supple W Full Motion Chest: Symmetric LUNGS: Other (basilar crackles) Heart: S1S2, RRR (SR without significant ectopies) Abdomen: Soft N/T Extremities: Other (2-3+ bilateral LE pitting edema) Neurology: alert, oriented, follow commands Assessment Assessment 1. Acute on chronic systolic heart failure; 1.5 L left thoracentesis yesterday. S/P thoracentesis to right today approx 1.6L 2. ICM with ICM; LVEF 35-40% 3. Severe 3V CAD; s/p PCI/GIN to the RCA, LCx, and LAD 4. Hypertension; controlled 5. Hyperlipidemia; statin 6. ASHLEY on CKD; Cr 3, baseline Cr at 1.6-1.8. Cr at 2.8 slowly improving. nephrology following 7. DM2 ' Recommendations 1. DAPT with ASA and Brilinta. Lasix PRN. 2. Follow up in office in 1 week with BMP at 830 AM on December 10 then on January 21 at 830 AM 3. no ACEi/ARB at this time. Continue with secondary prevention. Statin and toprol. 4. Cardiac rehab referral. LEYDA VALLES [employer] December 03, 2018 12:58
--- NOTE | 2018-12-03 13:20 | NUR ---
SS following up with discharge planning. [facility] contacted SS and notified that pt does not currently meet criteria for [facility].
--- NOTE | 2018-12-03 15:14 | RAD ---
Chest, 2 views, 12/03/2018: HISTORY: Postthoracentesis evaluation Comparison is made to a study from 12/01/2018. The heart is at the upper limits of normal in size. Coronary artery radiopacities are present compatible with calcifications and/or stents. Basilar opacities have markedly improved due to interval bilateral thoracenteses. There is mild residual bibasilar atelectasis/infiltrate. Triny B lines are present compatible with residual interstitial edema. No significant volume of residual pleural fluid is evident. There is no evidence of pneumothorax. IMPRESSION: Markedly improved aeration of the lung bases status post bilateral thoracenteses. There are mild residual patchy basilar infiltrates and interstitial opacities. Electronically signed by: Torrey Benitez MD (12/03/2018 3:11 PM) [facility]
--- NOTE | 2018-12-03 16:05 | PDOC ---
PROGRESS NOTES Subjective Subjective He c/o being fatigued after thoracentesis earlier in the day. Objective Objective Vital Signs Date Time Temp Pulse Resp B/P (MAP) Pulse Ox O2 Delivery O2 Flow Rate FiO2 12/03/18 14:00 99/45 12/03/18 11:00 97.6 64 14 98 Room Air 97.6 12/03/18 07:00 2.0 Intake and Output 12/03/18 07:00 Intake Total 550 ml Output Total 2650 ml Balance -2100 ml Intake Oral 450 ml IV Total 100 ml Output Urine Total 1150 ml Other 1500 ml Physical Exam Physical Exam He is alert,sitting in bedside chair and his daughter at bedside and he seems to be walking in the hallway in the evening with his family. Assessment Assessment Problems Medical Problems: (1) [id number]-lkwticu kidney injury Status: Acute (2) Chest pain Status: Acute (3) CHF (congestive heart failure) Status: Acute Plan Plan of Care To continue present activity with family as tolerated and home when medically stable with home health follow up. Comment Review of Relevant I have reviewed the following items bahman (where applicable) has been applied. Labs Laboratory Tests Test 12/01/18 17:46 12/01/18 21:26 12/01/18 23:36 12/02/18 05:45 Glucose (Fingerstick) 157 mg/dL (70-99) 64 mg/dL (70-99) 105 mg/dL (70-99) Sodium Level 135 mmol/L (136-145) Potassium Level 4.9 mmol/L (3.5-5.1) Chloride Level 100 mmol/L (98-107) Carbon Dioxide Level 21 mmol/L (21-32) Anion Gap 14 (6-14) Blood Urea Nitrogen 48 mg/dL (8-26) Creatinine 3.0 mg/dL (0.7-1.3) Estimated GFR (Cockcroft-Gault) 20.9 Glucose Level 160 mg/dL (70-99) Calcium Level 8.2 mg/dL (8.5-10.1) Test 12/02/18 07:50 12/02/18 11:49 12/02/18 14:02 12/02/18 16:58 Glucose (Fingerstick) 164 mg/dL (70-99) 166 mg/dL (70-99) 186 mg/dL (70-99) Body Fluid Total Protein 1.7 g/dL (.) Body Fluid Lactate Dehydrogenase 74 IU/L (.) Test 12/02/18 21:11 12/03/18 05:30 12/03/18 08:07 12/03/18 12:54 Glucose (Fingerstick) 161 mg/dL (70-99) 60 mg/dL (70-99) 104 mg/dL (70-99) Sodium Level 139 mmol/L (136-145) Potassium Level 4.3 mmol/L (3.5-5.1) Chloride Level 105 mmol/L (98-107) Carbon Dioxide Level 25 mmol/L (21-32) Anion Gap 9 (6-14) Blood Urea Nitrogen 51 mg/dL (8-26) Creatinine 2.8 mg/dL (0.7-1.3) Estimated GFR (Cockcroft-Gault) 22.6 Glucose Level 94 mg/dL (70-99) Calcium Level 7.9 mg/dL (8.5-10.1) Laboratory Tests Test 12/02/18 16:58 12/02/18 21:11 12/03/18 05:30 12/03/18 08:07 Glucose (Fingerstick) 186 mg/dL (70-99) 161 mg/dL (70-99) 60 mg/dL (70-99) Sodium Level 139 mmol/L (136-145) Potassium Level 4.3 mmol/L (3.5-5.1) Chloride Level 105 mmol/L (98-107) Carbon Dioxide Level 25 mmol/L (21-32) Anion Gap 9 (6-14) Blood Urea Nitrogen 51 mg/dL (8-26) Creatinine 2.8 mg/dL (0.7-1.3) Estimated GFR (Cockcroft-Gault) 22.6 Glucose Level 94 mg/dL (70-99) Calcium Level 7.9 mg/dL (8.5-10.1) Test 12/03/18 12:54 Glucose (Fingerstick) 104 mg/dL (70-99) Microbiology 11/22/18 Urine Culture - Final, Complete 11/22/18 Urine Culture Result 1 (TIFFANIE) - Final, Complete Medications Current Medications Furosemide (Lasix) 60 mg 1X ONCE IVP Last administered on 11/21/18at 16:34; Start 11/21/18 at 15:45; Stop 11/21/18 at 15:49; Status DC Insulin Human Regular (HumuLIN R VIAL) 5 unit 1X ONCE IV Last administered on 11/21/18at 17:50; Start 11/21/18 at 17:30; Stop 11/21/18 at 17:31; Status DC Heparin Sodium (Porcine) (Heparin Sodium) 4,000 unit 1X ONCE IV Last administered on 11/21/18at 17:46; Start 11/21/18 at 17:30; Stop 11/21/18 at 17:31; Status DC Heparin Sodium/ Dextrose 500 ml @ 17.6 mls/hr CONT PRN IV SEE I/O RECORD Last administered on 11/25/18at 02:02; Start 11/21/18 at 17:30; Stop 11/25/18 at 15:51; Status DC Heparin Sodium (Porcine) (Heparin Sodium) 1,850 unit PRN Q6HRS PRN IV FOR UFH LEVEL LESS THAN 0.2 Last administered on 11/22/18at 01:30; Start 11/21/18 at 17:30; Stop 11/25/18 at 15:51; Status DC Ondansetron HCl (Zofran) 4 mg PRN Q8HRS PRN IV NAUSEA/VOMITING; Start 11/21/18 at 17:30; Stop 11/22/18 at 17:29; Status DC Morphine Sulfate (Morphine Sulfate) 2 mg PRN Q2HR PRN IV PAIN; Start 11/21/18 at 17:30; Stop 11/22/18 at 17:29; Status DC Acetaminophen (Tylenol) 650 mg PRN Q4HRS PRN PO FEVER; Start 11/21/18 at 17:30; Stop 11/22/18 at 17:29; Status DC Alprazolam (Xanax) 0.5 mg PRN Q6HRS PRN PO ANXIETY / AGITATION Last administered on 11/25/18at 20:38; Start 11/22/18 at 03:30 Aspirin (Ecotrin) 81 mg DAILY PO Last administered on 12/03/18at 09:18; Start 11/22/18 at 09:00 Clopidogrel Bisulfate (Plavix) 75 mg DAILY PO Last administered on 11/25/18at 08:45; Start 11/22/18 at 09:00; Stop 11/26/18 at 10:07; Status DC Insulin Glargine (Lantus) 30 units QHS SQ Last administered on 12/02/18 21:49; Start 11/22/18 at 21:00 Insulin Human Lispro (HumaLOG) 8 units TIDAC SQ Last administered on 12/02/18 17:32; Start 11/22/18 at 11:30 Lisinopril (Prinivil) 10 mg DAILY PO Last administered on 11/23/18 08:42; Start 11/22/18 at 09:00; Stop 11/24/18 at 10:47; Status DC Metoprolol Succinate (Toprol Xl) 25 mg DAILY PO Last administered on 11/26/18 08:15; Start 11/22/18 at 09:00; Stop 11/26/18 at 11:28; Status DC Atorvastatin Calcium (Lipitor) 80 mg QHS PO Last administered on 12/02/18 21:43; Start 11/22/18 at 21:00 Glimepiride (Amaryl) 4 mg DAILY PO Last administered on 12/02/18 14:49; Start 11/22/18 at 09:00 Info (Anti-Coagulation Monitoring By Pharmacy) 1 each PRN DAILY PRN MC SEE COMMENTS Last administered on 11/25/18 09:30; Start 11/22/18 at 10:45; Stop 11/26/18 at 07:22; Status DC Tamsulosin HCl (Flomax) 0.4 mg QHS PO Last administered on 11/30/18 21:16; Start 11/22/18 at 21:00; Stop 12/01/18 at 08:39; Status DC Magnesium Citrate (Citroma) 296 ml 1X ONCE PO Last administered on 11/24/18 15:39; Start 11/24/18 at 15:00; Stop 11/24/18 at 15:01; Status DC Polyethylene Glycol (miraLAX PACKET) 17 gm DAILY PO Last administered on 12/02/18 14:47; Start 11/24/18 at 15:00 Acetylcysteine (Mucomyst 20% Oral Solution) 600 mg BID PO Last administered on 11/27/18 09:51; Start 11/24/18 at 21:00; Stop 11/27/18 at 12:00; Status DC Sodium Chloride 1,000 ml @ 60 mls/hr [id number] IV Last administered on 11/24/18at 22:22; Start 11/25/18 at 07:30; Stop 11/25/18 at 14:10; Status DC Iodixanol (Visipaque 320) 100 ml STK-MED ONCE .ROUTE ; Start 11/25/18 at 09:00; Stop 11/25/18 at 09:01; Status DC Lidocaine HCl (Xylocaine-Mpf 1% 2ml Vial) 2 ml STK-MED ONCE .ROUTE ; Start 11/25/18 at 09:00; Stop 11/25/18 at 09:01; Status DC Heparin Sodium/ Sodium Chloride 1,500 ml @ As Directed STK-MED ONCE .ROUTE ; Start 11/25/18 at 09:00; Stop 11/25/18 at 09:01; Status DC Fentanyl Citrate (Fentanyl 2ml Vial) 100 mcg STK-MED ONCE .ROUTE ; Start 11/25/18 at 09:03; Stop 11/25/18 at 09:04; Status DC Midazolam HCl (Versed) 2 mg STK-MED ONCE .ROUTE ; Start 11/25/18 at 09:03; Stop 11/25/18 at 09:04; Status DC Heparin Sodium (Porcine) (Heparin Sodium) 10,000 unit STK-MED ONCE .ROUTE ; Start 11/25/18 at 09:03; Stop 11/25/18 at 09:04; Status DC Verapamil HCl (Verapamil) 5 mg STK-MED ONCE .ROUTE ; Start 11/25/18 at 09:03; Stop 11/25/18 at 09:04; Status DC Nitroglycerin (Nitroglycerin) 200 mcg STK-MED ONCE .ROUTE ; Start 11/25/18 at 09:04; Stop 11/25/18 at 09:05; Status DC Lidocaine HCl (Lidocaine 1% 20ml Vial) 20 ml STK-MED ONCE .ROUTE ; Start 11/25/18 at 09:25; Stop 11/25/18 at 09:26; Status DC Heparin Sodium/ Sodium Chloride (HEPARIN for ARTERIAL LINE FLUSH) 1,000 unit 1X ONCE IART Last administered on 11/25/18at 09:53; Start 11/25/18 at 09:45; Stop 11/25/18 at 09:46; Status DC Midazolam HCl (Versed) 2 mg 1X ONCE IV Last administered on 11/25/18 09:52; Start 11/25/18 at 09:45; Stop 11/25/18 at 09:46; Status DC Fentanyl Citrate (Fentanyl 2ml Vial) 50 mcg 1X ONCE IV Last administered on 11/25/18 09:53; Start 11/25/18 at 09:45; Stop 11/25/18 at 09:46; Status DC Iodixanol (Visipaque 320) 100 ml 1X ONCE IART Last administered on 11/25/18 09:52; Start 11/25/18 at 09:45; Stop 11/25/18 at 09:46; Status DC Lidocaine HCl (Lidocaine 1% 20ml Vial) 10 ml 1X ONCE INJ Last administered on 11/25/18 09:45; Start 11/25/18 at 09:45; Stop 11/25/18 at 09:46; Status DC Lidocaine HCl (Xylocaine-Mpf 1% 2ml Vial) 1 ml 1X ONCE INJ Last administered on 11/25/18 09:52; Start 11/25/18 at 09:45; Stop 11/25/18 at 09:46; Status DC Info (CONTRAST GIVEN -- Rx MONITORING) 1 each PRN DAILY PRN MC SEE COMMENTS; Start 11/25/18 at 09:45; Stop 11/27/18 at 09:44; Status DC Furosemide (Lasix) 40 mg 1X ONCE IVP Last administered on 11/25/18 17:08; Start 11/25/18 at 16:00; Stop 11/25/18 at 16:01; Status DC Verapamil HCl (Verapamil) 5 mg STK-MED ONCE .ROUTE ; Start 11/25/18 at 09:00; Stop 11/26/18 at 08:28; Status DC Metoprolol Succinate (Toprol Xl) 50 mg DAILY PO Last administered on 12/03/18at 09:18; Start 11/27/18 at 09:00 Clopidogrel Bisulfate (Plavix) 75 mg DAILYWBKFT PO Last administered on 11/28/18 09:15; Start 11/26/18 at 11:30; Stop 11/28/18 at 17:30; Status DC Furosemide (Lasix) 20 mg 1X ONCE IVP Last administered on 11/26/18at 12:39; Start 11/26/18 at 11:30; Stop 11/26/18 at 11:31; Status DC Acetaminophen/ Hydrocodone Bitart (Lortab 5/325) 1 tab 1X ONCE PO Last administered on 11/27/18at 21:42; Start 11/27/18 at 21:00; Stop 11/27/18 at 21:01; Status DC Finasteride (Proscar) 5 mg DAILY PO Last administered on 12/03/18at 09:19; Start 11/28/18 at 10:00 Iodixanol (Visipaque 320) 100 ml STK-MED ONCE .ROUTE ; Start 11/28/18 at 09:58; Stop 11/28/18 at 09:59; Status DC Lidocaine HCl (Lidocaine 1% 20ml Vial) 20 ml STK-MED ONCE .ROUTE ; Start 11/28/18 at 09:58; Stop 11/28/18 at 09:59; Status DC Heparin Sodium/ Sodium Chloride 1,500 ml @ As Directed STK-MED ONCE .ROUTE ; Start 11/28/18 at 09:58; Stop 11/28/18 at 09:59; Status DC Fentanyl Citrate (Fentanyl 5ml Vial) 250 mcg STK-MED ONCE .ROUTE ; Start 11/28/18 at 12:20; Stop 11/28/18 at 12:21; Status DC Midazolam HCl (Versed) 5 mg STK-MED ONCE .ROUTE ; Start 11/28/18 at 12:21; Stop 11/28/18 at 12:22; Status DC Heparin Sodium (Porcine) (Heparin Sodium) 10,000 unit STK-MED ONCE .ROUTE ; Start 11/28/18 at 12:33; Stop 11/28/18 at 12:34; Status DC Verapamil HCl (Verapamil) 5 mg STK-MED ONCE .ROUTE ; Start 11/28/18 at 12:33; Stop 11/28/18 at 12:34; Status DC Nitroglycerin/ Dextrose (Nitroglycerin) 4 mg STK-MED ONCE .ROUTE ; Start 11/28/18 at 12:33; Stop 11/28/18 at 12:34; Status DC Heparin Sodium (Porcine) (Heparin Sodium) 10,000 unit STK-MED ONCE .ROUTE ; Start 11/28/18 at 12:45; Stop 11/28/18 at 12:46; Status DC Heparin Sodium/ Sodium Chloride 500 ml @ As Directed STK-MED ONCE .ROUTE ; Start 11/28/18 at 13:09; Stop 11/28/18 at 13:10; Status DC Dopamine HCl/ Dextrose 0 ml @ As Directed STK-MED ONCE IV ; Start 11/28/18 at 13:23; Stop 11/28/18 at 13:24; Status DC Phenylephrine HCl (PHENYLEPHRINE in 0.9% NACL PF) 1 mg STK-MED ONCE IV ; Start 11/28/18 at 13:23; Stop 11/28/18 at 13:24; Status DC Norepinephrine Bitartrate 250 ml @ 1.875 mls/ hr ONCE ONCE IV ; Start 11/28/18 at 13:30; Stop 12/01/18 at 20:08; Status DC Heparin Sodium/ Sodium Chloride 500 ml @ As Directed STK-MED ONCE .ROUTE ; Start 11/28/18 at 13:39; Stop 11/28/18 at 13:40; Status DC Nitroglycerin (Nitroglycerin) 200 mcg STK-MED ONCE .ROUTE ; Start 11/28/18 at 14:03; Stop 11/28/18 at 14:04; Status DC Nitroglycerin (Nitroglycerin) 200 mcg STK-MED ONCE .ROUTE ; Start 11/28/18 at 14:10; Stop 11/28/18 at 14:11; Status DC Nitroglycerin (Nitroglycerin) 400 mcg 1X ONCE IART Last administered on 11/28/18at 14:30; Start 11/28/18 at 14:30; Stop 11/28/18 at 14:31; Status DC Heparin Sodium/ Sodium Chloride (HEPARIN for ARTERIAL LINE FLUSH) 1,000 unit 1X ONCE IART Last administered on 11/28/18at 14:30; Start 11/28/18 at 14:30; Stop 11/28/18 at 14:31; Status DC Heparin Sodium/ Sodium Chloride (HEPARIN for ARTERIAL LINE FLUSH) 1,000 unit 1X ONCE IART Last administered on 11/28/18at 14:30; Start 11/28/18 at 14:30; Stop 11/28/18 at 14:31; Status DC Midazolam HCl (Versed) 5 mg 1X ONCE IV Last administered on 11/28/18at 14:30; Start 11/28/18 at 14:30; Stop 11/28/18 at 14:31; Status DC Fentanyl Citrate (Fentanyl 5ml Vial) 250 mcg 1X ONCE IV Last administered on 11/28/18at 14:30; Start 11/28/18 at 14:30; Stop 11/28/18 at 14:31; Status DC Iodixanol (Visipaque 320) 100 ml 1X ONCE IART Last administered on 11/28/18at 14:30; Start 11/28/18 at 14:30; Stop 11/28/18 at 14:31; Status DC Heparin Sodium (Porcine) (Heparin Sodium) 4,000 unit 1X ONCE IV Last administered on 11/28/18at 14:30; Start 11/28/18 at 14:30; Stop 11/28/18 at 14:31; Status DC Lidocaine HCl (Lidocaine 1% 20ml Vial) 20 ml 1X ONCE INJ Last administered on 11/28/18 14:30; Start 11/28/18 at 14:30; Stop 11/28/18 at 14:31; Status DC Info (CONTRAST GIVEN -- Rx MONITORING) 1 each PRN DAILY PRN MC SEE COMMENTS; Start 11/28/18 at 14:30; Stop 11/30/18 at 14:29; Status DC Nitroglycerin/ Dextrose 4 mg/ Verapamil HCl 10 mg/Heparin Sodium (Porcine) 4000 unit/ Miscellaneous 20 ml/Sodium Chloride 1,048 ml @ 1,000 mls/hr 1X ONCE IART Last administered on 11/28/18at 14:45; Start 11/28/18 at 14:45; Stop 11/28/18 at 15:47; Status DC Heparin Sodium/ Sodium Chloride (HEPARIN for ARTERIAL LINE FLUSH) 1,000 unit 1X ONCE IART Last administered on 11/28/18at 14:45; Start 11/28/18 at 14:45; Stop 11/28/18 at 14:46; Status DC Heparin Sodium/ Sodium Chloride (HEPARIN for ARTERIAL LINE FLUSH) 1,000 unit 1X ONCE IART Last administered on 11/28/18at 14:45; Start 11/28/18 at 14:45; Stop 11/28/18 at 14:46; Status DC Nitroglycerin (Nitroglycerin) 200 mcg STK-MED ONCE .ROUTE ; Start 11/28/18 at 14:42; Stop 11/28/18 at 14:43; Status DC Nitroglycerin (Nitroglycerin) 200 mcg STK-MED ONCE .ROUTE ; Start 11/28/18 at 15:19; Stop 11/28/18 at 15:20; Status DC Heparin Sodium/ Sodium Chloride 500 ml @ As Directed STK-MED ONCE .ROUTE ; Start 11/28/18 at 15:35; Stop 11/28/18 at 15:36; Status DC Heparin Sodium/ Sodium Chloride (HEPARIN for ARTERIAL LINE FLUSH) 1,000 unit 1X ONCE IART Last administered on 11/28/18at 15:45; Start 11/28/18 at 15:45; Stop 11/28/18 at 15:46; Status DC Ticagrelor (Brilinta) 90 mg STK-MED ONCE .ROUTE ; Start 11/28/18 at 15:58; Stop 11/28/18 at 15:59; Status DC Ticagrelor (Brilinta) 180 mg ONCE ONCE PO Last administered on 11/28/18at 16:03; Start 11/28/18 at 16:03; Stop 11/28/18 at 16:04; Status DC Sodium Chloride 500 ml @ 500 mls/hr 1X ONCE IV ; Start 11/28/18 at 16:30; Stop 11/28/18 at 17:29; Status DC Sodium Chloride 1,000 ml @ 50 mls/hr Q20H IV Last administered on 12/01/18at 21:29; Start 11/28/18 at 16:30; Stop 12/02/18 at 06:50; Status DC Ticagrelor (Brilinta) 90 mg BID PO Last administered on 12/03/18at 10:56; Start 11/28/18 at 21:00 Acetaminophen (Tylenol) 650 mg PRN Q6HRS PRN PO PAIN Last administered on 12/03/18at 10:56; Start 11/29/18 at 09:45 Polyethylene Glycol (miraLAX PACKET) 17 gm DAILY PO ; Start 11/29/18 at 12:00; Status UNV Zolpidem Tartrate (Ambien) 5 mg PRN QHS PRN PO INSOMNIA Last administered on 12/01/18at 21:35; Start 11/29/18 at 12:00 Hydralazine HCl (Apresoline) 10 mg TID PO Last administered on 12/02/18at 21:43; Start 11/29/18 at 14:00 Isosorbide Mononitrate (Imdur) 30 mg DAILY PO Last administered on 12/03/18at 09:18; Start 11/29/18 at 12:15 Magnesium Citrate (Citroma) 296 ml PRN 1X PRN PO CONSTIPATION; Start 11/30/18 at 11:15 Ondansetron HCl (Zofran) 4 mg PRN Q6HRS PRN IV NAUSEA/VOMITING; Start 11/30/18 at 18:00 Verapamil HCl (Verapamil) 5 mg STK-MED ONCE .ROUTE ; Start 11/28/18 at 13:00; Stop 12/01/18 at 07:40; Status DC Tamsulosin HCl (Flomax) 0.4 mg BID PO Last administered on 12/03/18at 09:18; Start 12/01/18 at 09:00 Furosemide (Lasix) 40 mg 1X ONCE IVP Last administered on 12/02/18at 09:24; Start 12/02/18 at 09:00; Stop 12/02/18 at 09:01; Status DC Active Scripts Active Humalog (Insulin Lispro) 100 Unit/1 Ml Insuln.pen 8 Units SQ TIDAC 90 Days Lantus Solostar (Insulin Glargine,Hum.rec.anlog) 100 Unit/1 Ml Insuln.pen 30 Units SQ QHS 30 Days Lisinopril 10 Mg Tablet 10 Mg PO DAILY 90 Days Reported Metoprolol Succinate ( Xl ) (Metoprolol Succinate) 25 Mg Tab.er.24h 25 Mg PO DAILY Glimepiride 4 Mg Tablet 4 Mg PO DAILY Clopidogrel (Clopidogrel Bisulfate) 75 Mg Tablet 1 Tab PO DAILY Aspir 81 (Aspirin) 81 Mg Tablet.dr 1 Tab PO DAILY Atorvastatin Calcium 80 Mg Tablet 1 Tab PO DAILY Metformin Hcl 500 Mg Tablet 1,000 Mg PO BID Vitals/I & O Vital Sign - Last 24 Hours 12/02/18 12/02/18 12/02/18 12/02/18 17:00 18:00 19:50 20:00 Temp 97.9 97.9 Pulse 78 91 88 Resp 20 B/P (MAP) 122/66 (84) 133/79 (97) 115/55 (75) Pulse Ox 95 O2 Delivery Room Air Room Air 12/02/18 12/02/18 12/03/18 5/15/19 21:43 22:50 02:45 07:00 Temp 98.7 98.4 97.5 98.7 98.4 97.5 Pulse 88 85 82 83 Resp 22 20 12 B/P (MAP) 115/55 119/60 (79) 111/58 (75) 112/62 (79) Pulse Ox 93 96 92 O2 Delivery Room Air Nasal Cannula Nasal Cannula O2 Flow Rate 2.0 2.0 12/03/18 12/03/18 12/03/18 12/03/18 08:00 09:18 09:18 09:38 Pulse 83 83 83 Resp 18 B/P (MAP) 112/62 112/62 104/59 (74) Pulse Ox 97 O2 Delivery Room Air Room Air 12/03/18 12/03/18 12/03/18 09:54 11:00 14:00 Temp 97.6 97.6 Pulse 83 64 Resp 20 14 B/P (MAP) 101/58 (72) 157/87 (110) 99/45 Pulse Ox 95 98 O2 Delivery Room Air Room Air Intake and Output 12/02/18 12/02/18 12/03/18 15:00 23:00 07:00 Intake Total 100 ml 250 ml 200 ml Output Total 1500 ml 1150 ml Balance -1400 ml 250 ml -950 ml ANTONINO MARQUEZ MD December 03, 2018 16:04
[2018-12-03] MEDS: ATORVASTATIN CALCIUM 40 MG TABLET. PO SCH (21:35)
[2018-12-03] MEDS: INSULIN GLARGINE 300 UNITS/3 ML INSULN.PEN. SQ SCH (21:48)
[2018-12-04 02:19] VITALS: BP 104/58
[2018-12-04 07:00] VITALS: BP 122/67
[2018-12-04] MEDS: INSULIN LISPRO 300 UNITS/3 ML INSULN.PEN. SQ SCH ×2 (07:30→12:41)
[2018-12-04 08:22] LABS: CALCIUM 8.3 mg/dL (8.5-10.1); CREATININE 2.5 mg/dL (0.7-1.3); GFR 25.7; POTASSIUM 4.1 mmol/L (3.5-5.1)
[2018-12-04] MEDS: GLIMEPIRIDE 2 MG TABLET. PO SCH (08:54)
[2018-12-04] MEDS: POLYETHYLENE GLYCOL 3350 17 GM PACKET. PO SCH (09:00)
[2018-12-04] MEDS: METOPROLOL SUCC 24HR ER 50 MG TAB.ER.24H. PO SCH (09:05)
[2018-12-04] MEDS: ISOSORBIDE MONONITRATE ER 30 MG TAB.ER.24H PO SCH (09:05)
[2018-12-04] MEDS: FINASTERIDE 5 MG TABLET. PO SCH (09:05)
[2018-12-04] MEDS: ASPIRIN ENTERIC COATED 81 MG TABLET.DR. PO SCH (09:06)
[2018-12-04] MEDS: TICAGRELOR 90 MG TABLET. PO SCH (09:06)
[2018-12-04] MEDS: hydrALAZINE 10 MG TABLET PO SCH (09:09)
--- NOTE | 2018-12-04 09:09 | NUR ---
nON ADMINISTERED am DOSE OF hYDRALAZINE PATIENT HAS HAD LOW BLOOD PRESSURES IN THE AFTERNOON. wILL RECHECK AGAIN AT 11AM AND MAY GIVE IF B/P CAN TOLERATE
[2018-12-04 11:00] VITALS: BP 104/53
--- NOTE | 2018-12-04 11:28 | RAD ---
Ultrasound-guided left-sided thoracentesis 12/04/2018 11:24 AM Indication: LEFT PLEURAL EFFUSION Procedure: Informed consent was obtained. A timeout procedure was performed. Sonographic evaluation of the left chest was performed demonstrating moderate pleural effusion. The left left posterior chest was prepped and draped in sterile fashion. 1% lidocaine without epinephrine was administered for local anesthesia. Real-time ultrasonographic guidance was used in passing a 5 [place] Yueh catheter into the pleural space. 1.6 L of serosanguineous pleural fluid was removed. Samples of fluid were sent to the lab for further evaluation per ordering physician request. The catheter was removed and pressure held to achieve hemostasis. A sterile dressing was applied. No immediate complications were identified. The patient tolerated the procedure well. Impression: Left sided ultrasound-guided thoracentesis
--- NOTE | 2018-12-04 11:36 | PDOC ---
PULMONARY PROGRESS NOTES Subjective NO SOA S/P BILATERAL THORACENTESIS Vitals Vital Signs Date Time Temp Pulse Resp B/P (MAP) Pulse Ox O2 Delivery O2 Flow Rate FiO2 12/04/18 09:09 122/67 12/04/18 09:05 82 12/04/18 08:00 Room Air 12/04/18 07:00 97.6 18 95 1.5 97.6 General: Alert, No acute distress Lungs: Clear Cardiovascular: S1 Abdomen: Soft Neuro Exam: Alert Extremities: No Edema Skin: Warm Labs Laboratory Tests Test 12/02/18 11:49 12/02/18 14:02 12/02/18 16:58 12/02/18 21:11 Glucose (Fingerstick) 166 mg/dL (70-99) 186 mg/dL (70-99) 161 mg/dL (70-99) Body Fluid Total Protein 1.7 g/dL (.) Body Fluid Lactate Dehydrogenase 74 IU/L (.) Test 12/03/18 05:30 12/03/18 08:07 12/03/18 09:45 12/03/18 12:54 Sodium Level 139 mmol/L (136-145) Potassium Level 4.3 mmol/L (3.5-5.1) Chloride Level 105 mmol/L (98-107) Carbon Dioxide Level 25 mmol/L (21-32) Anion Gap 9 (6-14) Blood Urea Nitrogen 51 mg/dL (8-26) Creatinine 2.8 mg/dL (0.7-1.3) Estimated GFR (Cockcroft-Gault) 22.6 Glucose Level 94 mg/dL (70-99) Calcium Level 7.9 mg/dL (8.5-10.1) Glucose (Fingerstick) 60 mg/dL (70-99) 104 mg/dL (70-99) Body Fluid Total Protein 1.4 g/dL (.) Body Fluid Lactate Dehydrogenase 76 IU/L (.) Test 12/03/18 17:40 12/03/18 20:37 12/04/18 07:15 12/04/18 08:11 Glucose (Fingerstick) 168 mg/dL (70-99) 205 mg/dL (70-99) 53 mg/dL (70-99) Sodium Level 142 mmol/L (136-145) Potassium Level 4.1 mmol/L (3.5-5.1) Chloride Level 106 mmol/L (98-107) Carbon Dioxide Level 23 mmol/L (21-32) Anion Gap 13 (6-14) Blood Urea Nitrogen 41 mg/dL (8-26) Creatinine 2.5 mg/dL (0.7-1.3) Estimated GFR (Cockcroft-Gault) 25.7 Glucose Level 54 mg/dL (70-99) Calcium Level 8.3 mg/dL (8.5-10.1) Test 12/04/18 09:10 Glucose (Fingerstick) 153 mg/dL (70-99) Laboratory Tests Test 12/03/18 12:54 12/03/18 17:40 12/03/18 20:37 12/04/18 07:15 Glucose (Fingerstick) 104 mg/dL (70-99) 168 mg/dL (70-99) 205 mg/dL (70-99) Sodium Level 142 mmol/L (136-145) Potassium Level 4.1 mmol/L (3.5-5.1) Chloride Level 106 mmol/L (98-107) Carbon Dioxide Level 23 mmol/L (21-32) Anion Gap 13 (6-14) Blood Urea Nitrogen 41 mg/dL (8-26) Creatinine 2.5 mg/dL (0.7-1.3) Estimated GFR (Cockcroft-Gault) 25.7 Glucose Level 54 mg/dL (70-99) Calcium Level 8.3 mg/dL (8.5-10.1) Test 12/04/18 08:11 12/04/18 09:10 Glucose (Fingerstick) 53 mg/dL (70-99) 153 mg/dL (70-99) Medications Active Scripts Medications Dose Route/Sig Max Daily Dose Days Date Category Metoprolol Succinate ( Xl ) (Metoprolol Succinate) 25 Mg Tab.er.24h 25 Mg PO DAILY 11/21/18 Reported Glimepiride 4 Mg Tablet 4 Mg PO DAILY 11/21/18 Reported Humalog (Insulin Lispro) 100 Unit/1 Ml Insuln.pen 8 Units SQ TIDAC 90 02/12/18 Rx Lantus Solostar (Insulin Glargine,Hum.rec.anlog) 100 Unit/1 Ml Insuln.pen 30 Units SQ QHS 30 02/12/18 Rx Lisinopril 10 Mg Tablet 10 Mg PO DAILY 90 02/12/18 Rx Clopidogrel (Clopidogrel Bisulfate) 75 Mg Tablet 1 Tab PO DAILY 04/09/14 Reported Aspir 81 (Aspirin) 81 Mg Tablet.dr 1 Tab PO DAILY 04/09/14 Reported Atorvastatin Calcium 80 Mg Tablet 1 Tab PO DAILY 04/09/14 Reported Metformin Hcl 500 Mg Tablet 1,000 Mg PO BID 04/09/14 Reported Impression . 1. Progressively increased bilateral pleural effusions. Best visualized on CT chest from today, with [id number] bilateral effusions. RELATED TO CHF/ RENAL FAILURE 2. Vhfsq-he-[id number] systolic heart failure with worsening pleural effusions secondary to his cardiomyopathy and in the setting of [id number] renal failure. 3. Severe 3-vessel coronary artery disease, status post percutaneous coronary intervention to right coronary artery, left circumflex and left anterior descending. 4. Acute kidney injury on chronic kidney disease. Plan . 1. S/P bilateral thoracentesis, clear cxr now 2. analysis c/w transudate 3. He would benefit from diuresis to prevent further reaccumulation 4. Follow Cardiology recommendations. 5. Follow Renal recommendations. ok with ANSHUL Eastman MD December 04, 2018 11:36
[2018-12-04] MEDS ORDERED: FINA5TAB4 PO (11:59)
[2018-12-04] MEDS ORDERED: ISOS30TA4 PO (11:59)
[2018-12-04] MEDS ORDERED: TICA90TA PO (11:59)
[2018-12-04] MEDS ORDERED: TAMS0.4C97 PO (11:59)
--- NOTE | 2018-12-04 12:02 | SNU/HH DC ---
DISCHARGE WITH HOME HEALTH DISCHARGE INFORMATION: Discharge Date: December 04, 2018 Final Diagnosis: Problems Medical Problems: (1) [id number] kidney injury Status: Acute (2) Chest pain Status: Acute (3) CHF (congestive heart failure) Status: Acute Condition on Discharge: Stable CODE STATUS: Code Status: Full HOME HEALTH: Face to Face: I certify this patient is under my care and that I, or a nurse practitioner or physician's talent acquisition assistant working with me, had a face to face encounter that meets the physician face to face encounter requirements with this patient on [12/04/18]. RN For Eval/Treatment: Yes Physical Therapy For: Evalulation/Treatment Occupational Therapy For: Evaluation/Treatment Pt Meets Homebound Status: Extreme weakness w/ amb., Limited distance walking POST DISCHARGE ORDERS: Activity Instructions for Disc: Activity as tolerated Weight Bearing Status after Di: Full weight bearing DIET AFTER DISCHARGE: ADA Wound/Incision Care: Keep wound/cast CDI, Change dressing CHECKS AFTER DISCHARGE: Checks after discharge: Check blood press - daily, Check blood sugar, ac/hs TREATMENT/EQUIPMENT ORDERS: Adaptive Equipment Issued: None CERTIFICATION STATEMENT: Certification Statement: Certification Statement: Based on the above finding, I certify that this patient is confined to the home and needs intermittent fdc care, physical therapy and/or speech therapy, or continues to need occupational therapy.~ This patient is under my care, and I have initiated the establishment of the plan of care.~ This patient will be followed by myself or a community physician who will periodically review the plan of care. Home Meds Active Scripts Finasteride (FINASTERIDE) 5 Mg Tablet, 5 MG PO DAILY for bph for 30 Days, #30 TAB Prov:BALWINDER MA MD 12/04/18 Isosorbide Mononitrate (ISOSORBIDE MONONITRATE ER) 30 Mg Tab.er.24h, 30 MG PO DAILY for cad for 30 Days, #30 TAB.SR Prov:BALWINDER MA MD 12/04/18 Ticagrelor (BRILINTA) 90 Mg Tablet, 90 MG PO BID for stent for 30 Days, #60 TAB Prov:BALWINDER MA MD 12/04/18 Tamsulosin Hcl (FLOMAX) 0.4 Mg Cap.er.24h, 0.4 MG PO BID for bph for 30 Days, #60 CAP.SR Prov:BALWINDER MA MD 12/04/18 Insulin Lispro (HUMALOG) 100 Unit/1 Ml Insuln.pen, 8 UNITS SQ TIDAC for 90 Days, #5 EACH 6 Refills Prov:BALWINDER MA MD 02/12/18 Insulin Glargine,Hum.rec.anlog (LANTUS SOLOSTAR) 100 Unit/1 Ml Insuln.pen, 30 UNITS SQ QHS for 30 Days, #3 EACH 6 Refills Prov:BALWINDER MA MD 02/12/18 Lisinopril (LISINOPRIL) 10 Mg Tablet, 10 MG PO DAILY for 90 Days, #90 TAB 3 Refills Prov:BALWINDER MA MD 02/12/18 Reported Medications Metoprolol Succinate (METOPROLOL SUCCINATE ( XL )) 25 Mg Tab.er.24h, 25 MG PO DAILY for FOR HYPERTENSION, #30 TAB 0 Refills 11/21/18 Glimepiride (GLIMEPIRIDE) 4 Mg Tablet, 4 MG PO DAILY for , TAB 11/21/18 Aspirin (ASPIR 81) 81 Mg Tablet.dr, 1 TAB PO DAILY, #30 TAB 5 Refills 04/09/14 Atorvastatin Calcium (ATORVASTATIN CALCIUM) 80 Mg Tablet, 1 TAB PO DAILY, #30 TAB 5 Refills 04/09/14 Metformin Hcl (METFORMIN HCL) 500 Mg Tablet, 1000 MG PO BID for , #60 TAB 3 Refills 04/09/14 Discontinued Reported Medications Clopidogrel Bisulfate (CLOPIDOGREL) 75 Mg Tablet, 1 TAB PO DAILY, #90 TAB 1 Refill 04/09/14 BALWINDER MA MD December 04, 2018 12:02
[2018-12-04 12:24] LABS: ISTAT BE VENOUS -3 mmol/L (0-3); ISTAT HCO3 VEN 23 mmol/L (24-28); ISTAT PCO2 VEN 43 mmHg (41-51); ISTAT PH VEN 7.33 (7.32-7.42); ISTAT PO2 VEN 51 mmHg (20-40); ISTAT SAT O2 VEN 83 %; ISTAT TCO2 VEN 24 mmol/L (21-32)
[2018-12-04] MEDS: TAMSULOSIN 0.4 MG CAP.ER.24H. PO SCH (12:37)
--- NOTE | 2018-12-04 13:03 | PDOC ---
LEYDA VALLES OPTION TRADER 12/04/18 1303: CARDIO Progress Notes Date and Time Date of Service 12/04/2018 Time of Evaluation 1240 Subjective Subjective: No Chest Pain, No shortness of breath, No Palpitations Vitals Vitals Vital Signs Date Time Temp Pulse Resp B/P (MAP) Pulse Ox O2 Delivery O2 Flow Rate FiO2 12/04/18 11:00 97.5 75 18 104/53 (70) 95 Room Air 97.5 12/04/18 07:00 1.5 Weight Weight [ ] Input and Output Intake and Output Intake and Output 12/04/18 07:00 Intake Total 250 ml Output Total 3800 ml Balance -3550 ml Intake Oral 250 ml Output Urine Total 2200 ml Drainage Total 1600 ml Laboratory Labs Laboratory Tests Test 12/03/18 12:54 12/03/18 17:40 12/03/18 20:37 12/04/18 07:15 Glucose (Fingerstick) 104 mg/dL (70-99) 168 mg/dL (70-99) 205 mg/dL (70-99) Sodium Level 142 mmol/L (136-145) Potassium Level 4.1 mmol/L (3.5-5.1) Chloride Level 106 mmol/L (98-107) Carbon Dioxide Level 23 mmol/L (21-32) Anion Gap 13 (6-14) Blood Urea Nitrogen 41 mg/dL (8-26) Creatinine 2.5 mg/dL (0.7-1.3) Estimated GFR (Cockcroft-Gault) 25.7 Glucose Level 54 mg/dL (70-99) Calcium Level 8.3 mg/dL (8.5-10.1) Test 12/04/18 08:11 12/04/18 09:10 12/04/18 11:27 12/04/18 12:21 Glucose (Fingerstick) 53 mg/dL (70-99) 153 mg/dL (70-99) 239 mg/dL (70-99) Bedside Venous pH 7.33 (7.32-7.42) Bedside Venous pCO2 43 mmHg (41-51) Bedside Venous pO2 51 mmHg (20-40) Venous Blood HCO3 23 mmol/L (24-28) POC Venous O2 Saturation (Mack) 83 % Bedside FiO2 21.0 Microbiology Micro Microbiology 12/02/18 Anaerobic/Aerobic Culture, Resulted Pending 12/02/18 Anaerobic Culture Result 1 (TIFFANIE), Resulted Pending 12/02/18 Aerobic Culture, Resulted Pending 12/02/18 Aerobic Culture Result 1 (TIFFANIE), Resulted Pending 12/02/18 Gram Stain - Final, Resulted 12/02/18 Gram Stain Result 1 (TIFFANIE) - Final, Resulted 12/02/18 Gram Stain Result 2 (TIFFANIE) - Final, Resulted 11/22/18 Urine Culture - Final, Complete 11/22/18 Urine Culture Result 1 (TIFFANIE) - Final, Complete Physical Exam HEENT: Neck Supple W Full Motion Chest: Symmetric LUNGS: Other (basilar crackles) Heart: S1S2, RRR (SR without significant ectopies) Abdomen: Soft N/T Extremities: Other (2+ bilateral LE pitting edema) Neurology: alert, oriented, follow commands Assessment Assessment 1. Acute on chronic systolic heart failure; post bilateral thoracentesis, compensated 2. ICM with ICM; LVEF 35-40% 3. Severe 3V CAD; s/p PCI/GIN to the RCA, LCx, and LAD 4. Hypertension; controlled 5. Hyperlipidemia; statin 6. ASHLEY on CKD; Cr improving to 2.5 7. DM2 ' Recommendations 1. DAPT with ASA and Brilinta. (coupon given) Lasix 40 mg PO daily. BMP, Mg on Saturday next week. 2. Follow up in office at 830 AM on December 10 then on January 21 at 830 AM 3. no ACEi/ARB at this time will reeval as an outpt. Agree with low dose Hydralazine/imdur per BP trend. Continue with secondary prevention. Statin and toprol. 4. Cardiac rehab referral. Daily wt. 5. Encourage HBPM and to call if outside parameters CLEMENTE WISE MD 12/05/18 0005: CARDIO Progress Notes Plan Plan Pt. seen and examined. Agree with above MAINTENANCE HELPER note. Late entry for 12/04/2018 He has low SVO2. Likely will need Milrinone. He does not appear well. I suspect he will ultimately need an LVAD or heart transplant. I have tried to convey this to all his children, who do not appear to realize the long term care pharmacist prognosis for his severe HF. Will need close f/u as above. LEYDA VALLES OPTION TRADER December 04, 2018 13:03 CLEMENTE WISE MD December 05, 2018 00:05
--- NOTE | 2018-12-04 13:41 | PDOC ---
SUBJECTIVE ROS Stable, No complaints OBJECTIVE Vital Signs Vital Signs Date Time Temp Pulse Resp B/P (MAP) Pulse Ox O2 Delivery O2 Flow Rate FiO2 12/04/18 11:00 97.5 75 18 104/53 (70) 95 Room Air 97.5 12/04/18 07:00 1.5 I & 0 Intake and Output 12/04/18 07:00 Intake Total 250 ml Output Total 3800 ml Balance -3550 ml Intake Oral 250 ml Output Urine Total 2200 ml Drainage Total 1600 ml PHYSICAL EXAM Physical Exam GENERAL: NAD, HEENT: OM moist NECK: Supple. CARDIAC: Regular rate and rhythm LUNGS: CTA , No acc Muscle use ABDOMEN: Soft, nontender. EXTREMITIES: Edema + NEUROLOGIC: Grossly normal : Right inguinal hernia, Hicks +, no CVA or SP tenderness Skin No rash DIAGNOSIS/ASSESSMENT Assessment & Plan ASHLEY - multifactorial - Cardiorenal ,DARIELA , KENNEDY Elevated Cr from baseline at presentation on 11/21, Increased to 2.9-3 Post Cardiac cath Improving renal function Ct scan Kidneys unremarkable CKD stage 3 - baseline Creat 1.3 CAD - Severe 3V CAD; s/p PCI/GIN to the RCA, LCx, and LAD ICM with ICM; LVEF 35-40%. CHF- cardiology managing diuresis Pulm HTN Type 2 diabetes, out of control. Hypertension Controlled with Occ Low BP's Urinary retention with suspected BPH Hicks re-inserted 12/02 Urology Following Hematuria - suspect Traumatic Pl effusion - Pulm following S/P Thoracentesis Rt 1500 ml on 12/02, Lt 1600 ml this am DW RN Follow up with our office as OP (Routine non urgent) COMMENT/RELEVANT DATA Meds Current Medications Medications (Trade) Dose Ordered Sig/Sathish Start Time Stop Time Status Last Admin Dose Admin Acetaminophen (Tylenol) 650 mg PRN Q6HRS PRN 11/29/18 09:45 12/03/18 10:56 650 MG Acetaminophen/ Hydrocodone Bitart (Lortab 5/325) 1 tab 1X ONCE 11/27/18 21:00 11/27/18 21:01 DC 11/27/18 21:42 1 TAB Acetylcysteine (Mucomyst 20% Oral Solution) 600 mg BID 11/24/18 21:00 11/27/18 12:00 DC 11/27/18 09:51 600 MG Alprazolam (Xanax) 0.5 mg PRN Q6HRS PRN 11/22/18 03:30 11/25/18 20:38 0.5 MG Aspirin (Ecotrin) 81 mg DAILY 11/22/18 09:00 12/04/18 09:06 81 MG Atorvastatin Calcium (Lipitor) 80 mg QHS 11/22/18 21:00 12/03/18 21:35 80 MG Clopidogrel Bisulfate (Plavix) 75 mg DAILYWBKFT 11/26/18 11:30 11/28/18 17:30 DC 11/28/18 09:15 75 MG Dopamine HCl/ Dextrose 0 ml @ As Directed STK-MED ONCE 11/28/18 13:23 11/28/18 13:24 DC Fentanyl Citrate (Fentanyl 2ml Vial) 50 mcg 1X ONCE 11/25/18 09:45 11/25/18 09:46 DC 11/25/18 09:53 50 MCG Fentanyl Citrate (Fentanyl 5ml Vial) 250 mcg 1X ONCE 11/28/18 14:30 11/28/18 14:31 DC 11/28/18 14:30 150 MCG Finasteride (Proscar) 5 mg DAILY 11/28/18 10:00 12/04/18 09:05 5 MG Furosemide (Lasix) 40 mg 1X ONCE 12/02/18 09:00 12/02/18 09:01 DC 12/02/18 09:24 40 MG Glimepiride (Amaryl) 4 mg DAILY 11/22/18 09:00 12/02/18 14:49 4 MG Heparin Sodium (Porcine) (Heparin Sodium) 4,000 unit 1X ONCE 11/28/18 14:30 11/28/18 14:31 DC 11/28/18 14:30 7,500 UNIT Heparin Sodium/ Dextrose 500 ml @ 17.6 mls/hr CONT PRN 11/21/18 17:30 11/25/18 15:51 DC 11/25/18 02:02 17.6 MLS/HR Heparin Sodium/ Sodium Chloride (HEPARIN for ARTERIAL LINE FLUSH) 1,000 unit 1X ONCE 11/28/18 15:45 11/28/18 15:46 DC 11/28/18 15:45 1,000 UNIT Hydralazine HCl (Apresoline) 10 mg TID 11/29/18 14:00 12/03/18 21:38 10 MG Info (Anti-Coagulation Monitoring By Pharmacy) 1 each PRN DAILY PRN 11/22/18 10:45 11/26/18 07:22 DC 11/25/18 09:30 1 EACH Info (CONTRAST GIVEN -- Rx MONITORING) 1 each PRN DAILY PRN 11/28/18 14:30 11/30/18 14:29 DC Insulin Glargine (Lantus) 30 units QHS 11/22/18 21:00 12/03/18 21:48 30 UNITS Insulin Human Lispro (HumaLOG) 8 units TIDAC 11/22/18 11:30 12/04/18 12:41 8 UNITS Insulin Human Regular (HumuLIN R VIAL) 5 unit 1X ONCE 11/21/18 17:30 11/21/18 17:31 DC 11/21/18 17:50 5 UNIT Iodixanol (Visipaque 320) 100 ml 1X ONCE 11/28/18 14:30 11/28/18 14:31 DC 11/28/18 14:30 314 ML Isosorbide Mononitrate (Imdur) 30 mg DAILY 11/29/18 12:15 12/04/18 09:05 30 MG Lidocaine HCl (Lidocaine 1% 20ml Vial) 20 ml 1X ONCE 11/28/18 14:30 11/28/18 14:31 DC 11/28/18 14:30 20 ML Lidocaine HCl (Xylocaine-Mpf 1% 2ml Vial) 1 ml 1X ONCE 11/25/18 09:45 11/25/18 09:46 DC 11/25/18 09:52 1 ML Lisinopril (Prinivil) 10 mg DAILY 11/22/18 09:00 11/24/18 10:47 DC 11/23/18 08:42 10 MG Magnesium Citrate (Citroma) 296 ml PRN 1X PRN 11/30/18 11:15 Metoprolol Succinate (Toprol Xl) 50 mg DAILY 11/27/18 09:00 12/04/18 09:05 50 MG Midazolam HCl (Versed) 5 mg 1X ONCE 11/28/18 14:30 11/28/18 14:31 DC 11/28/18 14:30 2.5 MG Morphine Sulfate (Morphine Sulfate) 2 mg PRN Q2HR PRN 11/21/18 17:30 11/22/18 17:29 DC Nitroglycerin (Nitroglycerin) 200 mcg STK-MED ONCE 11/28/18 15:19 11/28/18 15:20 DC Nitroglycerin/ Dextrose (Nitroglycerin) 4 mg STK-MED ONCE 11/28/18 12:33 11/28/18 12:34 DC Nitroglycerin/ Dextrose 4 mg/ Verapamil HCl 10 mg/Heparin Sodium (Porcine) 4000 unit/ Miscellaneous 20 ml/Sodium Chloride 1,048 ml @ 1,000 mls/hr 1X ONCE 11/28/18 14:45 11/28/18 15:47 DC 11/28/18 14:45 1,000 MLS/HR Norepinephrine Bitartrate 250 ml @ 1.875 mls/ hr ONCE ONCE 11/28/18 13:30 12/01/18 20:08 DC Ondansetron HCl (Zofran) 4 mg PRN Q6HRS PRN 11/30/18 18:00 Phenylephrine HCl (PHENYLEPHRINE in 0.9% NACL PF) 1 mg STK-MED ONCE 11/28/18 13:23 11/28/18 13:24 DC Polyethylene Glycol (miraLAX PACKET) 17 gm DAILY 11/29/18 12:00 UNV Sodium Chloride 1,000 ml @ 50 mls/hr Q20H 11/28/18 16:30 12/02/18 06:50 DC 12/01/18 21:29 50 MLS/HR Tamsulosin HCl (Flomax) 0.4 mg BID 12/01/18 09:00 12/04/18 12:37 0.4 MG Ticagrelor (Brilinta) 90 mg BID 11/28/18 21:00 12/04/18 09:06 90 MG Verapamil HCl (Verapamil) 5 mg STK-MED ONCE 11/28/18 13:00 12/01/18 07:40 DC Zolpidem Tartrate (Ambien) 5 mg PRN QHS PRN 11/29/18 12:00 12/01/18 21:35 5 MG Lab Laboratory Tests Test 12/03/18 17:40 12/03/18 20:37 12/04/18 07:15 12/04/18 08:11 Glucose (Fingerstick) 168 mg/dL (70-99) 205 mg/dL (70-99) 53 mg/dL (70-99) Sodium Level 142 mmol/L (136-145) Potassium Level 4.1 mmol/L (3.5-5.1) Chloride Level 106 mmol/L (98-107) Carbon Dioxide Level 23 mmol/L (21-32) Anion Gap 13 (6-14) Blood Urea Nitrogen 41 mg/dL (8-26) Creatinine 2.5 mg/dL (0.7-1.3) Estimated GFR (Cockcroft-Gault) 25.7 Glucose Level 54 mg/dL (70-99) Calcium Level 8.3 mg/dL (8.5-10.1) Test 12/04/18 09:10 12/04/18 11:27 12/04/18 12:21 Glucose (Fingerstick) 153 mg/dL (70-99) 239 mg/dL (70-99) Bedside Venous pH 7.33 (7.32-7.42) Bedside Venous pCO2 43 mmHg (41-51) Bedside Venous pO2 51 mmHg (20-40) Venous Blood HCO3 23 mmol/L (24-28) POC Venous O2 Saturation (Mack) 83 % Bedside FiO2 21.0 Results All relevant outside records, renal labs, imaging studies, telemetry/EKG's were reviewed. XIMENA CONNELLY MD December 04, 2018 13:41
--- NOTE | 2018-12-04 13:50 | NUR ---
SS following up with discharge planning. Discharge orders received for home healthcare. Pt agreeable to home healthcare. Aviva from [facility] met with pt and discussed home healthcare. Discharge orders and referral phoned and faxed to [facility], ; fax [phone].
--- NOTE | 2018-12-04 13:53 | DS ---
DATE OF DISCHARGE: 12/04/2018 ADMITTING DIAGNOSIS: Acute coronary syndrome. SECONDARY DIAGNOSES: 1. Zuxbo-qw-[id number] combined systolic and diastolic congestive heart failure. 2. Yupxd-kj-bjytzdz renal failure. 3. Type 2 diabetes, uncontrolled. 4. Hypertension. 5. Urinary retention. 6. Hematuria. 7. Pulmonary hypertension. HISTORY OF PRESENT ILLNESS AND HOSPITAL COURSE: This patient is a 68-year-old male who came to the office with cough, congestion and increasing shortness of breath. He was found to have evidence of congestive heart failure. He was transferred to the ER for chest pain. The patient was evaluated and had elevated troponins and evidence of CHF. He underwent diuresis and Cardiology consultation. Eventually, the patient was taken to cardiac catheterization, where he was found to have 3-vessel disease. Discussion about coronary artery bypass graft was undertaken and CT Surgery was consulted. The patient, at this point, due to high risk of surgery, was given the option for percutaneous angioplasty and stent placement to multiple vessels. The patient decided to proceed with this mode of treatment. The patient also had urinary retention and had a Hicks catheter placed early with hematuria due to traumatic Hicks catheter. This resolved and the patient did go to repeat cardiac catheterization with multiple stents placed. This was successful. The patient did have sgyss-vw-xghlbzg renal failure, worsening early after procedure. He was hydrated and monitored. The patient developed pleural effusions due to renal failure, but improved with thoracentesis and diuresis. The patient's renal function began to trend towards his baseline and the patient was tolerating diet and again stabilized and therefore, plans for discharge were made. DISCHARGE MEDICATIONS: The patient was discharged on the following medications: Finasteride 5 mg daily, isosorbide 30 mg daily, tamsulosin 0.4 b.i.d., Brilinta 90 mg b.i.d., aspirin 81 mg daily, atorvastatin 80 mg daily, glimepiride 4 mg daily, Lantus 30 units at bedtime, insulin Humalog 8 units with meals, lisinopril 10 mg daily, metformin 500 mg b.i.d. and metoprolol extended release 25 mg daily. DISCHARGE INSTRUCTIONS: The patient will follow up in one week for evaluation of weight, consideration of Lasix and potassium. The patient wants to follow up with Urology for urinary retention and removal of Hicks catheter. The patient will have repeat blood tests of CBC and BMP to monitor improvement of renal failure. The patient will have PT and OT modalities and home health at discharge for weight checks, medical management, medications and PT and OT. BALWINDER MA MD DR: KEVIN/dari JOB#: [id number] / [id number]
--- NOTE | 2018-12-04 14:14 | PDOC ---
PROGRESS NOTES Subjective Subjective No new complaints. Objective Objective Vital Signs Date Time Temp Pulse Resp B/P (MAP) Pulse Ox O2 Delivery O2 Flow Rate FiO2 12/04/18 11:00 97.5 75 18 104/53 (70) 95 Room Air 97.5 12/04/18 07:00 1.5 Intake and Output 12/04/18 07:00 Intake Total 250 ml Output Total 3800 ml Balance -3550 ml Intake Oral 250 ml Output Urine Total 2200 ml Drainage Total 1600 ml Physical Exam Physical Exam He is sitting in bedside recliner withhis family at bedside and he is comfortable and walking with his family without assistance. Assessment Assessment Problems Medical Problems: (1) [id number] kidney injury Status: Acute (2) Chest pain Status: Acute (3) CHF (congestive heart failure) Status: Acute Plan Plan of Care Agree with plans for home with home health follow up. Comment Review of Relevant I have reviewed the following items bahman (where applicable) has been applied. Labs Laboratory Tests Test 12/02/18 16:58 12/02/18 21:11 12/03/18 05:30 12/03/18 08:07 Glucose (Fingerstick) 186 mg/dL (70-99) 161 mg/dL (70-99) 60 mg/dL (70-99) Sodium Level 139 mmol/L (136-145) Potassium Level 4.3 mmol/L (3.5-5.1) Chloride Level 105 mmol/L (98-107) Carbon Dioxide Level 25 mmol/L (21-32) Anion Gap 9 (6-14) Blood Urea Nitrogen 51 mg/dL (8-26) Creatinine 2.8 mg/dL (0.7-1.3) Estimated GFR (Cockcroft-Gault) 22.6 Glucose Level 94 mg/dL (70-99) Calcium Level 7.9 mg/dL (8.5-10.1) Test 12/03/18 09:45 12/03/18 12:54 12/03/18 17:40 12/03/18 20:37 Body Fluid Total Protein 1.4 g/dL (.) Body Fluid Lactate Dehydrogenase 76 IU/L (.) Glucose (Fingerstick) 104 mg/dL (70-99) 168 mg/dL (70-99) 205 mg/dL (70-99) Test 12/04/18 07:15 12/04/18 08:11 12/04/18 09:10 12/04/18 11:27 Sodium Level 142 mmol/L (136-145) Potassium Level 4.1 mmol/L (3.5-5.1) Chloride Level 106 mmol/L (98-107) Carbon Dioxide Level 23 mmol/L (21-32) Anion Gap 13 (6-14) Blood Urea Nitrogen 41 mg/dL (8-26) Creatinine 2.5 mg/dL (0.7-1.3) Estimated GFR (Cockcroft-Gault) 25.7 Glucose Level 54 mg/dL (70-99) Calcium Level 8.3 mg/dL (8.5-10.1) Glucose (Fingerstick) 53 mg/dL (70-99) 153 mg/dL (70-99) 239 mg/dL (70-99) Test 12/04/18 12:21 Bedside Venous pH 7.33 (7.32-7.42) Bedside Venous pCO2 43 mmHg (41-51) Bedside Venous pO2 51 mmHg (20-40) Venous Blood HCO3 23 mmol/L (24-28) POC Venous O2 Saturation (Mack) 83 % Bedside FiO2 21.0 Laboratory Tests Test 12/03/18 17:40 12/03/18 20:37 12/04/18 07:15 12/04/18 08:11 Glucose (Fingerstick) 168 mg/dL (70-99) 205 mg/dL (70-99) 53 mg/dL (70-99) Sodium Level 142 mmol/L (136-145) Potassium Level 4.1 mmol/L (3.5-5.1) Chloride Level 106 mmol/L (98-107) Carbon Dioxide Level 23 mmol/L (21-32) Anion Gap 13 (6-14) Blood Urea Nitrogen 41 mg/dL (8-26) Creatinine 2.5 mg/dL (0.7-1.3) Estimated GFR (Cockcroft-Gault) 25.7 Glucose Level 54 mg/dL (70-99) Calcium Level 8.3 mg/dL (8.5-10.1) Test 12/04/18 09:10 12/04/18 11:27 12/04/18 12:21 Glucose (Fingerstick) 153 mg/dL (70-99) 239 mg/dL (70-99) Bedside Venous pH 7.33 (7.32-7.42) Bedside Venous pCO2 43 mmHg (41-51) Bedside Venous pO2 51 mmHg (20-40) Venous Blood HCO3 23 mmol/L (24-28) POC Venous O2 Saturation (Mack) 83 % Bedside FiO2 21.0 Microbiology 12/02/18 Anaerobic/Aerobic Culture, Resulted Pending 12/02/18 Anaerobic Culture Result 1 (TIFFANIE), Resulted Pending 12/02/18 Aerobic Culture, Resulted Pending 12/02/18 Aerobic Culture Result 1 (TIFFANIE), Resulted Pending 12/02/18 Gram Stain - Final, Resulted 12/02/18 Gram Stain Result 1 (TIFFANIE) - Final, Resulted 12/02/18 Gram Stain Result 2 (TIFFANIE) - Final, Resulted 11/22/18 Urine Culture - Final, Complete 11/22/18 Urine Culture Result 1 (TIFFANIE) - Final, Complete Medications Current Medications Furosemide (Lasix) 60 mg 1X ONCE IVP Last administered on 11/21/18at 16:34; Start 11/21/18 at 15:45; Stop 11/21/18 at 15:49; Status DC Insulin Human Regular (HumuLIN R VIAL) 5 unit 1X ONCE IV Last administered on 11/21/18at 17:50; Start 11/21/18 at 17:30; Stop 11/21/18 at 17:31; Status DC Heparin Sodium (Porcine) (Heparin Sodium) 4,000 unit 1X ONCE IV Last administered on 11/21/18at 17:46; Start 11/21/18 at 17:30; Stop 11/21/18 at 17:31; Status DC Heparin Sodium/ Dextrose 500 ml @ 17.6 mls/hr CONT PRN IV SEE I/O RECORD Last administered on 11/25/18at 02:02; Start 11/21/18 at 17:30; Stop 11/25/18 at 15:51; Status DC Heparin Sodium (Porcine) (Heparin Sodium) 1,850 unit PRN Q6HRS PRN IV FOR UFH LEVEL LESS THAN 0.2 Last administered on 11/22/18at 01:30; Start 11/21/18 at 17:30; Stop 11/25/18 at 15:51; Status DC Ondansetron HCl (Zofran) 4 mg PRN Q8HRS PRN IV NAUSEA/VOMITING; Start 11/21/18 at 17:30; Stop 11/22/18 at 17:29; Status DC Morphine Sulfate (Morphine Sulfate) 2 mg PRN Q2HR PRN IV PAIN; Start 11/21/18 at 17:30; Stop 11/22/18 at 17:29; Status DC Acetaminophen (Tylenol) 650 mg PRN Q4HRS PRN PO FEVER; Start 11/21/18 at 17:30; Stop 11/22/18 at 17:29; Status DC Alprazolam (Xanax) 0.5 mg PRN Q6HRS PRN PO ANXIETY / AGITATION Last admin istered on 11/25/18at 20:38; Start 11/22/18 at 03:30 Aspirin (Ecotrin) 81 mg DAILY PO Last administered on 12/04/18 09:06; Start 11/22/18 at 09:00 Clopidogrel Bisulfate (Plavix) 75 mg DAILY PO Last administered on 11/25/18 08:45; Start 11/22/18 at 09:00; Stop 11/26/18 at 10:07; Status DC Insulin Glargine (Lantus) 30 units QHS SQ Last administered on 12/03/18 21:48; Start 11/22/18 at 21:00 Insulin Human Lispro (HumaLOG) 8 units TIDAC SQ Last administered on 12/04/18 12:41; Start 11/22/18 at 11:30 Lisinopril (Prinivil) 10 mg DAILY PO Last administered on 11/23/18 08:42; Start 11/22/18 at 09:00; Stop 11/24/18 at 10:47; Status DC Metoprolol Succinate (Toprol Xl) 25 mg DAILY PO Last administered on 11/26/18 08:15; Start 11/22/18 at 09:00; Stop 11/26/18 at 11:28; Status DC Atorvastatin Calcium (Lipitor) 80 mg QHS PO Last administered on 12/03/18 21:35; Start 11/22/18 at 21:00 Glimepiride (Amaryl) 4 mg DAILY PO Last administered on 12/02/18at 14:49; Start 11/22/18 at 09:00 Info (Anti-Coagulation Monitoring By Pharmacy) 1 each PRN DAILY PRN MC SEE COMMENTS Last administered on 11/25/18at 09:30; Start 11/22/18 at 10:45; Stop 11/26/18 at 07:22; Status DC Tamsulosin HCl (Flomax) 0.4 mg QHS PO Last administered on 11/30/18at 21:16; Start 11/22/18 at 21:00; Stop 12/01/18 at 08:39; Status DC Magnesium Citrate (Citroma) 296 ml 1X ONCE PO Last administered on 11/24/18at 15:39; Start 11/24/18 at 15:00; Stop 11/24/18 at 15:01; Status DC Polyethylene Glycol (miraLAX PACKET) 17 gm DAILY PO Last administered on 12/02/18at 14:47; Start 11/24/18 at 15:00 Acetylcysteine (Mucomyst 20% Oral Solution) 600 mg BID PO Last administered on 11/27/18at 09:51; Start 11/24/18 at 21:00; Stop 11/27/18 at 12:00; Status DC Sodium Chloride 1,000 ml @ 60 mls/hr [id number] IV Last administered on 11/24/18at 22:22; Start 11/25/18 at 07:30; Stop 11/25/18 at 14:10; Status DC Iodixanol (Visipaque 320) 100 ml STK-MED ONCE .ROUTE ; Start 11/25/18 at 09:00; Stop 11/25/18 at 09:01; Status DC Lidocaine HCl (Xylocaine-Mpf 1% 2ml Vial) 2 ml STK-MED ONCE .ROUTE ; Start 11/25/18 at 09:00; Stop 11/25/18 at 09:01; Status DC Heparin Sodium/ Sodium Chloride 1,500 ml @ As Directed STK-MED ONCE .ROUTE ; Start 11/25/18 at 09:00; Stop 11/25/18 at 09:01; Status DC Fentanyl Citrate (Fentanyl 2ml Vial) 100 mcg STK-MED ONCE .ROUTE ; Start 11/25/18 at 09:03; Stop 11/25/18 at 09:04; Status DC Midazolam HCl (Versed) 2 mg STK-MED ONCE .ROUTE ; Start 11/25/18 at 09:03; Stop 11/25/18 at 09:04; Status DC Heparin Sodium (Porcine) (Heparin Sodium) 10,000 unit STK-MED ONCE .ROUTE ; Start 11/25/18 at 09:03; Stop 11/25/18 at 09:04; Status DC Verapamil HCl (Verapamil) 5 mg STK-MED ONCE .ROUTE ; Start 11/25/18 at 09:03; Stop 11/25/18 at 09:04; Status DC Nitroglycerin (Nitroglycerin) 200 mcg STK-MED ONCE .ROUTE ; Start 11/25/18 at 09:04; Stop 11/25/18 at 09:05; Status DC Lidocaine HCl (Lidocaine 1% 20ml Vial) 20 ml STK-MED ONCE .ROUTE ; Start 11/25/18 at 09:25; Stop 11/25/18 at 09:26; Status DC Heparin Sodium/ Sodium Chloride (HEPARIN for ARTERIAL LINE FLUSH) 1,000 unit 1X ONCE IART Last administered on 11/25/18at 09:53; Start 11/25/18 at 09:45; Stop 11/25/18 at 09:46; Status DC Midazolam HCl (Versed) 2 mg 1X ONCE IV Last administered on 11/25/18at 09:52; Start 11/25/18 at 09:45; Stop 11/25/18 at 09:46; Status DC Fentanyl Citrate (Fentanyl 2ml Vial) 50 mcg 1X ONCE IV Last administered on 11/25/18at 09:53; Start 11/25/18 at 09:45; Stop 11/25/18 at 09:46; Status DC Iodixanol (Visipaque 320) 100 ml 1X ONCE IART Last administered on 11/25/18at 09:52; Start 11/25/18 at 09:45; Stop 11/25/18 at 09:46; Status DC Lidocaine HCl (Lidocaine 1% 20ml Vial) 10 ml 1X ONCE INJ Last administered on 11/25/18at 09:45; Start 11/25/18 at 09:45; Stop 11/25/18 at 09:46; Status DC Lidocaine HCl (Xylocaine-Mpf 1% 2ml Vial) 1 ml 1X ONCE INJ Last administered on 11/25/18at 09:52; Start 11/25/18 at 09:45; Stop 11/25/18 at 09:46; Status DC Info (CONTRAST GIVEN -- Rx MONITORING) 1 each PRN DAILY PRN MC SEE COMMENTS; Start 11/25/18 at 09:45; Stop 11/27/18 at 09:44; Status DC Furosemide (Lasix) 40 mg 1X ONCE IVP Last administered on 11/25/18at 17:08; Start 11/25/18 at 16:00; Stop 11/25/18 at 16:01; Status DC Verapamil HCl (Verapamil) 5 mg STK-MED ONCE .ROUTE ; Start 11/25/18 at 09:00; Stop 11/26/18 at 08:28; Status DC Metoprolol Succinate (Toprol Xl) 50 mg DAILY PO Last administered on 12/04/18at 09:05; Start 11/27/18 at 09:00 Clopidogrel Bisulfate (Plavix) 75 mg DAILYWBKFT PO Last administered on 11/28/18at 09:15; Start 11/26/18 at 11:30; Stop 11/28/18 at 17:30; Status DC Furosemide (Lasix) 20 mg 1X ONCE IVP Last administered on 11/26/18at 12:39; Start 11/26/18 at 11:30; Stop 11/26/18 at 11:31; Status DC Acetaminophen/ Hydrocodone Bitart (Lortab 5/325) 1 tab 1X ONCE PO Last administered on 11/27/18at 21:42; Start 11/27/18 at 21:00; Stop 11/27/18 at 21:01; Status DC Finasteride (Proscar) 5 mg DAILY PO Last administered on 12/04/18at 09:05; Start 11/28/18 at 10:00 Iodixanol (Visipaque 320) 100 ml STK-MED ONCE .ROUTE ; Start 11/28/18 at 09:58; Stop 11/28/18 at 09:59; Status DC Lidocaine HCl (Lidocaine 1% 20ml Vial) 20 ml STK-MED ONCE .ROUTE ; Start 11/28/18 at 09:58; Stop 11/28/18 at 09:59; Status DC Heparin Sodium/ Sodium Chloride 1,500 ml @ As Directed STK-MED ONCE .ROUTE ; Start 11/28/18 at 09:58; Stop 11/28/18 at 09:59; Status DC Fentanyl Citrate (Fentanyl 5ml Vial) 250 mcg STK-MED ONCE .ROUTE ; Start 11/28/18 at 12:20; Stop 11/28/18 at 12:21; Status DC Midazolam HCl (Versed) 5 mg STK-MED ONCE .ROUTE ; Start 11/28/18 at 12:21; Stop 11/28/18 at 12:22; Status DC Heparin Sodium (Porcine) (Heparin Sodium) 10,000 unit STK-MED ONCE .ROUTE ; Start 11/28/18 at 12:33; Stop 11/28/18 at 12:34; Status DC Verapamil HCl (Verapamil) 5 mg STK-MED ONCE .ROUTE ; Start 11/28/18 at 12:33; Stop 11/28/18 at 12:34; Status DC Nitroglycerin/ Dextrose (Nitroglycerin) 4 mg STK-MED ONCE .ROUTE ; Start 11/28/18 at 12:33; Stop 11/28/18 at 12:34; Status DC Heparin Sodium (Porcine) (Heparin Sodium) 10,000 unit STK-MED ONCE .ROUTE ; Start 11/28/18 at 12:45; Stop 11/28/18 at 12:46; Status DC Heparin Sodium/ Sodium Chloride 500 ml @ As Directed STK-MED ONCE .ROUTE ; Start 11/28/18 at 13:09; Stop 11/28/18 at 13:10; Status DC Dopamine HCl/ Dextrose 0 ml @ As Directed STK-MED ONCE IV ; Start 11/28/18 at 13:23; Stop 11/28/18 at 13:24; Status DC Phenylephrine HCl (PHENYLEPHRINE in 0.9% NACL PF) 1 mg STK-MED ONCE IV ; Start 11/28/18 at 13:23; Stop 11/28/18 at 13:24; Status DC Norepinephrine Bitartrate 250 ml @ 1.875 mls/ hr ONCE ONCE IV ; Start 11/28/18 at 13:30; Stop 12/01/18 at 20:08; Status DC Heparin Sodium/ Sodium Chloride 500 ml @ As Directed STK-MED ONCE .ROUTE ; Start 11/28/18 at 13:39; Stop 11/28/18 at 13:40; Status DC Nitroglycerin (Nitroglycerin) 200 mcg STK-MED ONCE .ROUTE ; Start 11/28/18 at 14:03; Stop 11/28/18 at 14:04; Status DC Nitroglycerin (Nitroglycerin) 200 mcg STK-MED ONCE .ROUTE ; Start 11/28/18 at 14:10; Stop 11/28/18 at 14:11; Status DC Nitroglycerin (Nitroglycerin) 400 mcg 1X ONCE IART Last administered on 11/28/18at 14:30; Start 11/28/18 at 14:30; Stop 11/28/18 at 14:31; Status DC Heparin Sodium/ Sodium Chloride (HEPARIN for ARTERIAL LINE FLUSH) 1,000 unit 1X ONCE IART Last administered on 11/28/18at 14:30; Start 11/28/18 at 14:30; Stop 11/28/18 at 14:31; Status DC Heparin Sodium/ Sodium Chloride (HEPARIN for ARTERIAL LINE FLUSH) 1,000 unit 1X ONCE IART Last administered on 11/28/18at 14:30; Start 11/28/18 at 14:30; Stop 11/28/18 at 14:31; Status DC Midazolam HCl (Versed) 5 mg 1X ONCE IV Last administered on 11/28/18 14:30; Start 11/28/18 at 14:30; Stop 11/28/18 at 14:31; Status DC Fentanyl Citrate (Fentanyl 5ml Vial) 250 mcg 1X ONCE IV Last administered on 11/28/18 14:30; Start 11/28/18 at 14:30; Stop 11/28/18 at 14:31; Status DC Iodixanol (Visipaque 320) 100 ml 1X ONCE IART Last administered on 11/28/18 14:30; Start 11/28/18 at 14:30; Stop 11/28/18 at 14:31; Status DC Heparin Sodium (Porcine) (Heparin Sodium) 4,000 unit 1X ONCE IV Last administered on 11/28/18 14:30; Start 11/28/18 at 14:30; Stop 11/28/18 at 14:31; Status DC Lidocaine HCl (Lidocaine 1% 20ml Vial) 20 ml 1X ONCE INJ Last administered on 11/28/18 14:30; Start 11/28/18 at 14:30; Stop 11/28/18 at 14:31; Status DC Info (CONTRAST GIVEN -- Rx MONITORING) 1 each PRN DAILY PRN MC SEE COMMENTS; Start 11/28/18 at 14:30; Stop 11/30/18 at 14:29; Status DC Nitroglycerin/ Dextrose 4 mg/ Verapamil HCl 10 mg/Heparin Sodium (Porcine) 4000 unit/ Miscellaneous 20 ml/Sodium Chloride 1,048 ml @ 1,000 mls/hr 1X ONCE IART Last administered on 11/28/18at 14:45; Start 11/28/18 at 14:45; Stop 11/28/18 at 15:47; Status DC Heparin Sodium/ Sodium Chloride (HEPARIN for ARTERIAL LINE FLUSH) 1,000 unit 1X ONCE IART Last administered on 11/28/18at 14:45; Start 11/28/18 at 14:45; Stop 11/28/18 at 14:46; Status DC Heparin Sodium/ Sodium Chloride (HEPARIN for ARTERIAL LINE FLUSH) 1,000 unit 1X ONCE IART Last administered on 11/28/18at 14:45; Start 11/28/18 at 14:45; Stop 11/28/18 at 14:46; Status DC Nitroglycerin (Nitroglycerin) 200 mcg STK-MED ONCE .ROUTE ; Start 11/28/18 at 14:42; Stop 11/28/18 at 14:43; Status DC Nitroglycerin (Nitroglycerin) 200 mcg STK-MED ONCE .ROUTE ; Start 11/28/18 at 15:19; Stop 11/28/18 at 15:20; Status DC Heparin Sodium/ Sodium Chloride 500 ml @ As Directed STK-MED ONCE .ROUTE ; Start 11/28/18 at 15:35; Stop 11/28/18 at 15:36; Status DC Heparin Sodium/ Sodium Chloride (HEPARIN for ARTERIAL LINE FLUSH) 1,000 unit 1X ONCE IART Last administered on 11/28/18at 15:45; Start 11/28/18 at 15:45; Stop 11/28/18 at 15:46; Status DC Ticagrelor (Brilinta) 90 mg STK-MED ONCE .ROUTE ; Start 11/28/18 at 15:58; Stop 11/28/18 at 15:59; Status DC Ticagrelor (Brilinta) 180 mg ONCE ONCE PO Last administered on 11/28/18at 16:03; Start 11/28/18 at 16:03; Stop 11/28/18 at 16:04; Status DC Sodium Chloride 500 ml @ 500 mls/hr 1X ONCE IV ; Start 11/28/18 at 16:30; Stop 11/28/18 at 17:29; Status DC Sodium Chloride 1,000 ml @ 50 mls/hr Q20H IV Last administered on 12/01/18 21:29; Start 11/28/18 at 16:30; Stop 12/02/18 at 06:50; Status DC Ticagrelor (Brilinta) 90 mg BID PO Last administered on 12/04/18 09:06; Start 11/28/18 at 21:00 Acetaminophen (Tylenol) 650 mg PRN Q6HRS PRN PO PAIN Last administered on 12/03/18 10:56; Start 11/29/18 at 09:45 Polyethylene Glycol (miraLAX PACKET) 17 gm DAILY PO ; Start 11/29/18 at 12:00; Status UNV Zolpidem Tartrate (Ambien) 5 mg PRN QHS PRN PO INSOMNIA Last administered on 12/01/18 21:35; Start 11/29/18 at 12:00 Hydralazine HCl (Apresoline) 10 mg TID PO Last administered on 12/03/18 21:38; Start 11/29/18 at 14:00 Isosorbide Mononitrate (Imdur) 30 mg DAILY PO Last administered on 12/04/18 09:05; Start 11/29/18 at 12:15 Magnesium Citrate (Citroma) 296 ml PRN 1X PRN PO CONSTIPATION; Start 11/30/18 at 11:15 Ondansetron HCl (Zofran) 4 mg PRN Q6HRS PRN IV NAUSEA/VOMITING; Start 11/30/18 at 18:00 Verapamil HCl (Verapamil) 5 mg STK-MED ONCE .ROUTE ; Start 11/28/18 at 13:00; Stop 12/01/18 at 07:40; Status DC Tamsulosin HCl (Flomax) 0.4 mg BID PO Last administered on 12/04/18 12:37; Start 12/01/18 at 09:00 Furosemide (Lasix) 40 mg 1X ONCE IVP Last administered on 12/02/18at 09:24; Start 12/02/18 at 09:00; Stop 12/02/18 at 09:01; Status DC Active Scripts Active Finasteride 5 Mg Tablet 5 Mg PO DAILY 30 Days Isosorbide Mononitrate Er (Isosorbide Mononitrate) 30 Mg Tab.er.24h 30 Mg PO DAILY 30 Days Brilinta (Ticagrelor) 90 Mg Tablet 90 Mg PO BID 30 Days Flomax (Tamsulosin Hcl) 0.4 Mg Cap.er.24h 0.4 Mg PO BID 30 Days Humalog (Insulin Lispro) 100 Unit/1 Ml Insuln.pen 8 Units SQ TIDAC 90 Days Lantus Solostar (Insulin Glargine,Hum.rec.anlog) 100 Unit/1 Ml Insuln.pen 30 Units SQ QHS 30 Days Lisinopril 10 Mg Tablet 10 Mg PO DAILY 90 Days Reported Metoprolol Succinate ( Xl ) (Metoprolol Succinate) 25 Mg Tab.er.24h 25 Mg PO DAILY Glimepiride 4 Mg Tablet 4 Mg PO DAILY Aspir 81 (Aspirin) 81 Mg Tablet.dr 1 Tab PO DAILY Atorvastatin Calcium 80 Mg Tablet 1 Tab PO DAILY Metformin Hcl 500 Mg Tablet 1,000 Mg PO BID Vitals/I & O Vital Sign - Last 24 Hours 12/03/18 12/03/18 12/03/18 12/03/18 15:00 19:59 20:00 21:38 Temp 98.0 98.2 98.0 98.2 Pulse 77 81 81 Resp 14 16 B/P (MAP) 99/54 (69) 108/60 (76) 108/60 Pulse Ox 93 97 O2 Delivery Nasal Cannula Room Air Room Air O2 Flow Rate 2.0 12/03/18 12/04/18 12/04/18 12/04/18 22:15 02:19 07:00 08:00 Temp 97.7 98.1 97.6 97.7 98.1 97.6 Pulse 80 81 82 Resp 16 16 18 B/P (MAP) 116/66 (83) 104/58 (73) 122/67 (85) Pulse Ox 95 98 95 O2 Delivery Room Air Nasal Cannula Nasal Cannula Room Air O2 Flow Rate 1.5 1.5 12/04/18 12/04/18 12/04/18 12/04/18 09:05 09:05 09:09 11:00 Temp 97.5 97.5 Pulse 80 82 75 Resp 18 B/P (MAP) 122/67 122/67 122/67 104/53 (70) Pulse Ox 95 O2 Delivery Room Air Intake and Output 12/03/18 12/03/18 12/04/18 15:00 23:00 07:00 Intake Total 250 ml Output Total 2200 ml 400 ml 1200 ml Balance -2200 ml -400 ml -950 ml ANTONINO MARQUEZ MD December 04, 2018 14:14
--- NOTE | 2018-12-04 14:45 | NUR ---
Pgd and spoke to Urology SAFE TECHNICIAN regarding stoner catheter. Order to maintain to stoner catheter and change bag to leg bag until patients follow up appointment on December 11 with Urology. Change collection bag to leg bag. Gave education to patient/family regarding catheter care and how to empty the bag. Advised patient to keep record of output amount and take record with him to appointment. Patient and family verbalized understanding.
--- NOTE | 2018-12-04 15:06 | PATHOLOGY ---
Note [facility] Accession Number: [id number] TESTS RESULT FLAG UNITS REF RANGE LAB Clinician Provided Cytology Information No. of containers..01 Other (Miscellaneous) Source: LEFT PLEURAL FLUID DIAGNOSIS: LEFT PLEURAL FLUID NEGATIVE FOR MALIGNANT CELLS. REACTIVE MESOTHELIAL CELLS, LYMPHOCYTES, AND NEUTROPHILS PRESENT. THIS INTERPRETATION INCLUDES EVALUATION OF A CELL BLOCK. Signed out by: 02 Danny Gonzalez MD, Pathologist NPI- [id number] Performed by: Merari Howard, Roving Winder ([facility]) Gross description: 01 35ML, YELLOW, CLEAR /LCS FLAG LEGEND: L-Low Normal,H-High Normal,LL-Alert Low,HH-Alert High <-Panic Low,>-Panic High,A-Abnormal,AA-Critical Abnormal Performed at: 01 [facility] [address] [place] [address] Jarad Hendrickson MD, 02 [facility] [address] [place] [address] Danny Gonzalez MD, Specimen Comment: A courtesy copy of this report has been sent to Specimen Comment: [phone], , . Specimen Comment: Report sent to ,DR LARA / DR MA Specimen Comment: A duplicate report has been generated due to demographic updates. Performed at: 01 [facility] [address], [place], [place] [id number] MD Jarad Hendrickson MD Phone: [phone]
--- NOTE | 2018-12-04 15:06 | PATHOLOGY ---
Note [facility] Accession Number: [id number] TESTS RESULT FLAG UNITS REF RANGE LAB Clinician Provided Cytology Information No. of containers..01 Other (Miscellaneous) Source: RIGHT PLEURAL FLUID DIAGNOSIS: 02 RIGHT PLEURAL FLUID NEGATIVE FOR MALIGNANT CELLS. REACTIVE MESOTHELIAL CELLS, LYMPHOCYTES, AND FEW NEUTROPHILS PRESENT. THIS INTERPRETATION INCLUDES EVALUATION OF A CELL BLOCK. Signed out by: 02 Danny Gonzalez MD, Pathologist NPI- [id number] Performed by: Merari Howard, Nuclear Operator ([facility]) Gross description: 01 30ML, YELLOW, CLEAR /LCS FLAG LEGEND: L-Low Normal,H-High Normal,LL-Alert Low,HH-Alert High <-Panic Low,>-Panic High,A-Abnormal,AA-Critical Abnormal Performed at: [facility] [address] [place] [address] Jarad Hendrickson MD, 02 [facility] [address] [place] [address] Danny Gonzalez MD, Specimen Comment: A courtesy copy of this report has been sent to Specimen Comment: [phone], , . Specimen Comment: Report sent to ,DR LARA / DR MA Specimen Comment: A duplicate report has been generated due to demographic updates. Performed at: 01 [facility] [address], [place], [place] [id number] MD Jarda Hendrickson MD Phone: [phone]
[2018-12-04] MEDS ORDERED: FURO-68 PO (15:11)
--- NOTE | 2018-12-04 16:42 | NUR ---
Discharge Note: BOBBY MENCHACA FAYETTE Discharge instructions and discharge home medications reviewed with Family Member and a copy given. All questions have been answered and understanding verbalized. The following instructions and handouts were given: post catherization instions, medication list, stent card, angioseal card, prescriptions to fill, stoner catheter instructions and follow up appointments Discontinued lines and drains: IV's X's 2 discontinued, dressings intact. Patient discharged to home with[home health via wheelchair
== END 2018-12-04 16:00 | disposition home health service (06) | DRG 215 ==
LOC: ER 15:21 → ED HOLD 17:28 → 2 NORTH 21:20
PROVIDERS: ADMIT Family Medicine; ATTEND Family Medicine
PROC: 4A023N7 Measurement of Cardiac Sampling and Pressure, Left Heart, Percutaneous Approach (ICD-10-PCS; 2018-11-25)
PROC: B2111ZZ Fluoroscopy of Multiple Coronary Arteries using Low Osmolar Contrast (ICD-10-PCS; 2018-11-25)
PROC: B2151ZZ Fluoroscopy of Left Heart using Low Osmolar Contrast (ICD-10-PCS; 2018-11-25)
PROC: 0TJB8ZZ Inspection of Bladder, Via Natural or Artificial Opening Endoscopic (ICD-10-PCS; 2018-11-27)
PROC: 027236Z Dilation of Coronary Artery, Three Arteries with Three Drug-eluting Intraluminal Devices, Percutaneous Approach (ICD-10-PCS; principal; 2018-11-28)
PROC: 02HA3RZ Insertion of Short-term External Heart Assist System into Heart, Percutaneous Approach (ICD-10-PCS; 2018-11-28)
PROC: 02C03ZZ Extirpation of Matter from Coronary Artery, One Artery, Percutaneous Approach (ICD-10-PCS; 2018-11-28)
PROC: 5A0221D Assistance with Cardiac Output using Impeller Pump, Continuous (ICD-10-PCS; 2018-11-28)
PROC: 0W993ZZ Drainage of Right Pleural Cavity, Percutaneous Approach (ICD-10-PCS; 2018-12-03)
PROC: 0W9B3ZZ Drainage of Left Pleural Cavity, Percutaneous Approach (ICD-10-PCS; 2018-12-04)
DX: I13.0 Hypertensive heart and chronic kidney disease with heart failure and stage 1 through stage 4 chronic kidney disease, or unspecified chronic kidney disease (principal); I50.43 Acute on chronic combined systolic (congestive) and diastolic (congestive) heart failure; I21.4 Non-ST elevation (NSTEMI) myocardial infarction; T83.83XA Hemorrhage due to genitourinary prosthetic devices, implants and grafts, initial encounter; N17.9 Acute kidney failure, unspecified; I24.9 Acute ischemic heart disease, unspecified; J91.8 Pleural effusion in other conditions classified elsewhere; J98.11 Atelectasis; I25.10 Atherosclerotic heart disease of native coronary artery without angina pectoris; E11.65 Type 2 diabetes mellitus with hyperglycemia; E78.5 Hyperlipidemia, unspecified; E11.51 Type 2 diabetes mellitus with diabetic peripheral angiopathy without gangrene; E11.22 Type 2 diabetes mellitus with diabetic chronic kidney disease; R33.8 Other retention of urine; R31.0 Gross hematuria; I27.20 Pulmonary hypertension, unspecified; Y65.8 Other specified misadventures during surgical and medical care; K59.00 Constipation, unspecified; I25.5 Ischemic cardiomyopathy; E11.42 Type 2 diabetes mellitus with diabetic polyneuropathy; T50.8X5A Adverse effect of diagnostic agents, initial encounter; N40.1 Benign prostatic hyperplasia with lower urinary tract symptoms; N18.3 Chronic kidney disease, stage 3 (moderate); Y92.89 Other specified places as the place of occurrence of the external cause; Z95.5 Presence of coronary angioplasty implant and graft; Z89.422 Acquired absence of other left toe(s); Z86.73 Personal history of transient ischemic attack (TIA), and cerebral infarction without residual deficits
CPT/HCPCS: 33991; 92928; 92933; 93458; 99285; G0269; 32555; 36415; 71045; 71046; 71250; 74176; 80048; 80053; 80061; 81001; 82803; 82962; 83615; 83735; 83880; 84157; 84484; 85007; 85025; 85027; 85347; 85520; 85610; 86850; 86900; 86901; 86920; 87071; 87075; 87086; 88112; 88305; 93005; 93306; 94618; 96374; 96375; 99152; 99153; C1724; C1725; C1760; C1769; C1874; C1887; C1892; J1644; J1815; J1940; J2250; J3010; J3490; J7030; Q9967; C1771

== ENCOUNTER → 2018-12-08 | Outpatient (CLI) | payer MEDICARE ==
[2018-12-04 11:00] VITALS: BP 104/53
[~2018-12-08] MED LIST changes: +FINA5TAB4 PO; +FURO-68 PO; +GLIM4TAB2 PO; +ISOS30TA4 PO; +METO-239 PO; +TAMS0.4C97 PO; +TICA90TA PO
[2018-12-08 14:38] LABS: CALCIUM 8.4 mg/dL (8.5-10.1); CREATININE 2.1 mg/dL (0.7-1.3); GFR 31.5; MAGNESIUM 1.8 mg/dL (1.8-2.4); POTASSIUM 4.4 mmol/L (3.5-5.1)
== END | disposition home or self-care (01) ==
LOC: LAB 14:02
PROVIDERS: ATTEND Nurse Practitioner Family
DX: I11.0 Hypertensive heart disease with heart failure (principal); I50.9 Heart failure, unspecified; Z79.899 Other long term (current) drug therapy
CPT/HCPCS: 36415; 80048; 83735

== ENCOUNTER → 2019-08-10 | Outpatient (CLI) | payer MEDICARE ==
[~2019-08-10] MED LIST changes: +ACET1TAB33 PO; +ACET500T68 PO; +ASCO500T2 PO; +ASPI-630 PO; +BUME1TAB3 PO; +CHOL500062 PO; +DAPT350V IV; +FERR325T14 PO; -GLIM4TAB2 PO; +GLIM4TAB8 PO; +INSU100C4 SQ; +INSU100V37 SQ; +INSU100V6 SQ; +LACT1CAP19 PO; +MERO500V15 IV; +METF10007 PO; +METO5TAB4 PO; +MILR20PI IV; +MULT-638 PO; +ONDA4DIS IV; +OXYC-325 PO; +POLY2500 PO; +POTA20TA4 PO; +SULF-143 PO; +[UNRECOGNIZED DRUG - CODE] IV; +e
--- NOTE | 2019-08-10 17:58 | RAD ---
Bilateral lower extremity arterial ultrasound History: Nonhealing right foot wound Findings: Multiple grayscale, color, and duplex spectral analysis sonographic images were acquired of the lower extremity arteries bilaterally. There are no previous similar exams. Mild diffuse atheromatous involvement of the right lower extremity arterial vasculature is present. Velocities in cm/sec: RIGHT Common femoral artery 68 Profunda femoris artery 68 Proximal SFA 59 Mid SFA 107 Distal SFA 76 Popliteal artery 124 Anterior tibial artery 45 Dorsalis pedis artery 24 Posterior tibial artery 77 Peroneal artery 50 Triphasic flow is present involving the common femoral artery, superficial femoral artery, popliteal artery. Biphasic flow involves the deep femoral artery. Monophasic flow is identified involving distal to the popliteal artery. Right ankle-brachial index was obtained. Right upper injury systolic blood pressure 105 is noted. Left ovary shows the systolic blood pressure 107 noted. Right ankle posterior tibial arterial level and dorsalis pedis level pressures of 100 2113 noted. Ankle-brachial index on the right ovary is 1.1. Impression: Relatively diminished right common femoral artery flow velocity. Correlate for the possibility of a more proximal stenosis. Monophasic flow identified involving the arterial vasculature of the calf raising concern of diffuse narrowing. Diminished dorsalis pedis arterial flow also seen. Right ankle brachial index within normal limits. Electronically signed by: Devyn Estrada MD (08/10/2019 5:55 PM) [facility]
== END | disposition home or self-care (01) ==
LOC: US 13:51
PROVIDERS: ATTEND Preventive Medicine Undersea and Hyperbaric Medicine
DX: E11.621 Type 2 diabetes mellitus with foot ulcer (principal); L97.518 Non-pressure chronic ulcer of other part of right foot with other specified severity; E11.51 Type 2 diabetes mellitus with diabetic peripheral angiopathy without gangrene
CPT/HCPCS: 93922; 93926